=== PATIENT | female | born 1935 | race Caucasian/White ===

== ENCOUNTER → 2018-09-26 08:19 | Outpatient (CLI) | payer MEDICARE, SELFPAY ==
[2018-09-26 13:46] LABS: Basophils % 0.2 % (0.1-2.0); Eosinophils # 0.1 K/mm3 (0.0-0.4); Eosinophils % 2.7 % (0.1-12.0); Hematocrit 35.8 % (37.0-47.0); Hemoglobin 12.1 g/dL (12.2-16.2); Lymphocytes % 43.4 K/mm3 (10-50); Mean Corpuscular HGB Conc 33.9 g/dL (31.8-35.4); Mean Corpuscular Hemoglobin 31.6 pg (27.0-31.2); Mean Corpuscular Volume 93.3 fl (81-99); Monocytes # 0.2 K/mm3 (0.1-1.0); Monocytes % 4.4 % (1.7-9.3); Neutrophils # 2.3 K/mm3 (1.8-7.8); Neutrophils % 49.3 % (37.0-80.0); Platelet Count 214 K/mm3 (142-424); Red Blood Count 3.84 M/mm3 (4.20-5.40); Red Cell Distribution Width 13.6 % (11.5-17.5); White Blood Count 4.7 K/mm3 (4.8-10.8)
[2018-09-26 14:05] LABS: Alanine Aminotransferase 22 U/L (12-78); Albumin Level 3.7 gm/dL (3.4-5.0); Albumin/Globulin Ratio 1.2 (1.1-1.8); Alkaline Phosphatase 61 U/L (46-116); Anion Gap 14.2 mEq/L (5-15); Aspartate Amino Transferase 19 U/L (15-37); Bilirubin,Total 0.5 mg/dL (0.2-1.0); Blood Urea Nitrogen 15 mg/dL (7-18); Calcium 9.1 mg/dL (8.5-10.1); Carbon Dioxide 26 mmol/L (21.0-32.0); Chloride 104 mmol/L (98-107); Chol/HDL Ratio 2.8 (1-3.5); Cholesterol 189 mg/dL (140-200); Creatinine,Serum 0.65 mg/dL (0.55-1.02); Estimated Glomerular Filt Rate 87 ml/min (>60); GFR (African American) 105 ML/MIN (>60); Globulin 3.1 gm/dl (1.3-3.2); Glucose 97 mg/dL (74-106); HDL Cholesterol 67 mg/dL (29-89); LDL Cholesterol 107 mg/dL (0-130); Potassium 4.2 mmoL/L (3.5-5.1); Sodium 140 mmol/L (136-145); Total Protein,Serum 6.8 gm/dL (6.4-8.2); Triglycerides 77 mg/dL (30-200); VLDL Cholesterol 15 mg/dL (0-40)
== END ==
PROVIDERS: PCP Physician Assistant; Visit Provider Emergency Medicine
DX: R00.2 Palpitations (principal); E78.00 Pure hypercholesterolemia, unspecified; R07.2 Precordial pain; R06.02 Shortness of breath; R22.43 Localized swelling, mass and lump, lower limb, bilateral
CPT/HCPCS: 36415; 80053; 80061; 85025

== ENCOUNTER 2019-05-22 15:00 | Outpatient (RCR) | payer MEDICARE, SELFPAY | END 2019-06-09 15:58 | disposition home or self-care (01) | LOC: PT.CARL 15:00 | PROVIDERS: Visit Provider Nurse Practitioner Family | DX: M53.86 Other specified dorsopathies, lumbar region (principal) | CPT/HCPCS: 97010; 97014; 97033; 97035; 97110; 97140; 97163; G0283 ==

== ENCOUNTER 2020-04-07 18:05 | Observation (INO) | payer MEDICARE, SELFPAY ==
--- NOTE | 2020-04-07 17:29 | ECG_ITS ---
APPROVED REPORT Exam: Resting ECG HR:56 bpm ECG Measurements Heart Rate 56 AXES IA 144 P 66 QRSd 84 QRS 8 QT 454 T 51 QTc 438 <Conclusion> Sinus bradycardia Otherwise normal ECG Electronically signed by : Trev Hays, 04/09/2020 06:33:17
--- NOTE | 2020-04-07 17:29 | CT_ITS ---
PROCEDURE: CT HEAD/BRAIN WO CON CLINICAL INDICATION: dizziness, left facial droop Dizziness, left-sided facial droop COMPARISON: No exams were available for comparison TECHNIQUE: Axial images obtained. All CT scans at the facility use one or more dose reduction, viz: automated exposure control, ma/kV adjustment per patient size (including targeted exams where dose is matched to indication, i.e. head), or iterative reconstruction technique. There is generalized atrophy with hypoattenuation of the periventricular white matter consistent with microangiopathic changes. FINDINGS: No midline shift, mass effect, intracranial hemorrhage, hydrocephalus, or extra-axial fluid collection is evident. The calvarium has an unremarkable appearance. Mild partial mastoid sinus opacification bilaterally. No sinus air-fluid level. IMPRESSION: No acute intracranial finding Dictated by: Omid Valenzuela MD 04/07/2020 19:44 Electronically signed by Omid Valenzuela MD in [place] 04/07/2020 19:44
[2020-04-07 18:09] VITALS: BP 123/69; PULSE 59; RESP 18; TEMP 36.7; O2SAT 100; BMI 28.9
--- NOTE | 2020-04-07 18:55 | PC.NURSE ---
Pt arrived to unit at this time. No complaints of pain or SOA. VSS. Call light within reach.
--- NOTE | 2020-04-07 19:10 | PC.NURSE ---
report given to ty
[2020-04-07 19:28] LABS: Basophils % 0.4 % (0.1-2.0); Eosinophils # 0.1 K/mm3 (0.0-0.4); Eosinophils % 1.7 % (0.1-12.0); Hematocrit 34.5 % (37.0-47.0); Hemoglobin 11.3 g/dL (12.2-16.2); Lymphocytes % 51.7 % (10-50); Mean Corpuscular HGB Conc 32.8 g/dL (31.8-35.4); Mean Corpuscular Hemoglobin 29.6 pg (27.0-31.2); Mean Corpuscular Volume 90.5 fl (81-99); Mean Platelet Volume 7.6 fl (7.4-10.4); Monocytes # 0.3 K/mm3 (0.1-1.0); Monocytes % 5.7 % (1.7-9.3); Neutrophils # 2.3 K/mm3 (1.8-7.8); Neutrophils % 40.4 % (37.0-80.0); Platelet Count 231 K/mm3 (142-424); Red Blood Count 3.81 M/mm3 (4.20-5.40); Red Cell Distribution Width 14.8 % (11.5-17.5); White Blood Count 5.8 K/mm3 (4.8-10.8)
[2020-04-07 19:30] LABS: Chloride 102 mmol/L (98-107); Sodium 132 mmol/L (136-145)
[2020-04-07 19:32] LABS: Alanine Aminotransferase 14 U/L (12-78); Aspartate Amino Transferase 27 U/L (14-36); Blood Urea Nitrogen 20 mg/dl (7-17); Estimated Glomerular Filt Rate 80 ml/min (>60); GFR (African American) 96 ML/MIN (>60)
[2020-04-07 19:33] VITALS: BP 122/68; RESP 16; TEMP 36.4; O2SAT 100
[2020-04-07 19:33] LABS: Albumin Level 4.1 g/dl (3.5-5.0); Albumin/Globulin Ratio 1.4 (1.1-1.8); Alkaline Phosphatase 68 U/L (38-126); Bilirubin,Total 0.4 mg/dl (0.2-1.3); Calcium 10.1 mg/dl (8.4-10.2); Carbon Dioxide 25 mmol/L (22.0-30.0); Chol/HDL Ratio 2.8 (1-3.5); Cholesterol 185 mg/dl (140-200); Glucose 94 mg/dl (74-100); HDL Cholesterol 65 mg/dl (40-60); MANUAL DIFFERENTIAL MANUAL DIFFERENTIAL (MANUAL DIFF); Magnesium 1.6 mg/dl (1.6-2.3); Total Protein,Serum 7.1 g/dl (6.3-8.2); Triglycerides 88 mg/dl (30-150); VLDL Cholesterol 18 mg/dL (0-40)
[2020-04-07 19:44] LABS: Direct LDL Cholesterol 107.73 mg/dL (100-129)
[2020-04-07 20:00] VITALS: PULSE 80
[2020-04-07 20:03] LABS: Lymphocytes % 55 % (10-50); Monocytes % 4 % (2-9); Neutrophils % 41 % (42-76); Platelet Estimate Normal; RBC Morphology Normal; Total Cells Counted 100
--- NOTE | 2020-04-07 20:28 | HMH.HP ---
*Admission Date: 04/07/20 *Chief complaint: dizziness *History of present illness: 84 yr old female seen today in outpatient clinic with complaints of dizziness that has been present for about 10 days. Sudden onset, sensation of room spinning. Seen initially and given script for meclizine, home exercises for positional vertigo and labs were done which were unremarkable. Since that time has developed diarrhea, poor appetite and has had persistent dizziness. She also reports some mild difficulty swallowing and inability to smile for several days. In clinic today she was noted to be relatively hypotensive compared to baseline, had a mild left facial droop and some difficulty with word-finding and was admitted for further evaluation. [facility] History I have reviewed the patient's past medical history: Yes Medical History: Reports:: Hypertension, Palpitations *Have you ever received a pneumonia vaccine?: Yes *Have you received a flu vaccine this season?: Yes Other Medical History: Reports: Arthritis Laterality Cases: Right: Arthroscopy Knee, Total Hip Replacement, Bilateral: Arthroscopy Shoulder, Total Knee Replacement Other Surgeries: Yes: Appendectomy, Cholecystectomy, Colonoscopy, EGD, Hysterectomy-Total Amputation: No - *Social History Educational Level: Completed High School Smoking Status: Never smoker Alcohol Intake: never Substance Use Type: denies use *Occupational Status:: retired *Travel in the last 8 weeks: None Family Hx:: Stroke Review of Systems - Review of Systems Review of systems:: pertinent systems reviewed and negative unless documented below - Constitutional Reports fatigue, Reports weakness, Denies headache(s) - Eyes Denies blurry vision - ENT Reports abnormal hearing (fullness both ears), Reports poor balance, Reports dizziness, Reports difficulty swallowing (chronic but worse) - *Cardiovascular Reports rapid, pounding, or irregular heartbeat, Denies chest pain, Denies shortness of breath, Denies leg swelling, Denies radiating jaw, neck or arm pain - *Respiratory Denies cough - *Gastrointestinal Reports loose stools, Denies abdominal pain, Denies constipation, Denies nausea - *Musculoskeletal Reports abnormal walking (worse over the past few days, using cane and/or walker) - Integumentary/Breasts Denies rash - *Neurologic Reports abnormal walking, Reports abnormal speech, Reports unsteadiness, Reports dizziness, Reports dizziness, Reports weakness, Denies confusion, Denies headache(s) - Psychiatric Reports abnormal sleep pattern (difficulty sleeping since having hip surgery in December 2019), Denies anxiety Meds Allergies Allergy/AdvReac Type Severity Reaction Status Date / Time latex Allergy Intermediate I-RASH Unverified 11/13/17 14:46 Exam Vital signs and Labs for Last 24 Hours: Temp Pulse Resp BP Pulse Ox 97.6 F 59 L 16 122/68 100 04/07/20 19:33 04/07/20 18:09 04/07/20 19:33 04/07/20 19:33 04/07/20 19:33 Laboratory Results - last 24 hr 04/07/20 19:15: WBC 5.8, RBC 3.81 L, Hgb 11.3 L, Hct 34.5 L, MCV 90.5, MCH 29.6, MCHC 32.8, RDW 14.8, Plt Count 231, MPV 7.6, Neut % (Auto) 40.4, Lymph % (Auto) 51.7 H, [place] % (Auto) 5.7, Eos % (Auto) 1.7, Baso % (Auto) 0.4, Neut # (Auto) 2.3, Lymph # (Auto) 3.0, [place] # (Auto) 0.3, Eos # (Auto) 0.1, Baso # (Auto) 0.0, Total Counted 100, Neutrophils % (Manual) 41 L, Lymphocytes % (Manual) 55 H, Monocytes % (Manual) 4, Platelet Estimate Normal, RBC Morphology Normal 04/07/20 19:15: Sodium 132 L, Potassium 4.0, Chloride 102, Carbon Dioxide 25, Anion Gap 9.0, BUN 20 H, Creatinine 0.70, Estimated GFR 80, Est GFR ( Amer) 96, Glucose 94, Calcium 10.1, Magnesium 1.6, Total Bilirubin 0.4, AST 27, ALT 14, Alkaline Phosphatase 68, Total Protein 7.1, Albumin 4.1, Globulin 3.0, Albumin/Globulin Ratio 1.4, Triglycerides 88, Cholesterol 185, LDL Cholesterol Direct 107.73, VLDL Cholesterol 18, HDL Cholesterol 65 H, Cholesterol/HDL Ratio 2.8 I & O for
[2020-04-08] VITALS (11 sets, daily range): BP systolic 126–147; BP diastolic 50–66; PULSE 50–79; RESP 16–18; TEMP 36.4–36.8; O2SAT 93–100; BMI 29.0
--- NOTE | 2020-04-08 05:38 | PC.NURSE ---
A&OX4. PT TOLERATING RA WELL. PT C/O BEING DIZZY UPON ARRIVAL TO FLOOR. PT UP TO BATHROOM WITH STANDBY ASSIST, AMBULATING WELL. PT C/O BACK AND R HIP PAIN, ADMINISTERED PRN MED PER JAN. ON REASSESSMENT, PT RESTING IN BED. PT TOLERATING IV FLUIDS WELL. NO OTHER COMPLAINTS THUS FAR, VSS WILL CONTINUE TO MONITOR.
[2020-04-08 06:41] LABS: Basophils % 0.3 % (0.1-2.0); Eosinophils # 0.1 K/mm3 (0.0-0.4); Eosinophils % 2.2 % (0.1-12.0); Hematocrit 31.9 % (37.0-47.0); Hemoglobin 10.5 g/dL (12.2-16.2); Lymphocytes % 58.2 % (10-50); Mean Corpuscular HGB Conc 32.8 g/dL (31.8-35.4); Mean Corpuscular Hemoglobin 29.8 pg (27.0-31.2); Mean Corpuscular Volume 90.9 fl (81-99); Mean Platelet Volume 7.8 fl (7.4-10.4); Monocytes # 0.3 K/mm3 (0.1-1.0); Monocytes % 6.1 % (1.7-9.3); Neutrophils # 1.7 K/mm3 (1.8-7.8); Neutrophils % 33.3 % (37.0-80.0); Platelet Count 201 K/mm3 (142-424); Red Blood Count 3.51 M/mm3 (4.20-5.40); Red Cell Distribution Width 14.8 % (11.5-17.5); White Blood Count 5.2 K/mm3 (4.8-10.8)
[2020-04-08 06:42] LABS: MANUAL DIFFERENTIAL MANUAL DIFFERENTIAL (MANUAL DIFF)
[2020-04-08 06:51] LABS: Chloride 105 mmol/L (98-107); Potassium 3.8 mmoL/L (3.5-5.1); Sodium 135 mmol/L (136-145)
[2020-04-08 06:54] LABS: Alanine Aminotransferase 14 U/L (12-78); Albumin Level 3.4 g/dl (3.5-5.0); Albumin/Globulin Ratio 1.2 (1.1-1.8); Alkaline Phosphatase 54 U/L (38-126); Anion Gap 8.8 mEq/L (5-15); Aspartate Amino Transferase 29 U/L (14-36); Bilirubin,Total 0.5 mg/dl (0.2-1.3); Blood Urea Nitrogen 16 mg/dl (7-17); Carbon Dioxide 25 mmol/L (22.0-30.0); Creatinine Clearance Estimated 43 mL/min (50-200); Estimated Glomerular Filt Rate 95 ml/min (>60); GFR (African American) 115 ML/MIN (>60); Globulin 2.8 g/dL (1.3-3.2); Total Protein,Serum 6.2 g/dl (6.3-8.2)
[2020-04-08 06:55] LABS: Calcium 9.3 mg/dl (8.4-10.2); Glucose 94 mg/dl (74-100)
[2020-04-08 07:16] LABS: Eosinophils % 3 % (0-3); Lymphocytes % 57 % (10-50); Monocytes % 6 % (2-9); Neutrophils % 34 % (42-76); Total Cells Counted 100
[2020-04-08 07:17] LABS: Platelet Estimate Slight Decrease; RBC Morphology Normal
--- NOTE | 2020-04-08 07:18 | HMH.PHAVTE ---
[facility] VTE Monitoring - Patient Demographics Admission date: 04/07/20 Report Date: 04/08/20 Time: 07:18 Allergies/Adverse Reactions: Patient Allergies latex Allergy (Intermediate, Verified 04/08/20 01:17) I-RASH Height: 1.52 m Weight: 66.933 kg Patient Problems: Current Active Problems Hypotension due to drugs (Acute) Dizziness of unknown etiology (Acute) Facial asymmetry (Acute) Unsteady gait (Acute) Senile debility (Chronic) - VTE Risk Labs: VTE Related Lab Results Hgb 10.5 g/dL (12.2-16.2) L 04/08/20 06:14 Hct 31.9 % (37.0-47.0) L 04/08/20 06:14 Plt Count 201 K/mm3 (142-424) 04/08/20 06:14 BUN 16 mg/dl (7-17) 04/08/20 06:14 Creatinine 0.60 mg/dl (0.52-1.04) 04/08/20 06:14 Estimated Creat Clear 43 mL/min (50-200) 04/08/20 06:14 Was VTE Risk Assessment Performed: Yes VTE Score: 7 VTE Risk Level: Moderate Risk Clinical Trial Participant: No - Prophylaxis VTE Prophylaxis Ordered?: Yes Types of VTE Prophylaxis: TEDS Knee High
--- NOTE | 2020-04-08 07:22 | HMH.PHAINT ---
HOME MEDICATION RECONCILIATION COMPLETED USING LIST FROM [employer] [facility].
--- NOTE | 2020-04-08 09:01 | HMH.ACPN2 ---
Internal Medicine - PN: Subj *Date: 04/08/20 *Time: 17:59 Interval history: Patient was pleasant on exam this morning. Continues to complain of dizziness. States she has had some congestion and popping in her ears for over a week and a half. Mild nausea with dizziness when it severe. Has had 3 loose stools a day for the past week and a half as well. Only one loose, not watery, stool this morning. Denies any fever, shortness of breath, cough, congestion. No falls or syncope. Reviewed her CT and labs with her this morning. Labs essentially unremarkable aside from some mild anemia. CT was negative for any acute findings. No appreciated focal neurologic findings on exam this morning. Exam Vital signs and Labs for Last 24 Hours: Temp Pulse Resp BP Pulse Ox 97.5 F L 68 18 141/62 H 100 04/08/20 07:35 04/08/20 07:35 04/08/20 07:35 04/08/20 07:35 04/08/20 07:35 Laboratory Results - last 24 hr 04/07/20 19:15: WBC 5.8, RBC 3.81 L, Hgb 11.3 L, Hct 34.5 L, MCV 90.5, MCH 29.6, MCHC 32.8, RDW 14.8, Plt Count 231, MPV 7.6, Neut % (Auto) 40.4, Lymph % (Auto) 51.7 H, [place] % (Auto) 5.7, Eos % (Auto) 1.7, Baso % (Auto) 0.4, Neut # (Auto) 2.3, Lymph # (Auto) 3.0, Wilkinson # (Auto) 0.3, Eos # (Auto) 0.1, Baso # (Auto) 0.0, Total Counted 100, Neutrophils % (Manual) 41 L, Lymphocytes % (Manual) 55 H, Monocytes % (Manual) 4, Platelet Estimate Normal, RBC Morphology Normal 04/07/20 19:15: Sodium 132 L, Potassium 4.0, Chloride 102, Carbon Dioxide 25, Anion Gap 9.0, BUN 20 H, Creatinine 0.70, Estimated GFR 80, Est GFR ( Amer) 96, Glucose 94, Calcium 10.1, Magnesium 1.6, Total Bilirubin 0.4, AST 27, ALT 14, Alkaline Phosphatase 68, Total Protein 7.1, Albumin 4.1, Globulin 3.0, Albumin/Globulin Ratio 1.4, Triglycerides 88, Cholesterol 185, LDL Cholesterol Direct 107.73, VLDL Cholesterol 18, HDL Cholesterol 65 H, Cholesterol/HDL Ratio 2.8 04/08/20 06:14: WBC 5.2, RBC 3.51 L, Hgb 10.5 L, Hct 31.9 L, MCV 90.9, MCH 29.8, MCHC 32.8, RDW 14.8, Plt Count 201, MPV 7.8, Neut % (Auto) 33.3 L, Lymph % (Auto) 58.2 H, Wilkinson % (Auto) 6.1, Eos % (Auto) 2.2, Baso % (Auto) 0.3, Neut # (Auto) 1.7 L, Lymph # (Auto) 3.0, Wilkinson # (Auto) 0.3, Eos # (Auto) 0.1, Baso # (Auto) 0.0, Total Counted 100, Neutrophils % (Manual) 34 L, Lymphocytes % (Manual) 57 H, Monocytes % (Manual) 6, Eosinophils % (Manual) 3, Platelet Estimate Slight decrease, RBC Morphology Normal 04/08/20 06:14: Sodium 135 L, Potassium 3.8, Chloride 105, Carbon Dioxide 25, Anion Gap 8.8, BUN 16, Creatinine 0.60, Estimated Creat Clear 43, Estimated GFR 95, Est GFR ( Amer) 115, Glucose 94, Calcium 9.3, Total Bilirubin 0.5, AST 29, ALT 14, Alkaline Phosphatase 54, Total Protein 6.2 L, Albumin 3.4 L D, Globulin 2.8, Albumin/Globulin Ratio 1.2 I & O for Last 24 hours: Intake & Output 04/05/20 04/06/20 04/07/20 04/08/20 23:59 23:59 23:59 23:59 Intake Total 934 / 934 Output Total 400 / 400 300 / 300 Balance -400 / -400 634 / 634 Weight 67.188 kg 66.933 kg - Constitutional no acute distress Comments: elderly - *Routine HEENT Exam Head: Present: normocephalic Eye: Present: EOMI, PERRL ENT: Present: mucous membranes moist, external ear normal. Absent: sinus tenderness Comments: Bilateral serous effusions with air-fluid levels - *Routine Neck Exam Present: supple. Absent: full ROM, lymphadenopathy Comments: ROM limited by arthritis in neck - *Routine Respiratory Exam Present: CTA bilaterally - *Routine Cardiovascular Exam Present: RRR - *Routine Abdominal Exam Present: soft, normoactive bowel sounds. Absent: tenderness - *Routine Extremities Exam Present: edema (Trace). Absent: cyanosis, clubbing Comments: Well-healed surgical scars overlying knees, healing scar overlying right hip - *Routine Skin Exam Present: warm. Absent: rash - *Routine Neurological Exam Present: alert, oriented X3, CN II-XII intact. Absent: motor deficit, hemineglect, tremors no
--- NOTE | 2020-04-08 10:49 | HMH.OTEV ---
OT Inpatient Evaluation Rehab OT IP Evaluation Start: 04/07/20 21:04 Freq: ONCE Status: Complete Protocol: Document 04/08/20 10:43 [facility] (Rec: 04/08/20 10:49 [facility] [id number]) Rehab OT IP Assessment Subjective History Pt oriented x 3 on arrival. Pt was admitted on 02/06/20 due to persistent dizziness, stomach issues, and mild facial droop. Pt has a past medical history of HTN and palpations. Pt claims she lived at home alone and was independent with all ADL's and IADL's. Pt did still use a walker or cane at times during ambulation. Subjective I just get light headed. Objective Patient Orientation Person,Place,Birthday Upper Extremity Gross ROM WFL Bed Mobility bed mobility-scooting,bed mobility - supine/sit,bed mobility - rolling Assist Level Contact Guard/Hand Hold Transfer Training Sit/Stand Transfer Assist Level Minimal x 1 (25% assist) Rehab OT IP prob,goals,plan Problems Date of Evaluation: 04/08/20 OT IP Problems Bed Mobility,Transfers,Gait, Balance,Self care,Safety Rehab Potential Rehab Potential Good Equipment Needs Assistive Devices Rolling / Wheeled Walker Plan OT intervention Plan Bed Mobility,Transfers,Gait, Balance,Self care,Safety, Therapeutic Exercise OT Plan Frequency Daily Duration LOS Discharge Goals Bed Mobility Ability Standby Assistance Sit to Stand Chair Transfer Ability Contact Guard/Hand Hold Chair Transfer Ability Contact Guard/Hand Hold Chair Transfer Technique Sit to/from Ambulatory Chair Transfer Assistive Devices Rolling Walker Feeding Ability Independent Lower Body Dressing Ability Assistance X1 Upper Body Dressing Ability Standby Assistance Bathing Ability Assistance x1 Performing Toilet Hygiene Ability Standby Assistance Overall Commode/Toilet Transfer Ability Standby Assistance Commode/Toilet Transfer Technique Sit to/from Ambulatory Oral Care Ability Independent Discharge Plan OT Discharge Plan Pt would be most appropriate for rehab placement following hospital discharge. However, once medically s
--- NOTE | 2020-04-08 10:58 | HMH.PTEV ---
Physical Therapy Evaluation Rehab PT IP Evaluation Start: 04/08/20 09:00 Freq: ONCE Status: Active Protocol: Document 04/08/20 09:30 [facility] (Rec: 04/08/20 10:57 [facility] [id number]) Subjective/History History History 85 yowf who presents with c/o increased dizziness x ~ 10 days. She reports dizziness is more positional but multiple position changes exacerbate her symptoms. She has hx of HTN, R MONTSE, B TKA. She lives alone and is independent with all mobility. Subjective Subjective Pt c/o dizziness and lightheadedness. Rehab PT IP Eval Objective Appearance Patient Behavior Appropriate Patient Orientation Person,Place,Time Speech Pattern Clear Ambulation Patient Able to Ambulate Yes Ambulation Observation IP General Gait Pattern Observation Wide Based Gait,Shuffling Step Ambulation Distance (feet) 25 Ambulation Assistive Device Straight Cane Ambulation Ability Contact Guard/Hand Hold Balance Ability to Arise Able, uses arms to help Sitting Balance Steady, safe Standing Balance Unsteady Dynamic Sitting Balance Ability Good Dynamic Standing Balance Ability Fair Transfers Bed Transfer Ability Contact Guard/Hand Hold Chair Transfer Ability Contact Guard/Hand Hold Sit to Stand Bed Transfer Ability Contact Guard/Hand Hold Sit to Stand Chair Transfer Ability Contact Guard/Hand Hold ROM All Extremities PT ROM Status WFL MMT All Extremities PT MMT WFL Rehab PT IP prob,goals,plan Problems Date of Evaluation: 04/08/20 PT IP Problems Bed Mobility,Transfers,Gait Rehab Potential Rehab Potential Good Plan PT Intervention Plan Bed Mobility,Transfers,Gait, Therapeutic Exercise PT Plan Frequency BID Duration LOS Discharge Goals Bed Transfer Ability Supervision/Stand by Sit to Stand Chair Transfer Ability Supervision/Stand by Ambulation Assistive Device Straight Cane Ambulation Distance (feet) 40 Discharge Plan PT Discharge Plan Pt is most appropriate for rehab placement, but could return home once medically stable if she is safe to ambulate independently. G -code Required No Eval Complexity Eval Charge Codes 08160 -
--- NOTE | 2020-04-08 14:39 | PC.NURSE ---
Pt continues to c/o dizziness, especially upon rising. Denies pain/shortness of breath. Pt cont to remain alert and oriented, but does state that she has not slept well for the last 2 weeks.
--- NOTE | 2020-04-08 17:29 | CA_ITS ---
APPROVED REPORT Spare Hand: LORAINE Laterality: Bilateral Indications: hypotension, dizziness, possible CVA Risk Factors Hypertension: TIA/CVA History Doppler Spectral Velocity Analysis ECA (R) 125.90/9.40 cm/s ECA (L) 86.50/7.70 cm/s dICA (R) 60.80/19.70 cm/s dICA (L) 80.20/14.90 cm/s Ana (R) 87.40/22.30 cm/s Ana (L) 84.90/18.10 cm/s pICA (R) 78.80/11.10 cm/s pICA (L) 69.20/13.40 cm/s dCCA (R) 92.50/17.10 cm/s dCCA (L) 103.70/15.40 cm/s pCCA (R) 125.90/16.30 cm/s pCCA (L) 84.00/9.40 cm/s Vert (R) 68.50/18.00 cm/s Vert (L) 32.30/6.20 cm/s ICA/CCA 0.90 ICA/CCA 0.80 Conclusion Duplex evaluation demonstrates stenosis of the right proximal internal carotid artery <20% with PSV <140 cm/sec, EDV <100 cm/sec, and IC/CC Ratio <4.0.Duplex evaluation demonstrates stenosis of the left proximal internal carotid artery <20% with PSV <140 cm/sec, EDV <100 cm/sec, and IC/CC Ratio <4.0. Electronically signed by : Omid Valenzuela MD 04/08/2020 17:04:52
--- NOTE | 2020-04-08 17:29 | CA_ITS ---
APPROVED REPORT EXAM: Comprehensive 2D, Doppler, and color-flow Echocardiogram Music Promoter: Stephanie Murry RVT Ht: 5 ft 0 in Wt: 146lbs BSA: 1.63 BP: 122/68 mmHg Indications: Palpitations, HTN, hypotension on admission 2D Dimensions LVOT 1.76 cm (M/F) 1.5-2.5 M-Mode Dimensions RVDd 1.94 cm (0.9-2.6) LVDd 3.92 cm (3.5-5.7) LVDs 2.67 cm (3.5-5.7) IVSd 0.81 cm (0.6-1.1) PWd 0.75 cm (0.6-1.1) EF (Teich) 60.60% FS 31.90% EDV (Teich) 66.70 mL ESV (Teich) 26.30 mL LV Diastology E/A Ratio 0.92 Mitral Valve MV A Velocity 112.00 (40-130 cm/s) Left Ventricle Left atrium is mildly enlarged, left ventricle is normal size, mild concentric left ventricular hypertrophy, visually estimated ejection fraction 55% with no regional wall motion abnormality, grade 1 diastolic dysfunction seen without tissue Doppler evidence of raise left atrial pressure. Right Ventricle Right atrium and right ventricular normal size and contractility. Aortic Valve Aortic valve is minimally thickened and fibrosed, there is no aortic stenosis aortic insufficiency. Mitral Valve Mitral valve is minimally thickened, there is mild mitral regurgitation. Tricuspid Valve Tricuspid valve is grossly normal, there is mild tricuspid regurgitation, tricuspid regurgitation jet velocity is inadequate for calculation of the right ventricular systolic pressure. Pulmonic Valve Pulmonic valve is poorly visualized. Great Vessels Aortic root is normal size. Pericardium No significant pericardial effusion noted. Conclusion 1. Mildly enlarged left atrium, normal left ventricular size, mild concentric left ventricular hypertrophy, visually estimated ejection fraction 55% with no regional wall motion abnormality, grade 1 diastolic dysfunction seen without tissue Doppler evidence of raise left atrial pressure. 2. Mild mitral and tricuspid regurgitation. 3. No significant pericardial effusion noted, inferior vena cava is normal size with normal inspiratory collapse. Electronically signed by : Talha Arce, 04/08/2020 12:31:26
[2020-04-09] VITALS: PULSE 50
--- NOTE | 2020-04-09 03:25 | PC.NURSE ---
A&OX4. PT TOLERATING RA WELL T/O SHIFT. PT STATED THAT SHE FEELS MUCH BETTER THIS SHIFT AFTER HER TREATMENT EARLIER ON 04/08. PT STATES THAT SHE STILL GETS SLIGHTLY DIZZY UPON AMBULATION, BUT IT IS BETTER. PT C/O PAIN IN LOWER BACK AND R HIP ONCE THIS SHIFT, TREATED WITH PRN MED PER JAN, ON REASSESSMENT PT SLEEPING IN BED. PT AMBULATING WELL IN ROOM WITH STANDBY ASSIST. PT HAS NO OTHER COMPLAINTS THUS FAR, VSS WILL CONTINUE TO MONITOR.
[2020-04-09 04:00] VITALS: BP 145/73; PULSE 60; PULSE 70; RESP 18; TEMP 36.6; O2SAT 96
[2020-04-09 05:00] VITALS: BMI 30.4
[2020-04-09 05:12] VITALS: BMI 29.9
[2020-04-09 06:24] LABS: Basophils % 0.3 % (0.1-2.0); Eosinophils # 0.1 K/mm3 (0.0-0.4); Eosinophils % 2.8 % (0.1-12.0); Hematocrit 31.2 % (37.0-47.0); Hemoglobin 10.1 g/dL (12.2-16.2); Lymphocytes # 2.6 K/mm3 (0.7-4.5); Lymphocytes % 56.3 % (10-50); Mean Corpuscular HGB Conc 32.5 g/dL (31.8-35.4); Mean Corpuscular Hemoglobin 29.7 pg (27.0-31.2); Mean Corpuscular Volume 91.5 fl (81-99); Mean Platelet Volume 7.5 fl (7.4-10.4); Monocytes # 0.3 K/mm3 (0.1-1.0); Monocytes % 5.4 % (1.7-9.3); Neutrophils # 1.7 K/mm3 (1.8-7.8); Neutrophils % 35.2 % (37.0-80.0); Platelet Count 210 K/mm3 (142-424); Red Blood Count 3.41 M/mm3 (4.20-5.40); Red Cell Distribution Width 14.7 % (11.5-17.5); White Blood Count 4.7 K/mm3 (4.8-10.8)
[2020-04-09 06:29] LABS: MANUAL DIFFERENTIAL MANUAL DIFFERENTIAL (MANUAL DIFF)
[2020-04-09 06:30] LABS: Chloride 106 mmol/L (98-107); Sodium 135 mmol/L (136-145)
[2020-04-09 06:33] LABS: Blood Urea Nitrogen 11 mg/dl (7-17); Calcium 9.3 mg/dl (8.4-10.2); Carbon Dioxide 23 mmol/L (22.0-30.0); Creatinine Clearance Estimated 45 mL/min (50-200); Estimated Glomerular Filt Rate 117 ml/min (>60); GFR (African American) 142 ML/MIN (>60); Glucose 89 mg/dl (74-100)
[2020-04-09 08:00] VITALS: BP 138/67; PULSE 97; RESP 18; TEMP 36.8; O2SAT 97
--- NOTE | 2020-04-09 08:21 | HMH.DCSUM ---
General - General Admission date:: 04/07/20 Discharge date: 04/09/20 HPI HPI: 84 yr old female seen today in outpatient clinic with complaints of dizziness that has been present for about 10 days. Sudden onset, sensation of room spinning. Seen initially and given script for meclizine, home exercises for positional vertigo and labs were done which were unremarkable. Since that time has developed diarrhea, poor appetite and has had persistent dizziness. She also reports some mild difficulty swallowing and inability to smile for several days. In clinic today she was noted to be relatively hypotensive compared to baseline, had a mild left facial droop and some difficulty with word-finding and was admitted for further evaluation. Hospital Course Hospital Course: Patient was admitted, CT scan of head was negative. Carotid Doppler showed less than 20% stenosis bilaterally. Echocardiogram showed grade 1 diastolic dysfunction and mildly enlarged left atrium but no evidence of significant systolic failure or evidence of clotting. Patient did well with cessation of her HCTZ, and orthostasis resolved. GI disturbance with diarrhea also resolved. Physical therapy did an extensive evaluation with patient and determined she had mild left-sided vertigo. They determined that she would be a good candidate for home health for PT and OT. Plan will be to discharge home today. She will be prescribed very low-dose Sudafed along with Flonase for her serous otitis and vertiginous symptoms. We will ask [place] home health agency to evaluate her for PT/OT evaluation at home. As well as home safety evaluation. Follow-up will be in my office next week. Note we will continue discontinuation of her HCTZ. Objective Vital signs: Temp Pulse Resp BP Pulse Ox 97.8 F 60 18 145/73 H 96 04/09/20 04:00 04/09/20 04:00 04/09/20 04:00 04/09/20 04:00 04/09/20 04:00 Narrative: Patient is alert, oriented x3. Pleasant. Oropharynx clear. No cranial nerve deficits. Able to move arms and legs well. Good appetite. Lungs clear, heart rate regular. Abdomen soft. No skin rash. No edema. ENT exam clear. Results Labs on day of discharge: Labs from last 24 hours 04/09/20 04/09/20 06:05 06:05 WBC 4.7 L RBC 3.41 L Hgb 10.1 L Hct 31.2 L MCV 91.5 MCH 29.7 MCHC 32.5 RDW 14.7 Plt Count 210 MPV 7.5 Neut % (Auto) 35.2 L Lymph % (Auto) 56.3 H Pope % (Auto) 5.4 Eos % (Auto) 2.8 Baso % (Auto) 0.3 Neut # (Auto) 1.7 L Lymph # (Auto) 2.6 Pope # (Auto) 0.3 Eos # (Auto) 0.1 Baso # (Auto) 0.0 Sodium 135 L Potassium 4.0 Chloride 106 Carbon Dioxide 23 Anion Gap 10.0 BUN 11 D Creatinine 0.50 L Estimated Creat Clear 45 Estimated GFR 117 Est GFR ( Amer) 142 D Glucose 89 Calcium 9.3 DS: Diagnosis - Discharge Diagnosis (1) Hypotension due to drugs Status: Resolved (2) Dizziness of unknown etiology Status: Chronic (3) Facial asymmetry Status: Resolved (4) Unsteady gait Status: Chronic (5) Senile debility Status: Chronic (6) BPPV (benign paroxysmal positional vertigo) Status: Chronic Discharge Plan - Patient Discharge Instructions ACTIVITY: Continue current activity DIET: continue same diet Additional Instructions: Please note I performed a [id number] examination on patient today qualifying patient for home health. She cannot leave her house without significant difficulty because of dizziness and pain. Patient requires evaluation for PT/OT/home safety for the above diagnosis. - Follow up Plan Follow up with: Aminah Reyes APRN [Nurse Practitioner] - 04/15/20 Disposition: Home Health Service Home Medications: Home Medications Medication Instructions Recorded Confirmed Type Celecoxib [CeleBREX 100mg Capsule] 100 mg PO DAILY 04/07/20 04/07/20 History Hydrocodone/Acetaminophen 1 each PO BIDP HI
[2020-04-09 09:06] LABS: Eosinophils % 2 % (0-3); Lymphocytes % 59 % (10-50); Monocytes % 6 % (2-9); Neutrophils % 33 % (42-76); Total Cells Counted 100
[2020-04-09 09:07] LABS: Platelet Estimate Slight Increase; RBC Morphology Normal
--- NOTE | 2020-04-09 10:01 | SW/DCPLANNER ---
Addendum entered by Cherelle Armstrong 04/09/20 10:17: Patient information has been reviewed by [facility] and services will begin for this patient. Original Note: I have spoke with this patient regarding discharge plans. MD has requested that this patient discharge home with home health services. I have spoke with patient and she is agreeable to home health services. Patient information and HH order for PT/OT has been faxed to [facility]. I will follow up with [facility] once patient information is reviewed.
--- NOTE | 2020-04-09 11:51 | PC.NURSE ---
THIS RN WAS PROVIDING D/C INFORMATION TO PATIENT'S DAUGHTER, PATIENT WAS WALKING FROM RESTROOM, CALLED OUT FOR DAUGHTER SHE WAS WALKING OUT THE DOOR, PATIENT BECAME DIZZY AND NEARLY FELL. DAUGHTER WAS NEXT TO PATIENT ALONG WITH ILYA MITCHELL. SRNA HAD A WHEELCHAIR WITH HER AT THAT MOMENT AND PATIENT WAS SEATED DOWN IMMEDIATELY. THIS RN PHONED DR. ESPANA'S OFICE AND LEFT MESSAGE.
--- NOTE | 2020-04-09 12:26 | HMH.PHAINT ---
DISCHARGE COUNSELING COMPLETED.
--- NOTE | 2020-04-09 19:32 | PC.NURSE ---
THIS RN SPOKE WITH SARA RUBIO TO CONTINUE TO D/C PATIENT HOME WITH HOME HEALTH. THIS RN PROVIDED INFORMATION TO PATIENT AND DAUGHTER, BOTH VERBALIZED AN UNDERSTANDING.
== END 2020-04-09 13:25 | disposition home health service (06) ==
PROVIDERS: Internal Medicine Adolescent Medicine; Nurse Practitioner Family; Admitting Provider Internal Medicine Adolescent Medicine; PCP Internal Medicine Adolescent Medicine; Visit Provider Internal Medicine Adolescent Medicine
DX: H81.12 Benign paroxysmal vertigo, left ear (principal); E86.0 Dehydration; H65.92 Unspecified nonsuppurative otitis media, left ear; I10 Essential (primary) hypertension; Z79.899 Other long term (current) drug therapy; R29.810 Facial weakness; R54 Age-related physical debility; I95.2 Hypotension due to drugs; T45.0X5A Adverse effect of antiallergic and antiemetic drugs, initial encounter
CPT/HCPCS: G0379; 36415; 70450; 80048; 80053; 80061; 83735; 85007; 85025; 93005; 93306; 93880; 97140; 97163; 97166; 97530; G0378

== ENCOUNTER 2020-07-27 18:56 | Observation (INO) | payer MEDICARE, SELFPAY ==
[2020-07-27 18:57] VITALS: BP 170/68; PULSE 74; RESP 18; TEMP 36.9; O2SAT 100; BMI 25.7
--- NOTE | 2020-07-27 18:57 | CT_ITS ---
PROCEDURE: CT HEAD/BRAIN WO CON CLINICAL INDICATION: fall with low cervical pain, left eye/cheek pain COMPARISON: CT CT HEAD/BRAIN WO CON from 04/07/2020 TECHNIQUE: Axial images obtained. All CT scans at the facility use one or more dose reduction, viz: automated exposure control, ma/kV adjustment per patient size (including targeted exams where dose is matched to indication, i.e. head), or iterative reconstruction technique. FINDINGS: No midline shift, mass effect, intracranial hemorrhage, hydrocephalus, or extra-axial fluid collection is evident. There is generalized atrophy with hypoattenuation of the periventricular white matter consistent with microangiopathic changes. The calvarium has an unremarkable appearance. No mastoid effusion. Prominent soft tissue swelling is present in the left frontal region of the scalp and in the left infraorbital region. IMPRESSION: 1. No acute intracranial findings. 2. Left frontal scalp and infraorbital hematoma Dictated by: Omid Valenzuela MD 07/28/2020 07:08 Omid Valenzuela MD in [facility] 07/28/2020 07:08
--- NOTE | 2020-07-27 18:57 | CT_ITS ---
PROCEDURE: CT CERVICAL SPINE WO CON CLINICAL INDICATION: fall with low cervical pain, left eye/cheek pain Neck injury with pain, contusion/abrasion or hematoma, cervical sprain/strain the COMPARISON: No exams were available for comparison TECHNIQUE: Axial images obtained with sagittal and coronal reformats. All CT scans at the facility use one or more dose reduction, viz: automated exposure control, ma/kV adjustment per patient size (including targeted exams where dose is matched to indication, i.e. head), or iterative reconstruction technique. Axial spiral CT scanning performed of the cervical spine beginning at the base of the skull and continuing to the upper T-spine. 3-D multiplanar reconstruction with 3-D manipulation of volumetric data set in image rendering was completed by the radiologist and/or technologist with the supervision of the radiologist on independent workstation. FINDINGS: There is reversal of the normal cervical lordosis. Significant osteoarthritic/degenerative changes are present at the atlantoaxial joint and posterior to the dens with cystic changes at the base of the odontoid process. No acute fracture or dislocation. 3 mm anterolisthesis of C2 on C3 with degenerative disc disease C3-C4: Degenerate disc disease with mild foraminal narrowing on the left. C4-C5: Degenerate disc disease. C5-C6 degenerative disc disease with endplate hypertrophic change slightly greater on the left with left-sided foraminal narrowing and narrowing of the canal. C7-T1: Degenerate disc disease with endplate hypertrophic change eccentric toward the right with right lateral recess and foraminal narrowing. C7-T1: 3 mm anterolisthesis of C7. Significant bony hypertrophy with nuchal ligament calcification noted at C7-T1. Interlobular septal thickening noted in the lung apices with patchy ground-glass density in the upper lobes nonspecific. Carotid artery calcifications are present. IMPRESSION: 1. No acute fracture. 2. Severe multilevel cervical spondylosis. Dictated by: Omid Valenzuela MD 07/28/2020 09:37 Omid Valenzuela MD in [facility] 07/28/2020 09:37
--- NOTE | 2020-07-27 18:57 | CT_ITS ---
PROCEDURE: CT FACIAL BONES WO CON CLINICAL HISTORY: fall with low cervical pain, left eye/cheek pain Injury with pain, left-sided scalp hematoma with abrasion and bleeding, Blunt trauma with injury and pain, contusion/abrasion or hematoma following injury COMPARISON: No exams were available for comparison TECHNIQUE: Axial images obtained with sagittal and coronal reformats. All CT scans at the facility use one or more dose reduction, viz: automated exposure control, ma/kV adjustment per patient size (including targeted exams where dose is matched to indication, i.e. head), or iterative reconstruction technique. FINDINGS: Prominent soft tissue swelling is present in the left frontal region of the scalp and in the left periorbital and infraorbital region. Scattered faint subcutaneous calcifications are present along the forehead and glabellar region. No obvious fracture.. The globe appears intact. No sinus air-fluid level. IMPRESSION: 1. No acute fracture. 2. Prominent left periorbital maxillary soft tissue swelling with left frontal scalp hematoma Dictated by: Omid Valenzuela MD 07/28/2020 09:23 Omid Valenzuela MD in [facility] 07/28/2020 09:23
--- NOTE | 2020-07-27 19:00 | XR_ITS ---
PROCEDURE: XR HAND RT MIN 3V CLINICAL INDICATION: fall with pain COMPARISON: CR XR HAND LT MIN 3V from 07/27/2020 FINDINGS: There are severe osteoarthritic changes of the radiocarpal joint, 1st metacarpal-carpal joint. 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 Cystic changes are present at the distal radius and at the capitate. The lunate has an abnormal appearance as does the scaphoid flattened and somewhat rotated. There is angulation of the distal radius articular surface toward the ulna and angulation of the articular surface of the distal ulna toward radius resulting in a be shape of the distal radial and ulnar articular surfaces. There is a bony fragment at the radial ulnar junction which could be due to a fracture. Faint calcification is present along the dorsal aspect of the wrist which could be dystrophic or due to bony fragments. There is prominent soft tissue swelling along the dorsal aspect of the wrist. There are osteoarthritic changes of the metacarpal-carpal joints and the interphalangeal joints with periarticular calcification. There is some deformity of the distal aspect of the proximal phalanx of the 4th digit. Osteoarthritic changes are present at the PIP and DIP joints. 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 Suggest CT for more thorough evaluation to exclude underlying fracture.. Diffuse osteoarthritic change of the hand with suspected chronic deformity of the distal aspect of the proximal phalanx of the 4th digit Dictated by: Omid Valenzuela MD 07/27/2020 21:58 Omid Valenzuela MD in [facility] 07/27/2020 21:58
--- NOTE | 2020-07-27 19:00 | XR_ITS ---
PROCEDURE: XR HAND LT MIN 3V CLINICAL INDICATION: fall with pain COMPARISON: No exams were available for comparison FINDINGS: Madelung deformity noted of the wrist with extensive osteoarthritic changes of the wrist and 1st metacarpal-carpal joint with lateral translation of the 1st metacarpal. Extensive osteoarthritic changes are present at the metacarpophalangeal joints and PIP and DIP is. No definite fracture or dislocation. Severe osteoarthritis is present involving the radial carpal joint. 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
--- NOTE | 2020-07-27 19:00 | XR_ITS ---
PROCEDURE: XR ANKLE RT MIN 3V CLINICAL INDICATION: fall, medial pain COMPARISON: No exams were available for comparison FINDINGS: There are mild osteoarthritic changes of the ankle joint with periarticular calcification. No definite fracture or dislocation. Soft tissue calcification noted along the leg posteriorly and at the heel region IMPRESSION: No acute findings. Dictated by: Omid Valenzuela MD 07/27/2020 22:02 Omid Valenzuela MD in [facility] 07/27/2020 22:02
--- NOTE | 2020-07-27 19:01 | HMH.EDFALL ---
ED Disposition Clinical Impression: Skin tear Fall Qualifiers: Encounter type: initial encounter Qualified Code(s): W19.XXXA - Unspecified fall, initial encounter Facial contusion Qualifiers: Encounter type: initial encounter Qualified Code(s): S00.83XA - Contusion of other part of head, initial encounter Ankle pain Qualifiers: Chronicity: acute Laterality: right Qualified Code(s): M25.571 - Pain in right ankle and joints of right foot Disposition: Still a Patient Condition on Discharge: Good Instructions: How to Prevent Falls, DI for Abrasion Referrals: Trev Hays MD [Primary Care Provider] - 3 days - Critical Care Critical Care Time: No Attestation: On , the high probability of a clinically significant, sudden or life threatening deterioration of the following system(s) required my full and direct attention, intervention and personal management. The time I documented below is in addition to time spent performing reported procedures but includes the following listed in this critical care notation. Medical Decision Making - Medical Records Medical records reviewed: Yes: I reviewed the patient's medical records. - Kyler Inquiry Pt receiving controlled substance: No Vital Signs: 07/27/20 18:57 Temperature 98.5 F Temperature Source Oral Pulse Rate [Left Radial] 74 Respiratory Rate 18 Blood Pressure [Right Arm] 170/68 H Blood Pressure Mean [Right Arm] 102 Blood Pressure Source [Right Arm] Automatic Cuff Blood Pressure Position [Right Arm] Sitting 02 Sat by Pulse Oximetry 100 Oxygen Delivery Method Room Air Orders (Tests/Meds): ORDERS Category Date Time Status CT cervical spine wo con Stat Cat Scan 07/27/20 18:[address] facial bones wo con Stat Cat Scan 07/27/20 18:[address] head/brain wo con Stat Cat Scan 07/27/20 18:57 Taken Ankle XR -Right minimum 3 Views [XR ankle RT min 3V] Exams 07/27/20 19:00 Taken Stat Elbow XR left mininum 3 views [XR elbow LT min 3V] Stat Exams 07/27/20 19:24 Taken XR hand LT min 3V Stat Exams 07/27/20 19:00 Taken XR hand RT min 3V Stat Exams 07/27/20 19:00 Taken - Radiology Data #1 Image(s): Ankle Image Reviewed: Yes I reviewed the patient's radiology image Preliminary Findings: Normal/NAD #2 Image(s): Hand Image Reviewed: Yes I reviewed the patient's radiology image No acute fracture or dislocation. Arthritis present. #3 Image(s): Elbow (left) Image Reviewed: Yes I reviewed the patient's radiology image Preliminary Findings: Normal/NAD Medical Decision Narrative: X-rays of bilateral hands, right ankle, left elbow with no acute fracture or dislocation though there is a significant amount of arthritis. Wounds cleaned and bandaged by nursing staff. Awaiting CT head, face, neck. Patient care transferred to Dr. Mendoza at 1999. Fall HPI - General Stated Complaint: fall Time Seen by Provider: 07/27/20 19:02 Mode of Arrival: EMS Source of Information: Patient, EMS Limitations: No Limitations - History of Present Illness HPI Narrative: This is an 85-year-old female with a past medical history significant for hypertension, arthritis who presents to the emergency department for left cheek, bilateral hand and medial right ankle pain after a fall that occurred just prior to arrival. She was on the steps of her house which are concrete trying to water her chua when she tipped forward too far and fell down 5 steps. She does not take any blood thinners, does take Celebrex. She denies any loss of consciousness. She does not initially complain of any neck pain and arrives immobilized with a c-collar and spine board via EMS. No chest pain, shortness of breath, back pain. - Related Data Home Medications Medication Instructions Recorded Confirmed Celecoxib [CeleBREX 100mg Capsule] 100 mg PO DAILY 04/07/20 07/27/20 Hydrocodone/Acetaminophen 1 each PO BIDP PRN 04/07/20 07/27/20 [Hydrocodone-Acetamin 5-325
--- NOTE | 2020-07-27 19:24 | XR_ITS ---
PROCEDURE: XR ELBOW LT MIN 3V CLINICAL INDICATION: fall Posttraumatic pain COMPARISON: No exams were available for comparison FINDINGS: No definite fracture. There is some minimal curvilinear calcification along the lateral aspect of the radial head which could be degenerative in nature. An avulsion fracture is not completely excluded but felt to be less likely. No donor site apparent and no displaced fat pad. There are mild osteoarthritic changes of the radial humeral joint IMPRESSION: Mild degenerative changes with probable dystrophic periarticular calcification. No definite acute finding. Please see above for detail Dictated by: Omid Valenzuela MD 07/27/2020 21:48 Omid Valenzuela MD in [facility] 07/27/2020 21:48
[2020-07-27 20:20] VITALS: BP 168/86; PULSE 69; RESP 15; TEMP 36.8; O2SAT 97
--- NOTE | 2020-07-27 20:46 | XR_ITS ---
PROCEDURE: XR HIP LT 2-3V W/PELVIS CLINICAL INDICATION: pain/fall Fall with injury and pain COMPARISON: CT CT PELVIS WO CON from 07/27/2020 FINDINGS: No obvious fracture or dislocation. Osteoarthritic changes are present at the hip with periarticular calcifications nonspecific. Osteitis pubis is present. There is diffuse vascular calcification. There is a right hip arthroplasty noted with heterotopic ossification in the right inguinal region. IMPRESSION: As above, no acute fracture Dictated by: Omid Valenzuela MD 07/28/2020 06:48 Omid Valenzuela MD in [facility] 07/28/2020 06:48
--- NOTE | 2020-07-27 20:48 | PC.NURSE ---
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
--- NOTE | 2020-07-27 21:12 | CT_ITS ---
PROCEDURE: CT PELVIS WO CON CLINICAL INDICATION: Fall Posttraumatic pain, pelvic pain following injury COMPARISON: No exams were available for comparison TECHNIQUE: Axial images obtained with sagittal and coronal reformats. All CT scans at the facility use one or more dose reduction, viz: automated exposure control, ma/kV adjustment per patient size (including targeted exams where dose is matched to indication, i.e. head), or iterative reconstruction technique. FINDINGS: There is moderate diffuse osteopenia. Artifact is present from a right hip arthroplasty. Osteoarthritic changes are present involving the left hip with periarticular calcification. Prominent in the has a pathic changes of the pelvis and bilateral greater trochanters and bilateral hamstring origin right more extensive than left. Osteitis pubis is present. No acute fracture or dislocation is apparent. There is 7 mm anterolisthesis of L4 on L5 with severe degenerative disc disease at that level and bony canal stenosis with facet and ligamentum hypertrophy with bilateral lateral recess and foraminal narrowing. IMPRESSION: 1. No acute fracture. 2. Prior right hip arthroplasty. 3. Diffuse degenerative changes Dictated by: Omid Valenzuela MD 07/28/2020 10:04 Omid Valenzuela MD in [facility] 07/28/2020 10:04
--- NOTE | 2020-07-27 21:27 | PC.NURSE ---
pt to ct
[2020-07-27 21:30] VITALS: BP 139/97; PULSE 58; RESP 18; O2SAT 99
[2020-07-27 21:35] LABS: Basophils % 0.2 % (0.1-2.0); Eosinophils # 0.2 K/mm3 (0.0-0.4); Eosinophils % 1.4 % (0.1-12.0); Hematocrit 36.9 % (37.0-47.0); Hemoglobin 12.6 g/dL (12.2-16.2); Lymphocytes # 2.7 K/mm3 (0.7-4.5); Lymphocytes % 24.1 % (10-50); Mean Corpuscular HGB Conc 34.1 g/dL (31.8-35.4); Mean Corpuscular Hemoglobin 31.7 pg (27.0-31.2); Mean Platelet Volume 7.7 fl (7.4-10.4); Monocytes # 0.5 K/mm3 (0.1-1.0); Monocytes % 4.4 % (1.7-9.3); Neutrophils # 7.9 K/mm3 (1.8-7.8); Neutrophils % 69.9 % (37.0-80.0); Platelet Count 233 K/mm3 (142-424); Red Blood Count 3.96 M/mm3 (4.20-5.40); Red Cell Distribution Width 14.4 % (11.5-17.5); White Blood Count 11.3 K/mm3 (4.8-10.8)
[2020-07-27 21:43] LABS: Chloride 103 mmol/L (98-107); Sodium 138 mmol/L (136-145)
[2020-07-27 21:44] LABS: Potassium 4.2 mmoL/L (3.5-5.1)
[2020-07-27 21:46] LABS: Alanine Aminotransferase 15 U/L (12-78); Albumin Level 4.1 g/dl (3.5-5.0); Albumin/Globulin Ratio 1.3 (1.1-1.8); Alkaline Phosphatase 85 U/L (38-126); Anion Gap 13.2 mEq/L (5-15); Aspartate Amino Transferase 31 U/L (14-36); Bilirubin,Total 0.5 mg/dl (0.2-1.3); Blood Urea Nitrogen 19 mg/dl (7-17); Carbon Dioxide 26 mmol/L (22.0-30.0); Creatinine Clearance Estimated 44 mL/min (50-200); Estimated Glomerular Filt Rate 95 ml/min (>60); GFR (African American) 115 ML/MIN (>60); Globulin 3.2 g/dL (1.3-3.2); Total Protein,Serum 7.3 g/dl (6.3-8.2)
[2020-07-27 21:47] LABS: Calcium 9.7 mg/dl (8.4-10.2); Glucose 121 mg/dl (74-100)
[2020-07-27 22:00] VITALS: BP 143/60; PULSE 58; RESP 18; O2SAT 97
--- NOTE | 2020-07-27 22:10 | PC.NURSE ---
call out for dr. florian which is call for dr. boudreaux
--- NOTE | 2020-07-27 22:15 | PC.NURSE ---
speaking to dr. florian
[2020-07-27 22:38] LABS: Coronavirus 19 IgG Antibody Negative (Negative); Coronavirus 19 IgM Antibody Negative (Negative)
[2020-07-27 22:48] VITALS: BP 139/50; PULSE 62; RESP 16; TEMP 36.8; O2SAT 97
--- NOTE | 2020-07-27 23:09 | PC.NURSE ---
patient to floor via stretcher per staff.
[2020-07-27 23:47] VITALS: BP 146/59; PULSE 59; RESP 16; TEMP 36.6; O2SAT 97; BMI 25.6
[2020-07-28 04:00] VITALS: BP 150/86; PULSE 68; RESP 16; TEMP 36.6; O2SAT 97
--- NOTE | 2020-07-28 05:00 | PC.NURSE ---
A&OX3. LUNGS NOTED CLEAR T/O AUSCULTATION. TOLERATED RA WELL. PULSES +2. ABDOMEN NONDISTENDED, ACTIVE BOWEL SOUNDS AUSCULTATED, SOFT AND NONTENDER PER PALPATION. MULTIPLE WOUNDS SCATTERED ON ASSESSMENT. LEFT SUPERIOR REGION OF SCALP NOTED WITH ABRASION. LEFT EYE NOTED WITH SWELLING, ABRASIONS, BRUISING. TONGUE NOTED WITH BRUISING/SWELLING. 2 ABRASIONS NOTED TO LEFT BASE OF JAW LINE/CHIN. BRUISING AND ABRASION NOTED TO LEFT SHOULDER. BRUISING NOTED TO LEFT SIDE. LEFT ELBOW NOTED WITH ABRASION, DRESSING WITH TELFA AND KERLIX. RIGHT ELBOW NOTED WITH REDNESS. RIGHT HAND NOTED WITH SKIN TEARS/SWELLING/BRUISING, DRESSED WITH TELFA AND KERLIX. LEFT HAND NOTED WITH LACERATION, DRESSED WITH TELFA AND KERLIX. RLE/ RIGHT ANKLE NOTED WITH BRUISING AND SWELLING. ICE WAS APPLIED PERIODICALLY TO RIGHT ANKLE, HAND AND LEFT HIP, FACIAL REGION. PT REFUSED ICE AT TIMES. RLE AND RIGHT HAND ELEVATED ON PILLOW AT TIMES BUT REFUSED OTHER TIMES. PT REPORTED PAIN AND MUSCLE SPASMS THIS SHIFT. MD CARTRIDGE LOADING OPERATOR MADE AWARE OF C/O PAIN AND SPASMS, ORDERS OBTAINED AND MEDICATIONS ADMINISTERED PER JAN. PHOTO CONSENT AND PHOTOS OBTAINED THIS SHIFT, MEASUREMENTS NOTED. VIEW NURSING BIO/ASSESSMENT INTERVENTION FOR MORE DETAILS OF WOUNDS. ASSISTED TO BSC X1 THIS SHIFT, TOLERATED WELL. VSS. WILL CONTINUE TO MONITOR.
--- NOTE | 2020-07-28 07:46 | P.CONPHA_ITS ---
[facility] Pharmacy VTE Monitoring - Patient Demographics Admission date: 07/28/20 Report Date: 07/28/20 Time: 07:46 Allergies/Adverse Reactions: Patient Allergies No Known Allergies Allergy (Verified 07/28/20 02:59) Height: 1.63 m Weight: 68.039 kg Patient Problems: Current Active Problems Skin tear (Acute) Fall (Acute) Facial contusion (Acute) Ankle pain (Acute) - VTE Risk Labs: VTE Related Lab Results Hgb 12.6 g/dL (12.2-16.2) 07/27/20 21:20 Hct 36.9 % (37.0-47.0) L 07/27/20 21:20 Plt Count 233 K/mm3 (142-424) 07/27/20 21:20 BUN 19 mg/dl (7-17) H 07/27/20 21:20 Creatinine 0.60 mg/dl (0.52-1.04) 07/27/20 21:20 Estimated Creat Clear 44 mL/min (50-200) 07/27/20 21:20 Was VTE Risk Assessment Performed: Yes VTE Score: 5 VTE Risk Level: Low Risk Clinical Trial Participant: No - Prophylaxis Location of Applied Device: Refused
--- NOTE | 2020-07-28 07:57 | HMH.PHAINT ---
HOME MEDICATION RECONCILIATION COMPLETED USING LIST FROM HOME PHARMACY
[2020-07-28 08:00] VITALS: BP 139/78; PULSE 67; RESP 19; TEMP 36.6; O2SAT 97
--- NOTE | 2020-07-28 08:54 | SW/DCPLANNER ---
Addendum entered by Nathalia Rivera 07/29/20 10:00: SENT UPDATED INFORMATION TO SEND TO THE INSURANCE FOR PRECERT... WAITING TO HEAR TO WHETHER THEY WILL ALLOW HER TO GO SKILLED UNDER HER [employer]/M[employer] BENEFITS... Addendum entered by Nathalia Rivera 07/29/20 06:38: INFORMATION SENT AND WAS REVIEWED FOR PATIENT TO GO TO [facility]...PATIENT HAS A MANAGED CARE INSURANCE THAT REQUIRES A PRECERTIFICATION AND WAS SENT TO INSURANCE COMPANY..WAITING TO HEAR BACK... Addendum entered by Nathalia Rivera 07/28/20 14:15: AFTER CONVERSATION WITH PATIENT AND DAUGHTER, DR ESPANA HAS RECOMMENDED SHE GO TO A SKILLED FACILITY....DAUGHTER AND PATIENT CHOSE [facility]... I HAVE SENT REFERRAL AND WAITING FOR AN ANSWER.. 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 Original Note: SPOKE WITH PT THIS MORNING, JOSAFAT METZGER AND HE HAS RECOMMENDED THIS PATIENT COULD BENEFIT FROM SOME REHAB IN A NURSING FACILITY SETTING...WILL SPEAK WITH PATIENT TO SEE IF SHE IS INTERESTED IN GOING SOMEWHERE FOR A SHORT AMOUNT OF TIME UNTIL SHE CAN GET STRONG ENOUGH TO RETURN HOME.....PATIENT HAS HOME HEALTH WITH [facility] WILL FOLLOW UP IF PATIENT DECIDES NOT TO GO TO A SKILLED FACILITY AND REINSTATE HER HOME HEALTH SERVICES... DISCHARGE POSSIBLY LATER THIS AFTERNOON...
--- NOTE | 2020-07-28 09:11 | HMH.PTEV ---
Physical Therapy Evaluation Rehab PT IP Evaluation Start: 07/28/20 07:26 Freq: ONCE Status: Active Protocol: Document 07/28/20 09:07 PHORMARCELLE (Rec: 07/28/20 09:11 PHORNE [id number]) Subjective/History History History 85 yowf adm to [facility] ater fall down 5 steps at home with multiple hematomas and skin tears, but no fxs. She reports living alone and using a cane for ambulation at baseline. Subjective Subjective Pt c/o pain in B hands, L hip, R franklin this am. Rehab PT IP Eval Objective Appearance Patient Behavior Appropriate Patient Orientation Person,Place,Time Difficulty following instructions none Speech Pattern Clear Ambulation Patient Able to Ambulate Yes Ambulation Observation IP General Gait Pattern Observation Antalgic Gait,Wide Based Gait Ambulation Distance (feet) 40 Ambulation Assistive Device None Ambulation Ability Contact Guard/Hand Hold Balance Ability to Arise Able, uses arms to help Sitting Balance Steady, safe Standing Balance Steady, wide stance Dynamic Sitting Balance Ability Good Dynamic Standing Balance Ability Fair Transfers Bed Transfer Ability Contact Guard/Hand Hold Chair Transfer Ability Contact Guard/Hand Hold Sit to Stand Bed Transfer Ability Contact Guard/Hand Hold Sit to Stand Chair Transfer Ability Contact Guard/Hand Hold ROM All Extremities PT ROM Status ABN Abnormal ROM Comment limited due to pain. MMT All Extremities PT MMT WFL Abnormal MMT Grade grossly 3/5 throughout Rehab PT IP prob,goals,plan Problems Date of Evaluation: 07/28/20 PT IP Problems Bed Mobility,Transfers,Gait Rehab Potential Rehab Potential Good Plan PT Intervention Plan Bed Mobility,Transfers,Gait, Self care,Safety,Therapeutic Exercise PT Plan Frequency BID Duration LOS Discharge Goals Bed Transfer Ability Supervision/Stand by Sit to Stand Chair Transfer Ability Supervision/Stand by Ambulation Assistive Device Rolling Walker Ambulation Distance (feet) 50 Discharge Plan PT Discharge Plan Pt is most appropriate for short term rehab placement at this time due to limited ability with ADLs and difficulty with transfers. If she is to return home she
--- NOTE | 2020-07-28 12:38 | HMH.OTEV ---
OT Inpatient Evaluation Rehab OT IP Evaluation Start: 07/28/20 07:26 Freq: ONCE Status: Complete Protocol: Document 07/28/20 12:30 [email or web address] (Rec: 07/28/20 12:38 VICKI [id number]) Rehab OT IP Assessment Subjective History 85 year old female who lives alone had a recent fall at home while attempting to water the chua. Resulting in no fractures noted at this time. Patient exhibit skin tears, brusies and soreness overall. Patient was admitted to [facility] on 07/27/20 for further observation. Subjective I'm leaving after lunch. I have good neighbors who will take care of me. Objective Patient Orientation Person,Place,Time,Age,Birthday ,Month,Year,Situation Upper Extremity Gross ROM WNL Transfer Training Sit/Stand/Step Transfer Assist Level Contact Guard/Hand Hold Chair Transfer Ability Contact Guard/Hand Hold Chair Transfer Technique Sit to/from Ambulatory Chair Transfer Assistive Devices None Feeding Ability Assist with Tray Set Up Rehab OT IP prob,goals,plan Problems Date of Evaluation: 07/28/20 OT IP Problems Bed Mobility,Transfers,Balance ,Self care,Safety Rehab Potential Rehab Potential Good Equipment Needs Assistive Devices Rolling / Wheeled Walker Plan OT intervention Plan Bed Mobility,Transfers,Balance ,Self care,Therapeutic Exercise OT Plan Frequency Daily Duration LOS Discharge Goals Bed Mobility Ability Assistance x1 Sit to Stand Chair Transfer Ability Contact Guard/Hand Hold Chair Transfer Ability Contact Guard/Hand Hold Chair Transfer Technique Sit to/from Ambulatory Chair Transfer Assistive Devices Rolling Walker Self care skills dressing/undressing independently Feeding Ability Independent Lower Body Dressing Ability Assistance X1 Upper Body Dressing Ability Assistance X1 Bathing Ability Assistance x1 Performing Toilet Hygiene Ability Assistance X1 Overall Commode/Toilet Transfer Ability Assistance x1 decrease in endurance No Discharge Plan OT Discharge Plan Patient verbalize to OT, I am going home after lunch. I plan on my neighbors helping
[2020-07-28 13:12] VITALS: BMI 25.6
--- NOTE | 2020-07-28 13:53 | HMH.HP ---
*Admission Date: 07/28/20 *Chief complaint: Fall with abrasion, musculoskeletal deformity and significant pain *History of present illness: This is an 85-year-old female with a past medical history significant for hypertension, arthritis who presents to the emergency department for left cheek, bilateral hand and medial right ankle pain after a fall that occurred just prior to arrival. She was on the steps of her house which are concrete trying to water her chua when she tipped forward too far and fell down 5 steps. She does not take any blood thinners, does take Celebrex. She denies any loss of consciousness. She does not initially complain of any neck pain and arrives immobilized with a c-collar and spine board via EMS. No chest pain, shortness of breath, back pain. Above note per emergency department physician. Elderly, frail white female who was watering her chua yesterday tripped on concrete steps and fell, striking her head, wrist and hip. Unable to ambulate, brought to emergency department as a trauma alert on backboard, fortunately CT scan of head showed no evidence of bony deformity or intracranial injury, and no evidence of neck injury was found. Significant suspicion for hip fracture, although CT scan did not show any hip fracture. Patient was nonambulatory in the ER secondary to significant pain. Admitted to hospital for further evaluation and work-up. [facility] History I have reviewed the patient's past medical history: Yes Medical History: Reports:: Congestive Heart Failure, Coronary Artery Disease, Hypertension, Palpitations Denies:: Cancer, Diabetes Mellitus Type 1, Diabetes Mellitus Type 2 *Have you ever received a pneumonia vaccine?: Yes *Have you received a flu vaccine this season?: No Other Medical History: Reports: Anemia, Arthritis Laterality Cases: Right: Arthroscopy Knee, Total Hip Replacement, Bilateral: Arthroscopy Shoulder, Cataract Other Surgeries: Yes: Appendectomy, Cholecystectomy, Colonoscopy, EGD, Hysterectomy-Total Amputation: No - *Social History Last grade of school completed: High school graduate Smoking Status: Never smoker Alcohol Intake: never Substance Use Type: denies use *Occupational Status:: retired Housing: apartment *Travel in the last 8 weeks: None Family Hx:: Cancer, Heart Attack, Stroke Review of Systems - Review of Systems Review of systems:: pertinent systems reviewed and negative unless documented below Significant facial swelling and contusions. Vision limited because of swelling around the left eye. Headache as noted. Pain in wrists, ankles and hips noted. Denies cardiac symptoms except for dizziness when she stands up. Denies chest pain, denies palpitations. Meds Home Medications Medication Instructions Recorded Confirmed Type Celecoxib [CeleBREX 100mg Capsule] 100 mg PO DAILY 04/07/20 07/28/20 History Hydrocodone/Acetaminophen 1 each PO BIDP PRN 04/07/20 07/28/20 History [Hydrocodone-Acetamin 5-325 mg] Pantoprazole Sodium [Protonix 40mg 40 mg PO BID 04/07/20 07/28/20 History tablet] lisinopriL [Zestril 5mg 5 mg PO DAILY 07/27/20 07/28/20 History Tablet] Aspirin [Aspirin 81mg EC Tab] 81 mg PO DAILY 07/28/20 07/28/20 History Allergies Allergy/AdvReac Type Severity Reaction Status Date / Time No Known Allergies Allergy Verified 07/28/20 02:59 Exam Vital signs and Labs for Last 24 Hours: Temp Pulse Resp BP Pulse Ox 97.9 F 67 19 139/78 97 07/28/20 08:00 07/28/20 08:00 07/28/20 08:00 07/28/20 08:00 07/28/20 08:00 Laboratory Results - last 24 hr 07/27/20 21:20: WBC 11.3 H, RBC 3.96 L, Hgb 12.6, Hct 36.9 L, MCV 93.0, MCH 31.7 H, MCHC 34.1, RDW 14.4, Plt Count 233, MPV 7.7, Neut % (Auto) 69.9, Lymph % (Auto) 24.1, Livingston % (Auto) 4.4, Eos % (Auto) 1.4, Baso % (Auto) 0.2, Neut # (Auto) 7.9 H, Lymph # (Auto) 2.7, Livingston # (Auto) 0.5, Eos # (Auto) 0.2, Baso # (Auto) 0.0 07/27/20 21:20: Sodium 138, Potassium 4.2, Chlo
[2020-07-28 16:00] VITALS: BP 113/56; PULSE 54; RESP 18; TEMP 36.7; O2SAT 95
--- NOTE | 2020-07-28 16:44 | PC.NURSE ---
Pt has been pleasant and cooperative this shift. A&O X4. Pt has complained of pain X1 thus far and received Waldron per MAR with favorable results. Lungs CTA. Room air with sats. > 95%. No edema noted. Scattered scabbing/bruising noted to entire body. Bilateral forearm skin tears are wrapped with Kerlix and tape. Pt ambulates with a stand-by assist to and from the bathroom. Pt sat up in the chair for several hours this shift. Pt voids clear, yellow urine without issue and has not had a BM today. 20 G peripheral IV in the LT AC is patent and SL. VSS. Call light within reach. Will continue to monitor.
--- NOTE | 2020-07-28 19:20 | PC.NURSE ---
report given to oleg
[2020-07-28 20:00] VITALS: BP 152/70; PULSE 64; RESP 16; TEMP 36.6; O2SAT 99
[2020-07-29] VITALS (7 sets, daily range): BP systolic 125–157; BP diastolic 51–85; PULSE 64–79; RESP 16–20; TEMP 36.6–36.7; O2SAT 96–99; BMI 25.9
[2020-07-29 03:26] LABS: POC Glucose,Bedside 126 (70-110)
--- NOTE | 2020-07-29 03:28 | PC.NURSE ---
PT A&OX3. 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 LUNGS NOTED CLEAR T/O AUSCULTATION. TOLERATED RA WELL. PULSES +2. ABDOMEN NONDISTENDED, ACTIVE BOWEL SOUNDS IN ALL QUADS, SOFT AND NONTENDER PER PALPATION. MULTIPLE BRUISES, ABRASIONS, AND 3 SKIN TEARS NOTED ON RIGHT HAND. DRESSING WAS CHANGED AT BEGINNING OF SHIFT WITH TELFA AND KERLIX. OLD TELFA WAS NOTED WITH BLOODY DRAINAGE. RIGHT HAND DRESSING NOTED CDI THE REMAINDER OF SHIFT. LEFT HAND NOTED WITH DRESSING, CDI. DRESSING ON LEFT ELBOW REMOVED R/T FALLING OFF AND PT HAD NO ACTIVE BLEEDING/DRAINAGE ON LEFT ELBOW ABRASION. TOLERATED AMBULATING IN ROOM WITH ASSIST X1 WELL. C/O DIZZINESS MOSTLY WITH STANDING AROUND 0315 THIS MORNING. V/S OBTAINED AND FSBS OBTAINED, NOTED WNL. PT REPORTS HX OF VERTIGO AND THAT SHE FELT THIS WAS JUST ANOTHER EPISODE OF VERTIGO. MD [facility] MADE AWARE. VSS. WILL CONTINUE TO MONITOR.
--- NOTE | 2020-07-29 04:38 | PC.NURSE ---
ADMINISTERED TRAMADOL PER MAR FOR C/O PAIN IN RIGHT HAND AND LEFT HIP, PT REPORTED PAIN WAS A BURNING SENSATION AND STATED IT IS PROBABLY ABOUT A 5/10 ON 0-10. I JUST NEED SOMETHING TO HELP WITH THE PAIN AND SO I CAN GET SOME REST TONIGHT. ADMINISTERED TRAMADOL AND ON REASSESSMENT PT WAS NOTED RESTING IN BED WITH EYES CLOSED. WILL CONTINUE TO MONITOR.
--- NOTE | 2020-07-29 08:28 | HMH.ACPN2 ---
Internal Medicine - PN: Subj *Date: 07/29/20 *Time: 08:28 Interval history: Overall patient feels a little better, continues to be very wobbly and dizzy when she gets up and walks. Exam Vital signs and Labs for Last 24 Hours: Temp Pulse Resp BP Pulse Ox 97.8 F 66 18 154/69 H 99 07/29/20 04:25 07/29/20 04:25 07/29/20 04:25 07/29/20 04:25 07/29/20 04:25 Laboratory Results - last 24 hr 07/29/20 03:12: POC Glucose 126 H I & O for Last 24 hours: Intake & Output 07/26/20 07/27/20 07/28/20 07/29/20 11:59 11:59 11:59 11:59 Intake Total 260 / 260 490 / 490 Output Total 625 / 625 300 / 300 Balance -365 / -365 190 / 190 Weight 150 lb 151 lb 9 oz Narrative: Visual deficit remains because of her swelling around her left orbital area. Lungs have good air movement, heart rate regular. Hands remain wrapped in bandages, significant difficulty moving her hands because of pain, is really unable to do any activities of daily living including bathroom, because of this pain. Lower extremities remain weak, dependent upon two-person transfer to walk. Assessment and Plan (1) Ankle pain Current visit: Yes Status: Acute Qualifiers: Chronicity: acute Laterality: right Qualified Code(s): M25.571 - Pain in right ankle and joints of right foot Category: Medical Code(s): M25.579 - Pain in unspecified ankle and joints of unspecified foot (2) Facial contusion Current visit: Yes Status: Acute Qualifiers: Encounter type: initial encounter Qualified Code(s): S00.83XA - Contusion of other part of head, initial encounter Category: Medical Code(s): S00.83XA - Contusion of other part of head, initial encounter (3) Fall Current visit: Yes Status: Acute Qualifiers: Encounter type: initial encounter Qualified Code(s): W19.XXXA - Unspecified fall, initial encounter Category: Medical Code(s): W19.XXXA - Unspecified fall, initial encounter (4) BPPV (benign paroxysmal positional vertigo) Current visit: No Status: Chronic Category: Medical Code(s): H81.10 - Benign paroxysmal vertigo, unspecified ear (5) Dizziness of unknown etiology Current visit: No Status: Chronic Category: Medical Code(s): R42 - Dizziness and giddiness (6) Unsteady gait Current visit: No Status: Chronic Category: Medical Code(s): R26.81 - Unsteadiness on feet - Assessment and plan all Dx Assessment and Plan for all problems:: Stable. Needs to continue physical therapy. Recommend long-term care evaluation for rehab.
--- NOTE | 2020-07-29 17:17 | SW/DCPLANNER ---
Addendum entered by Nathalia Rivera 07/30/20 14:03: COVID SENT TO [facility] AND IS NEGATIVE...SHE WILL DISCHARGE THERE LATER TODAY. Addendum entered by Nathalia Rivera 07/30/20 12:45: PATIENT HAS BEEN ACCEPTED TO [facility] IN THE PERSONAL CARE FOR A SHORT RESPITE STAY...PATIENT WILL DISCHARGE THERE TODAY IF HER COVID COMES BACK... Addendum entered by Nathalia Rivera 07/30/20 07:24: SPOKE WITH MD YESTERDAY CONTRARY TO WHAT HAS BEEN TOLD AND HE STATED MD SAID PATIENT WALKED 200FT AND CAN GO HOME WITH HOME HEALTH SERVICES... I DID TELL FAMILY THIS BECAUSE THIS IS WHAT WAS TOLD TO ME.. I OFFERED HER OTHER SERVICES, AT THIS TIME I AM NOT SURE WHAT IS GOING ON.. WILL FOLLOW UP THIS MORNING WITH GALVA KYUNG.. Original Note: Lila from [facility] has stated that this patient has NOT been denied at this time and insurance is requesting additional PT notes. I have faxed additional PT notes to Lila. I was also contacted by Keli Puente to speak with patients family at their request. Family had concern regarding denial. I had a lengthy conversation with patients family regarding [employer] and peer to peer. I have also explained to family that patient has not been denied at this time and additional PT notes have been faxed. c4 planner will follow up with patient, family and [facility] tomorrow morning. Family is interested in PC at [facility] if denied for SNF level of care.
--- NOTE | 2020-07-29 17:17 | PC.NURSE ---
Addendum entered by Laura Pham RN 07/29/20 18:55: Pt reports 3 large, brown, soft-formed BM's since receiving suppository. Original Note: Pt has been pleasant and cooperative this shift. A&O X4. Pt has complained of pain X2 thus far and received Tarzan per MAR with favorable results. Pt reports mild vertigo when transitioning from lying to sitting and states that It goes away after about a minute. Lungs CTA. Room air with sats. > 95%. No edema noted. Scattered scabbing/bruising noted to entire body. Bilateral forearm skin tears are wrapped with Telfa, Kerlix, and tape. Pt ambulates with a stand-by assist to and from the bathroom. Pt sat up in the chair for several hours this shift and walked in the hallway with therapy. Pt voids clear, yellow urine without issue and has not had a BM today, despite receiving a Dulcolax suppository. 20 G peripheral IV in the LT AC is patent and SL. VSS. Call light within reach. Will continue to monitor.
[2020-07-30 03:50] VITALS: BP 119/63; PULSE 71; RESP 18; TEMP 37; O2SAT 96
[2020-07-30 05:19] VITALS: BMI 26.1
--- NOTE | 2020-07-30 05:19 | PC.NURSE ---
No changes overnight. Pt ambulating w/ stand by assist to BR. No reported dizziness, N/V, or lightheadedness. Pt s pain well managed w/ PRN medications. Drsg's to skin tears are C/D/I.
[2020-07-30 08:00] VITALS: BP 142/64; PULSE 81; RESP 19; TEMP 37.3; O2SAT 95
--- NOTE | 2020-07-30 11:40 | HMH.DCSUM ---
General - General Admission date:: 07/27/20 Discharge date: 07/30/20 HPI HPI: This is an 85-year-old female with a past medical history significant for hypertension, arthritis who presents to the emergency department for left cheek, bilateral hand and medial right ankle pain after a fall that occurred just prior to arrival. She was on the steps of her house which are concrete trying to water her chua when she tipped forward too far and fell down 5 steps. She does not take any blood thinners, does take Celebrex. She denies any loss of consciousness. She does not initially complain of any neck pain and arrives immobilized with a c-collar and spine board via EMS. No chest pain, shortness of breath, back pain. Above note per emergency department physician. Elderly, frail white female who was watering her chau yesterday tripped on concrete steps and fell, striking her head, wrist and hip. Unable to ambulate, brought to emergency department as a trauma alert on backboard, fortunately CT scan of head showed no evidence of bony deformity or intracranial injury, and no evidence of neck injury was found. Significant suspicion for hip fracture, although CT scan did not show any hip fracture. Patient was nonambulatory in the ER secondary to significant pain. Admitted to hospital for further evaluation and work-up. Hospital Course Hospital Course: Ms. Irwin was admitted for her fall and bruising. Work-up showed no acute fractures. Overall did well with her inpatient care with no further episodes of dizziness or fall. Was assessed by physical therapy and found to have adequate ambulation and did not meet criteria for care home or short-term rehab placement. Unfortunately, because of the wounds on her hands, external bruising, and advanced age she continued to have difficulty with opening containers, lifting herself from a seated position, and performing all of her activities of daily living without significant pain. Placement discussion with patient and daughter led to decision to pursue personal care for short-term assistance at [facility]. Patient denies any chest pain, shortness of breath. States she feels somewhat better today but is still quite sore. Swelling improving on her face. Tolerating regular diet. Medically stable for discharge. Counseled on anticipated time course of healing. Objective Vital signs: Temp Pulse Resp BP Pulse Ox 99.2 F 81 19 142/64 H 95 07/30/20 08:00 07/30/20 08:00 07/30/20 08:00 07/30/20 08:00 07/30/20 08:00 Narrative: Visual deficit improved and swelling has decreased around her left eye/orbital area. Lungs have good air movement, heart rate regular, no wheeze or crackles Hands wrapped in bandages start of assessment, removed bandages which showed significant bruising and multiple skin tears on the dorsum of her right hand and forearm. Pain due to edema. Left hand with improved movement and less trauma. Remains unable to do any activities of daily living including bathroom, because of this pain. Improved strength in lower extremities. Able to ambulate independently. DS: Diagnosis - Discharge Diagnosis (1) Ankle pain Status: Acute (2) Facial contusion Status: Acute (3) Fall Status: Acute (4) BPPV (benign paroxysmal positional vertigo) Status: Chronic (5) Dizziness of unknown etiology Status: Chronic (6) Unsteady gait Status: Chronic Discharge Plan - Patient Discharge Instructions ACTIVITY: Continue current activity DIET: continue same diet Patient Instructions: DI for Chronic Pain -- Adult, How to Prevent Falls - Follow up Plan Follow up with: Trev Hays MD [Primary Care Provider] - Disposition: Home, Self-Shelter Medications: Home Medications Medication Instructions Recorded Confirmed Type Celecoxib [CeleBREX 100mg Capsule] 100 mg PO DAILY 04/07/20 07/28/20 History Hydroco
[2020-07-30 13:29] LABS: Covid-19 Nasal PCR Sendout Lex NOT DETECTED
== END 2020-07-30 14:55 | disposition home or self-care (01) ==
LOC: ER 20:10 → 2ND 22:32
PROVIDERS: Admitting Provider Family Medicine; Emergency Provider Emergency Medicine; PCP Internal Medicine Adolescent Medicine; Visit Provider Internal Medicine Adolescent Medicine
DX: S00.83XA Contusion of other part of head, initial encounter (principal); M25.571 Pain in right ankle and joints of right foot; R26.81 Unsteadiness on feet; I11.0 Hypertensive heart disease with heart failure; I50.9 Heart failure, unspecified; I25.10 Atherosclerotic heart disease of native coronary artery without angina pectoris; H81.10 Benign paroxysmal vertigo, unspecified ear; S60.212A Contusion of left wrist, initial encounter; S60.211A Contusion of right wrist, initial encounter; S90.01XA Contusion of right ankle, initial encounter; W17.89XA Other fall from one level to another, initial encounter; Y92.480 Sidewalk as the place of occurrence of the external cause
CPT/HCPCS: 29515; 70450; 70486; 72125; 72192; 73080; 73130; 73502; 73610; 80053; 82962; 85025; 86328; 96374; 96376; 97116; 97162; 97165; 97530; 99285; G0378; U0004

== ENCOUNTER → 2020-10-05 08:36 | Outpatient (CLI) | payer MEDICARE, SELFPAY ==
--- NOTE | 2020-10-05 08:40 | XR_ITS ---
PROCEDURE: XR WRIST RT MIN 3V CLINICAL INDICATION: right wrist pain COMPARISON: CR XR HAND RT MIN 3V from 07/27/2020 FINDINGS: There are severe osteoarthritic changes of the right wrist at the radial and ulnar carpal joint proximal carpal row, distal carpal row and carpometacarpal junction. There is collapse of the scaphoid with osteosclerosis of the scaphoid proximally. There is also dysplastic change of the lunate. Subchondral cystic changes are present involving the distal radius laterally and medially. There is some collapse of the lunate into the DRUJ region. Severe osteoarthritis is present at the 1st metacarpal-carpal junction with lateral subluxation of the 1st metacarpal. IMPRESSION: Severe osteoarthritis of the right wrist as described above Dictated by: Omid Valenzuela MD 10/05/2020 09:16 Omid Valenzuela MD in [place] 10/05/2020 09:16
== END ==
PROVIDERS: PCP Internal Medicine Adolescent Medicine; Visit Provider Orthopaedic Surgery
DX: M25.531 Pain in right wrist (principal)
CPT/HCPCS: 73110

== ENCOUNTER 2020-10-05 09:55 | Outpatient (RCR) | payer MEDICARE, SELFPAY | END 2020-10-05 10:45 | disposition home or self-care (01) | LOC: OT 09:55 | PROVIDERS: Visit Provider Orthopaedic Surgery | DX: M25.531 Pain in right wrist (principal) | CPT/HCPCS: 97763 ==

== ENCOUNTER → 2020-11-09 10:07 | Outpatient (CLI) | payer MEDICARE, SELFPAY ==
--- NOTE | 2020-11-09 10:16 | XR_ITS ---
PROCEDURE: XR WRIST LT MIN 3V CLINICAL INDICATION: left wrist pain COMPARISON: CR XR WRIST RT MIN 3V from 10/05/2020 FINDINGS: Severe osteoarthritic changes are present involving the left wrist at the radiocarpal joint, radial ulnar joint, 1st metacarpal-carpal joint. There is prominent periarticular calcification at the 1st metacarpal-carpal joint and dorsally at the radial carpal joint. IMPRESSION: Severe osteoarthritis with periarticular calcification Dictated by: Omid Valenzuela MD 11/09/2020 15:33 Omid Valenzuela MD in [place] 11/09/2020 15:33
== END ==
PROVIDERS: PCP Internal Medicine Adolescent Medicine; Visit Provider Orthopaedic Surgery
DX: M25.532 Pain in left wrist (principal)
CPT/HCPCS: 73110

== ENCOUNTER 2021-03-01 19:58 | Emergency (ER) | payer MEDICARE, SELFPAY ==
[2021-03-01 20:06] VITALS: BP 185/88; PULSE 84; RESP 18; TEMP 36.7; O2SAT 96; BMI 30.8
[2021-03-01 20:12] VITALS: BP 179/89; PULSE 82; RESP 18; TEMP 36.7; O2SAT 97; BMI 31.0
--- NOTE | 2021-03-01 20:30 | HMH.EDUTC ---
[facility] [place] Clinical Impression: Conjunctivitis Qualifiers: Conjunctivitis type: unspecified Laterality: bilateral Qualified Code(s): H10.9 - Unspecified conjunctivitis Disposition: Home, Self-Care Condition on Discharge: Good Instructions: How to Instill Eye Drops, Conjunctivitis Additional Instructions: Use the eye drops as directed. Apply 2 drops to each eye four times per day for 7 days. Follow up with your regular doctor. Make sure you follow up if you are not getting better within 48 hours. Follow up sooner if you have worsening symptoms or decreasing visual acuity. Follow up with an eye doctor. GO TO THE ER FOR ANY WORSENING SYMPTOMS Referrals: Trev Hays MD [Primary Care Provider] - Time of Disposition: 20:41 Medical Decision Making - Medical Records Medical records reviewed: No: I reviewed the patient's medical records. - Kyler Inquiry Pt receiving controlled substance: No Vital Signs: 03/01/21 20:06 03/01/21 20:12 03/01/21 20:44 Temperature 98.0 F 98.1 F 0 F L Temperature Source Oral Oral Pulse Rate 0 L Pulse Rate [Right] 84 82 Respiratory Rate 18 18 0 L Blood Pressure 000/00 L Blood Pressure [Left Arm] 185/88 H 179/89 H Blood Pressure Mean [Left Arm] 120 119 Blood Pressure Source [Left Arm] Automatic Cuff Blood Pressure Position [Left Arm] Sitting 02 Sat by Pulse Oximetry 96 97 Oxygen Delivery Method Room Air Orders (Tests/Meds): ED MEDICATIONS Generic Name Dose Route Start Last Admin Trade Name Freq PRN Reason Stop Dose Admin Sulfacetamide Sodium 0.1 ml 03/01/21 20:45 03/01/21 20:41 Sulfacetamide 10% Opth Soln 15ml OP 03/31/21 20:44 0.1 ml Q6H JUMA Administration Medical Decision Narrative: Sulfacetamide eye drops were applied in the [facility] and she was given the bottle to complete the treatment course. [facility] [place] - General Stated complaint: eyes burning hurting Time Seen by Provider: 03/01/21 20:30 Mode of Arrival: Ambulatory Source of Information: Patient Limitations: No Limitations Description of Symptoms (Recalled from Triage Doc. by RN): pt c/o eyes burning and hurting behind her eye lids. HEENT Symptoms (Recalled from RN notes): Yes (eyes burning and painful) Resp Symptoms (Recalled from RN notes): No Skin Symptoms (Recalled from RN notes): No MS Symptoms (Recalled from RN notes): No Functional Status (Recalled from RN notes): na - History of Present Illness Provider Complaint: She states that for the past 2 days she has been having progressively worsening eye irritation. She thinks that she has conjunctivitis because she had it 2 years ago and it felt like this does now. She denies any vision changes. She denies any foreign body and injury. - Related Data Home Medications Medication Instructions Recorded Confirmed Celecoxib [CeleBREX 100mg Capsule] 100 mg PO DAILY 04/07/20 11/16/20 Pantoprazole Sodium [Protonix 40mg 40 mg PO BID 04/07/20 11/16/20 tablet] lisinopriL [Zestril 5mg 5 mg PO DAILY 07/27/20 11/16/20 Tablet] Aspirin [Aspirin 81mg EC Tab] 81 mg PO DAILY 07/28/20 11/16/20 gabapentin 100 mg capsule PO 08/17/20 11/16/20 Previous Rx's Medication Instructions Recorded Acetaminophen [Tylenol 500mg 1,000 mg PO Q8HP PRN tab 07/30/20 tablet] Hydrocodone/Acetaminophen [Lortab 1 tab PO Q6HP PRN 5 Days #20 tab 07/30/20 7.5/325mg tablet] Allergies Allergy/AdvReac Type Severity Reaction Status Date / Time No Known Allergies Allergy Verified 03/01/21 20:10 - Worker's Comp Is this a Worker's Comp case?: No [facility] History - Hepatitis A Screen Drug use history?: No High risk sexual behaviors?: No History of sexually transmitted infection?: No Currently employed?: No Childcare worker?: No Do you have indoor plumbing?: Yes Do you have electricity?: Yes Attestation statement:: This patient has been screened for Hepatitis A risk factors. I have reviewed the floyd
[2021-03-01 20:44] VITALS: BP 000/00; PULSE 0; RESP 0; TEMP -17.7; TEMP 0
== END 2021-03-01 20:54 | disposition home or self-care (01) ==
PROVIDERS: Emergency Provider Nurse Practitioner Family; PCP Internal Medicine Adolescent Medicine
DX: H10.33 Unspecified acute conjunctivitis, bilateral (principal); I50.9 Heart failure, unspecified; I25.10 Atherosclerotic heart disease of native coronary artery without angina pectoris; Z79.899 Other long term (current) drug therapy; Z96.641 Presence of right artificial hip joint; Z96.642 Presence of left artificial hip joint
CPT/HCPCS: G0463; 99202

== ENCOUNTER 2021-03-02 21:09 | Observation (INO) | payer MEDICARE, SELFPAY ==
[2021-03-02 21:09] VITALS: BP 184/129; PULSE 88; RESP 16; TEMP 36.6; O2SAT 97; BMI 29.2
[2021-03-02 21:10] VITALS: BMI 29.2
--- NOTE | 2021-03-02 21:10 | CT_ITS ---
PROCEDURE: CT HEAD/BRAIN WO CON CLINICAL INDICATION: stroke alert Left-sided facial droop COMPARISON: CT CT HEAD/BRAIN WO CON from 07/27/2020 TECHNIQUE: Axial images obtained. All CT scans at the facility use one or more dose reduction, viz: automated exposure control, ma/kV adjustment per patient size (including targeted exams where dose is matched to indication, i.e. head), or iterative reconstruction technique. FINDINGS: No midline shift, mass effect, intracranial hemorrhage, hydrocephalus, or extra-axial fluid collection is evident. There is generalized atrophy with hypoattenuation of the periventricular white matter consistent with microangiopathic changes. 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 The calvarium has an unremarkable appearance. No mastoid effusion. No sinus air-fluid level. IMPRESSION: Chronic microvascular ischemic changes, no acute finding. Dictated by: Omid Valenzuela MD 03/03/2021 06:23 Omid Valenzuela MD in [place] 03/03/2021 06:23
[2021-03-02 21:34] VITALS: BP 170/90; PULSE 65; O2SAT 95
--- NOTE | 2021-03-02 21:37 | PC.NURSE ---
NIH stroke screen 5 and FSBS 112
[2021-03-02 21:50] LABS: Chloride 107 mmol/L (98-107)
[2021-03-02 21:51] LABS: Basophils % 0.3 % (0.1-2.0); Eosinophils # 0.2 K/mm3 (0.0-0.4); Eosinophils % 2.9 % (0.1-12.0); Hematocrit 38.4 % (37.0-47.0); Hemoglobin 12.6 g/dL (12.2-16.2); Lymphocytes # 3.1 K/mm3 (0.7-4.5); Lymphocytes % 46.2 % (10-50); Mean Corpuscular HGB Conc 32.9 g/dL (31.8-35.4); Mean Corpuscular Hemoglobin 30.6 pg (27.0-31.2); Mean Platelet Volume 7.7 fl (7.4-10.4); Monocytes # 0.3 K/mm3 (0.1-1.0); Monocytes % 4.7 % (1.7-9.3); Neutrophils # 3.1 K/mm3 (1.8-7.8); Neutrophils % 45.9 % (37.0-80.0); Platelet Count 227 K/mm3 (142-424); Potassium 4.2 mmoL/L (3.5-5.1); Red Blood Count 4.13 M/mm3 (4.20-5.40); Red Cell Distribution Width 13.6 % (11.5-17.5); Sodium 139 mmol/L (136-145); White Blood Count 6.7 K/mm3 (4.8-10.8)
[2021-03-02 21:53] LABS: Alanine Aminotransferase 16 U/L (12-78); Alkaline Phosphatase 68 U/L (38-126); Aspartate Amino Transferase 29 U/L (14-36); Bilirubin,Total 0.6 mg/dl (0.2-1.3); Blood Urea Nitrogen 15 mg/dl (7-17); Creatinine Clearance Estimated 44 mL/min (50-200); Estimated Glomerular Filt Rate 60 ml/min (>60); GFR (African American) 72 ML/MIN (>60)
[2021-03-02 21:54] LABS: Albumin Level 4.6 g/dl (3.5-5.0); Albumin/Globulin Ratio 1.5 (1.1-1.8); Anion Gap 12.2 mEq/L (5-15); Calcium 9.9 mg/dl (8.4-10.2); Carbon Dioxide 24 mmol/L (22.0-30.0); Glucose 132 mg/dl (74-100); Total Protein,Serum 7.6 g/dl (6.3-8.2)
[2021-03-02 21:59] LABS: C-Reactive Protein 3.4 mg/L (0-4)
--- NOTE | 2021-03-02 22:03 | HMH.EDNEU ---
ED Disposition Clinical Impression: Cerebrovascular accident Qualifiers: CVA mechanism: unspecified Qualified Code(s): I63.9 - Cerebral infarction, unspecified Hypertension Qualifiers: Hypertension type: essential hypertension Qualified Code(s): I10 - Essential (primary) hypertension Disposition: Admitted as Observation Condition on Discharge: Good - Critical Care Critical Care Time: No Attestation: On 03/02/21, the high probability of a clinically significant, sudden or life threatening deterioration of the following system(s) required my full and direct attention, intervention and personal management. The time I documented below is in addition to time spent performing reported procedures but includes the following listed in this critical care notation. Medical Decision Making - Medical Records Medical records reviewed: Yes: I reviewed the patient's medical records. - Kyler Inquiry Pt receiving controlled substance: No Vital Signs: 03/02/21 21:09 03/02/21 21:34 03/02/21 22:51 Temperature 97.8 F Temperature Source Oral Pulse Rate 65 62 Pulse Rate [Right] 88 Respiratory Rate 16 Blood Pressure 170/90 H 168/79 H Blood Pressure [Right Arm] 184/129 H Blood Pressure Mean 140 Blood Pressure Mean [Right Arm] 147 02 Sat by Pulse Oximetry 97 95 95 Oxygen Delivery Method Room Air Room Air 03/02/21 23:00 Temperature Temperature Source Pulse Rate 69 Pulse Rate [Right] Respiratory Rate Blood Pressure 179/86 H Blood Pressure [Right Arm] Blood Pressure Mean 118 Blood Pressure Mean [Right Arm] 02 Sat by Pulse Oximetry 96 Oxygen Delivery Method - Lab Data Lab results reviewed: Yes: I reviewed the patient's lab results. Lab Results 03/02/21 21:31: POC Glucose 113 H 03/02/21 21:34: WBC 6.7, RBC 4.13 L, Hgb 12.6, Hct 38.4, MCV 93.0, MCH 30.6, MCHC 32.9, RDW 13.6, Plt Count 227, MPV 7.7, Neut % (Auto) 45.9, Lymph % (Auto) 46.2, Eagle % (Auto) 4.7, Eos % (Auto) 2.9, Baso % (Auto) 0.3, Neut # (Auto) 3.1, Lymph # (Auto) 3.1, Eagle # (Auto) 0.3, Eos # (Auto) 0.2, Baso # (Auto) 0.0, ESR 64 H 03/02/21 21:34: Sodium 139, Potassium 4.2, Chloride 107, Carbon Dioxide 24, Anion Gap 12.2, BUN 15, Creatinine 0.90, Estimated Creat Clear 44, Estimated GFR 60, Est GFR ( Amer) 72, Glucose 132 H, Calcium 9.9, Total Bilirubin 0.6, AST 29, ALT 16, Alkaline Phosphatase 68, C-Reactive Protein 3.4, Total Protein 7.6, Albumin 4.6, Globulin 3.0, Albumin/Globulin Ratio 1.5, Procalcitonin < 0.030 03/02/21 21:34: PT 10.8, INR 0.91 Result diagrams: 03/02/21 21:34 03/02/21 21:34 Orders (Tests/Meds): ED MEDICATIONS Generic Name Dose Route Start Last Admin Trade Name Freq PRN Reason Stop Dose Admin Sodium Chloride 1,000 mls @ 999 mls/hr 03/02/21 22:00 03/02/21 21:53 Sod Chlor 0.9% 1000ml Bag IV 03/02/21 23:00 999 mls/hr .[id number] JUMA Administration Discontinued Medications Generic Name Dose Route Start Last Admin Trade Name Freq PRN Reason Stop Dose Admin Enoxaparin Sodium 70 mg 03/03/21 23:48 Enoxaparin 80mg/0.8ml Syringe SQ 03/03/21 23:49 ONCE ONE Enoxaparin Sodium 70 mg 03/02/21 23:52 03/02/21 23:53 Enoxaparin 80mg/0.8ml Syringe SQ 03/02/21 23:53 70 mg ONCE ONE Administration Lisinopril 5 mg 03/03/21 23:47 Lisinopril 5mg Tablet PO 03/03/21 23:48 ONCE ONE Lisinopril 5 mg 03/02/21 23:52 03/02/21 23:54 Lisinopril 10mg Tablet PO 03/02/21 23:53 5 mg DAILY ONE Administration ORDERS Category Date Time Status CT head/brain wo con Stat Cat Scan 03/02/21 21:10 Taken Covid-19 Nasal PCR ([facility]) Routine Lab 03/02/21 22:51 Received - CT Data CT Scan: Head Time Received: 21:[address] Reviewed: Yes: I have viewed the radiologist's interpretation Preliminary Findings: Normal/NAD - ECG Data Tracing #1 Normal Sinus Rhythm: Yes Ischemic changes: non-specific ST-T wave changes - Physician Consults Physician Consulted: janusz Aguirre
--- NOTE | 2021-03-02 22:14 | ECG_ITS ---
APPROVED REPORT Exam: Resting ECG HR:64 bpm ECG Measurements Heart Rate 64 AXES AR 130 P 40 QRSd 80 QRS 23 QT 422 T 54 QTc 435 Conclusion Normal sinus rhythm Normal ECG Electronically signed by : Trev Hays, 03/03/2021 17:32:02
[2021-03-02 22:38] LABS: Procalcitonin < 0.030 ng/mL (0.0-2.0)
[2021-03-02 22:41] LABS: INR 0.91 (0.9-1.1); Prothrombin Time 10.8 seconds (10.1-12.5)
[2021-03-02 22:42] LABS: Erythrocyte Sedimentation Rate 64 mm/hr (0-30)
[2021-03-02 22:45] LABS: POC Glucose,Bedside 113 (70-110)
[2021-03-02 22:51] VITALS: BP 168/79; PULSE 62; O2SAT 95
--- NOTE | 2021-03-02 22:55 | PC.NURSE ---
alyse on phone with dr boudreaux
[2021-03-02 23:00] VITALS: BP 179/86; PULSE 69; O2SAT 96
--- NOTE | 2021-03-02 23:00 | PC.NURSE ---
alyse on phone with M[facility]
--- NOTE | 2021-03-02 23:14 | PC.NURSE ---
[facility] stroke didnt accepted pt due to time of symptoms
--- NOTE | 2021-03-02 23:35 | PC.NURSE ---
alyse on phone janusz
[2021-03-03] VITALS (10 sets, daily range): BP systolic 130–192; BP diastolic 66–96; PULSE 50–73; RESP 14–20; TEMP 36.4–36.7; O2SAT 94–97; BMI 25.7
--- NOTE | 2021-03-03 01:30 | PC.NURSE ---
patient up to floor via wheelchair.
--- NOTE | 2021-03-03 05:28 | PC.NURSE ---
Addendum entered by Litzy Eubanks RN 03/03/21 07:33: Facial drooping to (R) side. Original Note: Pt A&O x3. Resting in bed at this time. NIH score is 4. Pt has facial drooping to (L) side. Has c/o chronic back pain and discomfort to (R) side of neck. Pt stated that her neck started bothering her yesterday. She also c/o discomfort to bilateral eyes and said she is on medication for conjunctivitis. Pt has ambulated to with assist x1 and cane. BP has improved, but continues to be elevated. Pt is sinus to sinus raj on telemetry. She is on RA. Call light within reach. Family remains at bedside. Will continue to monitor.
[2021-03-03 06:53] LABS: Basophils % 0.2 % (0.1-2.0); Eosinophils # 0.2 K/mm3 (0.0-0.4); Eosinophils % 2.5 % (0.1-12.0); Hematocrit 33.9 % (37.0-47.0); Lymphocytes # 3.7 K/mm3 (0.7-4.5); Lymphocytes % 51.9 % (10-50); Mean Corpuscular HGB Conc 33.4 g/dL (31.8-35.4); Mean Corpuscular Hemoglobin 30.8 pg (27.0-31.2); Mean Corpuscular Volume 92.1 fl (81-99); Mean Platelet Volume 7.5 fl (7.4-10.4); Monocytes # 0.4 K/mm3 (0.1-1.0); Monocytes % 5.4 % (1.7-9.3); Neutrophils # 2.8 K/mm3 (1.8-7.8); Platelet Count 195 K/mm3 (142-424); Red Blood Count 3.68 M/mm3 (4.20-5.40); Red Cell Distribution Width 13.6 % (11.5-17.5); White Blood Count 7.1 K/mm3 (4.8-10.8)
[2021-03-03 06:59] LABS: Chloride 108 mmol/L (98-107); Potassium 3.8 mmoL/L (3.5-5.1); Sodium 139 mmol/L (136-145)
[2021-03-03 07:00] LABS: MANUAL DIFFERENTIAL MANUAL DIFFERENTIAL (MANUAL DIFF)
[2021-03-03 07:02] LABS: Blood Urea Nitrogen 14 mg/dl (7-17); Creatinine Clearance Estimated 46 mL/min (50-200); Estimated Glomerular Filt Rate 95 ml/min (>60); GFR (African American) 115 ML/MIN (>60)
[2021-03-03 07:03] LABS: Anion Gap 9.8 mEq/L (5-15); Calcium 9.2 mg/dl (8.4-10.2); Carbon Dioxide 25 mmol/L (22.0-30.0); Glucose 97 mg/dl (74-100)
--- NOTE | 2021-03-03 07:15 | HMH.PHAVTE ---
[facility] VTE Monitoring - Patient Demographics Admission date: 03/03/21 Report Date: 03/03/21 Time: 07:15 Allergies/Adverse Reactions: Patient Allergies No Known Allergies Allergy (Verified 03/01/21 20:10) Height: 1.65 m Weight: 70.307 kg Patient Problems: Current Active Problems Cerebrovascular accident (Acute) Hypertension (Acute) - VTE Risk Labs: VTE Related Lab Results Hgb 12.6 g/dL (12.2-16.2) 03/02/21 21:34 Hct 33.9 % (37.0-47.0) L 03/03/21 06:15 Plt Count 195 K/mm3 (142-424) 03/03/21 06:15 PT 10.8 seconds (10.1-12.5) 03/02/21 21:34 INR 0.91 (0.9-1.1) 03/02/21 21:34 BUN 14 mg/dl (7-17) 03/03/21 06:15 Creatinine 0.60 mg/dl (0.52-1.04) D 03/03/21 06:15 Estimated Creat Clear 46 mL/min (50-200) 03/03/21 06:15 Was VTE Risk Assessment Performed: Yes VTE Risk Level: High Risk - Prophylaxis VTE Prophylaxis Ordered?: Yes Types of VTE Prophylaxis: TEDS Knee High Location of Applied Device: Bilateral Lower Extremeties
[2021-03-03 07:21] LABS: Cholesterol 192 mg/dl (140-200); Triglycerides 119 mg/dl (30-150); VLDL Cholesterol 24 mg/dL (0-40)
[2021-03-03 07:22] LABS: Chol/HDL Ratio 3.1 (1-3.5); HDL Cholesterol 61 mg/dl (40-60); Magnesium 1.7 mg/dl (1.6-2.3)
[2021-03-03 07:43] LABS: Hemoglobin 11.3 g/dL (12.2-16.2)
--- NOTE | 2021-03-03 08:04 | HMH.PHAINT ---
MEDICATION RECONCILIATION COMPLETED USING EXTERNAL FILL HISTORY AND PREVIOUS PHYSICIAN OFFICE NOTE
--- NOTE | 2021-03-03 08:26 | MR_ITS ---
PROCEDURE: MR HEAD/BRAIN WO CON CLINICAL INDICATION: CVA, FACIAL DROOPING COMPARISON: CT CT HEAD/BRAIN WO CON from 03/02/2021 TECHNIQUE: Routine multiplanar multi echo sequences are performed without gadolinium enhancement. FINDINGS: No midline shift, mass effect, intracranial hemorrhage, hydrocephalus, or acute infarction is evident. There are prominent periventricular and subcortical T2 white matter hyperintensities consistent with ischemic gliotic foci from microvascular disease. These areas do not demonstrate restricted diffusion. There is an old small lacunar infarction in the right external capsule region with cystic encephalomalacia change. Expected flow void artifact is present within the carotid and basilar arteries. There is mild diffuse generalized atrophy with mild prominence of the ventricular system felt to be related to volume loss. The cerebellopontine angles have an unremarkable appearance. The pituitary, optic chiasm, and corpus callosum are unremarkable. Fluid is present in the mastoid sinuses. IMPRESSION: 1. 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 2. No acute infarction apparent. 3. Bilateral mastoid effusions Dictated by: Omid Valenzuela MD 03/03/2021 10:57 Omid Valenzuela MD in [place] 03/03/2021 10:57
--- NOTE | 2021-03-03 08:41 | CA_ITS ---
APPROVED REPORT Supervisor [employer]: Stephanie Murry RVT Laterality: Bilateral Study Quality: Good Indications: s/p cva Risk Factors Hypertension: TIA/CVA History Doppler Spectral Velocity Analysis ECA (R) 113.30/11.80 cm/s ECA (L) 66.30/3.20 cm/s dICA (R) 128.30/25.70 cm/s dICA (L) 75.90/20.30 cm/s Ana (R) 99.40/16.00 cm/s Ana (L) 96.20/18.20 cm/s pICA (R) 71.60/12.80 cm/s pICA (L) 89.80/19.20 cm/s dCCA (R) 69.50/13.90 cm/s dCCA (L) 56.70/13.90 cm/s pCCA (R) 55.60/10.70 cm/s pCCA (L) 77.00/15.00 cm/s Vert (R) 49.20/10.70 cm/s Vert (L) 34.20/11.80 cm/s ICA/CCA 1.85 ICA/CCA 1.70 Findings Study suggests less than 20% stenosis of the bilateral internal cartoid arteries. Antegrade flow seen bilateral vertebral arteries. Conclusion Study suggests less than 20% stenosis of the bilateral internal cartoid arteries. Antegrade flow seen bilateral vertebral arteries. Electronically signed by : Omid Valenzuela MD 03/03/2021 14:53:44
--- NOTE | 2021-03-03 08:43 | HMH.HP ---
*Admission Date: 03/02/21 *Chief complaint: Facial drooping and dysarthria *History of present illness: 85-year-old white female who has been enjoying remarkably good functional status over the last several years who lives by herself, actually was brought to the emergency department a couple of nights ago because of conjunctivitis and exam at that time other than the conjunctivitis was unrevealing. She was returned home and did well through the night but the next morning, which was yesterday morning March 02, awoke and when she was doing her morning routine noted that she could not spit out her toothpaste after she was brushing her teeth. She did not think much about this at the time but did notice that her right arm was weak. Unfortunately she waited until her daughter came by to check on her later in the day yesterday and her daughter immediately noted right facial drooping and she was brought to the emergency department. Stroke work-up revealed high blood pressure, she was given 1 dose of her regular WILLIAM inhibitor and this brought her blood pressure down by about [address] scan showed no evidence of hemorrhage and was essentially normal, [facility] stroke team was consulted but given the length of time since her event they felt they could not offer intervention and the family did not wish to be transferred unless stroke intervention was possible. As a result she was admitted here for further evaluation and diagnostic testing. This morning she is pleasant, has no pains, does not feel like things have progressed overnight. [facility] History I have reviewed the patient's past medical history: Yes Medical History: Reports:: Congestive Heart Failure, Coronary Artery Disease, Heart Murmur, Hypertension, Palpitations Denies:: Cancer, Diabetes Mellitus Type 1, Diabetes Mellitus Type 2 *Have you ever received a pneumonia vaccine?: Yes *Have you received a flu vaccine this season?: Yes Other Medical History: Reports: Anemia, Arthritis Laterality Cases: Right: Arthroscopy Knee, Total Hip Replacement, Bilateral: Arthroscopy Shoulder Other Surgeries: Yes: Appendectomy, Cardiac Catheterization, Cholecystectomy, Colonoscopy, EGD, Hysterectomy-Total Amputation: No - *Social History Smoking Status: Never smoker Alcohol Intake: never Substance Use Type: denies use *Occupational Status:: retired Housing: apartment *Travel in the last 8 weeks: None Family Hx:: Anemia, Bleeding Disorder, Heart Attack, Hyperlipidemia, Hypertension, Kidney Disease, Stroke, Thyroid Disorder Review of Systems - Review of Systems Review of systems:: pertinent systems reviewed and negative unless documented below - Constitutional Denies anorexia, Denies body ache(s), Denies fever(s) - Eyes Denies blind spots, Denies blurry vision, Denies change in vision - ENT Denies abnormal hearing, Denies poor balance, Denies dizziness - *Cardiovascular Denies chest pain, Denies chest pain with activity, Denies excessive sweating, Denies generalized swelling - *Respiratory Denies change in phlegm color, Denies chest congestion, Denies cough - *Gastrointestinal Denies abdominal pain, Denies change in stools - *Neurologic Reports abnormal speech, Reports localized weakness, Denies abnormal hearing, Denies headache(s), Denies seizure-like activity, Denies dizziness Meds Home Medications Medication Instructions Recorded Confirmed Type Celecoxib [CeleBREX 100mg Capsule] 100 mg PO DAILY 04/07/20 03/03/21 History Pantoprazole Sodium [Protonix 40mg 40 mg PO BID 04/07/20 03/03/21 History tablet] lisinopriL [Zestril 5mg 5 mg PO DAILY 07/27/20 03/03/21 History Tablet] Aspirin [Aspirin 81mg EC Tab] 81 mg PO DAILY 07/28/20 03/03/21 History Acetaminophen [Tylenol 500mg 1,000 mg PO Q8HP PRN tab 07/30/20 03/03/21 Rx tablet] Erythromycin Base [Erythromycin 1 applic EYE-BOTH BID 03/03/21 03/03/21 History 3.5gm opth oinment] Hydrocodone/Acetaminophen 1 tab PO BID PRN
[2021-03-03 09:04] LABS: Eosinophils % 3 % (0-3); Lymphocytes % 58 % (10-50); Monocytes % 1 % (2-9); Neutrophils % 38 % (42-76); Platelet Estimate Normal; RBC Morphology Normal; Total Cells Counted 100
--- NOTE | 2021-03-03 09:59 | HMH.OTEV ---
OT Inpatient Evaluation Rehab OT IP Evaluation Start: 03/03/21 08:09 Freq: ONCE Status: Complete Protocol: Document 03/03/21 09:53 [facility] (Rec: 03/03/21 09:58 [facility] [id number]) Rehab OT IP Assessment Subjective History Pt oriented x 3 on arrival. Pt agreeable to engage in therapy evaluation. Pt was admitted via ED on 03/02/21 due to CVA symptoms. Pt woke up around 8:30 am with right facial droop and abnormal speech. Pt has a past medical history of CHF, CAD, HTN, and palpatations. Pt reports prior to cva she lived at home alone and was independent with ADL and IADLs. She did use a cane during ambulation. Daughter present during therapy evaluation and confirmed all information provided by patient. Subjective Well I wasn't sure what was going on. Objective Patient Orientation Person,Place,Birthday Upper Extremity Gross ROM WFL Bed Mobility bed mobility-scooting,bed mobility - supine/sit,bed mobility - rolling Assist Level Minimal x 1 (25% assist) Transfer Training Sit/Stand Transfer Assist Level Contact Guard/Hand Hold Chair Transfer Ability Contact Guard/Hand Hold Chair Transfer Technique Sit to/from Ambulatory Chair Transfer Assistive Devices Straight Cane Lower Body Dressing Ability Standby Assistance Rehab OT IP prob,goals,plan Problems Date of Evaluation: 03/03/21 OT IP Problems Bed Mobility,Transfers,Balance ,Self care,Safety Rehab Potential Rehab Potential Good Equipment Needs Assistive Devices Straight Cane Plan OT intervention Plan Bed Mobility,Transfers,Gait, Balance,Self care,Safety, Therapeutic Exercise OT Plan Frequency BID Duration LOS Discharge Goals Bed Mobility Ability Standby Assistance Sit to Stand Chair Transfer Ability Supervision/Stand by Chair Transfer Ability Supervision/Stand by Chair Transfer Technique Sit to/from Ambulatory Chair Transfer Assistive Devices Straight Cane Self care skills fully toilet trained,d
--- NOTE | 2021-03-03 11:24 | HMH.PTEV ---
Physical Therapy Evaluation Rehab PT IP Evaluation Start: 03/03/21 08:09 Freq: ONCE Status: Active Protocol: Document 03/03/21 11:21 [facility] (Rec: 03/03/21 11:24 [facility] [id number]) Subjective/History History History 85 yowf adm to [facility] with possible CVA with R side facial droop. She lives alone in an apt, 1 step to enter, uses a cane for ambulation at baseline. Subjective Subjective Pt reports pain in the occipital region and worse on the R side of her neck at this time. Rehab PT IP Eval Objective Appearance Patient Behavior Appropriate Patient Orientation Person,Place,Time Difficulty following instructions none Speech Pattern Clear Ambulation Patient Able to Ambulate Yes Ambulation Observation IP General Gait Pattern Observation Ataxic Gait Ambulation Distance (feet) 25 Ambulation Assistive Device Straight Cane Ambulation Ability Contact Guard/Hand Hold Balance Ability to Arise Able, uses arms to help Sitting Balance Steady, safe Standing Balance Steady, wide stance Dynamic Sitting Balance Ability Good Dynamic Standing Balance Ability Fair Transfers Bed Transfer Ability Contact Guard/Hand Hold Chair Transfer Ability Contact Guard/Hand Hold Sit to Stand Bed Transfer Ability Contact Guard/Hand Hold Sit to Stand Chair Transfer Ability Contact Guard/Hand Hold ROM All Extremities PT ROM Status WFL MMT All Extremities PT MMT WFL Rehab PT IP prob,goals,plan Problems Date of Evaluation: 03/03/21 PT IP Problems Transfers,Gait,Balance,Safety Rehab Potential Rehab Potential Good Plan PT Intervention Plan Transfers,Gait,Balance,Safety, Therapeutic Exercise PT Plan Frequency BID Duration LOS Discharge Goals Bed Transfer Ability Supervision/Stand by Sit to Stand Chair Transfer Ability Supervision/Stand by Ambulation Assistive Device Straight Cane Ambulation Distance (feet) 75 Discharge Plan PT Discharge Plan Pt is most appropriate for rehab placement at this time, but can return home once medically stable with family assist and outpatient therapy services. G -code Required No Eval Complexity Eval Charge Codes
--- NOTE | 2021-03-03 18:45 | PC.NURSE ---
PT HAS REPORTED SOME SOA WHEN AMBULATING TO THE BATHROOM, BUT RECOVERS QUICKLY. NO PAIN REPORTED. FAMILY HAS BEEN AT BEDSIDE ALL DAY. VSS. CALL RAY WITHIN REACH. WILL CONT. TO MONITOR.
--- NOTE | 2021-03-03 18:47 | PC.NURSE ---
PT HAS HAD A GOOD DAY. PT HAS RIGHT SIDED FACIAL DROOPING. PT, OT, AND SPEECH HAVE ALL SEEN HER TODAY. SHE DOES WELL WALKING WITH HER CANE AND ONE ASSIST FROM STAFF. PT IS EAGER TO STAY AHEAD OF HER EXERCISES THAT SHE LEARNED FROM ALL THERAPIES. CALL LIGHT WITHIN REACH. VSSS. WILL CONT. TO MONITOR.
[2021-03-04] VITALS (7 sets, daily range): BP systolic 143–188; BP diastolic 57–84; PULSE 57–76; RESP 16–20; TEMP 36.6–37; O2SAT 96–99; BMI 25.9; BMI 26.0
--- NOTE | 2021-03-04 04:10 | PC.NURSE ---
Pt is A&O x3. Continues to have (R) side facial droop. She has not slept well this shift. Pt states she just can't get comfortable. Denies any pain. She states she hasn't had a BM since sunday. She has c/o nausea x1 this shift. Medicated per jan. BP remains elevated. Other VSS. Lungs are CTA. BS active. Pt has ambulated to with assistance and cane. She is tolerating nectar thick liquids. No other concerns. Call light within reach. Family at bedside. Will continue to monitor.
--- NOTE | 2021-03-04 06:55 | SW/DCPLANNER ---
Addendum entered by Cherelle Armstrong 03/07/21 10:02: Carol has stated that she received approval for this patient. Patient will discharge to [facility] today. Addendum entered by Cherelle Armstrong 03/07/21 09:49: I have spoke with Carol from [facility] this AM (Lila is off) and precert is still pending. I will continue to follow up with: patient, Carol and . Addendum entered by Nathalia Rivera 03/04/21 14:18: SPOKE WITH ALECIA VIA TELEPHONE AND SHE STATED SHE IS COMING TO SEE PATIENT TODAY... SHE SAID SHE LOOKED OK BUT WILL NEED TO START A PRECERT ON HER... ONCE THEY GET IT SHE MAY DISCHARGE...PATIENT HAS [employer]/M[employer]...SUPPORTIVE FAMILY... Original Note: HAD A CONVERSATION WITH PATIENT AND DAUGHTER AT BEDSIDE YESTERDAY REGARDING DISCHARGE PLANNING: PATIENT RESIDES AT HOME IN [facility] AND DAUGHTER LIVES IN [facility].. DAUGHTER STATED SHE WOULD BRING HER MOTHER IN FOR OUT PATIENT THERAPY, SHE STATED THAT HER MOTHER HAS HAD BAD EXPERIENCES WITH NURSING FACILITIES AND WISHES TO DO OUT PATIENT SINCE SHE FEELS SHE WILL GET MORE INTENSE THERAPY...SPEECH THERAPY HAS PUT PATIENT ON A NECTAR THICKENED DIET ALONG WITH PT/OT SERVICES... DR ESPANA STATED THEY HAVE CHANGED THEIR MIND AND WANTS [facility].. I WILL SEND A PACKET TODAY..
--- NOTE | 2021-03-04 07:35 | CT_ITS ---
PROCEDURE: CT SOFT TISSUE NECK WO CON CLINICAL HISTORY: left neck pain COMPARISON: No exams were available for comparison TECHNIQUE: Oral Contrast: None IV Contrast: None Axial images obtained with sagittal and coronal reformats. All CT scans at the facility use one or more dose reduction, viz: automated exposure control, ma/kV adjustment per patient size (including targeted exams where dose is matched to indication, i.e. head), or iterative reconstruction technique. FINDINGS: No obvious mass or abnormal fluid collection is evident. There is some symmetric thickening of the parapharyngeal area at the level the uvula possibly due to nondistention. The epiglottis has an unremarkable appearance. No obvious nasopharyngeal mass. The parotid and submandibular glands have an unremarkable appearance. There is prominent sternoclavicular joints on both sides right greater than left with partial calcification of prominent pannus formation. The lung apices are clear. There are degenerative changes of the cervical spine with reversal of the cervical lordosis. IMPRESSION: 1. Mild prominence of the oral pharyngeal mucosa which could be related to inflammatory change with mild lymphoid hyperplasia or incomplete distension difficult to evaluate without IV contrast. Direct visualization may provide further evaluation. No obvious abscess or mass. 2. Degenerative changes cervical spine. 3. Osteoarthritic change of the sternoclavicular joints with prominent partially calcified pannus formation Dictated by: Omid Valenzuela MD 03/04/2021 09:53 Omid Valenzuela MD in [facility] 03/04/2021 09:53
--- NOTE | 2021-03-04 07:35 | CT_ITS ---
PROCEDURE: CT MASTOID W/O CLINICAL HISTORY: left neck pain Pain COMPARISON: No exams were available for comparison TECHNIQUE: Axial images obtained with sagittal and coronal reformats. All CT scans at the facility use one or more dose reduction, viz: automated exposure control, ma/kV adjustment per patient size (including targeted exams where dose is matched to indication, i.e. head), or iterative reconstruction technique. FINDINGS: There is only a small amount of fluid attenuation within the inferior tip of the right mastoid sinus and in the posterior aspect of the left mastoid sinus. The acoustic foramina are symmetric. No bony destructive process. No evidence cholesteatoma. The middle ear ossicles have an unremarkable appearance. There is minimal chondrocalcinosis of the articular disc at the TMJs. No bony erosive change or joint space narrowing of the TMJs. No paranasal sinus air-fluid level. On the minimal mucosal thickening involves the sphenoid sinus anteriorly. Incidental note made of intracranial vascular calcifications of the carotid arteries. No abscess or soft tissue mass apparent. The middle ears are well aerated. There is a small right florina bullosa of the middle turbinate IMPRESSION: 1. Minimal amount of fluid within the mastoid sinuses. No bony destructive process or cholesteatoma. 2. 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 Dictated by: Omid Valenzuela MD 03/04/2021 09:21 Omid Valenzuela MD in [facility] 03/04/2021 09:21
--- NOTE | 2021-03-04 07:36 | HMH.ACPN2 ---
Internal Medicine - PN: Subj *Date: 03/04/21 *Time: 07:36 Interval history: Overall patient feels well, continues to have right-sided neck pain. Some tenderness in the mastoid. Exam Vital signs and Labs for Last 24 Hours: Temp Pulse Resp BP Pulse Ox 98.1 F 60 18 182/80 H 97 03/04/21 03:51 03/04/21 04:00 03/04/21 03:51 03/04/21 03:51 03/04/21 03:51 Laboratory Results - last 24 hr 03/03/21 06:15: Hgb 11.3 L D, Total Counted 100, Neutrophils % (Manual) 38 L, Lymphocytes % (Manual) 58 H, Monocytes % (Manual) 1 L, Eosinophils % (Manual) 3, Platelet Estimate Normal, RBC Morphology Normal 03/03/21 06:15: LDL Cholesterol Direct 99.80 L I & O for Last 24 hours: Intake & Output 03/01/21 03/02/21 03/03/21 03/04/21 11:59 11:59 11:59 11:59 Intake Total 1000 / 1000 1330 / 1330 Balance 1000 / 1000 1330 / 1330 Weight 155 lb 156 lb Narrative: Exam unchanged from prior. Facial drooping noted, patient thinks her right arm is stronger. - *Routine Respiratory Exam Present: accessory muscle use - *Routine Cardiovascular Exam Present: RRR - *Routine Abdominal Exam Present: soft, normoactive bowel sounds. Absent: tenderness Assessment and Plan (1) Cerebrovascular accident Status: Acute Qualifiers: CVA mechanism: unspecified Qualified Code(s): I63.9 - Cerebral infarction, unspecified Category: Medical Code(s): I63.9 - Cerebral infarction, unspecified (2) Hypertension Status: Acute Qualifiers: Hypertension type: essential hypertension Qualified Code(s): I10 - Essential (primary) hypertension Category: Medical Code(s): I10 - Essential (primary) hypertension - Assessment and plan all Dx Assessment and Plan for all problems:: Continue physical therapy, plan for skilled care rehab transfer. Image mastoid and neck because of ongoing pain
--- NOTE | 2021-03-04 08:19 | FL_ITS ---
PROCEDURE: FL BARIUM SWALLOW MODIFIED CLINICAL INDICATION: Dysphagia COMPARISON: No exams were available for comparison TECHNIQUE: Patient administered varying consistencies of barium contrast, while viewed in lateral position under real-time fluoroscopy with cine recording. FLUOROSCOPY TIME:2 minutes and 35 seconds The study was performed in conjunction with speech pathologist. Please see that report & recommendations. FINDINGS: Patient was given varying consistencies of barium. . Lateral images submitted with the field of view centered at the lower skull region and do not adequately demonstrate the lower epiglottis and larynx. There was early spillage into the vallecula. No obvious aspiration demonstrated. IMPRESSION: No obvious aspiration. Early spillage. Please correlate with fluoroscopic findings. Please see speech pathologist report and recommendations. Dictated by: Omid Valenzuela MD 03/07/2021 13:31 Omid Valenzuela MD in [place] 03/07/2021 13:31
--- NOTE | 2021-03-04 11:29 | HMH.SLMBS2 ---
Speech & Language Evaluation Speech/Language Mod Barium Swallow Start: 03/04/21 08:19 Freq: ONCE Status: Complete Protocol: Document 03/04/21 11:00 FRANCO (Rec: 03/04/21 11:29 FRANCO [id number]) General Information General Current Food Consistancy Pureed,Goodwin Liquids Dentition Good Dentition Oxygen Status Room Air Facial Symmetry Asymmetrical Patient Orientation Person,Place,Time,Situation Ability to Follow Directions Good Communication Ability Mild Impairment MBS Recommendations Diet Dietary Recommendations Pureed,Thin Liquids Treatment/Strategies Treatment Recommendation Oral Motor Exercises,Chewing Exercises Strategy/Precaution Recommend Sitting Upright (90 deg),Small Bites and Sips,Alternate Liquids/Solids Mod Barium Swallow Impressions Summary and Impressions Oral Phase Impression Moderate Impairment Oral Phase Summary Ms. Irwin was given the following consistencies: thins via straw, pudding, pureed, and mechanical soft. Ms. Irwin exhibited difficulty chewing mechanical soft and initiating the swallow with all consistencies. Ms. Irwin chewed mechanical soft with tongue and hard palate and swallowed the bolus whole. Pharyngeal Phase Impression Mild Impairment Pharyngeal Phase Summary Ms. Irwin did exhibit carmelita silent aspiration with pudding residue after the swallow. Speech/Language MBS Assessment/Goals/Plan Assessment Date of Evaluation: 03/04/21 Evaluation Type Re-Evaluation/Revise POC Assessment/Problems Rule out aspiration Does Patient Qualify for Service Yes Qualify/Failure Comment Ms. Irwin did exhibited carmelita silent aspiration on pudding thick liquids and difficulty chewing mechanical soft. Recommendations PHYSICIAN CERTIFICATION: The specified therapy services are required, authorized, and reviewed every 30 days. Pt will be seen # times/week 1 for # weeks 1 Diet Recommendations Pureed Liquid Type Recommendations Normal/Thin SL Swallow Guidelines High aspiration risk Crush Meds Crush all meds,Small pills w/ applesauce Dysphagia Swallow Precautions/Strategies Sitting Upright (90 deg),
--- NOTE | 2021-03-04 20:21 | PC.NURSE ---
No acute changes this shift. VSS. Did give prn pain med for R neck pain. Pt has been up to chair this shift. Daughter has been at bedside most of day during visiting hours. CB in reach.
[2021-03-05] VITALS (9 sets, daily range): BP systolic 117–183; BP diastolic 42–87; PULSE 60–85; RESP 16–20; TEMP 36.3–36.8; O2SAT 95–98; BMI 26.0
--- NOTE | 2021-03-05 06:46 | PC.NURSE ---
NIH Scale, no new deficits noted. Patient alert and oriented X 4. Will continue to monitor. Patient rested comfortably thru the night and in no acute distress. Patient refused Eye gtts HS but accepted at 0600. Pt's daughter called to check on her and explain that her mother, the patient, would not request help by pushing the call light, therefore, checking on her often would be ideal.
[2021-03-05 07:18] LABS: Basophils % 0.3 % (0.1-2.0); Eosinophils # 0.1 K/mm3 (0.0-0.4); Eosinophils % 2.2 % (0.1-12.0); Hematocrit 33.7 % (37.0-47.0); Hemoglobin 11.3 g/dL (12.2-16.2); Lymphocytes # 2.3 K/mm3 (0.7-4.5); Lymphocytes % 40.4 % (10-50); Mean Corpuscular HGB Conc 33.5 g/dL (31.8-35.4); Mean Corpuscular Hemoglobin 31.3 pg (27.0-31.2); Mean Corpuscular Volume 93.5 fl (81-99); Monocytes # 0.3 K/mm3 (0.1-1.0); Monocytes % 5.4 % (1.7-9.3); Neutrophils # 2.9 K/mm3 (1.8-7.8); Neutrophils % 51.8 % (37.0-80.0); Platelet Count 170 K/mm3 (142-424); Red Blood Count 3.61 M/mm3 (4.20-5.40); Red Cell Distribution Width 13.4 % (11.5-17.5); White Blood Count 5.7 K/mm3 (4.8-10.8)
[2021-03-05 07:20] LABS: Chloride 106 mmol/L (98-107); Potassium 3.7 mmoL/L (3.5-5.1); Sodium 138 mmol/L (136-145)
[2021-03-05 07:23] LABS: Blood Urea Nitrogen 10 mg/dl (7-17); Creatinine Clearance Estimated 46 mL/min (50-200); Estimated Glomerular Filt Rate 95 ml/min (>60); GFR (African American) 115 ML/MIN (>60)
[2021-03-05 07:24] LABS: Anion Gap 7.7 mEq/L (5-15); Calcium 9.2 mg/dl (8.4-10.2); Carbon Dioxide 28 mmol/L (22.0-30.0); Glucose 97 mg/dl (74-100)
--- NOTE | 2021-03-05 08:16 | HMH.ACPN2 ---
Internal Medicine - PN: Subj *Date: 03/05/21 *Time: 08:16 Interval history: Overall patient feels well, no complaints. Up in a chair eating breakfast. Exam Vital signs and Labs for Last 24 Hours: Temp Pulse Resp BP Pulse Ox 97.9 F 60 20 147/67 H 96 03/05/21 04:00 03/05/21 04:00 03/05/21 04:00 03/05/21 04:00 03/05/21 04:00 Laboratory Results - last 24 hr 03/05/21 06:09: WBC 5.7, RBC 3.61 L, Hgb 11.3 L, Hct 33.7 L, MCV 93.5, MCH 31.3 H, MCHC 33.5, RDW 13.4, Plt Count 170, MPV 8.0, Neut % (Auto) 51.8, Lymph % (Auto) 40.4, Hettinger % (Auto) 5.4, Eos % (Auto) 2.2, Baso % (Auto) 0.3, Neut # (Auto) 2.9, Lymph # (Auto) 2.3, Hettinger # (Auto) 0.3, Eos # (Auto) 0.1, Baso # (Auto) 0.0 03/05/21 06:09: Sodium 138, Potassium 3.7, Chloride 106, Carbon Dioxide 28, Anion Gap 7.7, BUN 10 D, Creatinine 0.60, Estimated Creat Clear 46, Estimated GFR 95, Est GFR ( Amer) 115, Glucose 97, Calcium 9.2 I & O for Last 24 hours: Intake & Output 03/02/21 03/03/21 03/04/21 03/05/21 11:59 11:59 11:59 11:59 Intake Total 1000 / 1000 1450 / 1450 1210 / 1210 Balance 1000 / 1000 1450 / 1450 1210 / 1210 Weight 155 lb 156 lb 156 lb 8.451 oz Narrative: Continues to have right-sided facial drooping. Right arm weakness but stable. Right leg is almost symmetric with the left leg and has improved. Lungs are clear, heart rate regular. Oropharynx clear. Abdomen soft, no rash Assessment and Plan (1) Cerebrovascular accident Status: Acute Qualifiers: CVA mechanism: unspecified Qualified Code(s): I63.9 - Cerebral infarction, unspecified Category: Medical Code(s): I63.9 - Cerebral infarction, unspecified (2) Hypertension Status: Acute Qualifiers: Hypertension type: essential hypertension Qualified Code(s): I10 - Essential (primary) hypertension Category: Medical Code(s): I10 - Essential (primary) hypertension - Assessment and plan all Dx Assessment and Plan for all problems:: We will increase lisinopril today to 10 mg to slowly continue to improve blood pressure readings. Otherwise no changes in plan, continue therapy, await information on transfer to long-term care for skilled rehab
--- NOTE | 2021-03-05 18:09 | PC.NURSE ---
Did speak with Dr. Dueñas this am and receive orders for preperation H and a fleets enema, prn ducolax po given and pt has had x 2 bm's this shift and is choosing to hold off on bm since having a bm. CB in reach. Daugheter here at bedside this shift. Did speak with Dr. boudreaux and also reorder pt's celebrex. Daughter is going to bring med back. VSS. MX continues. No acute changes.
--- NOTE | 2021-03-05 19:20 | PC.NURSE ---
THIS RN PROVIDED REPORT TO SHERLYN.
--- NOTE | 2021-03-05 21:57 | PC.NURSE ---
DID ROUNDING WITH THE TECHS,EMPYTIED TRASH,AND LINENS,PASSED SNACKS. PATIENT HAD NO NEEDS AT THIS TIME.EliasM
--- NOTE | 2021-03-05 22:58 | PC.NURSE ---
Pts daughter, Beth called and requested an update and stated that she would not return to the hospital for an overnight stay. She requested that this RN informed her, advised patient that her daughter woudl be staying home.
[2021-03-06] VITALS (8 sets, daily range): BP systolic 118–170; BP diastolic 70–85; PULSE 57–78; RESP 16–18; TEMP 36.3–36.9; O2SAT 96–100; BMI 25.4
--- NOTE | 2021-03-06 03:42 | PC.NURSE ---
Pt resting comfortably with eyes closed and in no acute distress. Patient had no complaints of pain and did not required any pain medication this shift.. Will continue to monitor for any acute changes No s/s of Acute CVA present during this shift
--- NOTE | 2021-03-06 05:00 | PC.NURSE ---
EMPTIED TRASH AND LINENS REFILLED ICE PITCHERS. PT HAD NO NEEDS AT THIS TIME.Yousif
--- NOTE | 2021-03-06 08:45 | HMH.ACPN2 ---
Internal Medicine - PN: Subj *Date: 03/06/21 *Time: 08:45 Interval history: Overall patient feels very good, has had no neurologic progression, thinks her right leg continues to get stronger. Exam Vital signs and Labs for Last 24 Hours: Temp Pulse Resp BP Pulse Ox 97.4 F L 60 18 157/85 H 97 03/06/21 04:00 03/06/21 08:00 03/06/21 04:00 03/06/21 04:00 03/06/21 04:00 I & O for Last 24 hours: Intake & Output 03/03/21 03/04/21 03/05/21 03/06/21 11:59 11:59 11:59 11:59 Intake Total 1000 / 1000 1450 / 1450 1450 / 1450 1360 / 1360 Balance 1000 / 1000 1450 / 1450 1450 / 1450 1360 / 1360 Weight 155 lb 156 lb 156 lb 8.451 oz 153 lb Narrative: Sustained blood pressure elevation noted. Right facial droop unchanged. Right arm weakness and hyperreflexia unchanged. Right leg is slightly weak compared to the left, 4+ out of 5. Heart rate regular, lungs clear, abdomen soft, ENT exam otherwise clear. Assessment and Plan (1) Cerebrovascular accident Status: Acute Qualifiers: CVA mechanism: unspecified Qualified Code(s): I63.9 - Cerebral infarction, unspecified Category: Medical Code(s): I63.9 - Cerebral infarction, unspecified (2) Hypertension Status: Acute Qualifiers: Hypertension type: essential hypertension Qualified Code(s): I10 - Essential (primary) hypertension Category: Medical Code(s): I10 - Essential (primary) hypertension - Assessment and plan all Dx Assessment and Plan for all problems:: Speech therapy results appreciated. Patient reports no swallowing difficulties. Continue current diet. Titrate up lisinopril to 20 mg given her persistent blood pressure elevation above 160, watch cautiously. Hopeful transition to skilled care tomorrow depending on insurance precertification status.
--- NOTE | 2021-03-06 15:38 | PC.NURSE ---
Pt alert and oriented and able to make needs known. Pt has been up to chair this shift and daughter is at bedside. Meds given per jan. CB in reach. No acute changes thus far. Will cont to mx. Has had a bath and brushed teeth this shift. BP improved at this time. VSS. Afebrile. No current complaints.
--- NOTE | 2021-03-06 19:09 | PC.NURSE ---
THIS RN PROVIDED WC REPORT TO ILYA KING.
[2021-03-07] VITALS: BP 150/80; PULSE 67; PULSE 90; RESP 18; TEMP 36.4; O2SAT 98
[2021-03-07 03:53] VITALS: BP 152/78; PULSE 76; RESP 20; TEMP 36.5; O2SAT 96
[2021-03-07 04:00] VITALS: PULSE 70
--- NOTE | 2021-03-07 04:43 | PC.NURSE ---
pt has deficits noted to right side with mild weakness on taping supervisor. facial drooping to right side and speech is slurred at times. iv patent and infusing per mar. ambulates to bathroom with assist. no pain or discomfort voiced. call light in reach. manual bp taken as ordered. will continue to monitor
[2021-03-07 05:00] VITALS: BMI 25.6
[2021-03-07 08:00] VITALS: BP 156/71; PULSE 69; PULSE 80; RESP 16; TEMP 36.8; O2SAT 99
--- NOTE | 2021-03-07 08:17 | HMH.ACPN2 ---
Internal Medicine - PN: Subj *Date: 03/07/21 *Time: 08:17 Interval history: Patient has developed some diarrhea overnight, thinks it is from her pur?ed diet, otherwise feels well Exam Vital signs and Labs for Last 24 Hours: Temp Pulse Resp BP Pulse Ox 97.7 F 70 20 152/78 H 96 03/07/21 03:53 03/07/21 04:00 03/07/21 03:53 03/07/21 03:53 03/07/21 03:53 I & O for Last 24 hours: Intake & Output 03/04/21 03/05/21 03/06/21 03/07/21 11:59 11:59 11:59 11:59 Intake Total 1450 / 1450 1450 / 1450 1720 / 1720 1298 / 1298 Balance 1450 / 1450 1450 / 1450 1720 / 1720 1298 / 1298 Weight 156 lb 156 lb 8.451 oz 153 lb 154 lb Narrative: Alert, pleasant, right facial droop. Otherwise exam unchanged, breathing easily. Pulse rate regular. Blood pressure noted, No edema or clubbing. Abdomen is nontender Assessment and Plan (1) Cerebrovascular accident Status: Acute Qualifiers: CVA mechanism: unspecified Qualified Code(s): I63.9 - Cerebral infarction, unspecified Category: Medical Code(s): I63.9 - Cerebral infarction, unspecified (2) Hypertension Status: Acute Qualifiers: Hypertension type: essential hypertension Qualified Code(s): I10 - Essential (primary) hypertension Category: Medical Code(s): I10 - Essential (primary) hypertension - Assessment and plan all Dx Assessment and Plan for all problems:: Lomotil today. Change diet. Await long term transfer authorization from insurance [employer]
[2021-03-07 12:00] VITALS: BP 152/68; PULSE 70; PULSE 78; RESP 16; TEMP 36.4; O2SAT 96
--- NOTE | 2021-03-07 12:16 | HMH.DCSUM ---
General - General Admission date:: 03/03/21 Discharge date: 03/07/21 HPI HPI: 85-year-old white female who has been enjoying remarkably good functional status over the last several years who lives by herself, actually was brought to the emergency department a couple of nights ago because of conjunctivitis and exam at that time other than the conjunctivitis was unrevealing. She was returned home and did well through the night but the next morning, which was yesterday morning March 02, awoke and when she was doing her morning routine noted that she could not spit out her toothpaste after she was brushing her teeth. She did not think much about this at the time but did notice that her right arm was weak. Unfortunately she waited until her daughter came by to check on her later in the day yesterday and her daughter immediately noted right facial drooping and she was brought to the emergency department. Stroke work-up revealed high blood pressure, she was given 1 dose of her regular WILLIAM inhibitor and this brought her blood pressure down by about [address] scan showed no evidence of hemorrhage and was essentially normal, [facility] stroke team was consulted but given the length of time since her event they felt they could not offer intervention and the family did not wish to be transferred unless stroke intervention was possible. As a result she was admitted here for further evaluation and diagnostic testing. This morning she is pleasant, has no pains, does not feel like things have progressed overnight. Hospital Course Hospital Course: Patient was admitted to hospital, MRI showed subacute right lacunar infarct, fitting with her symptoms. Carotid Dopplers were unremarkable. PT and OT evaluated patient, felt that she would benefit from skilled care rehab. This was initiated. Dietary evaluated her, initially placed on pur?ed diet but this was liberalized. Patient improved but continued to require rehabilitation and today she will be transferred to [facility] [place] skilled care. Patient's blood pressure has been elevated, we very cautiously titrated lisinopril up to 20 mg daily, blood pressure is still in the 150 range, we will watch her at the group home to see where this settles out. Did have some diarrhea over the past couple of days, she feels like it is from her pur?ed diet, as needed Lomotil was given in the hospital, she will need to be observed at the group home to see if this continues. Objective Vital signs: Temp Pulse Resp BP Pulse Ox 97.5 F L 78 16 152/68 H 96 03/07/21 12:00 03/07/21 12:00 03/07/21 12:00 03/07/21 12:00 03/07/21 12:00 no acute distress - *Routine HEENT Exam Head: Present: normocephalic Eye: Present: EOMI, PERRL ENT: Present: mucous membranes moist - *Routine Neck Exam Present: supple - *Routine Respiratory Exam Present: CTA bilaterally - *Routine Cardiovascular Exam Present: RRR - *Routine Abdominal Exam Present: soft, normoactive bowel sounds. Absent: tenderness - *Routine Extremities Exam Absent: cyanosis, clubbing, edema - *Routine Skin Exam Present: warm. Absent: rash - *Routine Neurological Exam Present: alert, oriented X3 (Right facial droop, right arm weakness with hyperreflexia), motor deficit - Detailed Eye Exam Eyelids: Bilateral normal inspection DS: Diagnosis - Discharge Diagnosis (1) Cerebrovascular accident Status: Acute (2) Hypertension Status: Acute Discharge Plan - Patient Discharge Instructions ACTIVITY: Continue current activity DIET: continue same diet Patient Instructions: Hypertension (Alternative Therapy), DI for Stroke-Ischemic - Follow up Plan Follow up with: Yaneli Fortune APRN [Nurse Practitioner] - Disposition: Xfer SNF Home Medications: Home Medications Medication Instructions Recorded Confirmed Type Celecoxib [CeleBREX 100mg Capsule] 100 mg PO DAILY 04/07/20 03/03/21
== END 2021-03-07 15:03 ==
LOC: ER 21:44 → 2ND 03-03 00:12
PROVIDERS: Admitting Provider Internal Medicine Adolescent Medicine; Emergency Provider Emergency Medicine; PCP Internal Medicine Adolescent Medicine; Visit Provider Internal Medicine Adolescent Medicine
DX: I63.89 Other cerebral infarction (principal); R29.810 Facial weakness; G81.91 Hemiplegia, unspecified affecting right dominant side; I11.0 Hypertensive heart disease with heart failure; I50.9 Heart failure, unspecified; I25.10 Atherosclerotic heart disease of native coronary artery without angina pectoris; Z79.899 Other long term (current) drug therapy
CPT/HCPCS: 36415; 70371; 70450; 70486; 70490; 70551; 80048; 80053; 80061; 82962; 83735; 84145; 85007; 85025; 85610; 85651; 86140; 92526; 92610; 92611; 93005; 93306; 93880; 96372; 97110; 97116; 97162; 97166; 97530; 99284; G0378; J2405; U0003

== ENCOUNTER 2021-03-13 00:39 | Emergency (ER) | payer MEDICARE, SELFPAY ==
[2021-03-13 00:41] VITALS: BP 192/83; PULSE 64; RESP 18; TEMP 36.4; O2SAT 95; BMI 29.7
--- NOTE | 2021-03-13 00:51 | CT_ITS ---
PROCEDURE: CT HEAD/BRAIN WO CON CLINICAL INDICATION: Right side H/A Right-sided. Left-sided facial droop, recent stroke COMPARISON: CT CT HEAD/BRAIN WO CON from 03/02/2021 MR MR HEAD/BRAIN WO CON from 03/03/2021 TECHNIQUE: Axial images obtained. All CT scans at the facility use one or more dose reduction, viz: automated exposure control, ma/kV adjustment per patient size (including targeted exams where dose is matched to indication, i.e. head), or iterative reconstruction technique. FINDINGS: No midline shift, mass effect, intracranial hemorrhage, hydrocephalus, or extra-axial fluid collection is evident. There is generalized atrophy with hypoattenuation of the periventricular white matter consistent with microangiopathic changes. This may have slightly progressed in the right posterior parietal region possibly due to interval development of a small infarction in this area however, the MRI of 03/03/2021 did not show any restricted diffusion in this area. The calvarium has an unremarkable appearance. No mastoid effusion. No sinus air-fluid level. IMPRESSION: Atrophy with chronic periventricular ischemic gliotic changes. Questionable subacute white matter infarction in the right posterior parietal region. Repeat MRI may confirm if clinically warranted. No acute intracranial hemorrhage. Dictated by: Omid Valenzuela MD 03/13/2021 08:05 Omid Valenzuela MD in [place] 03/13/2021 08:05
[2021-03-13 01:01] LABS: Basophils % 0.3 % (0.1-2.0); Eosinophils # 0.2 K/mm3 (0.0-0.4); Eosinophils % 2.9 % (0.1-12.0); Hematocrit 34.4 % (37.0-47.0); Hemoglobin 11.7 g/dL (12.2-16.2); Lymphocytes # 3.3 K/mm3 (0.7-4.5); Lymphocytes % 57.3 % (10-50); Mean Corpuscular Hemoglobin 30.7 pg (27.0-31.2); Mean Corpuscular Volume 90.2 fl (81-99); Mean Platelet Volume 7.4 fl (7.4-10.4); Monocytes # 0.3 K/mm3 (0.1-1.0); Neutrophils % 34.6 % (37.0-80.0); Platelet Count 233 K/mm3 (142-424); Red Blood Count 3.82 M/mm3 (4.20-5.40); Red Cell Distribution Width 13.3 % (11.5-17.5); White Blood Count 5.7 K/mm3 (4.8-10.8)
[2021-03-13 01:03] LABS: MANUAL DIFFERENTIAL MANUAL DIFFERENTIAL (MANUAL DIFF)
[2021-03-13 01:09] LABS: Alanine Aminotransferase 15 U/L (12-78); Albumin Level 4.1 g/dl (3.5-5.0); Albumin/Globulin Ratio 1.6 (1.1-1.8); Alkaline Phosphatase 75 U/L (38-126); Anion Gap 12.8 mEq/L (5-15); Aspartate Amino Transferase 26 U/L (14-36); Bilirubin,Total 0.3 mg/dl (0.2-1.3); Blood Urea Nitrogen 6 mg/dl (7-17); Calcium 9.5 mg/dl (8.4-10.2); Carbon Dioxide 25 mmol/L (22.0-30.0); Chloride 102 mmol/L (98-107); Creatinine Clearance Estimated 45 mL/min (50-200); Estimated Glomerular Filt Rate 95 ml/min (>60); GFR (African American) 115 ML/MIN (>60); Globulin 2.6 g/dL (1.3-3.2); Glucose 100 mg/dl (74-100); Potassium 3.8 mmoL/L (3.5-5.1); Sodium 136 mmol/L (136-145); Total Protein,Serum 6.7 g/dl (6.3-8.2)
[2021-03-13 01:14] LABS: C-Reactive Protein 3.9 mg/L (0-4)
[2021-03-13 01:22] LABS: Eosinophils % 4 % (0-3); Lymphocytes % 56 % (10-50); Monocytes % 3 % (2-9); Neutrophils % 37 % (42-76); Total Cells Counted 100
[2021-03-13 01:23] LABS: Platelet Estimate Normal; RBC Morphology Normal
[2021-03-13 01:28] LABS: Erythrocyte Sedimentation Rate 43 mm/hr (0-30); Procalcitonin < 0.030 ng/mL (0.0-2.0)
[2021-03-13 01:31] VITALS: BP 137/85; PULSE 60; RESP 16; O2SAT 95
--- NOTE | 2021-03-13 01:34 | HMH.EDHA ---
ED Disposition Clinical Impression: Headache Qualifiers: Headache type: unspecified Headache chronicity pattern: unspecified pattern Intractability: not intractable Qualified Code(s): R51.9 - Headache, unspecified Cerebrovascular accident Qualifiers: CVA mechanism: unspecified Qualified Code(s): I63.9 - Cerebral infarction, unspecified Disposition: Home, Self-Care Condition on Discharge: Good Instructions: DI for Headache Additional Instructions: use meds and call pcp for follow up Referrals: Trev Hays MD [Primary Care Provider] - - Critical Care Critical Care Time: No Attestation: On 03/13/21, the high probability of a clinically significant, sudden or life threatening deterioration of the following system(s) required my full and direct attention, intervention and personal management. The time I documented below is in addition to time spent performing reported procedures but includes the following listed in this critical care notation. Medical Decision Making - Medical Records Medical records reviewed: Yes: I reviewed the patient's medical records. - Kyler Inquiry Pt receiving controlled substance: No Vital Signs: 03/13/21 00:41 03/13/21 01:31 03/13/21 02:01 Temperature 97.6 F Temperature Source Oral Pulse Rate 60 62 Pulse Rate [Right] 64 Respiratory Rate 18 16 16 Blood Pressure 137/85 174/73 H Blood Pressure [Right Arm] 192/83 H Blood Pressure Mean 102 102 Blood Pressure Mean [Right Arm] 119 Blood Pressure Source [Right Arm] Automatic Cuff Blood Pressure Position [Right Arm] Supine 02 Sat by Pulse Oximetry 95 95 95 Oxygen Delivery Method Room Air 03/13/21 02:31 Temperature Temperature Source Pulse Rate 60 Pulse Rate [Right] Respiratory Rate Blood Pressure 158/71 H Blood Pressure [Right Arm] Blood Pressure Mean 100 Blood Pressure Mean [Right Arm] Blood Pressure Source [Right Arm] Blood Pressure Position [Right Arm] 02 Sat by Pulse Oximetry 92 L Oxygen Delivery Method - Lab Data Lab results reviewed: Yes: I reviewed the patient's lab results. Lab Results 03/13/21 00:45: WBC 5.7, RBC 3.82 L, Hgb 11.7 L, Hct 34.4 L, MCV 90.2, MCH 30.7, MCHC 34.0, RDW 13.3, Plt Count 233, MPV 7.4, Neut % (Auto) 34.6 L, Lymph % (Auto) 57.3 H, Kidder % (Auto) 5.0, Eos % (Auto) 2.9, Baso % (Auto) 0.3, Neut # (Auto) 2.0, Lymph # (Auto) 3.3, Kidder # (Auto) 0.3, Eos # (Auto) 0.2, Baso # (Auto) 0.0, Total Counted 100, Neutrophils % (Manual) 37 L, Lymphocytes % (Manual) 56 H, Monocytes % (Manual) 3, Eosinophils % (Manual) 4 H, Platelet Estimate Normal, RBC Morphology Normal, ESR 43 H 03/13/21 00:45: Sodium 136, Potassium 3.8, Chloride 102, Carbon Dioxide 25, Anion Gap 12.8, BUN 6 L, Creatinine 0.60, Estimated Creat Clear 45, Estimated GFR 95, Est GFR ( Amer) 115, Glucose 100, Calcium 9.5, Total Bilirubin 0.3, AST 26, ALT 15, Alkaline Phosphatase 75, C-Reactive Protein 3.9, Total Protein 6.7, Albumin 4.1, Globulin 2.6, Albumin/Globulin Ratio 1.6, Procalcitonin < 0.030 Result diagrams: 03/13/21 00:45 03/13/21 00:45 Orders (Tests/Meds): ED MEDICATIONS Generic Name Dose Route Start Last Admin Trade Name Freq PRN Reason Stop Dose Admin Sodium Chloride 1,000 mls @ 999 mls/hr 03/13/21 01:00 03/13/21 00:58 Sod Chlor 0.9% 1000ml Bag IV 03/13/21 02:00 999 mls/hr .[id number] JUMA Administration Discontinued Medications Generic Name Dose Route Start Last Admin Trade Name Freq PRN Reason Stop Dose Admin Dexamethasone Sodium Phosphate 8 mg 03/13/21 00:51 03/13/21 00:59 Dexamethasone 4mg/Ml 1ml Vial IV 03/13/21 00:52 8 mg ONCE ONE Administration Diphenhydramine HCl 50 mg 03/13/21 00:51 03/13/21 00:57 Diphenhydramine 50mg/Ml Vial IV 03/13/21 00:52 50 mg ONCE ONE Administration Ketorolac Tromethamine 30 mg 03/13/21 00:51 03/13/21 00:57 Ketorolac 30mg/Ml Vial IV 03/13/21 00:52 30 mg ONCE ONE Administration Ondansetron HCl 4 mg 03/13
[2021-03-13 02:01] VITALS: BP 174/73; PULSE 62; RESP 16; O2SAT 95
[2021-03-13 02:31] VITALS: BP 158/71; PULSE 60; O2SAT 92
[2021-03-13 03:26] VITALS: BP 158/71; PULSE 62; RESP 16; TEMP 36.4; O2SAT 96
== END 2021-03-13 03:30 | disposition home or self-care (01) ==
PROVIDERS: Emergency Provider Emergency Medicine; PCP Internal Medicine Adolescent Medicine
DX: I69.292 Facial weakness following other nontraumatic intracranial hemorrhage (principal); R51.9 Headache, unspecified; I11.0 Hypertensive heart disease with heart failure; Z96.641 Presence of right artificial hip joint; Z96.642 Presence of left artificial hip joint; Z79.899 Other long term (current) drug therapy
CPT/HCPCS: 70450; 80053; 84145; 85007; 85025; 85651; 86140; 96365; 96375; 99283; J2405

== ENCOUNTER → 2021-05-04 13:23 | Outpatient (CLI) | payer MEDICARE, SELFPAY | PROVIDERS: PCP Nurse Practitioner Family; Visit Provider Nurse Practitioner Family | DX: R00.2 Palpitations (principal) | CPT/HCPCS: 93225; 93226 ==

== ENCOUNTER → 2021-06-14 10:41 | Outpatient (CLI) | payer MEDICARE, SELFPAY ==
[2021-06-14 11:44] LABS: Basophils % 0.1 % (0.1-2.0); Eosinophils # 0.2 K/mm3 (0.0-0.4); Eosinophils % 2.7 % (0.1-12.0); Hematocrit 35.9 % (37.0-47.0); Hemoglobin 12.1 g/dL (12.2-16.2); Lymphocytes # 2.6 K/mm3 (0.7-4.5); Lymphocytes % 37.4 % (10-50); Mean Corpuscular HGB Conc 33.8 g/dL (31.8-35.4); Mean Corpuscular Hemoglobin 31.1 pg (27.0-31.2); Mean Corpuscular Volume 92.1 fl (81-99); Mean Platelet Volume 8.1 fl (7.4-10.4); Monocytes # 0.3 K/mm3 (0.1-1.0); Monocytes % 4.8 % (1.7-9.3); Neutrophils # 3.9 K/mm3 (1.8-7.8); Neutrophils % 54.9 % (37.0-80.0); Platelet Count 184 K/mm3 (142-424); Red Cell Distribution Width 14.9 % (11.5-17.5)
[2021-06-14 11:54] LABS: Chloride 105 mmol/L (98-107); Sodium 141 mmol/L (136-145)
[2021-06-14 11:55] LABS: Potassium 4.6 mmoL/L (3.5-5.1)
[2021-06-14 11:57] LABS: Blood Urea Nitrogen 15 mg/dl (7-17); Estimated Glomerular Filt Rate 95 ml/min (>60); GFR (African American) 115 ML/MIN (>60)
[2021-06-14 11:58] LABS: Anion Gap 13.6 mEq/L (5-15); Calcium 9.8 mg/dl (8.4-10.2); Carbon Dioxide 27 mmol/L (22.0-30.0); Glucose 97 mg/dl (74-100)
== END ==
PROVIDERS: Visit Provider Physician Assistant
DX: Z01.812 Encounter for preprocedural laboratory examination; Z20.822 Contact with and (suspected) exposure to COVID-19; R06.00 Dyspnea, unspecified; I49.5 Sick sinus syndrome; R00.0 Tachycardia, unspecified; R00.2 Palpitations; I63.9 Cerebral infarction, unspecified; I10 Essential (primary) hypertension; E78.5 Hyperlipidemia, unspecified; R26.89 Other abnormalities of gait and mobility; R53.83 Other fatigue
CPT/HCPCS: 36415; 80048; 85025; U0003

== ENCOUNTER 2021-06-16 07:49 | Day surgery (SDC) | payer MEDICARE, SELFPAY ==
[2021-06-16] VITALS (9 sets, daily range): BP systolic 120–170; BP diastolic 63–102; PULSE 60–71; RESP 13–18; TEMP 36.6; O2SAT 93–98; BMI 27.1
--- NOTE | 2021-06-16 | IR_ITS ---
APPROVED REPORT Patient Location: Outpatient Aircraft Tool Maker: BANDAR Felder RT (R) PROCEDURES 1. Pocket formation for Permanent Pacemaker Placement. 2. Placement of an atrial sensing and pacing coil into the right atrial appendage. 3. Placement of a ventricular sensing and pacing coil in the right ventricular apex. 4. Permanent Pacemaker Placement. INDICATION Sick Sinus Syndrome, Robert Tachy Syndrome Informed consent was obtained prior to the procedure. COMPLICATIONS None Estimated Blood Loss: Less than 10 mls TECHNIQUE 1% Lidocaine with epinephrine used to anesthetized the left anterior aspect of the chest. Scalpel was used to make the initial cutaneous incision while electrocautery was used to dissect down tinto the fascia. The fascia was lifted off the pectoralis muscle and digitally manipulated creating a pocket for the pacemaker. The patient was then placed in Trendelenburg position and the subclavian vein was accessed twice via the Selinger technique, there are two wires in the vein. A 6 Norwegian sheath was placed under fluoroscopic guidance into the subclavian vein over one of the wires while keeping the other wire in place within the subclavian vein. The dilator was removed from the sheath. Using fluoroscopic guidance, the ventricular lead was placed into the right ventricular apex, screwed and secured into place. Electronic interrogation proved acceptable thresholds and voltage within the lead. Using 3-0 silk, the ventricular lead was then secured into place. Lead was secured to the facia using the 3-0 silk. Following this, the sheath was pealed away. An additional 6 Norwegian fresh sheath and dilator was placed over the existing wire. Using fluoroscopic guidance, the atrial lead was the placed into the right atrial appendage and screwed and secured in place. Electrical interrogation demonstrated acceptable thresholds and voltage number. The atrial lead was then secured into place using 3-0 silk. 1 gram of Ancef was used to flush the pocket. Leads attached to generator. Following the pacemaker generator being secured to the fascia and in place, Monocryl was used to close the subcutaneous layers while deirdre were used to close the cutaneous layer. A pressure dressing was placed and the patient was transferred to the postop holding area in stable condition for postoperative care. INTERROGATION Generator Model number: ACCFRANCK MEYER DR, L311 Generator Serial number: [id number] Atrial lead model number: INGEVITY+ 45CM, 7840 Atrial lead serial number: [id number] P-wave: 4.0mV Impedence: 850 ohms Threshold: 1.0V@0.4ms Right Ventricular lead model number: INGEVITY+ 52CM, 7841 Right Ventricular lead serial number: [id number] R-wave: 12.0mV Impedence: 850 ohms Threshold: 1.0V@0.4ms Pacing Parameters: Mode: DDDR RYTHMIQ: AAI with VVI Backup Base/Max Track: 60/130 PPM No diaphragmatic stimulation at 10 volts. IMPRESSION 1. Successful pocket formation for Permanent Pacemaker Placement. 2. Successful placement of an atrial sensing and pacing coil into the right atrial appendage. 3. Successful placement of a ventricular sensing and pacing coil in the right ventricular apex. 4. Successful permanent Pacemaker Placement. PLAN 1. Post op wound care, follow up office visit Electronically signed by : Kashmir Li, 06/17/2021 09:55:38
--- NOTE | 2021-06-16 11:36 | XR_ITS ---
PROCEDURE: XR CHEST PORTABLE CLINICAL HISTORY: post pacemaker COMPARISON: No exams were available for comparison FINDINGS: No focal consolidation, pleural effusions or pneumothorax. Bibasal atelectasis. Cardiac size and central pulmonary vasculature within normal limits. Vascular calcification is noted. Degenerative changes of the visualized thoracic spine and bilateral shoulder joints. Dual-chamber pacemaker is noted. Sequela of prior rotator cuff repair on the right. IMPRESSION: No focal consolidation or pleural effusions. Dictated by: Dottie Truong 06/16/2021 12:11 Dottie Truong in [facility] 06/16/2021 12:11
== END 2021-06-16 14:05 | disposition home or self-care (01) ==
LOC: CATHLAB 07:53
PROVIDERS: PCP Nurse Practitioner Family; Visit Provider Internal Medicine
PROC: 0JH608Z Insertion of Defibrillator Generator into Chest Subcutaneous Tissue and Fascia, Open Approach (ICD-10-PCS; CPT 33249; principal; 2021-06-16 09:30)
DX: I49.5 Sick sinus syndrome (principal); Z79.899 Other long term (current) drug therapy; E11.9 Type 2 diabetes mellitus without complications; I11.0 Hypertensive heart disease with heart failure; I50.9 Heart failure, unspecified; I69.392 Facial weakness following cerebral infarction; I69.351 Hemiplegia and hemiparesis following cerebral infarction affecting right dominant side
CPT/HCPCS: 33208; 71045; C1785; C1898

== ENCOUNTER 2021-08-05 12:39 | Emergency (ER) | payer MEDICARE, SELFPAY ==
[2021-08-05 12:40] VITALS: BP 171/77; PULSE 60; RESP 18; TEMP 36.7; O2SAT 97; BMI 34.0
--- NOTE | 2021-08-05 13:16 | XR_ITS ---
PROCEDURE: XR HUMERUS RT Right shoulder CLINICAL INDICATION: fall COMPARISON: CR XR SHOULDER RT MIN 2V from 08/05/2021 FINDINGS: Postsurgical changes of the right shoulder with multiple anchors in the humeral head. There is severe subacromial stenosis with osteoarthritic change of the glenohumeral joint and acromioclavicular joint. There is minimal calcification along the head of the humerus consistent with calcific tendinitis. Small area of calcification is present along the inferior aspect of the glenohumeral joint. No acute fracture or dislocation. The distal aspect of the humerus has an unremarkable appearance. Other findings:None. 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 No acute fracture Dictated by: Omid Valenzuela MD 08/05/2021 14:31 Omid Valenzuela MD in [facility] 08/05/2021 14:31
--- NOTE | 2021-08-05 13:16 | XR_ITS ---
PROCEDURE: XR WRIST LT MIN 3V CLINICAL INDICATION: fall, swelling COMPARISON: CR XR WRIST RT MIN 3V from 10/05/2020 CR XR WRIST LT MIN 3V from 11/09/2020 CR XR WRIST RT MIN 3V from 08/05/2021 FINDINGS: There are severe osteoarthritic changes of the left wrist including the radiocarpal joint distal radial ulnar joint and 1st metacarpal-carpal joint. There is flattening of the lunate, scaphoid, and trapezium. No obvious acute fracture. Periarticular calcification is noted. Other findings:None. IMPRESSION: Severe osteoarthritic changes similar to the previous exam. No acute finding. Dictated by: Omid Valenzuela MD 08/05/2021 14:26 Omid Valenzuela MD in [facility] 08/05/2021 14:26
--- NOTE | 2021-08-05 13:16 | XR_ITS ---
PROCEDURE: XR KNEE LT 3V CLINICAL INDICATION: fall, swelling bruising COMPARISON: No exams were available for comparison FINDINGS: No fracture or dislocation. No lytic or blastic change. There is normal mineralization. Status post total knee replacement. There is good alignment of the prosthesis Other findings:Diffuse vascular calcification. IMPRESSION: No acute findings. Dictated by: Omid Valenzuela MD 08/05/2021 14:32 Omid Valenzuela MD in [facility] 08/05/2021 14:32
--- NOTE | 2021-08-05 13:16 | CT_ITS ---
PROCEDURE: CT CERVICAL SPINE WO CON CLINICAL INDICATION: fall, pain COMPARISON: CT CT CERVICAL SPINE WO CON from 07/27/2020 TECHNIQUE: Axial images obtained with sagittal and coronal reformats. All CT scans at the facility use one or more dose reduction, viz: automated exposure control, ma/kV adjustment per patient size (including targeted exams where dose is matched to indication, i.e. head), or iterative reconstruction technique. Axial spiral CT scanning performed of the cervical spine beginning at the base of the skull and continuing to the upper T-spine. 3-D multiplanar reconstruction with 3-D manipulation of volumetric data set in image rendering was completed by the radiologist and/or technologist with the supervision of the radiologist on independent workstation. FINDINGS: There is slight reversal of the cervical lordosis. There is multilevel degenerative disc disease from C2-C7.. There is prominent transverse ligament calcification along posterior aspect of C2. There is some mild epidural calcification posteriorly on the left at C4 not significantly changed. Canal stenosis is present at C5-C6 from posterior osteophytes. Canal stenosis also noted at C6-C7 from small posterior disc osteophyte complex. Prominent nuchal ligament calcification noted at C7-T1. Left foraminal narrowing C5-C6. Bilateral foraminal narrowing C6-C7 No acute fracture or dislocation. IMPRESSION: No acute fracture. Multilevel cervical spondylosis with canal stenosis and foraminal narrowing Dictated by: Omid Valenzuela MD 08/05/2021 14:21 Omid Valenzuela MD in [facility] 08/05/2021 14:21
--- NOTE | 2021-08-05 13:20 | HMH.EDGENADL ---
ED Disposition Clinical Impression: Multiple contusions Fall Qualifiers: Encounter type: initial encounter Qualified Code(s): W19.XXXA - Unspecified fall, initial encounter Disposition: Home, Self-Care Condition on Discharge: Good Instructions: How to Prevent Falls, DI for Contusion Additional Instructions: Continue Tylenol for pain. Follow-up with your primary care doctor next week if not improved. Referrals: Trev Hays MD [Primary Care Provider] - - Critical Care Critical Care Time: No Attestation: On 08/05/21, the high probability of a clinically significant, sudden or life threatening deterioration of the following system(s) required my full and direct attention, intervention and personal management. The time I documented below is in addition to time spent performing reported procedures but includes the following listed in this critical care notation. Medical Decision Making - Kyler Inquiry Pt receiving controlled substance: No Vital Signs: 08/05/21 12:40 Temperature 98.0 F Temperature Source Oral Pulse Rate [Left Radial] 60 Respiratory Rate 18 Blood Pressure [Left Arm] 171/77 H Blood Pressure Mean [Left Arm] 108 Blood Pressure Source [Left Arm] Automatic Cuff Blood Pressure Position [Left Arm] Sitting 02 Sat by Pulse Oximetry 97 Oxygen Delivery Method Room Air - Radiology Data #1 Image(s): Shoulder, Humerus, Wrist, Knee Image Reviewed: Yes I have reviewed radiologist's interpretation PROCEDURE: XR WRIST RT MIN 3V CLINICAL INDICATION: fall Pain COMPARISON: CR XR WRIST RT MIN 3V from 10/05/2020 CR XR WRIST LT MIN 3V from 11/09/2020 FINDINGS: No significant change in the severe osteoarthritis of the right wrist with dysplastic changes of the lunate, scaphoid, and trapezium as previously described not significantly changed. Prominent subchondral cyst is present at the distal radius as before. Severe osteoarthritis at the 1st metacarpal-carpal joint No definite acute fracture. Other findings:None. IMPRESSION: No change severe osteoarthritis of the right wrist with no acute finding Dictated by: Omid Valenzuela MD 08/05/2021 14:28 Omid Valenzuela MD in [facility] 08/05/2021 14:28 PROCEDURE: XR WRIST LT MIN 3V CLINICAL INDICATION: fall, swelling COMPARISON: CR XR WRIST RT MIN 3V from 10/05/2020 CR XR WRIST LT MIN 3V from 11/09/2020 CR XR WRIST RT MIN 3V from 08/05/2021 FINDINGS: There are severe osteoarthritic changes of the left wrist including the radiocarpal joint distal radial ulnar joint and 1st metacarpal-carpal joint. There is flattening of the lunate, scaphoid, and trapezium. No obvious acute fracture. Periarticular calcification is noted. Other findings:None. IMPRESSION: Severe osteoarthritic changes similar to the previous exam. No acute finding. Dictated by: Omid Valenzuela MD 08/05/2021 14:26 Omid Valenzuela MD in [facility] 08/05/2021 14:26 PROCEDURE: XR HUMERUS RT Right shoulder CLINICAL INDICATION: fall COMPARISON: CR XR SHOULDER RT MIN 2V from 08/05/2021 FINDINGS: Postsurgical changes of the right shoulder with multiple anchors in the humeral head. There is severe subacromial stenosis with osteoarthritic change of the glenohumeral joint and acromioclavicular joint. There is minimal calcification along the head of the humerus consistent with calcific tendinitis. Small area of calcification is present along the inferior aspect of the glenohumeral joint. No acute fracture or dislocation. The distal aspect of the humerus has an unremarkable appearance. Other findings:None. 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 No acute fracture Dictated by: Omid Valenzuela MD 08/05/2021 14:31 Omid Valenzuela MD in [facility] 08/05/2021 14:31 PROCEDURE: XR KNEE LT 3V CLINICAL INDICATION: fall, swelling bruising COMPARI
--- NOTE | 2021-08-05 13:24 | CT_ITS ---
PROCEDURE: CT HEAD/BRAIN WO CON CLINICAL INDICATION: fall Head injury with headache/pain, contusion, abrasion or hematoma COMPARISON: CT CT HEAD/BRAIN WO CON from 03/13/2021 TECHNIQUE: Axial images obtained. All CT scans at the facility use one or more dose reduction, viz: automated exposure control, ma/kV adjustment per patient size (including targeted exams where dose is matched to indication, i.e. head), or iterative reconstruction technique. FINDINGS: No midline shift, mass effect, intracranial hemorrhage, hydrocephalus, or extra-axial fluid collection is evident. There is generalized atrophy with hypoattenuation of the periventricular white matter consistent with microangiopathic changes. The calvarium has an unremarkable appearance. Small amount fluid in the right mastoid sinus. No sinus air-fluid level. IMPRESSION: No acute intracranial finding Dictated by: Omid Valenzuela MD 08/05/2021 14:24 Omid Valenzuela MD in [facility] 08/05/2021 14:24
--- NOTE | 2021-08-05 13:25 | PC.NURSE ---
pt to rad
--- NOTE | 2021-08-05 13:31 | XR_ITS ---
PROCEDURE: XR WRIST RT MIN 3V CLINICAL INDICATION: fall Pain COMPARISON: CR XR WRIST RT MIN 3V from 10/05/2020 CR XR WRIST LT MIN 3V from 11/09/2020 FINDINGS: No significant change in the severe osteoarthritis of the right wrist with dysplastic changes of the lunate, scaphoid, and trapezium as previously described not significantly changed. Prominent subchondral cyst is present at the distal radius as before. Severe osteoarthritis at the 1st metacarpal-carpal joint No definite acute fracture. Other findings:None. IMPRESSION: No change severe osteoarthritis of the right wrist with no acute finding Dictated by: Omid Valenzuela MD 08/05/2021 14:28 Omid Valenzuela MD in [facility] 08/05/2021 14:28
--- NOTE | 2021-08-05 14:13 | PC.NURSE ---
pt returned from rad and has requested to remain in wheelchair
[2021-08-05 14:15] VITALS: BP 167/71; PULSE 62; O2SAT 98
[2021-08-05 14:30] VITALS: BP 155/72; PULSE 60; O2SAT 95
[2021-08-05 15:00] VITALS: BP 151/84; PULSE 65; O2SAT 96
[2021-08-05 15:34] VITALS: BP 151/84; PULSE 64; RESP 18; TEMP 36.7; O2SAT 95
== END 2021-08-05 15:40 | disposition home or self-care (01) ==
PROVIDERS: Emergency Provider Emergency Medicine; PCP Internal Medicine Adolescent Medicine
DX: S80.02XA Contusion of left knee, initial encounter (principal); S40.011A Contusion of right shoulder, initial encounter; S50.02XA Contusion of left elbow, initial encounter; W07.XXXA Fall from chair, initial encounter; Y92.019 Unspecified place in single-family (private) house as the place of occurrence of the external cause; I50.9 Heart failure, unspecified; I25.10 Atherosclerotic heart disease of native coronary artery without angina pectoris; E78.5 Hyperlipidemia, unspecified; I10 Essential (primary) hypertension; Z86.73 Personal history of transient ischemic attack (TIA), and cerebral infarction without residual deficits
CPT/HCPCS: 70450; 72125; 73030; 73060; 73110; 73562; 99282

== ENCOUNTER → 2021-10-10 14:10 | Outpatient (CLI) | payer MEDICARE, SELFPAY ==
--- NOTE | 2021-10-10 14:27 | XR_ITS ---
PROCEDURE: XR CHEST 2V CLINICAL HISTORY: dyspnea COMPARISON: CR XR CHEST PORTABLE from 06/16/2021 FINDINGS: Unremarkable cardiovascular structures. Bipolar pacemaker is present from left subclavian approach. There is a medium-sized hiatal hernia. There is mild wedging T8 age indeterminate. Postsurgical changes right shoulder with degenerative changes of the shoulders on both sides. IMPRESSION: Hiatal hernia. Minimal wedging of T8 age indeterminate Dictated by: Omid Valenzuela MD 10/10/2021 16:09 Omid Valenzuela MD in [facility] 10/10/2021 16:09
[2021-10-10 14:44] LABS: Basophils % 0.2 % (0.1-2.0); Eosinophils # 0.2 K/mm3 (0.0-0.4); Eosinophils % 2.7 % (0.1-12.0); Hematocrit 34.2 % (37.0-47.0); Hemoglobin 11.7 g/dL (12.2-16.2); Lymphocytes # 2.8 K/mm3 (0.7-4.5); Mean Corpuscular HGB Conc 34.1 g/dL (31.8-35.4); Mean Corpuscular Hemoglobin 31.6 pg (27.0-31.2); Mean Corpuscular Volume 92.7 fl (81-99); Mean Platelet Volume 8.5 fl (7.4-10.4); Monocytes # 0.4 K/mm3 (0.1-1.0); Monocytes % 4.9 % (1.7-9.3); Neutrophils # 3.8 K/mm3 (1.8-7.8); Neutrophils % 53.2 % (37.0-80.0); Platelet Count 203 K/mm3 (142-424); Red Blood Count 3.69 M/mm3 (4.20-5.40); Red Cell Distribution Width 14.6 % (11.5-17.5); White Blood Count 7.1 K/mm3 (4.8-10.8)
[2021-10-10 15:43] LABS: Alanine Aminotransferase 15 U/L (12-78); Albumin Level 4.1 g/dl (3.5-5.0); Alkaline Phosphatase 66 U/L (38-126); Anion Gap 11.6 mEq/L (5-15); Aspartate Amino Transferase 29 U/L (14-36); Bilirubin,Direct 0.1 mg/dl (0.0-0.4); Bilirubin,Indirect 0.2 mg/dL (0.0-0.9); Bilirubin,Total 0.3 mg/dl (0.2-1.3); Bilirubin,Unconjugated 0.3 mg/dL (0.0-1.1); Blood Urea Nitrogen 17 mg/dl (7-17); Calcium 9.3 mg/dl (8.4-10.2); Carbon Dioxide 28 mmol/L (22.0-30.0); Chloride 103 mmol/L (98-107); Chol/HDL Ratio 1.7 (1-3.5); Cholesterol 110 mg/dl (140-200); Estimated Glomerular Filt Rate 95 ml/min (>60); GFR (African American) 115 ML/MIN (>60); Glucose 91 mg/dl (74-100); HDL Cholesterol 64 mg/dl (40-60); Potassium 4.6 mmoL/L (3.5-5.1); Sodium 138 mmol/L (136-145); Total Protein,Serum 6.8 g/dl (6.3-8.2); Triglycerides 136 mg/dl (30-150); VLDL Cholesterol 27 mg/dL (0-40)
[2021-10-10 15:54] LABS: Direct LDL Cholesterol 51.93 mg/dL (100-129)
[2021-10-10 16:01] LABS: Free T4 (Free Thyroxine) 1.67 ng/dl (0.78-2.19)
== END ==
PROVIDERS: PCP Internal Medicine Adolescent Medicine; Visit Provider Urology
DX: E78.5 Hyperlipidemia, unspecified (principal); I10 Essential (primary) hypertension; I63.9 Cerebral infarction, unspecified; R06.00 Dyspnea, unspecified; Z95.0 Presence of cardiac pacemaker
CPT/HCPCS: 36415; 71046; 80048; 80061; 80076; 84439; 84443; 85025

== ENCOUNTER 2022-01-14 13:43 | Emergency (ER) | payer MEDICARE, SELFPAY ==
[2022-01-14 13:43] VITALS: BP 171/69; PULSE 70; RESP 16; TEMP 36.7; O2SAT 98; BMI 29.7
[2022-01-14 14:00] VITALS: BP 171/69; PULSE 70; RESP 16; TEMP 36.7; O2SAT 98; BMI 29.8
--- NOTE | 2022-01-14 14:08 | XR_ITS ---
PROCEDURE INFORMATION: Exam: XR Right Hip Exam date and time: 01/14/2022 2:08 PM Age: 86 years old Clinical indication: Hip pain; Right hip; Prior surgery; Surgery date: 6+ months; Surgery type: RT hip replacement 2019; Patient HX: Pain x 3 days TECHNIQUE: Imaging protocol: XR Right hip. Views: 2 or 3 views hip with pelvis when performed. COMPARISON: CT PELVIS WO CON 07/27/2020 9:25 PM FINDINGS: Bones/joints: Right hip arthroplasty, without acute complications. Mild degenerative changes of the left hip, manifest by joint space narrowing minimal osteophyte formation. Degenerative changes of the visualized lower lumbar spine, with disc space narrowing and facet arthropathy. No acute fracture or dislocation. Soft tissues: Heterotopic calcification within the soft tissues adjacent to the right ischium and ilium. Vasculature: Atherosclerotic vascular disease. IMPRESSION: No acute fracture or dislocation.
--- NOTE | 2022-01-14 14:32 | HMH.EDUTC ---
[facility] [facility] [place] Clinical Impression: Back pain Qualifiers: Back pain location: low back pain Chronicity: acute Back pain laterality: right Sciatica presence: with sciatica Sciatica laterality: sciatica of right side Qualified Code(s): M54.41 - Lumbago with sciatica, right side Disposition: Home, Self-Care Condition on Discharge: Good Instructions: DI for Back Pain With Sciatica Additional Instructions: follow up with pcp if any issues return or be seen in ed Referrals: Trev Hays MD [Primary Care Provider] - Time of Disposition: 14:59 Medical Decision Making - Kyler Inquiry Pt receiving controlled substance: No Vital Signs: 01/14/22 13:43 01/14/22 14:00 Temperature 98.1 F 98.1 F Temperature Source Oral Oral Pulse Rate [Radial] 70 70 Respiratory Rate 16 16 Blood Pressure [Right Arm] 171/69 H 171/69 H Blood Pressure Mean [Right Arm] 103 103 Blood Pressure Source [Right Arm] Automatic Cuff Blood Pressure Position [Right Arm] Sitting Sitting 02 Sat by Pulse Oximetry 98 98 Oxygen Delivery Method Room Air Room Air Orders (Tests/Meds): ORDERS Category Date Time Status XR hip RT 2-3V w/pelvis Stat Exams 01/14/22 14:08 Taken [facility] [place] [facility] [place] - General Chief complaint: [facility] Stated complaint: hip and leg pain, no accident Time Seen by Provider: 01/14/22 14:32 Mode of Arrival: Ambulatory Source of Information: Patient, Relative Limitations: No Limitations Description of Symptoms (Recalled from Triage Doc. by RN): PATIENT C/O PAIN IN BACK AND RIGHT HIP PAIN X 3 DAYS. PATIENT STATES PAIN IS CONSTANT, DENIES ANY INJURIES. REPORTS A TOTAL HIP REPLACEMENT IN 2019 HEENT Symptoms (Recalled from RN notes): No Resp Symptoms (Recalled from RN notes): No Skin Symptoms (Recalled from RN notes): No MS Symptoms (Recalled from RN notes): Yes Functional Status (Recalled from RN notes): WNL - History of Present Illness Provider Complaint: 86 yr old female presents for back and hip pain for 3 days. pt states she has a pain in her rt lower back and it radiates down rt leg. no injuries, no loss of bowel or bladder - Related Data Home Medications Medication Instructions Recorded Confirmed Celecoxib [CeleBREX 100mg Capsule] 100 mg PO DAILY 04/07/20 10/10/21 Aspirin [Aspirin 81mg EC Tab] 81 mg PO DAILY 07/28/20 10/10/21 acetaminophen 500 mg tablet 500 mg PO Q6H PRN 06/14/21 10/10/21 lisinopril 10 mg tablet 10 mg PO DAILY tab 06/14/21 10/10/21 pantoprazole 40 mg tablet,delayed 40 mg PO DAILY tab 06/14/21 10/10/21 release rosuvastatin 10 mg tablet 10 mg PO DAILY tab 06/14/21 10/10/21 hydrocodone 5 mg-acetaminophen 325 1 tab PO Q8H PRN tab 06/27/21 10/10/21 mg tablet Previous Rx's Medication Instructions Recorded metoprolol succinate 25 mg 25 mg PO DAILY #30 tab 09/19/21 tablet,extended release 24 hr Allergies Allergy/AdvReac Type Severity Reaction Status Date / Time No Known Allergies Allergy Verified 10/10/21 13:31 - Worker's Comp Is this a Worker's Comp case?: No [facility] History - Hepatitis A Screen Drug use history?: No High risk sexual behaviors?: No History of sexually transmitted infection?: No Currently employed?: No Childcare worker?: No Do you have indoor plumbing?: Yes Do you have electricity?: Yes Attestation statement:: This patient has been screened for Hepatitis A risk factors. I have reviewed the patient's past medical history: Yes Medical History: Reports:: Congestive Heart Failure, Coronary Artery Disease, Cerebrovascular Accident, Heart Murmur, Hyperlipidemia, Hypertension, Internal Pacemaker, Palpitations Denies:: Cancer, Diabetes Mellitus Type 1, Diabetes Mellitus Type 2, Seizures Other Medical History: Reports: Anemia, Arthritis. Denies: Blood Transfusion Reaction Laterality Cases: Right: Arthroscopy Knee, Total Hip Replacement, Bilateral: Arthroscopy Shoulder Other Surgeries: Yes: Appendectomy, Cardiac Catheterization, Cholecystectomy,
[2022-01-14 15:02] VITALS: BP 171/69; PULSE 70; RESP 16; TEMP 36.7; O2SAT 98
== END 2022-01-14 15:14 | disposition home or self-care (01) ==
PROVIDERS: Emergency Provider Nurse Practitioner Family; PCP Internal Medicine Adolescent Medicine
DX: M54.41 Lumbago with sciatica, right side (principal)
CPT/HCPCS: G0463; 73502; 96372; 99202

== ENCOUNTER → 2022-02-08 12:42 | Outpatient (CLI) | payer MEDICARE, SELFPAY ==
--- NOTE | 2022-02-08 12:53 | XR_ITS ---
FINAL REPORT CLINICAL HISTORY: bilateral wrist pain COMPARISON: August 05, 2021 FINDINGS: 3 views of the right wrist were obtained. There is no acute fracture or dislocation. There are severe degenerative changes. There are numerous cysts or erosions of the carpal bones, distal radius and ulna. There are scattered small soft tissue calcifications. IMPRESSION: Severe degenerative changes with numerous cysts or erosions. Not significantly changed from prior. Reviewed, Interpreted and Dictated by Arturo Ross III, MD Transcribed by Joshua Harrison Authenticated by Arturo Ross III, MD on 02/08/2022 02:22:33 PM [facility]
--- NOTE | 2022-02-08 12:53 | XR_ITS ---
FINAL REPORT CLINICAL HISTORY: wrist pain COMPARISON: August 05, 2021 FINDINGS: 3 views of the left wrist were obtained. There is no acute fracture or dislocation. There are severe degenerative changes. There are numerous cysts or erosions of the carpal bones, distal radius and ulna. There are scattered small soft tissue calcifications. IMPRESSION: Severe degenerative changes with numerous cysts or erosions. Not significantly changed from prior. Reviewed, Interpreted and Dictated by Arturo Ross III, MD Transcribed by Joshua Harrison Authenticated by Arturo Ross III, MD on 02/08/2022 02:22:47 PM [facility]
== END ==
PROVIDERS: PCP Internal Medicine Adolescent Medicine; Referring Provider Physician Assistant Surgical; Visit Provider Orthopaedic Surgery
DX: M25.531 Pain in right wrist; M25.532 Pain in left wrist
CPT/HCPCS: 73110

== ENCOUNTER 2022-03-27 17:22 | Emergency (ER) | payer MEDICARE, SELFPAY ==
[2022-03-27 17:23] VITALS: BP 185/82; PULSE 61; RESP 16; TEMP 36.7; O2SAT 99; BMI 31.6
--- NOTE | 2022-03-27 17:39 | PC.NURSE ---
ER at bedside
--- NOTE | 2022-03-27 17:41 | CT_ITS ---
PROCEDURE INFORMATION: Exam: CT Cervical Spine Without Contrast Exam date and time: 03/27/2022 5:55 PM Age: 86 years old Clinical indication: Injury or trauma; Fall; Blunt trauma; Injury date: 03/27/22; Additional info: Trauma-fell in floor this morning laid all day till someone found her - trauma. TECHNIQUE: Imaging protocol: Computed tomography images of the cervical spine without contrast. Radiation optimization: All CT scans at this facility use at least one of these dose optimization techniques: automated exposure control; mA and/or kV adjustment per patient size (includes targeted exams where dose is matched to clinical indication); or iterative reconstruction. COMPARISON: CT CERVICAL SPINE WO CON 08/05/2021 1:32 PM FINDINGS: Bones/joints: There is reversal the normal cervical lordosis with diffuse disc space narrowing and endplate degeneration. There are calcifications in the nuchal ligament. No acute fracture or dislocation. Discs/Spinal canal/Neural foramina: There is diffuse degeneration of the uncovertebral and facet joints with resultant mild spinal canal stenosis at C5-C6 and moderate narrowing of the left neural foramen which may affect the left C6 nerve root. There is also mild spinal canal stenosis at C6-C7 and moderate stenosis of the right neural foramen which may affect the right C7 nerve root. There may be stenosis of the left C7-T1 neural foramen which could affect the left C8 nerve root. Lungs: Lung apices are unremarkable. Vasculature: Atherosclerosis. Soft tissues: Unremarkable. IMPRESSION: No acute fracture or dislocation in the cervical spine.
--- NOTE | 2022-03-27 17:41 | XR_ITS ---
PROCEDURE INFORMATION: Exam: XR Right Hip Exam date and time: 03/27/2022 5:58 PM Age: 86 years old Clinical indication: Injury or trauma; Fall; Blunt trauma (contusions or hematomas); Right; Injury date: 03/27/22; Prior surgery; Surgery date: 6+ months; Surgery type: Hip replacement; Additional info: Trauma-fell in floor this morning laid all day till someone found her - trauma. TECHNIQUE: Imaging protocol: XR Right hip. Views: 2 or 3 views hip with pelvis when performed. COMPARISON: CR XR HIP RT 2-3V W/PELVIS 01/14/2022 2:27 PM FINDINGS: Bones/joints: No acute fracture or dislocation. Right THR hardware is grossly intact. Moderate left hip joint space narrowing. Severe degenerative changes at the pubic symphysis. SI joints are unremarkable. Left-sided trochanteric enthesopathy. Soft tissues: Unchanged soft tissue calcification adjacent to the right greater tuberosity. IMPRESSION: 1. No acute findings. 2. Degenerative changes.
--- NOTE | 2022-03-27 17:41 | XR_ITS ---
PROCEDURE INFORMATION: Exam: XR Right Shoulder Exam date and time: 03/27/2022 6:00 PM Age: 86 years old Clinical indication: Injury or trauma; Fall; Blunt trauma (contusions or hematomas); Shoulder; Right; Injury date: 03.27.22; Prior surgery; Surgery date: 6+ months; Surgery type: Rotator cuff repair; Additional info: Trauma-fell in floor this morning laid all day till someone found her - trauma. TECHNIQUE: Imaging protocol: XR Right shoulder. Views: 2 or more views. COMPARISON: CR XR SHOULDER RT MIN 2V 08/05/2021 1:44 PM FINDINGS: Bones/joints: No acute fracture or dislocation. Multiple humeral head surgical anchors. The humeral head is elevated within the glenohumeral joint. Mild AC joint spurring. The right ribs are unremarkable. Soft tissues: Normal. IMPRESSION: 1. Elevation of the humeral head consistent with rotator cuff injury of uncertain age. 2. Mild AC joint degenerative change.
--- NOTE | 2022-03-27 17:41 | CT_ITS ---
PROCEDURE INFORMATION: Exam: CT Head Without Contrast Exam date and time: 03/27/2022 5:53 PM Age: 86 years old Clinical indication: Injury or trauma; Fall; Blunt trauma (contusions or hematomas); Without loss of consciousness; Injury date: 03/27/22; Additional info: Trauma-fell in floor this morning laid all day till someone found her - trauma. TECHNIQUE: Imaging protocol: Computed tomography of the head without contrast. Radiation optimization: All CT scans at this facility use at least one of these dose optimization techniques: automated exposure control; mA and/or kV adjustment per patient size (includes targeted exams where dose is matched to clinical indication); or iterative reconstruction. COMPARISON: CT HEAD/BRAIN WO CON 08/05/2021 1:32 PM FINDINGS: Brain: There is no acute cortical infarction, intracranial hemorrhage or mass.There is marked diffuse heterogeneity of the white matter, most consistent with severe microangiopathy. Cerebral ventricles: The ventricles appear enlarged, but not out of proportion to the degree of parenchymal volume loss. Paranasal sinuses: Visualized sinuses are unremarkable. No fluid levels. Mastoid air cells: Visualized mastoid air cells are well aerated. Vasculature: Atherosclerosis. Bones/joints: Unremarkable. No acute fracture. Soft tissues: Unremarkable. IMPRESSION: No acute intracranial findings.
--- NOTE | 2022-03-27 17:45 | PC.NURSE ---
Notified rad of orders
--- NOTE | 2022-03-27 17:46 | HMH.EDFALL ---
ED Disposition Clinical Impression: Accidental fall Qualifiers: Encounter type: initial encounter Qualified Code(s): W19.XXXA - Unspecified fall, initial encounter Sprain of right shoulder Qualifiers: Encounter type: initial encounter Shoulder sprain type: unspecified sprain Qualified Code(s): S43.401A - Unspecified sprain of right shoulder joint, initial encounter Disposition: Home, Self-Care Condition on Discharge: Good Instructions: How to Prevent Falls Referrals: Trev Hays MD [Primary Care Provider] - - Critical Care Critical Care Time: No Attestation: On 03/27/22, the high probability of a clinically significant, sudden or life threatening deterioration of the following system(s) required my full and direct attention, intervention and personal management. The time I documented below is in addition to time spent performing reported procedures but includes the following listed in this critical care notation. Medical Decision Making - Medical Records Medical records reviewed: Yes: I reviewed the patient's medical records. - Kyler Inquiry Pt receiving controlled substance: No Vital Signs: 03/27/22 17:23 Temperature 98.1 F Temperature Source Oral Pulse Rate [Right] 61 Respiratory Rate 16 Blood Pressure [Right Arm] 185/82 H Blood Pressure Mean [Right Arm] 116 Blood Pressure Source [Right Arm] Automatic Cuff Blood Pressure Position [Right Arm] Sitting 02 Sat by Pulse Oximetry 99 Oxygen Delivery Method Room Air Orders (Tests/Meds): ED MEDICATIONS Discontinued Medications Generic Name Dose Route Start Last Admin Trade Name Freq PRN Reason Stop Dose Admin Acetaminophen 1,000 mg 03/27/22 17:50 03/27/22 18:20 Acetaminophen 500mg Tab PO 03/27/22 17:51 1,000 mg ONCE ONE Administration - Radiology Data #1 Image(s): Shoulder, Hip Image Reviewed: Yes I reviewed the patient's radiology results, Yes I reviewed the patient's radiology image, Yes I have reviewed radiologist's interpretation IMPRESSION: 1. Elevation of the humeral head consistent with rotator cuff injury of uncertain age. 2. Mild AC joint degenerative change. IMPRESSION: 1. No acute findings. 2. Degenerative changes. - CT Data CT Scan: Head, C-Spine Time Received: 19:[address] Reviewed: Yes: I have reviewed the patient's CT results, I have viewed the radiologist's interpretation Findings Narrative: IMPRESSION: No acute intracranial findings. IMPRESSION: No acute fracture or dislocation in the cervical spine. - Reevaluation(s) Time: 19:12 Reevaluation #1: On reevaluation, the patient is feeling much better. Imaging was unremarkable. Patient is to follow-up with PCP for 8 hours. Given strict return precautions. Verbalized understanding. Medical Decision Narrative: 86-year-old female presented to the emergency department after an accidental fall. Patient meets imaging criteria for the head and cervical spine. Films of the shoulder hip will also be obtained. Patient provided analgesics. Fall HPI - General Chief Complaint: Fall Stated Complaint: ao 03/27@0930 INJURED r sIDE Time Seen by Provider: 03/27/22 17:30 Mode of Arrival: Wheelchair Limitations: No Limitations Description of Symptoms (Recalled from ER Triage Doc. by RN): pt advises she fell this am around 930 and landed on her right side. Advises she was turning around and had a flower vase in her hand and lost her balance. Pt has pain in the right shoulder/upper arm and in the right hip/femur area. There is some small light bruising noted to the right upper arm and right thigh area. No other defomrities. Pt also c/o some head/neck pain but denies any LOC and advises she was able to walk after she had help getting up - History of Present Illness HPI Narrative: This 86-year-old female presented to the emergency department after a fall. This occurred approximately 8 hours ago. The patient was in her kitchen working with a f
--- NOTE | 2022-03-27 17:57 | PC.NURSE ---
Pt to rad
--- NOTE | 2022-03-27 18:18 | PC.NURSE ---
Pt returned from rad
--- NOTE | 2022-03-27 18:40 | PC.NURSE ---
Updated pt on POC. Advised her we were waiting on CT results
[2022-03-27 19:27] VITALS: BP 165/80; PULSE 64; RESP 19; TEMP 36.7; O2SAT 98
== END 2022-03-27 19:35 | disposition home or self-care (01) ==
PROVIDERS: Emergency Provider Emergency Medicine; PCP Internal Medicine Adolescent Medicine
DX: S43.401A Unspecified sprain of right shoulder joint, initial encounter (principal); W01.0XXA Fall on same level from slipping, tripping and stumbling without subsequent striking against object, initial encounter; Y92.019 Unspecified place in single-family (private) house as the place of occurrence of the external cause; I10 Essential (primary) hypertension; E78.5 Hyperlipidemia, unspecified; R51.9 Headache, unspecified; I50.9 Heart failure, unspecified; I25.10 Atherosclerotic heart disease of native coronary artery without angina pectoris; Z79.899 Other long term (current) drug therapy
CPT/HCPCS: 70450; 72125; 73030; 73502; 99284

== ENCOUNTER → 2022-06-08 19:58 | Outpatient (CLI) | payer MEDICARE, SELFPAY ==
[2022-06-08 20:36] LABS: Basophils # 0.1 K/mm3 (0-0.2); Basophils % 0.7 % (0.1-2.0); Eosinophils % 0.2 % (0.1-12.0); Hematocrit 40.1 % (37.0-47.0); Hemoglobin 12.9 g/dL (12.2-16.2); Lymphocytes # 1.7 K/mm3 (0.7-4.5); Lymphocytes % 17.2 % (10-50); Mean Corpuscular HGB Conc 32.3 g/dL (31.8-35.4); Mean Corpuscular Volume 99.2 fl (81-99); Mean Platelet Volume 9.7 fl (7.4-10.4); Monocytes # 0.6 K/mm3 (0.1-1.0); Monocytes % 6.1 % (1.7-9.3); Neutrophils # 7.5 K/mm3 (1.8-7.8); Neutrophils % 75.8 % (37.0-80.0); Platelet Count 306 K/mm3 (142-424); Red Blood Count 4.04 M/mm3 (4.20-5.40); Red Cell Distribution Width 14.4 % (11.5-17.5); White Blood Count 9.9 K/mm3 (4.8-10.8)
[2022-06-08 21:07] LABS: Alanine Aminotransferase 42 U/L (12-78); Albumin Level 3.7 g/dl (3.5-5.0); Albumin/Globulin Ratio 1.4 (1.1-1.8); Alkaline Phosphatase 63 U/L (38-126); Anion Gap 11.9 mEq/L (5-15); Aspartate Amino Transferase 41 U/L (14-36); Bilirubin,Total 0.2 mg/dl (0.2-1.3); Blood Urea Nitrogen 31 mg/dl (7-17); Calcium 9.3 mg/dl (8.4-10.2); Carbon Dioxide 24 mmol/L (22.0-30.0); Chloride 102 mmol/L (98-107); Chol/HDL Ratio 2.5 (1-3.5); Cholesterol 167 mg/dl (140-200); Estimated Glomerular Filt Rate 95 ml/min (>60); GFR (African American) 114 ML/MIN (>60); Globulin 2.7 g/dL (1.3-3.2); Glucose 109 mg/dl (74-100); HDL Cholesterol 67 mg/dl (40-60); Magnesium 2.2 mg/dl (1.6-2.3); Potassium 4.9 mmoL/L (3.5-5.1); Sodium 133 mmol/L (136-145); Total Protein,Serum 6.4 g/dl (6.3-8.2); Triglycerides 115 mg/dl (30-150); VLDL Cholesterol 23 mg/dL (0-40)
[2022-06-08 21:19] LABS: Direct LDL Cholesterol 75.23 mg/dL (100-129)
[2022-06-08 21:40] LABS: Thyroid Stimulating Hormone 0.65 uIU/mL (0.465-4.68)
== END ==
PROVIDERS: PCP Internal Medicine Adolescent Medicine; Visit Provider Internal Medicine Adolescent Medicine
DX: I95.2 Hypotension due to drugs (principal); E78.5 Hyperlipidemia, unspecified; R29.6 Repeated falls; R00.1 Bradycardia, unspecified
CPT/HCPCS: 80053; 80061; 83735; 84443; 85025

== ENCOUNTER → 2022-06-27 10:52 | Outpatient (CLI) | payer MEDICARE, SELFPAY ==
--- NOTE | 2022-06-27 11:02 | XR_ITS ---
FINAL REPORT CLINICAL HISTORY: recent fall..make sure pacemaker in ok COMPARISON: October 10, 2021 FINDINGS: Two views of the chest were obtained. 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 Cardiomegaly is noted. There is a moderate hiatal hernia. No acute pulmonary abnormality is identified. There is no pneumothorax. Postoperative changes are seen in the right humeral head. IMPRESSION: Left subclavian pacemaker in stable position. Reviewed, Interpreted and Dictated by Arturo Ross III, MD Transcribed by Joshua Harrison Authenticated and [facility]
== END ==
PROVIDERS: PCP Internal Medicine Adolescent Medicine; Visit Provider Physician Assistant
DX: E78.2 Mixed hyperlipidemia (principal); I10 Essential (primary) hypertension; I63.9 Cerebral infarction, unspecified; R00.2 Palpitations; R06.00 Dyspnea, unspecified; R26.81 Unsteadiness on feet; R42 Dizziness and giddiness; R60.0 Localized edema; W19.XXXA Unspecified fall, initial encounter; Z95.0 Presence of cardiac pacemaker
CPT/HCPCS: 71046

== ENCOUNTER 2022-07-02 11:12 | Emergency (ER) | payer MEDICARE, SELFPAY ==
--- NOTE | 2022-07-02 11:22 | XR_ITS ---
PROCEDURE INFORMATION: Exam: XR Right Shoulder Exam date and time: 07/02/2022 11:39 AM Age: 87 years old Clinical indication: Injury or trauma; Fall; Blunt trauma (contusions or hematomas); Shoulder; Right; Prior surgery; Surgery date: 6+ months; Additional info: Fell into frame of bathtub-- right arm pain-- unable to stand, PT in a wheelchair had to do xrays with portable -- patient had previous rotator cuff surgery and has pain with movement unable to actively lift arm has to use other one to move it TECHNIQUE: Imaging protocol: Radiologic exam of the Right shoulder. Views: 2 or more views. COMPARISON: CR XR SHOULDER RT MIN 2V 03/27/2022 6:00 PM FINDINGS: Bones/joints: Surgical changes humeral head with multiple anchors. Stable narrowing of the acromiohumeral interval suggesting rotator cuff disease. Elevation of the distal clavicle in relation to the acromion, new since previous examination. AC joint instability suspected. No acute fracture or dislocation. Soft tissues: Normal. IMPRESSION: 1. Elevation of the distal clavicle in relation to the acromion, new since previous examination. AC joint instability suspected. 2. No acute fracture or dislocation.
--- NOTE | 2022-07-02 11:22 | XR_ITS ---
PROCEDURE INFORMATION: Exam: XR Right Humerus Exam date and time: 07/02/2022 11:39 AM Age: 87 years old Clinical indication: Injury or trauma; Fall; Blunt trauma (contusions or hematomas); Shoulder; Right; Additional info: Fell into frame of bathtub-- right arm pain-- unable to stand, PT in a wheelchair had to do xrays with portable -- patient had previous rotator cuff surgery and has pain with movement unable to actively lift arm has to use other one to move it TECHNIQUE: Imaging protocol: Radiologic exam of the Right humerus. Views: 2 or more views. COMPARISON: CR XR HUMERUS RT 08/05/2021 1:47 PM FINDINGS: Bones/joints: Normal. Anchors noted in the humeral head. Soft tissues: Normal. IMPRESSION: No acute findings.
--- NOTE | 2022-07-02 11:22 | XR_ITS ---
PROCEDURE INFORMATION: Exam: XR Right Clavicle, Complete Exam date and time: 07/02/2022 11:39 AM Age: 87 years old Clinical indication: Injury or trauma; Fall; Blunt trauma (contusions or hematomas); Shoulder; Right; Additional info: Fell into frame of bathtub-- right arm pain-- unable to stand, PT in a wheelchair had to do xrays with portable -- patient had previous rotator cuff surgery and has pain with movement unable to actively lift arm has to use other one to move it TECHNIQUE: Imaging protocol: Radiologic exam of the Right clavicle. Complete exam. Views: Any number of views. COMPARISON: CR XR SHOULDER RT MIN 2V 03/27/2022 6:00 PM FINDINGS: Bones/joints: No acute clavicular fracture. Soft tissues: Normal. IMPRESSION: No acute clavicular fracture.
[2022-07-02 11:40] VITALS: BP 149/78; PULSE 68; RESP 19; TEMP 36.7; O2SAT 98; BMI 30.8
--- NOTE | 2022-07-02 12:14 | HMH.EDUTC ---
[facility] [place] Disposition Clinical Impression: Shoulder pain Qualifiers: Chronicity: unspecified Laterality: right Qualified Code(s): M25.511 - Pain in right shoulder Disposition: Home, Self-Care Condition on Discharge: Good Instructions: How to Use a Sling, How To Perform RICE (Rest, Ice, Compress, Elevate) Additional Instructions: *RICE, Rest the extremity, Ice 15-20 minutes 3-4 times daily, Compress- wear the guero wrap as discussed as much as possible to help reduce swelling and pain, Elevate the extremity when at rest *Sling is for support and help control swelling, use it except in the shower. Be sure that is not to tight but not to loose either *Elevate when resting *Ibuprofen as directed on package every 6-8 hours as needed for pain an inflammation if you can take it. If need something more can take Tylenol in between doses of Ibuprofen to help Immediately follow up with your family doctor for new or worsening of symptoms, or no noticeable improvement over the next 3-5 days Call Orthopedic office in the morning for appointment Return if needed Referrals: Trev Hays MD [Primary Care Provider] - Rogerio Serrano JR, MD [Physician] - (Call office for appointment this week) Time of Disposition: 13:10 Medical Decision Making - Kyler Inquiry Pt receiving controlled substance: No Kyler was queried for this patient: No Vital Signs: 07/02/22 11:40 Temperature 98.0 F Temperature Source Oral Pulse Rate [Left Brachial] 68 Respiratory Rate 19 Blood Pressure [Left Arm] 149/78 H Blood Pressure Mean [Left Arm] 101 Blood Pressure Source [Left Arm] Automatic Cuff Blood Pressure Position [Left Arm] Sitting 02 Sat by Pulse Oximetry 98 Oxygen Delivery Method Room Air Orders (Tests/Meds): ORDERS Category Date Time Status Shoulder XR right 1 view [XR shoulder RT 1V] Stat Exams 07/02/22 12:52 Ordered - Radiology Data #1 Image(s): Humerus Image Reviewed: Yes I have reviewed radiologist's interpretation IMPRESSION: No acute findings. #2 Image(s): Clavicle Image Reviewed: Yes I have reviewed radiologist's interpretation IMPRESSION: No acute clavicular fracture. #3 Image(s): Shoulder Image Reviewed: Yes I have reviewed radiologist's interpretation IMPRESSION: 1. Elevation of the distal clavicle in relation to the acromion, new since previous examination. AC joint instability suspected. 2. No acute fracture or dislocation. - Physician Consults Physician Consulted: Dr Serrano Time: 12:25 Reason -: Orthopedic Eval/Care Comment/Response: Spoke with Dr Serrano about xray finding, recommended repeat of axillary/lateral of shoulder and put her in sling and have her follow up in office this week States that it is OK to add her on on Sunday Medical Decision Narrative: Spoke with Dr Serrano and he wanted xray repeated with [place]au axillary view xray contacted Axillary/Velpeau image done and Dr Serrano viewed and advised to place in sling and follow up in office this week [facility] [place] HPI - General Stated complaint: ao fall 06/30, right shoulder/arm pain Time Seen by Provider: 07/02/22 12:14 Mode of Arrival: Ambulatory Source of Information: Patient, Relative Limitations: No Limitations Description of Symptoms (Recalled from Triage Doc. by RN): PATIENT STATES THAT SHE SLIPPED IN SHOWER ON 06/30/22. SHE DID NOT FALL BUT SHE DID HIT HER RIGHT ARM AND SHOULDER AND C/O PAIN TO AREA HEENT Symptoms (Recalled from RN notes): No Resp Symptoms (Recalled from RN notes): No Skin Symptoms (Recalled from RN notes): No MS Symptoms (Recalled from RN notes): Yes Functional Status (Recalled from RN notes): WNL - History of Present Illness Provider Complaint: Patient states that on 06/30 she slipped in the shower and bounced around in there hitting her right shoulder State that ever since she has been having pain in her shoulder and hurts when she tries to raise it up so today when she was still having pain she came
--- NOTE | 2022-07-02 12:31 | XR_ITS ---
PROCEDURE INFORMATION: Exam: XR Right Shoulder Exam date and time: 07/02/2022 12:25 PM Age: 87 years old Clinical indication: Injury or trauma; Fall; Blunt trauma (contusions or hematomas); Patient HX: Patient fell in shower this morning. Right shoulder pain. ; Additional info: Right shoulder injury TECHNIQUE: Imaging protocol: Radiologic exam of the Right shoulder. Views: 1 view. COMPARISON: CR XR SHOULDER RT MIN 2V 07/02/2022 11:39 AM FINDINGS: Bones/joints: Repeat Y view submitted. No humeral head dislocation. Soft tissues: Normal. IMPRESSION: Repeat Y view submitted. No humeral head dislocation.
--- NOTE | 2022-07-02 12:52 | XR_ITS ---
PROCEDURE INFORMATION: Exam: XR Right Shoulder Exam date and time: 07/02/2022 1:07 PM Age: 87 years old Clinical indication: Pain; Shoulder; Right TECHNIQUE: Imaging protocol: Radiologic exam of the Right shoulder. Views: 1 view. COMPARISON: CR XR SHOULDER RT 1V 07/02/2022 12:25 PM FINDINGS: Bones/joints: Single axillary view submitted. No humeral head dislocation. Soft tissues: Normal. IMPRESSION: Single axillary view submitted. No humeral head dislocation.
[2022-07-02 13:22] VITALS: BP 149/78; PULSE 68; RESP 19; TEMP 36.7; O2SAT 98
== END 2022-07-02 13:26 | disposition home or self-care (01) ==
PROVIDERS: Emergency Provider Nurse Practitioner; PCP Internal Medicine Adolescent Medicine
DX: M25.511 Pain in right shoulder (principal); W18.2XXA Fall in (into) shower or empty bathtub, initial encounter
CPT/HCPCS: 73000; 73020; 73030; 73060; 99212; G0463

== ENCOUNTER → 2022-07-05 11:15 | Outpatient (CLI) | payer MEDICARE, SELFPAY ==
--- NOTE | 2022-07-05 11:16 | CA_ITS ---
APPROVED REPORT EXAM: Comprehensive 2D, Doppler, and color-flow Echocardiogram Implementation Director: Anna Garcia RDCS Ht: 5 ft 0 in Wt: 160lbs BSA: 1.70 BP: 177/72 mmHg Indications: SOA,EDEMA,PPM,CAD 2D Dimensions LVOT 1.87 cm (M/F) 1.5-2.5 M-Mode Dimensions RVDd 1.20 cm (0.9-2.6) LA Diam 2.62 cm (1.9-4.0) LVDd 4.78 cm (3.5-5.7) Ao Diam 2.65 cm (2.0-3.7) LVDs 3.44 cm (3.5-5.7) IVSd 0.90 cm (0.6-1.1) PWd 0.85 cm (0.6-1.1) EF (Teich) 54.20% FS 28.00% EDV (Teich) 106.50 mL TAPSE 1.90 (<1.7) ESV (Teich) 48.80 mL LV Diastology E Decel Time 213.00 (160-240 msec) E/A Ratio 0.7 MED E' 6.50 (< 7 cm/sec) E'/MED E' Ratio 10.82 (>14) LAT E' 6.20 (<10 cm/sec) E/LAT E' Ratio 11.34 (>14) Aortic Valve LVOT Max 145.00 (70-110 cm/s) LVOT VTI 29.68 cm AoV Peak Shawn. 175.00 (50-130 cm/s) AO Peak GR. 12.20 mmHg AO Mean GR. 6.10 (<5 mmHg) AO VTI 33.97 (18-25 cm) PATTY (VTI) 2.40 (2.5-4.5 cm2) Mitral Valve MV E Max Shawn. 70.00 (40-130 cm/s) MV A Velocity 96.00 (40-130 cm/s) E/A Ratio 0.73 MV Decel. Time 213.00 (160-240 ms) MV PHT 62.00 ms Tricuspid Valve TR P. Velocity 306.00 cm/s RAP Estimate 10.00 mmHg RVSP 47.40 mmHg Left Ventricle Left atrium is mildly enlarged, left ventricle is normal size, mild concentric left ventricular hypertrophy, estimated ejection fraction 55% with no regional wall motion abnormality, grade 1 diastolic dysfunction seen without tissue Doppler evidence of raise left atrial pressure. Right Ventricle Right atrium and right ventricle are mildly enlarged with normal contractility, pacemaker leads in the right ventricle. Aortic Valve Aortic valve is thickened and calcified without aortic stenosis or aortic insufficiency. Mitral Valve Mitral valve leaflets are minimally thickened, there is mild mitral regurgitation. Tricuspid Valve Tricuspid valve is not well visualized, there is moderate tricuspid regurgitation, calculated right ventricular systolic pressure is 47 mmHg. Pulmonic Valve Pulmonic valve is poorly visualized. Great Vessels Aortic root is normal size. Inferior vena cava is poorly visualized. Pericardium No significant pericardial effusion noted. Conclusion 1. Biatrial enlargement, normal left ventricular size, mild concentric left ventricular hypertrophy, estimated ejection fraction 55% with no regional wall motion abnormality, grade 1 diastolic dysfunction seen without tissue Doppler evidence of atrial atrial pressure. 2. Mildly enlarged right ventricle with normal contractility. 3. Mild mitral and moderate tricuspid regurgitation, calculated right ventricular systolic pressure is 47 mmHg. 4. No significant pericardial effusion. 5. Inferior vena cava is poorly visualized. Electronically signed by : Talha Arce MD 07/06/2022 05:46:10
== END ==
PROVIDERS: PCP Internal Medicine Adolescent Medicine; Visit Provider Physician Assistant
DX: E78.2 Mixed hyperlipidemia (principal); I10 Essential (primary) hypertension; I63.9 Cerebral infarction, unspecified; R00.2 Palpitations; R06.00 Dyspnea, unspecified; R26.81 Unsteadiness on feet; R42 Dizziness and giddiness; R60.0 Localized edema; W19.XXXA Unspecified fall, initial encounter; Z95.0 Presence of cardiac pacemaker
CPT/HCPCS: 93306

== ENCOUNTER → 2022-07-12 10:38 | Outpatient (CLI) | payer MEDICARE, SELFPAY | PROVIDERS: PCP Internal Medicine Adolescent Medicine; Visit Provider Physician Assistant | DX: I10 Essential (primary) hypertension (principal) ==

== ENCOUNTER → 2022-07-13 07:27 | Outpatient (CLI) | payer MEDICARE, SELFPAY ==
--- NOTE | 2022-07-13 | CA_ITS ---
APPROVED REPORT Exam: Pharmacologic Technologist: Jessy Nolen, Ht: 5 ft 0 in Wt: 159 lbs BSA: 1.69 m2 HR: 60 bpm BP: 157/55 mmHg Rhythm: NSR, PVC, NS ST abn in lead 2, low voltage QRS Medical History Medical History: HTN, Hyperlipidemia Medications: Lisinopril,,,,, Aspirin,,,,, Metoprolol,,,,, Pantoprazole,,,,, Flonase,,,,, Tylenol,,,,, SpirOLACTONE,,,,, Magnesium,,,,, Celecoxib,,,,, Clobetasol,,,,, RoSUVASatin,,,,, Furosemide,,,,, Cardiac Risk Factors: HTN, Hyperlipidemia Stress Test Details Test: LEXISCAN HR Resting HR: 65 bpm Max Heart Rate (APMHR): 133.080202 bpm Max HR Achieved: 95 bpm Target HR (85% APMHR): 113.014882 bpm % of APMHR: 71.43 Recovery HR: 83 bpm BP Resting BP: 157/55 mmHg Max BP: 157/55 mmHg Recovery BP: 140.0/55.0 mmHg ECG Resting ECG: NSR, PVC, NS ST abn in lead 2, low voltage QRS Clinical Exercise duration: 04:04 min Highest Stage Achieved: Stress ECG Conclusion During lexiscan pt experinced SOA, malaise, GRAHAM, and nausea. No CP noted. Occasional PVC and PAC. No significant ST changes. Unremarkable lexiscan stress. Aminophylline 100mg IV given in recovery. Test Summary REST . . . . . . . Sitting REST 06:26 . . 65 . 157/ 55 . . Stage 1 01:00 . . 87 . . . . Stage 2 01:00 . . 89 . . . . Stage 3 01:00 . . 84 . 131/ 70 . . Stage 4 01:00 . . 83 . 147/ 74 . . Stage 4 01:04 . . 83 . 147/ 74 . Stop exercise at 04:04 RECOVERY 01:00 . . 83 . . . . RECOVERY 02:00 . . 73 . . . . RECOVERY 03:00 . . 75 . . . . RECOVERY 04:00 . . 73 . . . . RECOVERY 05:00 . . 74 . 140/ 55 . . RECOVERY 06:00 . . 76 . 140/ 55 . . RECOVERY 07:00 . . 75 . 140/ 55 . . RECOVERY 08:00 . . 74 . 143/ 62 . . RECOVERY 08:21 . . 68 . 143/ 62 . . Electronically signed by : Talha Arce MD 07/14/2022 11:03:34
--- NOTE | 2022-07-13 07:27 | NM_ITS ---
APPROVED REPORT Exam: Nuclear Stress Test Indication: short of breath Patient Location: Outpatient Stress Tech: Jessy Nolen PA Tech:BANDAR Mcpherson RT(R)(N) Ht: 5 ft 0 in Wt: 154 lbs Bra Size: b HR: 65 bpm BP: 157/55 mmHg BSA: 1.67 m2 TID: 0.93 History: short of breath Procedure: Patient received a 0.4 mg of intravenous Lexiscan, resting heart rate 65 bpm, resting blood pressure 157/55 mmHg, with Lexiscan maximum heart rate achived was 95 bpm which is Less than 85 % of the maximum predicted heart rate and blood pressure was 157/55 mmHg. With Lexiscan, patient denied any complaint of chest pain. The patient was unable to lay on her belly for prone images. Electrocardiogram Resting electrocardiogram shows sinus rhythm, with Lexiscan there is less than 1.[address] segment depression noted from the baseline EKG. The EKG portion of the Lexiscan is nondiagnostic. Cardiac Stress and Resting SPECT Images: Cardiac Stress and Resting SPECT images were obtained using technetium 99m Myoview 30.3 mCi stress and 10.0 mCi at rest. Gated SPECT analysis of segmental wall motion and calculation of the ejection fraction also done. Cardiac stress and rest SPECT images showed inferolateral reversible ischemia, computer derived ejection fraction is 64% with no regional wall motion abnormality, right ventricle is normal size and contractility. Conclusion: 1. The EKG portion of the Lexiscan is nondiagnostic. 2. Scintigraphic evidence of reversible ischemia involving the inferolateral wall, computer derived ejection fraction 64% with no regional wall motion abnormality, right ventricle is normal size and contractility. 3. Normal Lexiscan Myoview study. Electronically signed by : Talha Arce MD 07/14/2022 11:53:43
[2022-07-13 08:31] LABS: Basophils % 0.3 % (0.1-2.0); Eosinophils # 0.1 K/mm3 (0.0-0.4); Eosinophils % 1.5 % (0.1-12.0); Hematocrit 26.8 % (37.0-47.0); Hemoglobin 9.4 g/dL (12.2-16.2); Lymphocytes # 1.8 K/mm3 (0.7-4.5); Lymphocytes % 33.9 % (10-50); Mean Corpuscular HGB Conc 35.1 g/dL (31.8-35.4); Mean Corpuscular Hemoglobin 33.4 pg (27.0-31.2); Mean Corpuscular Volume 95.2 fl (81-99); Mean Platelet Volume 7.5 fl (7.4-10.4); Monocytes # 0.3 K/mm3 (0.1-1.0); Monocytes % 5.2 % (1.7-9.3); Neutrophils # 3.2 K/mm3 (1.8-7.8); Neutrophils % 59.2 % (37.0-80.0); Platelet Count 336 K/mm3 (142-424); Red Blood Count 2.81 M/mm3 (4.20-5.40); Red Cell Distribution Width 15.1 % (11.5-17.5); White Blood Count 5.4 K/mm3 (4.8-10.8)
[2022-07-13 08:39] LABS: Alanine Aminotransferase 26 U/L (12-78); Albumin Level 3.6 g/dl (3.5-5.0); Alkaline Phosphatase 66 U/L (38-126); Anion Gap 8.8 mEq/L (5-15); Aspartate Amino Transferase 26 U/L (14-36); Bilirubin,Unconjugated 0.1 mg/dL (0.0-1.1); Blood Urea Nitrogen 22 mg/dl (7-17); Calcium 9.2 mg/dl (8.4-10.2); Carbon Dioxide 27 mmol/L (22.0-30.0); Chloride 105 mmol/L (98-107); Estimated Glomerular Filt Rate 68 ml/min (>60); GFR (African American) 82 ML/MIN (>60); Glucose 112 mg/dl (74-100); Magnesium 1.7 mg/dl (1.6-2.3); Potassium 4.8 mmoL/L (3.5-5.1); Sodium 136 mmol/L (136-145); Total Protein,Serum 6.2 g/dl (6.3-8.2)
[2022-07-13 08:40] LABS: Bilirubin,Indirect 0.1 mg/dL (0.0-0.9); Bilirubin,Total 0.1 mg/dl (0.2-1.3)
[2022-07-13 08:48] LABS: NT Pro Brain Natriuretic Pep. 122 pg/mL (0-450)
== END ==
PROVIDERS: PCP Internal Medicine Adolescent Medicine; Visit Provider Physician Assistant
DX: I10 Essential (primary) hypertension (principal); I49.5 Sick sinus syndrome; R06.00 Dyspnea, unspecified; R60.0 Localized edema; Z95.0 Presence of cardiac pacemaker; E83.42 Hypomagnesemia
CPT/HCPCS: 78452; 80048; 80076; 83735; 83880; 85025; 93017; A9502; J0280; J2785

== ENCOUNTER → 2022-07-19 10:20 | Outpatient (CLI) | payer MEDICARE, SELFPAY ==
[2022-07-19 10:59] LABS: Basophils % 0.6 % (0.1-2.0); Eosinophils # 0.1 K/mm3 (0.0-0.4); Eosinophils % 1.6 % (0.1-12.0); Hematocrit 27.7 % (37.0-47.0); Hemoglobin 8.5 g/dL (12.2-16.2); Lymphocytes % 29.6 % (10-50); Mean Corpuscular HGB Conc 30.8 g/dL (31.8-35.4); Mean Corpuscular Hemoglobin 29.9 pg (27.0-31.2); Mean Platelet Volume 8.3 fl (7.4-10.4); Monocytes # 0.4 K/mm3 (0.1-1.0); Monocytes % 5.2 % (1.7-9.3); Neutrophils # 4.2 K/mm3 (1.8-7.8); Platelet Count 340 K/mm3 (142-424); Red Blood Count 2.85 M/mm3 (4.20-5.40); Red Cell Distribution Width 15.2 % (11.5-17.5); White Blood Count 6.7 K/mm3 (4.8-10.8)
== END ==
PROVIDERS: PCP Internal Medicine Adolescent Medicine; Visit Provider Surgery
DX: I95.2 Hypotension due to drugs (principal)
CPT/HCPCS: 36415; 85025

== ENCOUNTER → 2022-07-21 09:01 | Outpatient (CLI) | payer MEDICARE, SELFPAY ==
--- NOTE | 2022-07-21 09:06 | FL_ITS ---
FINAL REPORT CLINICAL HISTORY: DYSPHAGIA FT: 1:49 FINDINGS: ESOPHAGRAM HISTORY:. Dysphagia. PROCEDURE: The patient ingested barium. Effervescent crystals were also administered. Spot and overhead films were obtained. Fluoroscopy time: 1 minute 49 seconds. 15 radiographs were obtained. FINDINGS: There is a large hiatal hernia with both sliding and paraesophageal components. 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 A 13 mm barium tablet does not pass through the distal esophagus into the stomach. No gastroesophageal reflux was demonstrated during the exam. There was significant esophageal dysmotility during the exam. 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 Endoscopic correlation may be of value. Films reviewed , interpreted and dictated by Dr. Gtz. Transcribed by Rickie Jackson PA-C. Reviewed, Interpreted and Dictated by Dipak Gtz MD Transcribed by PAWAN Ferro Authenticated and [facility]
[2022-07-21 10:31] LABS: Basophils % 0.3 % (0.1-2.0); Eosinophils # 0.1 K/mm3 (0.0-0.4); Eosinophils % 1.4 % (0.1-12.0); Hematocrit 27.8 % (37.0-47.0); Hemoglobin 8.2 g/dL (12.2-16.2); Lymphocytes # 1.8 K/mm3 (0.7-4.5); Lymphocytes % 36.1 % (10-50); Mean Corpuscular HGB Conc 29.4 g/dL (31.8-35.4); Mean Corpuscular Hemoglobin 29.2 pg (27.0-31.2); Mean Corpuscular Volume 99.5 fl (81-99); Mean Platelet Volume 7.8 fl (7.4-10.4); Monocytes # 0.3 K/mm3 (0.1-1.0); Monocytes % 6.2 % (1.7-9.3); Neutrophils # 2.8 K/mm3 (1.8-7.8); Neutrophils % 55.8 % (37.0-80.0); Platelet Count 300 K/mm3 (142-424); Red Blood Count 2.79 M/mm3 (4.20-5.40); Red Cell Distribution Width 15.7 % (11.5-17.5)
== END ==
PROVIDERS: PCP Internal Medicine Adolescent Medicine; Visit Provider Surgery
DX: R13.10 Dysphagia, unspecified (principal); D64.9 Anemia, unspecified
CPT/HCPCS: 36415; 74220; 85025

== ENCOUNTER 2022-07-23 15:16 | Emergency (ER) | payer MEDICARE, SELFPAY ==
--- NOTE | 2022-07-23 15:40 | EXP.UTC ---
Discharge Plan Disposition Patient Disposition: Home, Self-Care Condition: Good Prescriptions Prescriptions: No Action rosuvastatin 10 mg tablet 10 mg PO DAILY acetaminophen [Tylenol Extra Strength] 500 mg tablet 500 mg PO Q6H PRN hydrocodone-acetaminophen 5-325 mg tablet 1 tab PO Q8H PRN metoprolol succinate 25 mg tablet extended release 24 hr 25 mg PO QDAY Qty: 90 3RF lisinopril 10 mg tablet 5 mg PO DAILY diphenhydramine-acetaminophen [Tylenol PM Extra Strength] 25-500 mg tablet 1 tab PO HS PRN (Reason: insomnia) magnesium 200 mg tablet 200 mg PO DAILY fluticasone propionate 50 mcg/actuation spray,suspension 2 spray NS DAILY clobetasol 0.05 % ointment 1 applic TP DAILY 14 Days Qty: 60 2RF spironolactone 25 mg tablet 25 mg PO Q OTHER DAY Qty: 30 2RF furosemide 20 mg tablet 20 mg PO Q OTHER DAY Qty: 30 2RF celecoxib 100 mg capsule 100 mg PO DAILY 90 Days Qty: 90 0RF pantoprazole 40 mg tablet,delayed release (DR/EC) 40 mg PO DAILY aspirin 81 MG tablet,delayed release (DR/EC) 81 mg PO DAILY Referrals Follow up/Referrals: Trev Hays MD [Primary Care Provider] - See instructions Activity Restrictions/Add. Instructions Additional Instructions/Restrictions: Drink plenty of fluids. Follow up with your regular doctor. GO TO THE ER FOR ANY WORSENING SYMPTOMS Clinical Impressions Clinical Impression: Encounter for laboratory testing for COVID-19 virus Instructions Patient Instructions: Preventing the Spread of Coronavirus Discharge Instructions Discharge ED Provider: Mj Nagel [facility] General Stated complaint: covid swab Time Seen by Provider: 07/23/22 15:46 History of Present Illness Provider Complaint: She is here to have a covid-19 test in preparation for a surgical procedure later this week. She denies any symptoms. Related Data Home Medications Medication Instructions Recorded Confirmed aspirin 81 mg tablet,delayed 81 mg PO DAILY HEART HEALTH 07/28/20 07/19/22 release acetaminophen 500 mg tablet 500 mg PO Q6H PRN 06/14/21 07/19/22 (Tylenol Extra Strength) pantoprazole 40 mg tablet,delayed 40 mg PO DAILY Reflux/Acid reflux 06/14/21 07/19/22 release rosuvastatin 10 mg tablet 10 mg PO DAILY 06/14/21 07/19/22 hydrocodone 5 mg-acetaminophen 325 1 tab PO Q8H PRN 06/27/21 07/19/22 mg tablet diphenhydramine 25 1 tab PO HS PRN insomnia 06/08/22 07/19/22 mg-acetaminophen 500 mg tablet (Tylenol PM Extra Strength) fluticasone propionate 50 2 spray intranasal DAILY 06/08/22 07/19/22 mcg/actuation nasal spray,suspension magnesium 200 mg tablet 200 mg PO DAILY 06/08/22 07/19/22 lisinopril 10 mg tablet 5 mg PO DAILY 07/19/22 Previous Rx's Medication Instructions Recorded clobetasol 0.05 % topical ointment 1 applic topical DAILY 2 weeks #60 06/08/22 grams metoprolol succinate 25 mg 25 mg PO QDAY #90 tabs 06/27/22 tablet,extended release 24 hr furosemide 20 mg tablet 20 mg PO Q OTHER DAY #30 tabs 07/05/22 spironolactone 25 mg tablet 25 mg PO Q OTHER DAY #30 tabs 07/05/22 celecoxib 100 mg capsule 100 mg PO DAILY Arthritis 90 days 07/12/22 #90 caps Allergies Allergy/AdvReac Type Severity Reaction Status Date / Time No Known Allergies Allergy Verified 07/19/22 09:58 PFSH [facility] Medical History Abnormal Holter monitor finding Balance problem Cardiac pacemaker in situ Cerebrovascular accident Dysphagia Dyspnea Elevated right ventricular end-diastolic pressure Fatigue HLD (hyperlipidemia) Palpitations Sinus bradycardia Sinus tachycardia SSS (sick sinus syndrome) Social History Smoking Status: Never smoker alcohol intake: never substance use type: denies use current occupational status: other household members: none housing: house current occup
[2022-07-23 15:51] VITALS: BP 118/79; PULSE 66; RESP 16; TEMP 36.8; O2SAT 99; BMI 29.7
[2022-07-23 15:53] VITALS: BP 118/79; PULSE 66; RESP 16; TEMP 36.8
== END 2022-07-23 15:54 | disposition home or self-care (01) ==
PROVIDERS: Emergency Provider Nurse Practitioner Family; PCP Internal Medicine Adolescent Medicine
DX: R94.31 Abnormal electrocardiogram [ECG] [EKG] (principal); R06.00 Dyspnea, unspecified; R13.10 Dysphagia, unspecified; D64.9 Anemia, unspecified; R53.82 Chronic fatigue, unspecified; Z20.822 Contact with and (suspected) exposure to COVID-19; I10 Essential (primary) hypertension; I49.5 Sick sinus syndrome; I25.2 Old myocardial infarction; K21.9 Gastro-esophageal reflux disease without esophagitis; E78.5 Hyperlipidemia, unspecified; R91.1 Solitary pulmonary nodule; Z79.1 Long term (current) use of non-steroidal anti-inflammatories (NSAID); Z79.51 Long term (current) use of inhaled steroids; Z79.82 Long term (current) use of aspirin; Z79.899 Other long term (current) drug therapy; Z95.0 Presence of cardiac pacemaker; Z96.659 Presence of unspecified artificial knee joint
CPT/HCPCS: 99213; C9803; G0463; U0003; U0005

== ENCOUNTER 2022-07-25 09:02 | Day surgery (SDC) | payer MEDICARE, SELFPAY ==
[2022-07-25] VITALS (16 sets, daily range): BP systolic 129–153; BP diastolic 57–82; PULSE 59–75; RESP 16–18; O2SAT 92–98; BMI 31.6
--- NOTE | 2022-07-25 | IR_ITS ---
APPROVED REPORT Patient Location: Outpatient Order Takers Supervisor: BANDAR Delgado RT (R) PROCEDURES Left heart catheterization Left ventriculogram Selective coronary angiogram INDICATION Preoperative evaluation, Abnormal Myoview Informed consent was obtained prior to the procedure. COMPLICATIONS NONE Estimated Blood Loss: LESS THAN 10 ML TECHNIQUE One percent lidocaine was used to anesthetize the right groin. The right femoral artery was accessed via the Seldinger technique. A 4-Hungarian sheath was placed in the right femoral artery. The JL-4 and JR-4 catheter was also used to perform left heart catheterization left ventriculogram and selective coronary angiogram. At the end of the procedure the patient was transferred to the post-op holding area in stable condition for arterial sheath removal. ANGIOGRAPHIC RESULTS The left main artery Normal The left anterior descending artery Has proximal 10 to 20% stenosis with a long mid vessel 40% stenosis. The circumflex artery Nondominant with proximal and mid vessel 40 to 50% stenoses The right coronary artery Is a dominant vessel and diffusely calcified with proximal 30 followed by 40 to 50% stenosis with additional mid vessel 50% calcified stenoses. The BUSTILLO ventriculogram reveals Normal 60% The left ventricular end-diastolic pressure 10 mmHg IMPRESSION Coronary artery disease as described above Normal ejection fraction Normal left ventricular end-diastolic pressure PLAN 1. Medical management for coronary artery disease 2. Patient is a low surgical risk from a cardiac standpoint to proceed with colonoscopy 3. Risk factor modification Electronically signed by : Kashmir Li MD 07/25/2022 10:09:12
[2022-07-25 12:10] LABS: Basophils % 0.3 % (0.1-2.0); Eosinophils # 0.1 K/mm3 (0.0-0.4); Eosinophils % 1.6 % (0.1-12.0); Hematocrit 24.5 % (37.0-47.0); Hemoglobin 7.1 g/dL (12.2-16.2); Lymphocytes # 1.7 K/mm3 (0.7-4.5); Lymphocytes % 39.6 % (10-50); Mean Corpuscular HGB Conc 29.1 g/dL (31.8-35.4); Mean Corpuscular Hemoglobin 27.7 pg (27.0-31.2); Mean Corpuscular Volume 95.4 fl (81-99); Mean Platelet Volume 6.9 fl (7.4-10.4); Monocytes # 0.3 K/mm3 (0.1-1.0); Monocytes % 5.8 % (1.7-9.3); Neutrophils # 2.3 K/mm3 (1.8-7.8); Neutrophils % 52.6 % (37.0-80.0); Platelet Count 226 K/mm3 (142-424); Red Blood Count 2.56 M/mm3 (4.20-5.40); Red Cell Distribution Width 14.7 % (11.5-17.5); White Blood Count 4.4 K/mm3 (4.8-10.8)
[2022-07-25 12:16] LABS: Chloride 108 mmol/L (98-107); Potassium 4.3 mmoL/L (3.5-5.1); Sodium 135 mmol/L (136-145)
[2022-07-25 12:19] LABS: Alanine Aminotransferase 17 U/L (12-78); Albumin Level 3.3 g/dl (3.5-5.0); Albumin/Globulin Ratio 1.3 (1.1-1.8); Alkaline Phosphatase 55 U/L (38-126); Anion Gap 6.3 mEq/L (5-15); Aspartate Amino Transferase 32 U/L (14-36); Bilirubin,Total 0.2 mg/dl (0.2-1.3); Blood Urea Nitrogen 18 mg/dl (7-17); Calcium 8.7 mg/dl (8.4-10.2); Carbon Dioxide 25 mmol/L (22.0-30.0); Creatinine Clearance Estimated 46 mL/min (50-200); Estimated Glomerular Filt Rate 95 ml/min (>60); GFR (African American) 114 ML/MIN (>60); Globulin 2.5 g/dL (1.3-3.2); Glucose 93 mg/dl (74-100); Total Protein,Serum 5.8 g/dl (6.3-8.2)
--- NOTE | 2022-07-25 13:22 | SUR.PHASEII ---
pt's doctor stated that Dr. Hays mentioned patient having lab work and a possible blood transfusion. lab came over and obtained blood. H/H- 7.1/24.5. Attempted to call Dr. Hays office who was out for lunch, contacted Dr. Hays per his cellphone to discuss POC on patient. Informed that patient may go ahead and be discharged and that he would be in touch with patient.
== END 2022-07-25 13:25 | disposition home or self-care (01) ==
PROVIDERS: Internal Medicine Adolescent Medicine; PCP Internal Medicine Adolescent Medicine; Visit Provider Internal Medicine
DX: R94.39 Abnormal result of other cardiovascular function study (principal); Z95.0 Presence of cardiac pacemaker; I10 Essential (primary) hypertension; Z79.899 Other long term (current) drug therapy; I49.5 Sick sinus syndrome; E78.5 Hyperlipidemia, unspecified; I27.20 Pulmonary hypertension, unspecified; I25.10 Atherosclerotic heart disease of native coronary artery without angina pectoris; I69.392 Facial weakness following cerebral infarction; I69.398 Other sequelae of cerebral infarction; H53.9 Unspecified visual disturbance
CPT/HCPCS: 80053; 85025; 93458; 99152; C1725; C1769; J1644; Q9967

== ENCOUNTER 2022-07-27 09:55 | Day surgery (SDC) | payer MEDICARE, SELFPAY ==
[2022-07-27 10:24] VITALS: BP 147/64; PULSE 60; RESP 18; TEMP 36.4; O2SAT 99; BMI 31.6
--- NOTE | 2022-07-27 10:37 | P.PN_ITS ---
PFSH PFSH Medical History Abnormal Holter monitor finding Anemia Balance problem Cardiac pacemaker in situ Cerebrovascular accident Colonoscopy planned Dysphagia Dyspnea Elevated right ventricular end-diastolic pressure Fatigue GERD (gastroesophageal reflux disease) HLD (hyperlipidemia) HTN (hypertension) Normal esophagogastroduodenoscopy (EGD) Pacemaker Palpitations Sinus bradycardia Sinus tachycardia SSS (sick sinus syndrome) Stroke Surgical History H/O arthroscopy of shoulder History of appendectomy Hx of hysterectomy, total Total knee replacement status Family History Other Cancer Heart attack Hypertension Stroke Social History Smoking Status: Never smoker alcohol intake: never substance use type: denies use current occupational status: retired and other Travel in the last 8 weeks: None household members: none housing: house current occupational exposures/hazards: No [facility] Anesthesia Checklist Patient Identification Patient Identification: Arm Band and Verbal (Name & ) Structural Data Admitted From: Home Planned Operative Procedure/s: EGD Consent for Planned Operative Procedure(s) Verified: Yes NPO Status Verified Time NPO: 00:00 Additional verifications Anesthesia Reactions: No Hx Blood Transfusions: No Blood Transfusion Reaction: No Airway Assessment C-Spine Mobility Assessed: Yes TMJ Mobility Assessed: Yes Dentition: Good Dentition Neurological Assessment Level of Consciousness: Awake Hx Seizures: No Numbness or tingling in extremities: No Anesthesia Plan Anesthesia Risk discussed: Yes Anesthesia Plan: Verified ASA Class: III Anesthesia Type: MAC
[2022-07-27 10:58] VITALS: O2SAT 99
[2022-07-27 11:14] VITALS: BP 106/52; PULSE 65; RESP 18; TEMP 36.1; O2SAT 98
--- NOTE | 2022-07-27 11:14 | HMH.SCOPE ---
Procedure: Date: 07/27/22 Patient Date of :: 1935 Procedure Performed:: EGD and dilation Indications:: Dysphagia Performing Provider:: Eloisa Wells MD Referring Provider:: Trev Hays MD Sedation:: Propofol Procedure:: The gastroscope was gently passed through the incisoral orifice into the oral cavity and under direct visualization the esophagus was intubated. The endoscope was passed down the esophagus, through the stomach, and into the duodenum. Color, texture, mucosa, and anatomy of the esophagus, stomach, and duodenum were carefully examined with the scope. Findings:: Oropharynx: normal Esophagus: tortuous with schatzki's ring, treated with 56F bougie dilation EG Junction: intact at 40 cm, large hiatus hernia with donavon's erosions Cardia: normal Fundus: normal Body: normal Antrum: normal Duodenal bulb: normal Duodenum (second and third portion): normal Impression: Schatzki's ring treated with bougie dilation Large hiatus hernia donavon's erosions as cause of chronic anemia Recommendations:: May benefit from surgical repair of hiatus hernia if patient can tolerate the procedure Complications:: None Estimated blood obtained (mL): 0
[2022-07-27 11:24] VITALS: BP 111/61; PULSE 64; RESP 18; O2SAT 98
[2022-07-27 11:34] VITALS: BP 117/88; PULSE 59; RESP 18; O2SAT 95
[2022-07-27 11:43] VITALS: BP 124/66; PULSE 103; RESP 18; O2SAT 99
== END 2022-07-27 11:49 | disposition home or self-care (01) ==
PROVIDERS: PCP Internal Medicine Adolescent Medicine; Visit Provider Internal Medicine Gastroenterology
PROC: 0DJ08ZZ Inspection of Upper Intestinal Tract, Via Natural or Artificial Opening Endoscopic (ICD-10-PCS; CPT 43235; principal; 2022-07-27 11:00)
DX: R13.10 Dysphagia, unspecified (principal); K44.9 Diaphragmatic hernia without obstruction or gangrene; K22.2 Esophageal obstruction; D64.9 Anemia, unspecified
CPT/HCPCS: 43249

== ENCOUNTER → 2022-07-28 16:18 | Outpatient (CLI) | payer MEDICARE, SELFPAY | PROVIDERS: PCP Family Medicine; Visit Provider Family Medicine | DX: D64.9 Anemia, unspecified (principal) | CPT/HCPCS: 36415; 86850 ==

== ENCOUNTER 2022-07-29 10:04 | Outpatient (CLI) | payer MEDICARE, SELFPAY ==
[2022-07-29] VITALS (21 sets, daily range): BP systolic 115–157; BP diastolic 50–111; PULSE 60–75; RESP 18–20; TEMP 36.5–37; O2SAT 99–100; BMI 31.2
--- NOTE | 2022-07-29 13:56 | PC.NURSE ---
blood was verified by Daron Puente and Manjula Hebert Rn at 1115. verification did not save in computer. blood was started at 1121.
[2022-07-29 18:09] LABS: Hematocrit 34.5 % (37.0-47.0); Hemoglobin 11.2 g/dL (12.2-16.2)
== END 2022-07-29 18:10 | disposition home or self-care (01) ==
PROVIDERS: PCP Family Medicine; Visit Provider Family Medicine
DX: D50.0 Iron deficiency anemia secondary to blood loss (chronic) (principal)
CPT/HCPCS: 36430; 85014; 85018; P9016

== ENCOUNTER → 2022-08-04 08:24 | Outpatient (CLI) | payer MEDICARE, SELFPAY ==
[2022-08-04 18:24] LABS: Basophils # 0.1 K/mm3 (0-0.2); Basophils % 0.8 % (0.1-2.0); Eosinophils # 0.1 K/mm3 (0.0-0.4); Eosinophils % 1.5 % (0.1-12.0); Hematocrit 35.2 % (37.0-47.0); Hemoglobin 11.5 g/dL (12.2-16.2); Lymphocytes # 2.4 K/mm3 (0.7-4.5); Lymphocytes % 37.7 % (10-50); Mean Corpuscular HGB Conc 32.5 g/dL (31.8-35.4); Mean Corpuscular Hemoglobin 28.9 pg (27.0-31.2); Mean Corpuscular Volume 89.1 fl (81-99); Monocytes # 0.4 K/mm3 (0.1-1.0); Neutrophils # 3.4 K/mm3 (1.8-7.8); Platelet Count 265 K/mm3 (142-424); Red Blood Count 3.96 M/mm3 (4.20-5.40); Red Cell Distribution Width 16.2 % (11.5-17.5); Reticulocyte % (Auto) 1.9 % (0.9-3.2); White Blood Count 6.3 K/mm3 (4.8-10.8)
== END ==
PROVIDERS: PCP Family Medicine; Visit Provider Family Medicine
DX: D50.0 Iron deficiency anemia secondary to blood loss (chronic) (principal)
CPT/HCPCS: 85025; 85044

== ENCOUNTER 2022-08-05 10:50 | Observation (INO) | payer MEDICARE, SELFPAY ==
[2022-08-05] VITALS (14 sets, daily range): BP systolic 147–174; BP diastolic 72–94; PULSE 60–73; RESP 16–18; TEMP 36.7; O2SAT 95–98; BMI 31.8; BMI 31.6; BMI 31.2
--- NOTE | 2022-08-05 11:08 | XR_ITS ---
PROCEDURE INFORMATION: Exam: XR Cervical Spine Exam date and time: 08/05/2022 11:07 AM Age: 87 years old Clinical indication: Injury or trauma; Fall; Blunt trauma TECHNIQUE: Imaging protocol: Radiologic exam of the cervical spine. Views: 4 or 5 views. COMPARISON: CT CERVICAL SPINE WO CON 03/27/2022 5:55 PM FINDINGS: Bones/joints: No acute fracture or malalignment. Severe degenerative disc disease C4-C5 and C5-C6. Osteopenia. Soft tissues: Unremarkable. IMPRESSION: 1. No acute fracture or malalignment. 2. Severe degenerative disc disease at C4-C5 and C5-C6.
--- NOTE | 2022-08-05 11:21 | EXP.UTC ---
Discharge Plan Disposition Patient Disposition: Admitted as Observation Condition: Fair Clinical Impressions Clinical Impression: Fall, Chest wall contusion, Nodule of right lung, Dysphagia, Closed head injury Discharge ED Provider: Salena Dow [facility] [place] General Chief complaint: PAIN Stated complaint: ao fall 08/05/22, front body pain Mode of Arrival: Wheelchair Source of Information: Patient and Relative Limitations: No Limitations Time Seen by Provider: 08/05/22 11:21 Description of Symptoms (Recalled from Triage Doc. by RN): c/o left knee, neck/collar bone pain after a fall. PT states that she was watering her chua when she fell and hit the arm of her chair with her chin, Small skin tear on left collar bone area with some bruising on bilateral arms. HEENT Symptoms (Recalled from RN notes): No Resp Symptoms (Recalled from RN notes): No Skin Symptoms (Recalled from RN notes): No MS Symptoms (Recalled from RN notes): Yes Functional Status (Recalled from RN notes): n/a History of Present Illness Provider Complaint: She states that she fell this morning and came down on her left clavicle area and her throat on an arm of a chair. She has a small skin tear on her left clavicle area. Related Data Home Medications Medication Instructions Recorded Confirmed aspirin 81 mg tablet,delayed 81 mg PO DAILY HEART HEALTH 07/28/20 08/05/22 release acetaminophen 500 mg tablet 500 mg PO Q6H PRN Mild Pain (Scale 06/14/21 08/05/22 (Tylenol Extra Strength) Score 1-4) pantoprazole 40 mg tablet,delayed 40 mg PO DAILY Reflux/Acid reflux 06/14/21 08/05/22 release rosuvastatin 10 mg tablet 10 mg PO DAILY Cholesterol 06/14/21 08/05/22 hydrocodone 5 mg-acetaminophen 325 1 tab PO Q8H PRN Pain 06/27/21 08/05/22 mg tablet diphenhydramine 25 1 tab PO HS PRN insomnia 06/08/22 08/05/22 mg-acetaminophen 500 mg tablet (Tylenol PM Extra Strength) fluticasone propionate 50 2 spray intranasal DAILY Allergy 06/08/22 08/05/22 mcg/actuation nasal symptoms spray,suspension magnesium 200 mg tablet 200 mg PO DAILY Supplement 06/08/22 08/05/22 lisinopril 10 mg tablet 5 mg PO DAILY High blood pressure 07/19/22 08/05/22 furosemide 20 mg tablet 20 mg PO Q OTHER DAY Fluid 07/27/22 08/05/22 metoprolol succinate 25 mg 25 mg PO QDAY High blood pressure 07/27/22 08/05/22 tablet,extended release 24 hr spironolactone 25 mg tablet 25 mg PO Q OTHER DAY Fluid 07/27/22 08/05/22 Previous Rx's Medication Instructions Recorded celecoxib 100 mg capsule 100 mg PO DAILY Arthritis 90 days 07/12/22 #90 caps Allergies Allergy/AdvReac Type Severity Reaction Status Date / Time No Known Allergies Allergy Verified 08/05/22 11:12 Worker's Comp Is this a Worker's Comp case?: No PFSH PFSH Medical History Abnormal Holter monitor finding Anemia Balance problem Cardiac pacemaker in situ Cerebrovascular accident Colonoscopy planned Dysphagia Dyspnea Elevated right ventricular end-diastolic pressure Fatigue GERD (gastroesophageal reflux disease) HLD (hyperlipidemia) HTN (hypertension) Normal esophagogastroduodenoscopy (EGD) Pacemaker Palpitations Sinus bradycardia Sinus tachycardia SSS (sick sinus syndrome) Stroke Surgical History H/O arthroscopy of shoulder History of appendectomy Hx of hysterectomy, total Total knee replacement status Family History Other Cancer Heart attack Hypertension Stroke Social History Smoking Status: Never smoker alcohol intake: never substance use type: denies use current occupational status: retired and other Travel in the last 8 weeks: None household members: none housing: house current occupational exposures/hazards: No ROS Obtained: Yes All systems reviewed & no addition
--- NOTE | 2022-08-05 11:31 | XR_ITS ---
PROCEDURE INFORMATION: Exam: XR Left Clavicle, Complete Exam date and time: 08/05/2022 11:24 AM Age: 87 years old Clinical indication: Injury or trauma; Fall; Blunt trauma (contusions or hematomas); Shoulder; Left TECHNIQUE: Imaging protocol: Radiologic exam of the Left clavicle. Complete exam. Views: Any number of views. COMPARISON: CR XR CERVICAL SPINE 4V 08/05/2022 11:07 AM FINDINGS: Tubes, catheters and devices: Cardiac rhythm maintenance device is in place. Bones/joints: No acute fracture or malalignment. Severe acromioclavicular and glenohumeral joint degenerative changes. High riding humeral head suggests rotator cuff pathology. Osteopenia. Soft tissues: Normal. IMPRESSION: 1. No acute fracture or malalignment. 2. Severe acromioclavicular and glenohumeral joint degenerative changes.
--- NOTE | 2022-08-05 11:57 | CT_ITS ---
PROCEDURE INFORMATION: Exam: CT Chest With Contrast; Diagnostic Exam date and time: 08/05/2022 1:01 PM Age: 87 years old Clinical indication: Abnormal findings; Lung mass or nodule; Single or solitary nodule; Prior surgery; Surgery date: 6+ months; Surgery type: Pace maker; Patient HX: Trauma, left supraclavicular hematoma TECHNIQUE: Imaging protocol: Diagnostic computed tomography of the chest with contrast. Radiation optimization: All CT scans at this facility use at least one of these dose optimization techniques: automated exposure control; mA and/or kV adjustment per patient size (includes targeted exams where dose is matched to clinical indication); or iterative reconstruction. Contrast material: ISOVUE 370; Contrast volume: 75 ml; Contrast route: IV; COMPARISON: CR XR CHEST 2V 06/27/2022 11:15 AM FINDINGS: Tubes, catheters and devices: Left subclavian pacemaker with distal wires resting in the right atrium and right ventricle. Thyroid: Thyroid gland is unremarkable. Trachea: Major airways are patent. Lungs: Dependent atelectasis and scarring. 1 cm nodule in the right lateral costophrenic angle is probably atelectatic but a new solid lesion cannot be excluded by this exam. There are no comparison CTs of the chest and follow-up for this lesion is recommended. Pleural spaces: Unremarkable. No pneumothorax. No pleural effusion. Heart: See Vasculature finding. Mediastinal space: Abnormal mucosal thickening of the distal esophagus which may be due to esophagitis or neoplasm. Follow-up with endoscopic or double-contrast fluoroscopic studies. Lymph nodes: No evidence for mediastinal or hilar mass or lymphadenopathy. Vasculature: No filling defect within the pulmonary arterial tree. No evidence of aortic dissection. Calcification within thoracic aorta, carotid and coronary arteries. Diaphragm: Large hiatal hernia and partial intrathoracic stomach. Liver: Liver is diffusely hypoattenuating. Gallbladder and bile ducts: Gallbladder is surgically absent. No pathologic dilation of the biliary tree. Bones/joints: Degenerative spondylosis, rotoscoliosis and facet arthropathy within the spine. Diffuse bone demineralization. Degenerative changes of the shoulders and acromioclavicular joints. Postoperative changes of the right humeral head. Skeletal structures appear negative for aggressive process or acute fracture. Soft tissues: Unremarkable. IMPRESSION: 1. No acute cardiopulmonary process is identified on CT of the chest with contrast. 2. 1 cm nodule in the right lateral costophrenic angle is probably atelectatic but a new solid lesion cannot be excluded by this exam. There are no comparison CTs of the chest and follow-up for this lesion is recommended. 3. Left subclavian pacemaker with distal wires resting in the right atrium and right ventricle. 4. Calcification within thoracic aorta, carotid and coronary arteries. 5. Abnormal mucosal thickening of the distal esophagus which may be due to esophagitis or neoplasm. Follow-up with endoscopic or double-contrast fluoroscopic studies. 6. Large hiatal hernia and partial intrathoracic stomach. 7. Hepatic steatosis. 8. Gallbladder is surgically absent. No pathologic dilation of the biliary tree.
--- NOTE | 2022-08-05 11:58 | CT_ITS ---
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 Radiation optimization: All CT scans at this facility use at least one of these dose optimization techniques: automated exposure control; mA and/or kV adjustment per patient size (includes targeted exams where dose is matched to clinical indication); or iterative reconstruction. COMPARISON: CT HEAD/BRAIN WO CON 03/27/2022 5:53 PM FINDINGS: Brain: No intracranial hemorrhage. No evidence of acute territorial infarct or cerebral edema. Mild prominence of the cortical sulci consistent with age-appropriate intracerebral volume loss. Periventricular white matter tract changes consistent with microvascular disease. No mass effect or midline shift. Cerebral ventricles: No ventriculomegaly. Paranasal sinuses: Visualized sinuses are unremarkable. No fluid levels. Mastoid air cells: Visualized mastoid air cells are well aerated. Bones/joints: Unremarkable. No acute fracture. Soft tissues: Unremarkable. IMPRESSION: No evidence of acute intracranial abnormality.
[2022-08-05 12:17] LABS: Basophils % 0.4 % (0.1-2.0); Eosinophils # 0.1 K/mm3 (0.0-0.4); Hematocrit 38.3 % (37.0-47.0); Hemoglobin 12.3 g/dL (12.2-16.2); Lymphocytes % 25.3 % (10-50); Mean Corpuscular HGB Conc 32.2 g/dL (31.8-35.4); Mean Corpuscular Volume 90.1 fl (81-99); Mean Platelet Volume 7.8 fl (7.4-10.4); Monocytes # 0.4 K/mm3 (0.1-1.0); Monocytes % 5.2 % (1.7-9.3); Neutrophils # 5.3 K/mm3 (1.8-7.8); Platelet Count 253 K/mm3 (142-424); Red Blood Count 4.25 M/mm3 (4.20-5.40); Red Cell Distribution Width 16.1 % (11.5-17.5); White Blood Count 7.8 K/mm3 (4.8-10.8)
[2022-08-05 12:26] LABS: Chloride 106 mmol/L (98-107); Potassium 4.4 mmoL/L (3.5-5.1); Sodium 138 mmol/L (136-145)
--- NOTE | 2022-08-05 12:27 | HMH.EDGENADL ---
Discharge Plan Disposition Patient Disposition: Admitted as Observation Condition: Fair Clinical Impressions Clinical Impression: Fall, Chest wall contusion, Nodule of right lung, Dysphagia, Closed head injury Discharge ED Provider: Salena Dow Adult HPI General Chief complaint: PAIN Stated complaint: ao fall 08/05/22, front body pain Time Seen by Provider: 08/05/22 11:21 Mode of Arrival: Wheelchair Source of Information: Patient Limitations: Physical Limitations Description of Symptoms (Recalled from ER Triage Doc. by RN): c/o left knee and collar bone/neck pain after a fal. Pt states that she was watering her chua and fell hitting her neck area. bilateral brusing to upper arm.Small skin tear on left collar bone area. Denies hitting her head or loc or other injuries at time History of Present Illness HPI narrative: 87-year-old female presenting to the emergency department with left upper chest pain after a fall. Incident happened about 1 hour prior to arrival, around 10:30 AM. She was walking down her porch when she lost her balance and fell. She fell forward and struck the left side of her chest on furniture. She had immediate pain near her clavicle described as sharp and burning. She also struck her right knee. Both of her forearms. No loss of consciousness. No headache, neck pain. No difficulty breathing. She was evaluated at our urgent treatment center where x-ray of the clavicle and chest were performed. No actionable findings. She does have soft tissue injury and swelling to the mid chest, sternum, left upper chest. Denies numbness, weakness, tingling in her arms. She takes aspirin. No other blood thinners. Denies preceding chest pain, palpitations, vision changes. Related Data Home Medications Medication Instructions Recorded Confirmed aspirin 81 mg tablet,delayed 81 mg PO DAILY HEART HEALTH 07/28/20 08/05/22 release acetaminophen 500 mg tablet 500 mg PO Q6H PRN Mild Pain (Scale 06/14/21 08/05/22 (Tylenol Extra Strength) Score 1-4) pantoprazole 40 mg tablet,delayed 40 mg PO DAILY Reflux/Acid reflux 06/14/21 08/05/22 release rosuvastatin 10 mg tablet 10 mg PO DAILY Cholesterol 06/14/21 08/05/22 hydrocodone 5 mg-acetaminophen 325 1 tab PO Q8H PRN Pain 06/27/21 08/05/22 mg tablet diphenhydramine 25 1 tab PO HS PRN insomnia 06/08/22 08/05/22 mg-acetaminophen 500 mg tablet (Tylenol PM Extra Strength) fluticasone propionate 50 2 spray intranasal DAILY Allergy 06/08/22 08/05/22 mcg/actuation nasal symptoms spray,suspension magnesium 200 mg tablet 200 mg PO DAILY Supplement 06/08/22 08/05/22 lisinopril 10 mg tablet 5 mg PO DAILY High blood pressure 07/19/22 08/05/22 furosemide 20 mg tablet 20 mg PO Q OTHER DAY Fluid 07/27/22 08/05/22 metoprolol succinate 25 mg 25 mg PO QDAY High blood pressure 07/27/22 08/05/22 tablet,extended release 24 hr spironolactone 25 mg tablet 25 mg PO Q OTHER DAY Fluid 07/27/22 08/05/22 Previous Rx's Medication Instructions Recorded celecoxib 100 mg capsule 100 mg PO DAILY Arthritis 90 days 07/12/22 #90 caps Allergies Allergy/AdvReac Type Severity Reaction Status Date / Time No Known Allergies Allergy Verified 08/05/22 11:12 [facility] Medical History Abnormal Holter monitor finding Anemia Balance problem Cardiac pacemaker in situ Cerebrovascular accident Colonoscopy planned Dysphagia Dyspnea Elevated right ventricular end-diastolic pressure Fatigue GERD (gastroesophageal reflux disease) HLD (hyperlipidemia) HTN (hypertension) Normal esophagogastroduodenoscopy (EGD) Pacemaker Palpitations Sinus bradycardia Sinus tachycardia SSS (sick sinus syndrome) Stroke Surgical History H/O arthroscopy of shoulder History of appendectomy Hx of hysterectomy, total Total knee replacement status Family History (Reviewed 07/28/22 @ 13:18
[2022-08-05 12:28] LABS: Blood Urea Nitrogen 14 mg/dl (7-17); Creatinine Clearance Estimated 46 mL/min (50-200); Estimated Glomerular Filt Rate 95 ml/min (>60); GFR (African American) 114 ML/MIN (>60)
[2022-08-05 12:29] LABS: Alanine Aminotransferase 19 U/L (12-78); Albumin Level 4.1 g/dl (3.5-5.0); Albumin/Globulin Ratio 1.4 (1.1-1.8); Alkaline Phosphatase 73 U/L (38-126); Anion Gap 10.4 mEq/L (5-15); Aspartate Amino Transferase 40 U/L (14-36); Bilirubin,Total 0.6 mg/dl (0.2-1.3); Calcium 8.7 mg/dl (8.4-10.2); Carbon Dioxide 26 mmol/L (22.0-30.0); Glucose 97 mg/dl (74-100); Total Protein,Serum 7.1 g/dl (6.3-8.2)
--- NOTE | 2022-08-05 12:43 | PC.NURSE ---
Assisted pt to restroom and back to room via wheelchair. Pt tolerated well. Daughter at bedside.
--- NOTE | 2022-08-05 14:36 | PC.NURSE ---
WOUNDS CLEANED AND BACITRACIN APPLIED , SHE IS C/O TROUBLE SWALLOWING SHE IS SIPPING ON WATER AND HAS ALOT OF PAIN BUT IS ABLE TO SWALLOW IT .
--- NOTE | 2022-08-05 15:00 | PC.NURSE ---
pt states that she is able to swallow but it hurts when she swallows. States she doesn't get choked but the liquid just feels thick. MD coello
--- NOTE | 2022-08-05 15:26 | PC.NURSE ---
talked with pt and family about admission for observation of her throat swelling
--- NOTE | 2022-08-05 16:13 | PC.NURSE ---
Paged Dr Shin senior python developer for service for Dr. Dow.
--- NOTE | 2022-08-05 16:15 | PC.NURSE ---
Dr. Dow is speaking with Dr. Shin at this time.
--- NOTE | 2022-08-05 16:20 | PC.NURSE ---
called house for bed assignment
[2022-08-05 16:39] LABS: Coronavirus 19, PCR Not Detected (NotDetected); Influenza A, PCR Not Detected (NotDetected); Influenza B, PCR Not Detected (NotDetected)
--- NOTE | 2022-08-05 17:15 | PC.NURSE ---
report given to Wes SHAW
--- NOTE | 2022-08-05 17:16 | PC.NURSE ---
ok for pt to not have IV for admission.
--- NOTE | 2022-08-05 17:40 | PC.NURSE ---
PT BEING TRANSPORTED UP FOR ADMISSION
[2022-08-06 04:00] VITALS: BP 145/70; PULSE 65; RESP 17; TEMP 36.7; O2SAT 95
[2022-08-06 05:00] VITALS: BMI 31.5
--- NOTE | 2022-08-06 05:46 | PC.NURSE ---
Pt is a&o x 4. Pt c/o pain all over x 2 during my shift. Medicated per MAR with favorable results. When ambulating, pt is unsteady and experiences some dizziness. Pt needs x 1 assist when ambulating at all times. Pt has bruises to bilateral forearms, and swelling to left forearm. Abrasion and bruising to neck and chest, and abrasion on knee. No other complaints or needs verbalized by pt at this time. Call light in reach.
[2022-08-06 08:00] VITALS: BP 143/74; PULSE 73; RESP 18; TEMP 36.6; O2SAT 95; O2SAT 97
--- NOTE | 2022-08-06 08:18 | P.CONPHA_ITS ---
[facility] Pharmacy VTE Monitoring Patient Demographics Admission date: 08/05/22 Report Date: 08/06/22 Time: 08:18 Patient Allergies No Known Allergies Allergy (Verified 08/05/22 11:12) Height: 1.52 m Weight: 72.773 kg Current Active Problems (Updated 08/05/22 @ 16:20 by Salena Dow DO) Fall (Acute) Chest wall contusion (Acute) Nodule of right lung (Acute) Dysphagia (Acute) Closed head injury (Acute) VTE Risk Labs: VTE Related Lab Results Hgb 12.3 g/dL (12.2-16.2) 08/05/22 12:05 Hct 38.3 % (37.0-47.0) 08/05/22 12:05 Plt Count 253 K/mm3 (142-424) 08/05/22 12:05 BUN 14 mg/dl (7-17) 08/05/22 12:05 Creatinine 0.60 mg/dl (0.52-1.04) 08/05/22 12:05 Estimated Creat Clear 46 mL/min (50-200) 08/05/22 12:05 VTE Score: 9 VTE Risk Level: Moderate Risk Prophylaxis VTE Prophylaxis Ordered?: Yes Types of VTE Prophylaxis: TEDS Knee High Location of Applied Device: Bilateral Lower Extremeties
--- NOTE | 2022-08-06 09:20 | EXP.HPDC ---
General Admission date:: 08/05/22 Discharge date: 08/06/22 *Admission Date: 08/05/22 *Chief complaint: Fall with multiple contusions *History of present illness: Ms. Ramirez is an 87-year-old white female who fell while watering chua on her front porch yesterday. She thinks she tripped on something. She did not pass out or lose consciousness. When she fell however she caught her chin on the armrest of a chair and then hit on her chest and knees. She was brought to the ER primarily because of concerns with pain and swelling in her neck and some difficulty swallowing. She had most recently undergone EGD with dilatation and was concerned she had caused an injury. She was evaluated in the ER with multiple x-rays and CT scan of her head and chest with no acute findings. She did have bruising and swelling of her neck and chest as well as her arms and abrasions of her knees. Laboratory work-up was nonrevealing. Of note her hemoglobin was normal as she had recently undergone blood transfusion about a week ago due to anemia which is currently being worked up as an outpatient. Because of her advanced age and multiple injuries, she was admitted for observation overnight to be sure she remained stable. [facility] Medical History Abnormal Holter monitor finding Anemia Balance problem Cardiac pacemaker in situ Cerebrovascular accident Colonoscopy planned Dysphagia Dyspnea Elevated right ventricular end-diastolic pressure Fatigue GERD (gastroesophageal reflux disease) HLD (hyperlipidemia) HTN (hypertension) Normal esophagogastroduodenoscopy (EGD) Pacemaker Palpitations Sinus bradycardia Sinus tachycardia SSS (sick sinus syndrome) Stroke Surgical History H/O arthroscopy of shoulder History of appendectomy Hx of hysterectomy, total Total knee replacement status Family History Other Cancer Heart attack Hypertension Stroke Social History Smoking Status: Never smoker alcohol intake: never substance use type: denies use current occupational status: retired and other Travel in the last 8 weeks: None household members: none housing: house current occupational exposures/hazards: No Review of Systems Constitutional Constitutional: Reports frequent falls, Denies headache(s) and Reports weakness Eyes Eyes: Denies loss of vision ENT Ears, Nose, Mouth, and Throat: Reports as per HPI, Denies facial pain, Denies headache(s), Denies hearing loss, Denies nasal trauma, Denies sore throat and Denies tongue swelling *Cardiovascular Cardiovascular: Reports chest pain, Denies dyspnea, Reports leg edema, Denies palpitations and Reports other (Anterior chest is sore) *Respiratory Respiratory: Denies chest congestion, Denies cough and Denies dyspnea *Gastrointestinal Gastrointestinal: Denies abdominal pain, Denies change in bowel habits and Denies coffee ground emesis *Genitourinary Genitourinary: Denies dysuria *Musculoskeletal Musculoskeletal: Reports muscle weakness (generalized) and Denies numbness *Neurologic Neurologic: Reports frequent falls, Denies headache(s), Denies loss of vision, Denies numbness, Denies paresthesias and Reports weakness Endocrine Endocrine: Denies palpitations Allergic/Immunologic Allergic/Immunologic: Denies tongue swelling Exam Data for Last 24 hours Vital signs and Labs for Last 24 Hours: Temp Pulse Resp BP Pulse Ox 98.0 F 65 17 145/70 H 95 08/06/22 04:00 08/06/22 04:00 08/06/22 04:00 08/06/22 04:00 08/06/22 08:00 Laboratory Results - last 24 hr 08/05/22 12:05: WBC 7.8, RBC 4.25, Hgb 12.3, Hct 38.3, MCV 90.1, MCH 29.0, MCHC 32.2, RDW 16.1, Plt Count 253, MPV 7.8, Neut % (Auto) 68.0, Lymph % (Auto) 25.3, [place] % (Auto) 5.2, Eos % (Auto) 1.0, Baso % (Auto) 0.4, Neut # (Au
--- NOTE | 2022-08-06 09:46 | PC.NURSE ---
pt had 2 unmeasured voids
--- NOTE | 2022-08-06 09:50 | PC.NURSE ---
0922-FAMILY MADE AWARE OF D/C
--- NOTE | 2022-08-06 10:33 | PC.NURSE ---
pt has an unmeasured void
--- NOTE | 2022-08-07 13:03 | CARE MANAGER ---
Contacted patient's daughter related to discharge from hospital. She states the patient is doing better, but still has some soreness and a lot of bruising. She is able to eat and drink, but soft food only. They have scheduled follow up appointment with Dr. Bravo. Denies questions or concerns at this time. COLIN Ferrell
== END 2022-08-06 12:30 | disposition home or self-care (01) ==
LOC: UTC 11:02 → ER 11:56 → 2ND 16:30
PROVIDERS: Admitting Provider Family Medicine; Emergency Provider Emergency Medicine; PCP Family Medicine; Visit Provider Family Medicine
DX: S00.83XA Contusion of other part of head, initial encounter (principal); S80.02XA Contusion of left knee, initial encounter; S20.214A Contusion of middle front wall of thorax, initial encounter; S50.12XA Contusion of left forearm, initial encounter; W01.0XXA Fall on same level from slipping, tripping and stumbling without subsequent striking against object, initial encounter; Z91.81 History of falling; Y92.018 Other place in single-family (private) house as the place of occurrence of the external cause; I49.5 Sick sinus syndrome; Z95.0 Presence of cardiac pacemaker; I10 Essential (primary) hypertension; R26.9 Unspecified abnormalities of gait and mobility; R29.6 Repeated falls; Z20.822 Contact with and (suspected) exposure to COVID-19
CPT/HCPCS: G0378; 70450; 71260; 72050; 73000; 80053; 85025; 99285; C9803; Q9967; U0003; U0005

== ENCOUNTER → 2022-08-14 06:52 | Outpatient (CLI) | payer MEDICARE, SELFPAY ==
[2022-08-14 19:45] LABS: Hematocrit 35.6 % (37.0-47.0); Hemoglobin 11.3 g/dL (12.2-16.2)
== END ==
PROVIDERS: PCP Family Medicine; Visit Provider Family Medicine
DX: D64.9 Anemia, unspecified (principal)
CPT/HCPCS: 85014; 85018

== ENCOUNTER → 2022-08-21 06:09 | Outpatient (CLI) | payer MEDICARE, SELFPAY ==
[2022-08-21 18:41] LABS: Basophils # 0.1 K/mm3 (0-0.2); Basophils % 0.7 % (0.1-2.0); Eosinophils # 0.1 K/mm3 (0.0-0.4); Eosinophils % 0.8 % (0.1-12.0); Hematocrit 33.6 % (37.0-47.0); Lymphocytes # 1.9 K/mm3 (0.7-4.5); Lymphocytes % 24.4 % (10-50); Mean Corpuscular HGB Conc 32.8 g/dL (31.8-35.4); Mean Corpuscular Hemoglobin 29.8 pg (27.0-31.2); Mean Corpuscular Volume 90.8 fl (81-99); Mean Platelet Volume 9.1 fl (7.4-10.4); Monocytes # 0.6 K/mm3 (0.1-1.0); Neutrophils # 5.2 K/mm3 (1.8-7.8); Platelet Count 237 K/mm3 (142-424); Red Cell Distribution Width 17.9 % (11.5-17.5); White Blood Count 7.8 K/mm3 (4.8-10.8)
== END ==
PROVIDERS: PCP Family Medicine; Visit Provider Student in an Organized Health Care Education/Training Program
DX: I10 Essential (primary) hypertension (principal)
CPT/HCPCS: 85025

== ENCOUNTER 2022-08-22 18:02 | Emergency (ER) | payer MEDICARE, SELFPAY ==
[2022-08-22 18:14] VITALS: BP 135/74; PULSE 67; RESP 16; TEMP 36.6; O2SAT 98; BMI 31.2
--- NOTE | 2022-08-22 18:15 | CT_ITS ---
PROCEDURE INFORMATION: Exam: CT Neck With Contrast Exam date and time: 08/22/2022 6:39 PM Age: 87 years old Clinical indication: Other: Pain and swelling down left side of neck; Additional info: Pain, swelling TECHNIQUE: Imaging protocol: Computed tomography of the neck with contrast. Radiation optimization: All CT scans at this facility use at least one of these dose optimization techniques: automated exposure control; mA and/or kV adjustment per patient size (includes targeted exams where dose is matched to clinical indication); or iterative reconstruction. Contrast material: ISOVUE; Contrast volume: 50 ml; Contrast route: IV; COMPARISON: CT SOFT TISSUE NECK WO CON 03/04/2021 8:47 AM FINDINGS: Limitations: Limited by artifact arising from metallic dental hardware/dental amalgam. Patient motion. Pharynx: Unremarkable. No significant tonsillar enlargement. Larynx: Unremarkable. Epiglottis is normal. Prevertebral and retropharyngeal spaces: Unremarkable. Salivary glands: There is fatty atrophy of the bilateral parotid glands. Symmetric submandibular glands. Thyroid: Normal. No enlarged or calcified nodules. Lymph nodes: Unremarkable. No lymphadenopathy. Trachea: Visualized trachea is unremarkable. Lungs: Unremarkable as visualized. Pleural spaces: No visible pneumothorax or consolidation. Bones/joints: There are degenerative changes involving the spine. Vasculature: Vascular calcification. Soft tissues: There are mild infiltrative changes deep to the left platysma muscle which is mildly thickened. Infiltrative changes extend lateral to the left submandibular gland. No drainable fluid collection is visualized. IMPRESSION: 1. Mild infiltrative changes deep to the left platysma muscle which is mildly thickened. Infiltrative changes extend lateral the left submandibular gland. Possible cellulitis. 2. No drainable fluid collection is visualized.
--- NOTE | 2022-08-22 18:15 | CT_ITS ---
PROCEDURE INFORMATION: Exam: CT Maxillofacial With Contrast Exam date and time: 08/22/2022 6:20 PM Age: 87 years old Clinical indication: Jaw pain; Additional info: Swelling, pain on left side of jaw down neck TECHNIQUE: Imaging protocol: Computed tomography of the face with contrast. Radiation optimization: All CT scans at this facility use at least one of these dose optimization techniques: automated exposure control; mA and/or kV adjustment per patient size (includes targeted exams where dose is matched to clinical indication); or iterative reconstruction. Contrast material: ISOVUE; Contrast volume: 50 ml; Contrast route: IV; COMPARISON: CT HEAD/BRAIN WO CON 08/05/2022 12:57 PM FINDINGS: Limitations: Limited by artifact arising from metallic dental hardware/dental amalgam. Orbital cavities: Orbits are normal. Globes are unremarkable. Bones/joints: There are degenerative changes involving the spine. No acute fracture or dislocation. No osseous destruction. Paranasal sinuses: Normal. No air-fluid levels. Mastoid air cells: There is partial opacification of the bilateral mastoid air cells. Salivary glands: There is fatty atrophy of the bilateral parotid glands. Soft tissues: There is mild infiltrative change deep to the left platysma muscle which is mildly thickened. Mild infiltrative change extends lateral to the left submandibular gland. No discrete drainable fluid collection. Vasculature: Vascular calcification. IMPRESSION: 1. Mild infiltrative change extending deep to the left platysma muscle which is mildly thickened and lateral to the left submandibular gland. Possible cellulitis. 2. No drainable fluid collection.
--- NOTE | 2022-08-22 18:28 | PC.NURSE ---
IV established 20G to the right AC
[2022-08-22 18:30] VITALS: PULSE 67; O2SAT 96
--- NOTE | 2022-08-22 18:35 | PC.NURSE ---
pt to CT
--- NOTE | 2022-08-22 18:43 | PC.NURSE ---
pt gone to rad
--- NOTE | 2022-08-22 18:52 | PC.NURSE ---
pt back from rad
--- NOTE | 2022-08-22 19:13 | HMH.EDGENADL ---
Discharge Plan Disposition Patient Disposition: Home, Self-Care Condition: Good Prescriptions Prescriptions: New cephalexin 500 mg capsule 500 mg PO Q6H 7 Days Qty: 28 0RF doxycycline monohydrate 100 mg capsule 100 mg PO BID 7 Days Qty: 14 0RF No Action rosuvastatin 10 mg tablet 10 mg PO DAILY acetaminophen [Tylenol Extra Strength] 500 mg tablet 500 mg PO Q6H PRN (Reason: Mild Pain (Scale Score 1-4)) hydrocodone-acetaminophen 5-325 mg tablet 1 tab PO Q8H PRN (Reason: Pain) lisinopril 10 mg tablet 5 mg PO DAILY amoxicillin 875 mg tablet 875 mg PO BID 10 Days Qty: 20 0RF diphenhydramine-acetaminophen [Tylenol PM Extra Strength] 25-500 mg tablet 1 tab PO HS PRN (Reason: insomnia) magnesium 200 mg tablet 200 mg PO DAILY fluticasone propionate 50 mcg/actuation spray,suspension 2 spray NS DAILY celecoxib 100 mg capsule 100 mg PO DAILY 90 Days Qty: 90 0RF pantoprazole 40 mg tablet,delayed release (DR/EC) 40 mg PO DAILY aspirin 81 MG tablet,delayed release (DR/EC) 81 mg PO DAILY spironolactone 25 mg tablet 25 mg PO Q OTHER DAY furosemide 20 mg tablet 20 mg PO Q OTHER DAY metoprolol succinate 25 mg tablet extended release 24 hr 25 mg PO QDAY Referrals Follow up/Referrals: Hayder Bravo MD [Primary Care Provider] - See instructions Clinical Impressions Clinical Impression: Cellulitis and abscess of face Instructions Patient Instructions: DI for Cellulitis -- Adult Discharge ED Provider: Yonathan Rizvi Adult HPI General Chief complaint: PAIN Stated complaint: Mass on left jaw Time Seen by Provider: 08/22/22 19:00 Mode of Arrival: Wheelchair Source of Information: Patient Limitations: No Limitations Description of Symptoms (Recalled from ER Triage Doc. by RN): to ed per pvt car with c/o lt side facial swelling and pain x 2-3 days. pt seen by pcp and given antibiotics and told to come to ed for ct due to delay in insurance approval for ct. History of Present Illness HPI narrative: This is a 87-year-old female presenting with some pain in the left face and jaw. Patient has had this pain for the last few weeks. She originally had a fall where she fell and hit her face. She was seen at that time and not diagnosed with any fractures. Since then she has had continued pain. She called her PCP about it and she was placed on antibiotics. She was instructed to come to the emergency department for further evaluation. Is having a dull pain in her left jaw and radiates into the left neck. She states it was when she swallows. She has not had any cough. No chest pain. Denies any difficulty breathing. No abdominal pain or vomiting. No diarrhea. No headache or change in vision. No focal weakness. No fevers or chills. Related Data Home Medications Medication Instructions Recorded Confirmed aspirin 81 mg tablet,delayed 81 mg PO DAILY HEART HEALTH 07/28/20 08/14/22 release acetaminophen 500 mg tablet 500 mg PO Q6H PRN Mild Pain (Scale 06/14/21 08/14/22 (Tylenol Extra Strength) Score 1-4) pantoprazole 40 mg tablet,delayed 40 mg PO DAILY Reflux/Acid reflux 06/14/21 08/14/22 release rosuvastatin 10 mg tablet 10 mg PO DAILY Cholesterol 06/14/21 08/14/22 hydrocodone 5 mg-acetaminophen 325 1 tab PO Q8H PRN Pain 06/27/21 08/14/22 mg tablet diphenhydramine 25 1 tab PO HS PRN insomnia 06/08/22 08/14/22 mg-acetaminophen 500 mg tablet (Tylenol PM Extra Strength) fluticasone propionate 50 2 spray intranasal DAILY Allergy 06/08/22 08/14/22 mcg/actuation nasal symptoms spray,suspension magnesium 200 mg tablet 200 mg PO DAILY Supplement 06/08/22 08/14/22 lisinopril 10 mg tablet 5 mg PO DAILY High blood pressure 07/19/22 08/14/22 furosemide 20 mg tablet 20 mg PO Q OTHER DAY Fluid 07/27/22 08/14/22 metoprolol succinate 25 mg 25 mg PO QDAY High blood pressure 07/27/22 08/14/22 tablet,extended release
[2022-08-22 20:38] VITALS: BP 135/74; PULSE 67; RESP 16; TEMP 36.7; O2SAT 98
== END 2022-08-22 20:42 | disposition home or self-care (01) ==
PROVIDERS: Emergency Provider Emergency Medicine; PCP Family Medicine
DX: L03.211 Cellulitis of face (principal); M54.2 Cervicalgia; I10 Essential (primary) hypertension; I49.5 Sick sinus syndrome; K21.9 Gastro-esophageal reflux disease without esophagitis; E03.9 Hypothyroidism, unspecified; R13.10 Dysphagia, unspecified; G47.00 Insomnia, unspecified; D64.9 Anemia, unspecified; Z86.73 Personal history of transient ischemic attack (TIA), and cerebral infarction without residual deficits; Z79.1 Long term (current) use of non-steroidal anti-inflammatories (NSAID); Z79.51 Long term (current) use of inhaled steroids; Z79.82 Long term (current) use of aspirin; Z79.899 Other long term (current) drug therapy; Z95.0 Presence of cardiac pacemaker; Z82.49 Family history of ischemic heart disease and other diseases of the circulatory system; Z80.9 Family history of malignant neoplasm, unspecified
CPT/HCPCS: 70487; 70491; 96374; 96375; 99284; J0696; J2405; Q9967

== ENCOUNTER → 2022-08-29 14:00 | Outpatient (CLI) | payer MEDICARE, SELFPAY ==
[2022-08-29 17:55] LABS: Basophils # 0.1 K/mm3 (0-0.2); Basophils % 0.7 % (0.1-2.0); Eosinophils # 0.1 K/mm3 (0.0-0.4); Eosinophils % 1.4 % (0.1-12.0); Hematocrit 34.3 % (37.0-47.0); Hemoglobin 11.1 g/dL (12.2-16.2); Lymphocytes # 2.4 K/mm3 (0.7-4.5); Lymphocytes % 30.8 % (10-50); Mean Corpuscular HGB Conc 32.2 g/dL (31.8-35.4); Mean Corpuscular Hemoglobin 29.5 pg (27.0-31.2); Mean Corpuscular Volume 91.6 fl (81-99); Mean Platelet Volume 8.4 fl (7.4-10.4); Monocytes # 0.4 K/mm3 (0.1-1.0); Monocytes % 5.3 % (1.7-9.3); Neutrophils # 4.7 K/mm3 (1.8-7.8); Neutrophils % 61.7 % (37.0-80.0); Platelet Count 359 K/mm3 (142-424); Red Blood Count 3.75 M/mm3 (4.20-5.40); Red Cell Distribution Width 18.1 % (11.5-17.5); White Blood Count 7.6 K/mm3 (4.8-10.8)
[2022-08-29 18:18] LABS: Activated Partial Thrombo Time 26.9 seconds (22.8-30.6); INR 1.01 (0.9-1.1); Prothrombin Time 10.9 seconds (10.1-12.5)
[2022-08-29 18:52] LABS: Vitamin B12 295 pg/mL (239-931)
[2022-08-29 19:13] LABS: Iron 59 ug/dL (37-170)
[2022-08-29 19:23] LABS: Total Iron Binding Capacity 335 ug/dL (265-497)
[2022-08-31 16:02] LABS: Folate, RBC 1286 ng/mL (>498); Hematocrit 32.5 % (34.0-46.6)
== END ==
PROVIDERS: PCP Family Medicine; Visit Provider Family Medicine
DX: D64.9 Anemia, unspecified (principal); E53.8 Deficiency of other specified B group vitamins; I49.5 Sick sinus syndrome; I65.23 Occlusion and stenosis of bilateral carotid arteries
CPT/HCPCS: 82607; 82747; 83540; 83550; 85014; 85025; 85610; 85730

== ENCOUNTER 2022-09-25 11:53 | Emergency (ER) | payer MEDICARE, SELFPAY ==
[2022-09-25 11:53] VITALS: BP 220/95; PULSE 74; RESP 18; TEMP 36.6; O2SAT 100; BMI 31.6
--- NOTE | 2022-09-25 12:04 | PC.NURSE ---
PT AMBULATED TO BR AND BACK WITH STAND BY ASSISTANCE, NOW REPORTS PAIN TO BILATERAL BUTTOCKS
--- NOTE | 2022-09-25 12:17 | XR_ITS ---
FINAL REPORT CLINICAL HISTORY: FALL, pain FINDINGS: Right elbow Two views were obtained. There is no acute fracture or dislocation. There are mild degenerative changes. No soft tissue abnormality is identified. IMPRESSION: No acute process. Reviewed, Interpreted and Dictated by Arturo Ross III, MD Transcribed by Carlene Hewitt Authenticated and [facility]
--- NOTE | 2022-09-25 12:17 | XR_ITS ---
FINAL REPORT CLINICAL HISTORY: FALL, pain COMPARISON: 02/25/2022 FINDINGS: Pelvis A single view was obtained. There is no acute fracture or dislocation. There are postoperative changes from right hip arthroplasty. There are mild degenerative changes of the left hip. There are degenerative changes in the lower lumbar spine. Vascular calcification is identified. There is soft tissue calcification inferior to the right ischial tuberosity, stable. IMPRESSION: No acute process. Reviewed, Interpreted and Dictated by Arturo Ross III, MD Transcribed by Carlene Hewitt Authenticated and [facility]
--- NOTE | 2022-09-25 12:25 | PC.NURSE ---
DR. VIRGEN AT BEDSIDE FOR EVALUATION
--- NOTE | 2022-09-25 12:33 | CT_ITS ---
FINAL REPORT TECHNIQUE: Axial images through the pelvis were performed by computed tomography without contrast. Sagittal and coronal reconstruction images were performed. This study was performed with techniques to keep radiation doses as low as reasonably achievable (ALARA). Individualized dose reduction techniques using automated exposure control or adjustment of mA and/or kV according to the patient's size were employed. CLINICAL HISTORY: fall, pain over sacrum FINDINGS: CT PELVIS WITHOUT CONTRAST Pelvis: There are postoperative changes from right hip arthroplasty. There is no acute fracture or dislocation. Bony alignment is normal. There are moderate degenerative changes in the left hip. There are degenerative changes in the lower lumbar spine with vacuum disc phenomenon at several levels. There are vascular calcifications. There are soft tissue calcifications inferior to the ischial tuberosities. IMPRESSION: No acute bony abnormality. Reviewed, Interpreted and Dictated by Arturo Ross III, MD Transcribed by Migdalia Hebert Authenticated and [facility]
--- NOTE | 2022-09-25 12:33 | CT_ITS ---
FINAL REPORT CLINICAL HISTORY: fall, no loc COMPARISON: July 2022 FINDINGS: Axial images of the head were obtained without contrast. Coronal reformatted images were also obtained. This study was performed with techniques to keep radiation doses as low as reasonably achievable (ALARA). Individualized dose reduction techniques using automated exposure control or adjustment of mA and/or kV according to the patient's size were employed. There is generalized age-appropriate atrophy. Periventricular low-attenuation areas are seen consistent with moderate chronic ischemic changes. There is mild, stable ventriculomegaly. There is no evidence of intracranial hemorrhage or mass. There is no evidence of acute infarct. There is no evidence of shift of the midline structures. No skull abnormality is seen on the bone window images. IMPRESSION: Atrophy and moderate periventricular chronic ischemic changes. No acute intracranial abnormality identified. Reviewed, Interpreted and Dictated by Arturo Ross III, MD Transcribed by Joshua Harrison Authenticated and . [facility]
--- NOTE | 2022-09-25 12:35 | PC.NURSE ---
PT TO XR AT THIS TIME
--- NOTE | 2022-09-25 12:55 | PC.NURSE ---
PT RETURNED FROM XR
[2022-09-25 13:00] VITALS: BP 204/80; PULSE 66; RESP 20; O2SAT 99
--- NOTE | 2022-09-25 13:11 | HMH.EDFALL ---
Discharge Plan Disposition Patient Disposition: Home, Self-Care Condition: Good Chief Complaint: Fall Prescriptions Prescriptions: No Action rosuvastatin 10 mg tablet 10 mg PO DAILY acetaminophen [Tylenol Extra Strength] 500 mg tablet 500 mg PO Q6H PRN (Reason: Mild Pain (Scale Score 1-4)) hydrocodone-acetaminophen 5-325 mg tablet 1 tab PO Q8H PRN (Reason: Pain) lisinopril 10 mg tablet 5 mg PO DAILY diphenhydramine-acetaminophen [Tylenol PM Extra Strength] 25-500 mg tablet 1 tab PO HS PRN (Reason: insomnia) magnesium 200 mg tablet 200 mg PO DAILY fluticasone propionate 50 mcg/actuation spray,suspension 2 spray NS DAILY celecoxib 100 mg capsule 100 mg PO DAILY 90 Days Qty: 90 0RF pantoprazole 40 mg tablet,delayed release (DR/EC) 40 mg PO DAILY aspirin 81 MG tablet,delayed release (DR/EC) 81 mg PO DAILY spironolactone 25 mg tablet 25 mg PO Q OTHER DAY furosemide 20 mg tablet 20 mg PO Q OTHER DAY metoprolol succinate 25 mg tablet extended release 24 hr 25 mg PO QDAY cephalexin 500 mg capsule 500 mg PO Q6H 7 Days Qty: 28 0RF doxycycline monohydrate 100 mg capsule 100 mg PO BID 7 Days Qty: 14 0RF Referrals Follow up/Referrals: Provider,Referral, MD [Primary Care Provider] - See instructions Activity Restrictions/Add. Instructions Additional Instructions/Restrictions: Tylenol for pain and follow-up with your primary care is recommended in 2 to 3 days. Keep the skin tears dressed with topical ointment to keep them from drying out. You can use Neosporin or any other antibiotic medication. Return to the ER for any new or worsening symptoms. Clinical Impressions Clinical Impression: Skin tear, Fall Discharge ED Provider: Anurag Krishnamurthy HPI General Chief Complaint: Fall Stated Complaint: fall Time Seen by Provider: 09/25/22 12:29 Mode of Arrival: EMS Limitations: No Limitations Description of Symptoms (Recalled from ER Triage Doc. by RN): SLIPPED THIS AM AROUND 1000, HIT RIGHT ELBOW ON COUNTER. REPORTS PAIN TO RIGHT ELBOW. SKIN TEAR NOTED. WRAPPED WITH 4X4 AND COBAN PER EMS History of Present Illness HPI Narrative: 87-year-old female had a fall from standing earlier today when she got her feet caught up and had a mechanical fall into the counter hitting her right elbow. Has a skin tear wrapped it with 4 x 4's and Coban per EMS on arrival. No medication given in route no pain medicine taken prior to arrival. Pain is 2 out of 10 at this time has full range of motion also has pain over her buttock from the fall to the ground. Denies hitting her head denies LOC and is not on blood thinners does take aspirin daily. Related Data Home Medications Medication Instructions Recorded Confirmed aspirin 81 mg tablet,delayed 81 mg PO DAILY HEART HEALTH 07/28/20 09/08/22 release acetaminophen 500 mg tablet 500 mg PO Q6H PRN Mild Pain (Scale 06/14/21 09/08/22 (Tylenol Extra Strength) Score 1-4) pantoprazole 40 mg tablet,delayed 40 mg PO DAILY Reflux/Acid reflux 06/14/21 09/08/22 release rosuvastatin 10 mg tablet 10 mg PO DAILY Cholesterol 06/14/21 09/08/22 hydrocodone 5 mg-acetaminophen 325 1 tab PO Q8H PRN Pain 06/27/21 09/08/22 mg tablet diphenhydramine 25 1 tab PO HS PRN insomnia 06/08/22 09/08/22 mg-acetaminophen 500 mg tablet (Tylenol PM Extra Strength) fluticasone propionate 50 2 spray intranasal DAILY Allergy 06/08/22 09/08/22 mcg/actuation nasal symptoms spray,suspension magnesium 200 mg tablet 200 mg PO DAILY Supplement 06/08/22 09/08/22 lisinopril 10 mg tablet 5 mg PO DAILY High blood pressure 07/19/22 09/08/22 furosemide 20 mg tablet 20 mg PO Q OTHER DAY Fluid 07/27/22 09/08/22 metoprolol succinate 25 mg 25 mg PO QDAY High blood pressure 07/27/22 09/08/22 tablet,extended release 24 hr spironolactone 25 mg tablet 25 mg PO Q OTHER DAY Fluid 07/27/22 09/08/22 Previous Rx's Medication I
--- NOTE | 2022-09-25 13:16 | PC.NURSE ---
pt to BR with assistance
[2022-09-25 13:54] VITALS: BP 189/79; PULSE 80; RESP 16; O2SAT 98
--- NOTE | 2022-09-25 14:24 | PC.NURSE ---
Skin tears on the right forearm cleaned and bandaged.
[2022-09-25 14:28] VITALS: BP 163/76; PULSE 60; RESP 16; O2SAT 98
[2022-09-25 14:58] VITALS: BP 164/79; PULSE 70; RESP 16; TEMP 36.8; O2SAT 98
== END 2022-09-25 15:00 | disposition home or self-care (01) ==
PROVIDERS: Emergency Provider Student in an Organized Health Care Education/Training Program
DX: M25.521 Pain in right elbow (principal); M54.18 Radiculopathy, sacral and sacrococcygeal region; S51.011A Laceration without foreign body of right elbow, initial encounter; I10 Essential (primary) hypertension; K21.9 Gastro-esophageal reflux disease without esophagitis; E78.5 Hyperlipidemia, unspecified; I25.2 Old myocardial infarction; I49.5 Sick sinus syndrome; R91.1 Solitary pulmonary nodule; G47.00 Insomnia, unspecified; Z79.1 Long term (current) use of non-steroidal anti-inflammatories (NSAID); Z79.51 Long term (current) use of inhaled steroids; Z79.52 Long term (current) use of systemic steroids; Z95.0 Presence of cardiac pacemaker; Z96.659 Presence of unspecified artificial knee joint; Z82.49 Family history of ischemic heart disease and other diseases of the circulatory system; Z80.9 Family history of malignant neoplasm, unspecified; W01.0XXA Fall on same level from slipping, tripping and stumbling without subsequent striking against object, initial encounter
CPT/HCPCS: 70450; 72170; 72192; 73070; 99285

== ENCOUNTER 2022-09-30 09:07 | Emergency (ER) | payer MEDICARE, SELFPAY ==
[2022-09-30] VITALS (8 sets, daily range): BP systolic 105–212; BP diastolic 70–107; PULSE 56–64; RESP 14–20; TEMP 37; O2SAT 95–99; BMI 31.6
--- NOTE | 2022-09-30 09:10 | ECG_ITS ---
APPROVED REPORT Exam: Resting ECG HR:64 bpm ECG Measurements Heart Rate 64 AXES IA 129 P 1 QRSd 78 QRS 9 QT 409 T 39 QTc 419 Conclusion SINUS RHYTHM NORMAL ECG UNCONFIRMED REPORT Electronically signed by : Trev Hays MD 10/01/2022 08:53:49
--- NOTE | 2022-09-30 09:18 | HMH.EDGENADL ---
Discharge Plan Disposition Patient Disposition: Home, Self-Care Condition: Good Prescriptions Prescriptions: New lisinopril 20 mg tablet 20 mg PO DAILY Qty: 10 0RF No Action rosuvastatin 10 mg tablet 10 mg PO DAILY acetaminophen [Tylenol Extra Strength] 500 mg tablet 500 mg PO Q6H PRN (Reason: Mild Pain (Scale Score 1-4)) hydrocodone-acetaminophen 5-325 mg tablet 1 tab PO Q8H PRN (Reason: Pain) lisinopril 10 mg tablet 10 mg PO DAILY erythromycin 5 mg/gram (0.5 %) ointment 0.5 inch ophthalmic (eye) QID 5 Days Qty: 3.5 0RF Rx Instructions: right eye diphenhydramine-acetaminophen [Tylenol PM Extra Strength] 25-500 mg tablet 1 tab PO HS PRN (Reason: insomnia) magnesium 200 mg tablet 200 mg PO DAILY fluticasone propionate 50 mcg/actuation spray,suspension 2 spray NS DAILY celecoxib 100 mg capsule 100 mg PO DAILY 90 Days Qty: 90 0RF pantoprazole 40 mg tablet,delayed release (DR/EC) 40 mg PO DAILY aspirin 81 MG tablet,delayed release (DR/EC) 81 mg PO DAILY spironolactone 25 mg tablet 25 mg PO Q OTHER DAY furosemide 20 mg tablet 20 mg PO Q OTHER DAY metoprolol succinate 25 mg tablet extended release 24 hr 25 mg PO QDAY Referrals Follow up/Referrals: Hayder Bravo MD [Primary Care Provider] - See instructions Activity Restrictions/Add. Instructions Additional Instructions/Restrictions: Increased dose of lisinopril to 20 mg/day. Follow-up with primary care provider, call Sunday to make appointment. Additional instructions for CHEST PAIN: See your physician as soon as possible for further evaluation. Return immediately if worsening chest pain, vomiting, shortness of breath, fever, coughing of blood. Clinical Impressions Clinical Impression: Chest pain, Hypertension, Shortness of breath, Hernia, hiatal, Premature ventricular contraction Instructions Patient Instructions: Premature Ventricular Beats, DI for High Blood Pressure, DI for Shortness of Breath, DI for Hiatal Hernia, DI for Chest Pain Discharge ED Provider: Yonathan Muir General Adult HPI General Chief complaint: Shortness of Breath/Dyspnea Stated complaint: chest pain Time Seen by Provider: 09/30/22 09:40 History of Present Illness HPI narrative: Brought in by ambulance. History obtained from patient and daughter. Patient states that she awoke this morning at 5 AM with a sharp pain in the center of her chest. She thought it was probably her hiatal hernia, states she has had previous similar pains from her hiatal hernia. She says that she got up and took her blood pressure medications and got something to drink. She thinks that the sharp pain lasted over 30 minutes, but less than 60 minutes, and since has had just a sensation of a pressure in her chest. Since then she has been very short of breath. EMS reports initial pulse ox of 94% on room air. Put on nasal cannula oxygen for comfort. Denies any recent cough. No fever. She has chronic swelling of her legs. No nausea or vomiting or diaphoresis. She has had a recent heart cath and was told that her her heart was good and she would never of a heart attack. She says she was found to have anemia, she was supposed to have an endoscopy, and had a stress test followed by a heart cath for medical clearance for that procedure. She does not have any known lung problems, no COPD or asthma. She is a non-smoker. Related Data Home Medications Medication Instructions Recorded Confirmed aspirin 81 mg tablet,delayed 81 mg PO DAILY HEART HEALTH 07/28/20 09/29/22 release acetaminophen 500 mg tablet 500 mg PO Q6H PRN Mild Pain (Scale 06/14/21 09/29/22 (Tylenol Extra Strength) Score 1-4) pantoprazole 40 mg tablet,delayed 40 mg PO DAILY Reflux/Acid reflux 06/14/21 09/29/22 release rosuvastatin 10 mg tablet 10 mg PO DAILY Cholesterol 06/14/21 09/29/22 hydrocodone 5 mg-acetaminophen 325
--- NOTE | 2022-09-30 09:24 | XR_ITS ---
PROCEDURE INFORMATION: Exam: XR Chest Exam date and time: 09/30/2022 9:52 AM Age: 87 years old Clinical indication: Shortness of breath; Additional info: Shortness of air TECHNIQUE: Imaging protocol: Radiologic exam of the chest. Views: 1 view. COMPARISON: CT CHEST W CON 08/05/2022 1:01 PM FINDINGS: Tubes, catheters and devices: Cardiac rhythm maintenance device is in place. Lungs: Unremarkable. No consolidation. Pleural spaces: Unremarkable. No pleural effusion. No pneumothorax. Heart/Mediastinum: Unremarkable. No cardiomegaly. Bones/joints: Unremarkable. IMPRESSION: No acute cardiopulmonary abnormality.
--- NOTE | 2022-09-30 09:25 | PC.NURSE ---
pt arrived to ed with right elbow dressing- states she hit it in the kitchen at her home.
[2022-09-30 09:43] LABS: Alanine Aminotransferase 13 U/L (12-78); Albumin Level 3.9 g/dl (3.5-5.0); Albumin/Globulin Ratio 1.2 (1.1-1.8); Alkaline Phosphatase 90 U/L (38-126); Anion Gap 16.2 mEq/L (5-15); Aspartate Amino Transferase 27 U/L (14-36); Bilirubin,Total 0.5 mg/dl (0.2-1.3); Blood Urea Nitrogen 12 mg/dl (7-17); Calcium 9.5 mg/dl (8.4-10.2); Carbon Dioxide 27 mmol/L (22.0-30.0); Chloride 102 mmol/L (98-107); Creatinine Clearance Estimated 46 mL/min (50-200); Estimated Glomerular Filt Rate 117 ml/min (>60); GFR (African American) 141 ML/MIN (>60); Globulin 3.2 g/dL (1.3-3.2); Glucose 102 mg/dl (74-100); Potassium 4.2 mmoL/L (3.5-5.1); Sodium 141 mmol/L (136-145); Total Protein,Serum 7.1 g/dl (6.3-8.2)
--- NOTE | 2022-09-30 09:46 | PC.NURSE ---
xr at bedside
[2022-09-30 09:56] LABS: Troponin I < 0.01 ng/ml (0.00-0.034)
[2022-09-30 10:06] LABS: Coronavirus 19, PCR Not Detected (NotDetected); Influenza A, PCR Not Detected (NotDetected); Influenza B, PCR Not Detected (NotDetected)
[2022-09-30 10:11] LABS: NT Pro Brain Natriuretic Pep. 419 pg/mL (0-450)
--- NOTE | 2022-09-30 10:16 | CT_ITS ---
PROCEDURE INFORMATION: Exam: CTA Chest With Contrast Exam date and time: 09/30/2022 11:03 AM Age: 87 years old Clinical indication: Shortness of breath; Additional info: SOA TECHNIQUE: Imaging protocol: Computed tomographic angiography of the chest with contrast. 3D rendering (Not supervised by radiologist): MIP and/or 3D reconstructed images were created by the technologist. Radiation optimization: All CT scans at this facility use at least one of these dose optimization techniques: automated exposure control; mA and/or kV adjustment per patient size (includes targeted exams where dose is matched to clinical indication); or iterative reconstruction. Contrast material: ISOVUE; Contrast volume: 75 ml; Contrast route: INTRAVENOUS (IV); COMPARISON: CT CHEST W CON 08/05/2022 1:01 PM FINDINGS: Pulmonary arteries: Normal. No pulmonary emboli. Aorta: Unremarkable. No aortic aneurysm. No aortic dissection. Lungs: Unremarkable. No consolidation. No masses. Pleural spaces: Unremarkable. No pneumothorax. No pleural effusion. Heart: Unremarkable. No cardiomegaly. No pericardial effusion. Lymph nodes: Unremarkable. No enlarged lymph nodes. Diaphragm: Large hiatal hernia. Bones/joints: Unremarkable. No acute fracture. Soft tissues: Unremarkable. IMPRESSION: No pulmonary emboli or other acute cardiopulmonary pathology identified.
--- NOTE | 2022-09-30 10:17 | PC.NURSE ---
lab called to check status of cbc
[2022-09-30 10:21] LABS: Basophils % 0.4 % (0.1-2.0); Eosinophils # 0.1 K/mm3 (0.0-0.4); Eosinophils % 2.4 % (0.1-12.0); Hematocrit 32.6 % (37.0-47.0); Hemoglobin 10.4 g/dL (12.2-16.2); Lymphocytes # 2.1 K/mm3 (0.7-4.5); Lymphocytes % 38.6 % (10-50); Mean Corpuscular HGB Conc 31.8 g/dL (31.8-35.4); Mean Corpuscular Hemoglobin 29.4 pg (27.0-31.2); Mean Corpuscular Volume 92.5 fl (81-99); Mean Platelet Volume 8.3 fl (7.4-10.4); Monocytes # 0.4 K/mm3 (0.1-1.0); Monocytes % 6.8 % (1.7-9.3); Neutrophils # 2.8 K/mm3 (1.8-7.8); Neutrophils % 51.9 % (37.0-80.0); Platelet Count 302 K/mm3 (142-424); Red Blood Count 3.53 M/mm3 (4.20-5.40); Red Cell Distribution Width 17.7 % (11.5-17.5); White Blood Count 5.3 K/mm3 (4.8-10.8)
--- NOTE | 2022-09-30 10:27 | PC.NURSE ---
DR. SMITH AT BEDSIDE TO REEVALUATE PT AND UPDATE FAMILY
--- NOTE | 2022-09-30 11:25 | PC.NURSE ---
pt back from rad
--- NOTE | 2022-09-30 12:05 | PC.NURSE ---
DR. SMITH AT BEDSIDE TO UPDATE PT AND DAUGHTER
[2022-09-30 12:14] LABS: Troponin I < 0.01 ng/ml (0.00-0.034)
--- NOTE | 2022-09-30 12:19 | PC.NURSE ---
DR SMITH AT BEDSIDE TO DISCUSS DISCHARGE PLAN WITH PT AND DAUGHTER
== END 2022-09-30 12:48 | disposition home or self-care (01) ==
PROVIDERS: Emergency Provider Emergency Medicine; PCP Family Medicine
DX: I10 Essential (primary) hypertension; K44.9 Diaphragmatic hernia without obstruction or gangrene; I49.3 Ventricular premature depolarization; Z79.82 Long term (current) use of aspirin; Z79.899 Other long term (current) drug therapy; D64.9 Anemia, unspecified; Z95.1 Presence of aortocoronary bypass graft; E78.5 Hyperlipidemia, unspecified; K21.9 Gastro-esophageal reflux disease without esophagitis; R91.1 Solitary pulmonary nodule; Z86.73 Personal history of transient ischemic attack (TIA), and cerebral infarction without residual deficits
CPT/HCPCS: 71045; 71275; 80053; 83880; 84484; 85025; 93005; 99285; C9803; Q9967; U0003; U0005

== ENCOUNTER → 2022-10-06 16:13 | Outpatient (CLI) | payer MEDICARE, SELFPAY ==
--- NOTE | 2022-10-06 16:18 | XR_ITS ---
PROCEDURE INFORMATION: Exam: XR Cervical Spine Exam date and time: 10/06/2022 4:29 PM Age: 87 years old Clinical indication: Injury or trauma; Blunt trauma; Injury details: Fall, C/O RT side neck pain TECHNIQUE: Imaging protocol: Radiologic exam of the cervical spine. Views: 4 or 5 views. COMPARISON: CR XR CERVICAL SPINE 4V 08/05/2022 11:07 AM FINDINGS: Bones/joints: There is preservation of vertebral alignment and vertebral body heights. Facet joints are aligned. Diffuse disc space narrowing at all cervical levels in keeping with degenerative changes. Odontoid process is intact. Atlantoaxial interval is maintained. Soft tissues: Prevertebral soft tissues are maintained IMPRESSION: No acute fracture. No traumatic subluxation.
== END ==
PROVIDERS: PCP Nurse Practitioner Family; Visit Provider Nurse Practitioner Family
DX: M54.2 Cervicalgia (principal)
CPT/HCPCS: 72052

== ENCOUNTER → 2023-01-23 23:14 | Outpatient (CLI) | payer MEDICARE, SELFPAY ==
[2023-01-23 17:28] LABS: Basophils % 0.1 % (0.1-2.0); Eosinophils # 0.1 K/mm3 (0.0-0.4); Eosinophils % 1.8 % (0.1-12.0); Hematocrit 27.3 % (37.0-47.0); Hemoglobin 8.5 g/dL (12.2-16.2); Lymphocytes # 1.7 K/mm3 (0.7-4.5); Lymphocytes % 22.6 % (10-50); Mean Corpuscular HGB Conc 31.2 g/dL (31.8-35.4); Mean Corpuscular Hemoglobin 27.1 pg (27.0-31.2); Mean Corpuscular Volume 86.7 fl (81-99); Mean Platelet Volume 8.6 fl (7.4-10.4); Monocytes # 0.4 K/mm3 (0.1-1.0); Monocytes % 4.9 % (1.7-9.3); Neutrophils # 5.4 K/mm3 (1.8-7.8); Neutrophils % 70.6 % (37.0-80.0); Platelet Count 244 K/mm3 (142-424); Red Blood Count 3.15 M/mm3 (4.20-5.40); Red Cell Distribution Width 18.1 % (11.5-17.5); White Blood Count 7.6 K/mm3 (4.8-10.8)
[2023-01-23 17:29] LABS: Alanine Aminotransferase 17 U/L (12-78); Albumin Level 3.7 g/dl (3.5-5.0); Albumin/Globulin Ratio 1.5 (1.1-1.8); Alkaline Phosphatase 66 U/L (38-126); Anion Gap 7.5 mEq/L (5-15); Aspartate Amino Transferase 21 U/L (14-36); Bilirubin,Total 0.5 mg/dl (0.2-1.3); Blood Urea Nitrogen 39 mg/dl (7-17); Calcium 8.6 mg/dl (8.4-10.2); Carbon Dioxide 22 mmol/L (22.0-30.0); Chloride 106 mmol/L (98-107); Estimated Glomerular Filt Rate 95 ml/min (>60); GFR (African American) 114 ML/MIN (>60); Globulin 2.5 g/dL (1.3-3.2); Glucose 102 mg/dl (74-100); Potassium 4.5 mmoL/L (3.5-5.1); Sodium 131 mmol/L (136-145); Total Protein,Serum 6.2 g/dl (6.3-8.2)
== END ==
PROVIDERS: PCP Family Medicine; Visit Provider Family Medicine
DX: I10 Essential (primary) hypertension (principal); R53.83 Other fatigue
CPT/HCPCS: 80053; 84443; 85025

== ENCOUNTER 2023-01-26 09:28 | Day surgery (SDC) | payer MEDICARE, SELFPAY ==
[2023-01-26 10:17] VITALS: BP 162/59; PULSE 60; RESP 18; TEMP 36.6; O2SAT 97; BMI 29.7
[2023-01-26 11:06] VITALS: O2SAT 97
--- NOTE | 2023-01-26 11:25 | HMH.SCOPE ---
Procedure: Date: 01/26/23 Patient Date of :: 1935 Procedure Performed:: Esophagogastroduodenoscopy with biopsies and dilatation gastroesophageal junction to 20 mm using elation pneumatic dilator Indications:: Patient is an 87-year-old female from [place] with history of hiatal hernia and dysphagia.? She has undergone previous EGDs.? She has seen Dr. Pat in June for anemia, dysphagia, occasionally dark stool .? He was planning a barium swallow and scheduled an EGD.? She underwent EGD with Dr. Wells on 07/27/2022 and was found to have Schatzki's ring, large hiatal hernia, Alexx's erosions which were felt to be the source of her chronic anemia.? She was dilated with 56 [place] bougie dilator.? She was seen by Dr. Pat on 09/08/2022 for hematoma of the neck which was managed expectantly.? Patient apparently did have some transient improvement in her dysphagia symptoms after Dr. Evans had performed dilatation.? She was seen on 01/23/[address] Bravo.? Her main complaint at that time was difficulty swallowing and feeling like she chokes occasionally.? She also mentioned some symptoms consistent with melena.? She was found to have some anemia. She was sent for surgical consultation to perform EGD as soon as possible. Performing Provider:: Arturo Napier MD Referring Provider:: Hayder Bravo MD Sedation:: MAC sedation Procedure:: Patient was taken to endoscopy procedure room. She was positioned in lateral decubitus position. Adequate intravenous sedation was achieved with anesthesia titration of propofol. Olympus endoscope was inserted via the oropharynx. Esophagus was cannulated. Gastroesophageal junction was encountered at approximately 28 cm. She had a very large hiatal hernia. Stomach was cannulated and insufflated. Retroflexion confirmed large sliding hiatal hernia. There were some shallow minimal Alexx's erosions. She had multiple gastric polyps consistent with fundic gland polyps. There is minimal diffuse nonerosive gastritis. Gastric antral mucosal biopsies obtained. There is minimal narrowing of the pylorus. Duodenum appeared unremarkable. Endoscope was withdrawn to the stomach and multiple biopsies were obtained of the presumed gastric fundic gland polyps. There was only very minimal possible beginnings of Schatzki's ring at the gastroesophageal junction and given her symptoms this was dilated sequentially from 18 to 19 to 20 mm luminal diameter. Stomach was then desufflated and the endoscope was withdrawn. Findings:: Esophageal dysmotility Gastroesophageal junction at 28 cm from the incisors Large sliding hiatal hernia Possible beginning of Schatzki's ring at GE junction, dilated Probable gastric fundic gland polyps Minimal shallow Alexx's erosions Recommendations:: Source of her dysphagia is most likely secondary to dysmotility and large hiatal hernia. Doubtful that dilatation will be long-term successful in alleviating her symptoms. Unclear as to the etiology of her anemia and melena. May require colon and small bowel evaluation if indicated. Complications:: None immediately apparent Estimated blood obtained (mL): 1
[2023-01-26 11:27] VITALS: BP 126/67; PULSE 63; RESP 15; TEMP 36.4; O2SAT 97
--- NOTE | 2023-01-26 11:30 | EXP.ANES.CKL ---
[facility] Disclaimer: The information contained in this section may have been updated after the patient was seen, as this information can be updated by other users. Medical History (Updated 01/26/23 @ 10:15 by Wes Gardner RN) Abnormal Holter monitor finding Abnormal result of cardiovascular function study Accidental fall Anemia Anemia Balance problem Cardiac pacemaker in situ Cerebrovascular accident Cerebrovascular accident Closed head injury Colonoscopy planned Dysphagia Elevated right ventricular end-diastolic pressure Facial contusion Fall GERD (gastroesophageal reflux disease) History of hip fracture History of pilonidal cyst HLD (hyperlipidemia) HTN (hypertension) Nodule of right lung Normal esophagogastroduodenoscopy (EGD) Pacemaker SSS (sick sinus syndrome) Stroke Surgical History (Updated 01/26/23 @ 10:15 by Wes Gardner RN) H/O arthroscopy of shoulder H/O bladder repair surgery H/O carpal tunnel repair History of appendectomy History of lumbar surgery Hx of cholecystectomy Hx of hysterectomy, total Total knee replacement status Family History Other Cancer Heart attack Hypertension Stroke Social History (Updated 01/26/23 @ 10:16 by Wes Gardner RN) Smoking Status: Never smoker alcohol intake: never substance use type: denies use current occupational status: retired and other Travel in the last 8 weeks: None household members: none housing: house current occupational exposures/hazards: No [facility] Anesthesia Checklist Patient Identification Patient Identification: Arm Band and Verbal (Name & ) Structural Data Admitted From: Home Planned Operative Procedure/s: EGD Consent for Planned Operative Procedure(s) Verified: Yes Verified Documents: Surgical Consent NPO Status Verified Time NPO: 00:00 Additional verifications Anesthesia Reactions: No Hx Blood Transfusions: No Blood Transfusion Reaction: No Airway Assessment C-Spine Mobility Assessed: Yes TMJ Mobility Assessed: Yes Dentition: Good Dentition Neurological Assessment Level of Consciousness: Awake, Alert and Appropriate Anesthesia Plan Anesthesia Risk discussed: Yes ASA Class: III Anesthesia Type: MAC
[2023-01-26 11:37] VITALS: BP 137/64; PULSE 60; RESP 16; O2SAT 96
[2023-01-26 11:47] VITALS: BP 135/61; PULSE 61; RESP 15; O2SAT 96
[2023-01-26 11:57] VITALS: BP 121/68; PULSE 64; RESP 17; O2SAT 97
== END 2023-01-26 11:58 | disposition home or self-care (01) ==
PROVIDERS: PCP Family Medicine; Visit Provider Surgery
PROC: 0DJ08ZZ Inspection of Upper Intestinal Tract, Via Natural or Artificial Opening Endoscopic (ICD-10-PCS; CPT 43235; principal; 2023-01-26 10:30)
DX: R13.10 Dysphagia, unspecified (principal); K44.9 Diaphragmatic hernia without obstruction or gangrene; K31.7 Polyp of stomach and duodenum; K31.9 Disease of stomach and duodenum, unspecified
CPT/HCPCS: 43239; 43249; 88305; C1726

== ENCOUNTER → 2023-02-06 09:20 | Outpatient (CLI) | payer MEDICARE, SELFPAY ==
[2023-02-07 12:53] LABS: Chloride 105 mmol/L (98-107)
[2023-02-07 12:54] LABS: Potassium 4.8 mmoL/L (3.5-5.1)
[2023-02-07 12:56] LABS: Blood Urea Nitrogen 13 mg/dl (7-17); Estimated Glomerular Filt Rate 117 ml/min (>60); GFR (African American) 141 ML/MIN (>60)
[2023-02-07 12:57] LABS: Calcium 8.8 mg/dl (8.4-10.2); Carbon Dioxide 27 mmol/L (22.0-30.0); Glucose 133 mg/dl (74-100)
[2023-02-07 13:01] LABS: Basophils % 0.3 % (0.1-2.0); Eosinophils # 0.2 K/mm3 (0.0-0.4); Eosinophils % 4.3 % (0.1-12.0); Hematocrit 26.4 % (37.0-47.0); Hemoglobin 8.8 g/dL (12.2-16.2); Lymphocytes # 1.5 K/mm3 (0.7-4.5); Lymphocytes % 25.6 % (10-50); Mean Corpuscular HGB Conc 33.3 g/dL (31.8-35.4); Mean Corpuscular Hemoglobin 28.1 pg (27.0-31.2); Mean Corpuscular Volume 84.4 fl (81-99); Monocytes # 0.3 K/mm3 (0.1-1.0); Monocytes % 5.2 % (1.7-9.3); Neutrophils # 3.7 K/mm3 (1.8-7.8); Neutrophils % 64.7 % (37.0-80.0); Platelet Count 314 K/mm3 (142-424); Red Blood Count 3.13 M/mm3 (4.20-5.40); Red Cell Distribution Width 18.3 % (11.5-17.5); White Blood Count 5.7 K/mm3 (4.8-10.8)
[2023-02-07 13:37] LABS: Anion Gap 9.8 mEq/L (5-15); Sodium 137 mmol/L (136-145)
== END ==
PROVIDERS: PCP Nurse Practitioner Family; Visit Provider Nurse Practitioner Family
DX: D64.9 Anemia, unspecified (principal); R53.1 Weakness
CPT/HCPCS: 80048; 85025

== ENCOUNTER 2023-02-13 12:55 | Outpatient (CLI) | payer MEDICARE, SELFPAY ==
[2023-02-13 13:28] VITALS: BP 148/64; PULSE 63; RESP 18; O2SAT 99
[2023-02-13 14:00] VITALS: BP 154/73; PULSE 60; RESP 20; TEMP 36.9
== END 2023-02-13 14:05 | disposition home or self-care (01) ==
LOC: INF 12:56
PROVIDERS: PCP Family Medicine; Visit Provider Family Medicine
DX: D64.9 Anemia, unspecified (principal)
CPT/HCPCS: 96365; J1756

== ENCOUNTER 2023-02-20 11:26 | Emergency (ER) | payer MEDICARE, SELFPAY ==
[2023-02-20 11:27] VITALS: BP 152/72; PULSE 70; RESP 18; TEMP 36.6; O2SAT 96; BMI 29.7
[2023-02-20 11:30] VITALS: BP 152/72; PULSE 68; O2SAT 98
[2023-02-20 11:31] VITALS: BMI 29.7
--- NOTE | 2023-02-20 11:35 | XR_ITS ---
FINAL REPORT CLINICAL HISTORY: FALL FINDINGS: Internal and external rotation views of the left shoulder were obtained. There is no prior exam for comparison. There is no fracture or dislocation. The humeral head is high riding concerning for rotator cuff tear. There is degenerative joint disease. Soft tissues are normal. IMPRESSION: No acute osseous abnormality of the left shoulder. Reviewed, Interpreted and Dictated by Tarah oVgel MD Transcribed by Joshua Harrison Authenticated and . [facility]
--- NOTE | 2023-02-20 11:35 | CT_ITS ---
FINAL REPORT TECHNIQUE: Thin section axial images were obtained through the cervical spine without contrast. Multiplanar reconstruction images were obtained from the axial data. Exam was performed using dose reduction techniques. CLINICAL HISTORY: FALL, pain FINDINGS: Motion artifact limits evaluation of the lower cervical spine. There is no convincing acute fracture or acute malalignment of the cervical spine. Multilevel degenerative disc disease is most pronounced in the mid cervical spine. There is no evidence of unilateral or bilateral facet lock. Vertebral body height is preserved. No acute paraspinal abnormality is identified. IMPRESSION: No acute osseous abnormality of the cervical spine. Reviewed, Interpreted and Dictated by Tarah Vogel MD Transcribed by Joshua Harrison Authenticated and [facility]
--- NOTE | 2023-02-20 11:35 | XR_ITS ---
FINAL REPORT CLINICAL HISTORY: FALL FINDINGS: 2 views of the left ankle were obtained. There is no acute fracture or dislocation. There is degenerative joint disease. There is soft tissue edema. IMPRESSION: No acute osseous abnormality. Reviewed, Interpreted and Dictated by Tarah Vogel MD Transcribed by Joshua Harrison Authenticated and [facility]
--- NOTE | 2023-02-20 11:35 | CT_ITS ---
FINAL REPORT TECHNIQUE: Thin section axial images were obtained from skull base to vertex without contrast. Coronal reconstruction images were obtained from the axial data. Exam was performed using dose reduction technique. CLINICAL HISTORY: FALL COMPARISON: August 2022 FINDINGS: There is age-appropriate atrophy. There is no mass effect or midline shift. There is no intracranial hemorrhage. There is no hydrocephalus. Periventricular low density is likely related to changes of chronic small vessel ischemia. In there is a very small right parafalcine subdural hematoma measuring 2-3 mm on axial image 36 and coronal image 18. The basilar cisterns are preserved. The posterior fossa is without acute abnormality. The soft tissues are without acute abnormality. No acute osseous abnormality is identified. IMPRESSION: Very small but new right para fall seen subdural hematoma. Atrophy and changes suggesting chronic small vessel ischemia, unchanged. Reviewed, Interpreted and Dictated by Tarah Vogel MD Transcribed by Joshua Harrison Authenticated and [facility]
--- NOTE | 2023-02-20 11:39 | PC.NURSE ---
DR SMITH AT BEDSIDE
--- NOTE | 2023-02-20 11:41 | CT_ITS ---
FINAL REPORT TECHNIQUE: Thin section axial images were obtained from the thoracic inlet through the upper abdomen after intravenous contrast injection. Reconstruction images were obtained from the axial data. Exam was performed using dose reduction technique. CLINICAL HISTORY: fall, injury COMPARISON: July 2022 FINDINGS: There is no mediastinal, hilar, or axillary lymphadenopathy. There is no pleural or pericardial effusion. There are nonspecific bilateral ground-glass opacities could represent mild edema. The heart is borderline in size. There is a large hiatal hernia. No acute osseous abnormality. There is no pneumothorax. IMPRESSION: Borderline heart size with ground-glass opacity that could represent mild edema. No evidence of traumatic injury to the chest. Large hiatal hernia. Reviewed, Interpreted and Dictated by Tarah Vogel MD Transcribed by Joshua Harrison Authenticated and [facility]
--- NOTE | 2023-02-20 11:41 | CT_ITS ---
FINAL REPORT TECHNIQUE: Thin section axial images were obtained through the lumbar spine without contrast. Sagittal and coronal reconstruction images were obtained from the axial data. Exam was performed using dose reduction techniques. CLINICAL HISTORY: fall, injury FINDINGS: There is no acute fracture or acute malalignment of the lumbar spine. There is grade 1 anterior spondylolisthesis of L4 on L5. Vertebral body height is preserved. There is multilevel degenerative disc disease. There is no significant central stenosis. Paraspinal soft tissues are within normal limits. There is no paraspinal mass or fluid collection. IMPRESSION: No acute abnormality of the lumbar spine. Multilevel degenerative disease. Reviewed, Interpreted and Dictated by Tarah Vogel MD Transcribed by Joshua Harrison Authenticated and [facility]
--- NOTE | 2023-02-20 11:41 | CT_ITS ---
FINAL REPORT TECHNIQUE: Thin section axial images were obtained through the abdomen after intravenous contrast. Reconstruction images were obtained from the axial data. Exam was performed using dose reduction techniques. CLINICAL HISTORY: fall, injury FINDINGS: Large hiatal hernia. The liver is homogeneous. Evidence of cholecystectomy.. The spleen, adrenal glands, and pancreas are unremarkable. There is no hydronephrosis or solid renal mass. Abdominal GI tract is without acute abnormality. There is no abdominal lymphadenopathy or ascites. There is a small supraumbilical hernia containing fat. There is no free air. The pelvic solid organs are unremarkable. The pelvic portions of the GI tract are without acute abnormality. The appendix is not identified but there are no secondary signs suggesting appendicitis. There is no pelvic lymphadenopathy or ascites. No acute osseous abnormalities identified. There has been hysterectomy. IMPRESSION: No CT evidence of acute intra-abdominal or intrapelvic abnormality. Reviewed, Interpreted and Dictated by Tarah Vogel MD Transcribed by Joshua Harrison Authenticated and [facility]
--- NOTE | 2023-02-20 11:41 | CT_ITS ---
FINAL REPORT TECHNIQUE: Thin section axial images were obtained through the face without contrast. Coronal reconstruction images are obtained from the axial data. CLINICAL HISTORY: fall, injury FINDINGS: There is no acute facial bone fracture. The paranasal sinuses are clear. The orbital rims are intact. No significant nasal septal deviation is identified. Remaining soft tissues are within normal limits. IMPRESSION: No acute facial fracture. Reviewed, Interpreted and Dictated by Tarah Vogel MD Transcribed by Joshua Harrison Authenticated and [facility]
--- NOTE | 2023-02-20 11:41 | CT_ITS ---
FINAL REPORT TECHNIQUE: Thin section axial images were obtained through the thoracic spine without contrast. Sagittal and coronal images were obtained from the axial data. CLINICAL HISTORY: fall, injury FINDINGS: There is no acute fracture of the thoracic spine. There is no malalignment. Mild scoliosis with multilevel degenerative disc disease. No acute paraspinal abnormality is identified. IMPRESSION: No acute osseous abnormality of the thoracic spine. Degenerative disc disease. Reviewed, Interpreted and Dictated by Tarah Vogel MD Transcribed by Joshua Harrison Authenticated and [facility]
--- NOTE | 2023-02-20 11:43 | XR_ITS ---
FINAL REPORT CLINICAL HISTORY: fall, injury FINDINGS: AP PELVIS: A single view of the pelvis was obtained. There is no acute fracture or dislocation. There has been right hip arthroplasty. There is degenerative disease of the left hip. Soft tissues are unremarkable. IMPRESSION: No acute osseous abnormality. Reviewed, Interpreted and Dictated by Tarah Vogel MD Transcribed by Joshua Harrison Authenticated and [facility]
--- NOTE | 2023-02-20 11:44 | HMH.EDGENADL ---
Discharge Plan Disposition Patient Disposition: Xfer Short-Term Hosp Condition: Fair Prescriptions Prescriptions: No Action rosuvastatin 10 mg tablet 10 mg PO DAILY acetaminophen [Tylenol Extra Strength] 500 mg tablet 500 mg PO Q6H PRN (Reason: Mild Pain (Scale Score 1-4)) diclofenac sodium 1 % gel 1 ea topical QID PRN (Reason: Pain) ferrous sulfate 325 mg (65 mg iron) tablet 325 mg PO DAILY hydrocodone-acetaminophen 5-325 mg tablet 1 tab PO Q8H PRN (Reason: Pain) Qty: 60 0RF diclofenac sodium 75 mg tablet,delayed release (DR/EC) 75 mg PO BID PRN (Reason: pain) Qty: 30 2RF sodium,potassium,mag sulfates [Suprep Bowel Prep Kit] 17.5-3.13-1.6 gram recon soln 480 ml PO .COMPLEX Qty: 354 0RF Rx Instructions: 480 mL orally; pantoprazole 40 mg tablet,delayed release (DR/EC) See Rx Instructions .ROUTE .COMPLEX Rx Instructions: TAKE 1 TABLET BY MOUTH TWICE DAILY lisinopril 10 mg tablet See Rx Instructions .ROUTE .COMPLEX Rx Instructions: TAKE 1 TABLET BY MOUTH DAILY celecoxib 100 mg capsule See Rx Instructions .ROUTE .COMPLEX Rx Instructions: TAKE 1 CAPSULE BY MOUTH ONCE DAILY aspirin 81 MG tablet,delayed release (DR/EC) 81 mg PO DAILY metoprolol succinate 25 mg tablet extended release 24 hr 25 mg PO QDAY Referrals Follow up/Referrals: Hayder Bravo MD [Primary Care Provider] - See instructions Clinical Impressions Clinical Impression: Acute subdural hematoma, Chest wall contusion, Fall, Contusion of face, Left ankle sprain, Sprain of left shoulder, Abdominal contusion, Cervical muscle strain, Back strain Discharge ED Provider: Yonathan Muir General Adult HPI General Chief complaint: Fall Stated complaint: Fall Time Seen by Provider: 02/20/23 11:35 Mode of Arrival: EMS Limitations: No Limitations Description of Symptoms (Recalled from ER Triage Doc. by RN): FALL FROM STANDING AT HOME. PT LANDED FACE FIRST. LANDED FORWARD. C/O LEFT SHOULDER, LEFT CHEST, LEFT ANKLE PAIN. NECK PAIN WELL BRUISING TO NOSE AND LIPS. DENIES LOC History of Present Illness HPI narrative: Patient states that she fell at home when she lost her balance. She hit her face and has abrasion and pain of her nose and her lips. She has left shoulder pain. She has left ankle pain. She has pain in her left anterior chest. She has pain in her neck and her back. Denies loss of consciousness. States that she was getting ready to come here to have an iron infusion. States that she has a history of a prior stroke leaving her with right-sided weakness and says she frequently loses her balance like she did today. Related Data Home Medications Medication Instructions Recorded Confirmed aspirin 81 mg tablet,delayed 81 mg PO DAILY HEART HEALTH 07/28/20 02/07/23 release acetaminophen 500 mg tablet 500 mg PO Q6H PRN Mild Pain (Scale 06/14/21 02/07/23 (Tylenol Extra Strength) Score 1-4) rosuvastatin 10 mg tablet 10 mg PO DAILY Cholesterol 06/14/21 02/07/23 metoprolol succinate 25 mg 25 mg PO QDAY High blood pressure 07/27/22 02/07/23 tablet,extended release 24 hr diclofenac sodium 1 % topical gel 1 ea topical QID PRN Pain 01/23/23 02/07/23 celecoxib 100 mg capsule See Rx Instructions .Route 01/26/23 02/07/23 .COMPLEX MOOD lisinopril 10 mg tablet See Rx Instructions .Route 01/26/23 02/07/23 .COMPLEX BP pantoprazole 40 mg tablet,delayed See Rx Instructions .Route 01/26/23 02/07/23 release .COMPLEX GERD ferrous sulfate 325 mg (65 mg 325 mg PO DAILY 02/07/23 02/07/23 iron) tablet Previous Rx's Medication Instructions Recorded hydrocodone 5 mg-acetaminophen 325 1 tab PO Q8H PRN Pain #60 tabs 11/27/22 mg tablet diclofenac sodium 75 mg 75 mg PO BID PRN pain #30 tabs 01/30/23 tablet,delayed release sodium,potassium,mag sulfates 17.5 480 ml PO .COMPLEX #354 mL 02/15/23 gram-3.13 gram-1.6 gram oral soln (Suprep Bowel Prep Kit)
[2023-02-20 11:52] LABS: Basophils % 0.3 % (0.1-2.0); Eosinophils # 0.2 K/mm3 (0.0-0.4); Eosinophils % 2.5 % (0.1-12.0); Hematocrit 29.1 % (37.0-47.0); Hemoglobin 9.1 g/dL (12.2-16.2); Lymphocytes # 1.4 K/mm3 (0.7-4.5); Lymphocytes % 19.3 % (10-50); Mean Corpuscular HGB Conc 31.3 g/dL (31.8-35.4); Mean Corpuscular Volume 86.3 fl (81-99); Mean Platelet Volume 8.9 fl (7.4-10.4); Monocytes # 0.4 K/mm3 (0.1-1.0); Monocytes % 5.3 % (1.7-9.3); Neutrophils # 5.2 K/mm3 (1.8-7.8); Neutrophils % 72.6 % (37.0-80.0); Platelet Count 363 K/mm3 (142-424); Red Blood Count 3.37 M/mm3 (4.20-5.40); White Blood Count 7.1 K/mm3 (4.8-10.8)
--- NOTE | 2023-02-20 11:52 | PC.NURSE ---
FAMILY UPDATED AT THIS TIME
[2023-02-20 11:57] LABS: Anion Gap 10.7 mEq/L (5-15); Blood Urea Nitrogen 19 mg/dl (7-17); Calcium 8.7 mg/dl (8.4-10.2); Carbon Dioxide 25 mmol/L (22.0-30.0); Chloride 101 mmol/L (98-107); Creatinine Clearance Estimated 43 mL/min (50-200); Estimated Glomerular Filt Rate 117 ml/min (>60); GFR (African American) 141 ML/MIN (>60); Glucose 132 mg/dl (74-100); Potassium 4.7 mmoL/L (3.5-5.1); Sodium 132 mmol/L (136-145)
[2023-02-20 12:00] VITALS: BP 138/56; PULSE 60; O2SAT 98
--- NOTE | 2023-02-20 13:07 | PC.NURSE ---
PT RETURNED FROM XR
[2023-02-20 14:07] VITALS: BP 136/52; PULSE 60; O2SAT 97
--- NOTE | 2023-02-20 14:28 | PC.NURSE ---
rounded on pt, family at bs. pt still attempting to urinate with pure wick
--- NOTE | 2023-02-20 14:45 | XR_ITS ---
FINAL REPORT CLINICAL HISTORY: fall, bilateral wrist pain COMPARISON: January 2022 FINDINGS: 2 views of the left wrist were obtained. There is no convincing acute fracture. There is no dislocation. There are advanced degenerative changes at the radiocarpal joint and progresses to prior exam. There is soft tissue edema. IMPRESSION: Advanced degenerative change, progressed from prior. Reviewed, Interpreted and Dictated by Tarah Vogel MD Transcribed by Joshua Harrison Authenticated and [facility]
--- NOTE | 2023-02-20 14:45 | XR_ITS ---
FINAL REPORT CLINICAL HISTORY: fall, bilateral wrist pain COMPARISON: January 2022 FINDINGS: 2 views of the right wrist were obtained. There are advanced degenerative changes at the radiocarpal joint and progressed since the prior exam. There is an abnormal appearance to the radial styloid that was noted on the previous exam. Radial styloid fracture cannot be excluded. IMPRESSION: Abnormal appearance of the radial styloid not seen on the prior exam. Radial styloid fracture not excluded. Reviewed, Interpreted and Dictated by Tarah Vogel MD Transcribed by Joshua Harrison Authenticated and [facility]
[2023-02-20 15:00] VITALS: BP 138/93; PULSE 64; O2SAT 95
--- NOTE | 2023-02-20 15:09 | EXP.PHA.CONS ---
Pharmacy Consult Date: 02/20/23 Time: 15:09 Referring provider: DR. SMITH Reason for Consult:: VANCOMYCIN DOSING Allergies Allergy/AdvReac Type Severity Reaction Status Date / Time No Known Allergies Allergy Verified 02/07/23 08:42 Home Medications Medication Instructions Recorded Confirmed Type aspirin 81 mg tablet,delayed 81 mg PO DAILY HEART HEALTH 07/28/20 02/07/23 History release acetaminophen 500 mg tablet 500 mg PO Q6H PRN Mild Pain (Scale 06/14/21 02/07/23 History (Tylenol Extra Strength) Score 1-4) rosuvastatin 10 mg tablet 10 mg PO DAILY Cholesterol 06/14/21 02/07/23 History metoprolol succinate 25 mg 25 mg PO QDAY High blood pressure 07/27/22 02/07/23 History tablet,extended release 24 hr hydrocodone 5 mg-acetaminophen 325 1 tab PO Q8H PRN Pain #60 tabs 11/27/22 02/07/23 Rx mg tablet diclofenac sodium 1 % topical gel 1 ea topical QID PRN Pain 01/23/23 02/07/23 History celecoxib 100 mg capsule See Rx Instructions .Route 01/26/23 02/07/23 History .COMPLEX MOOD lisinopril 10 mg tablet See Rx Instructions .Route 01/26/23 02/07/23 History .COMPLEX BP pantoprazole 40 mg tablet,delayed See Rx Instructions .Route 01/26/23 02/07/23 History release .COMPLEX GERD diclofenac sodium 75 mg 75 mg PO BID PRN pain #30 tabs 01/30/23 02/07/23 Rx tablet,delayed release ferrous sulfate 325 mg (65 mg 325 mg PO DAILY 02/07/23 02/07/23 History iron) tablet sodium,potassium,mag sulfates 17.5 480 ml PO .COMPLEX #354 mL 02/15/23 Rx gram-3.13 gram-1.6 gram oral soln (Suprep Bowel Prep Kit) New Prescriptions to Start Prescriptions: Height: 1.52 m Weight: 68.946 kg Laboratory Results:: Laboratory Results - last 24 hr 02/20/23 11:42: WBC 7.1, RBC 3.37 L, Hgb 9.1 L, Hct 29.1 L, MCV 86.3, MCH 27.0, MCHC 31.3 L, RDW 19.0 H, Plt Count 363, MPV 8.9, Neut % (Auto) 72.6, Lymph % (Auto) 19.3, Eagle % (Auto) 5.3, Eos % (Auto) 2.5, Baso % (Auto) 0.3, Neut # (Auto) 5.2, Lymph # (Auto) 1.4, Eagle # (Auto) 0.4, Eos # (Auto) 0.2, Baso # (Auto) 0.0 02/20/23 11:42: Sodium 132 L, Potassium 4.7, Chloride 101, Carbon Dioxide 25, Anion Gap 10.7, BUN 19 H, Creatinine 0.50 L, Estimated Creat Clear 43, Estimated GFR 117, Est GFR ( Amer) 141, Glucose 132 H, Calcium 8.7 Medical History: Medical History (Updated 01/26/23 @ 10:15 by Wes Gardner RN) Abnormal Holter monitor finding Abnormal result of cardiovascular function study Accidental fall Anemia Anemia Balance problem Cardiac pacemaker in situ Cerebrovascular accident Cerebrovascular accident Closed head injury Colonoscopy planned Dysphagia Elevated right ventricular end-diastolic pressure Facial contusion Fall GERD (gastroesophageal reflux disease) History of hip fracture History of pilonidal cyst HLD (hyperlipidemia) HTN (hypertension) Nodule of right lung Normal esophagogastroduodenoscopy (EGD) Pacemaker SSS (sick sinus syndrome) Stroke Assessment and Plan Assessment and plan all Dx Assessment and Plan for all problems:: Pharmacokinetic dosing service Objective: Patient: Floor: Age: 87 yo Serum creatinine: 1 mg/dL Height: 60.0 Inches Weight (kg): 69 Assessment: IBW (kg): 45.50 Dosing wt(kg): 69 Estimated Creatinine clearance (ml/min): 28.5 CRCL method: Cockcroft and Gault using ibw(default). Drug selected: Vancomycin Loading dose (mg): 0 Vd (liters): 55.2 (factor used: 0.8 L/kg) Bony (hr-1): 0.028 Half life (hrs): 24.76 Recommended dose: 1250 mg Interval: 36 hrs Infusion time (hrs): 2.0 Predicted peak (mcg/mL): 34.7 Predicted trough (mcg/mL): 13.39 Total body weight is being used for vancomycin dosing. Recommendations: Give Vancomycin 1250 mg q 36 hrs with an expected Cpeak of 34.7 mcg/ml and an expected Ctrough of 13.39 mcg/ml. ----Vanco only - ignore for aminoglycosides----
--- NOTE | 2023-02-20 15:10 | PC.NURSE ---
Carlene Brown rounded on patient
--- NOTE | 2023-02-20 15:24 | PC.NURSE ---
calling [facility] md to have neuro or trama call back and speak to er md about pt having small but new subdural hemtoma
--- NOTE | 2023-02-20 15:30 | PC.NURSE ---
DR SMITH AT BEDSIDE TO [facility] AND FAMILY
--- NOTE | 2023-02-20 15:47 | PC.NURSE ---
Called ambulance for transport to [facility]
[2023-02-20 15:48] VITALS: BP 138/93; PULSE 62; RESP 17; TEMP 36.6; O2SAT 94
--- NOTE | 2023-02-20 15:48 | PC.NURSE ---
REPORT CALLED TO THIERNO RN CHANGE NURSE AT [facility]
--- NOTE | 2023-02-20 16:14 | PC.NURSE ---
took off arm bandages and addressed skin tears. Pt re-wrapped for transport.
--- NOTE | 2023-02-20 16:55 | PC.NURSE ---
EMS here for transport
== END 2023-02-20 17:03 | disposition short-term general hospital (02) ==
PROVIDERS: Emergency Provider Emergency Medicine; PCP Family Medicine
DX: S06.5X0A Traumatic subdural hemorrhage without loss of consciousness, initial encounter (principal); S20.211A Contusion of right front wall of thorax, initial encounter; S16.1XXA Strain of muscle, fascia and tendon at neck level, initial encounter; W19.XXXA Unspecified fall, initial encounter
CPT/HCPCS: 70450; 70486; 71260; 72125; 72128; 72131; 72170; 73030; 73100; 73600; 74177; 80048; 85025; 96374; 96375; 99285; J2405; Q9967

== ENCOUNTER 2023-03-15 09:45 | Outpatient (CLI) | payer MEDICARE, SELFPAY ==
--- NOTE | 2023-03-15 09:52 | XR_ITS ---
FINAL REPORT CLINICAL HISTORY: right wrist pain COMPARISON: 02/20/2023 FINDINGS: RIGHT WRIST Three views demonstrate no acute fracture or dislocation. There is severe degenerative change. There is chronic fragmentation of the scaphoid. There are soft tissue calcifications at the radial aspect of the wrist. Osteopenia is noted. There are vascular calcifications. IMPRESSION: Severe degenerative change, stable. Reviewed, Interpreted and Dictated by Arturo Ross III, MD Transcribed by Nathalia Hawkins Authenticated and . [facility]
[2023-03-15 10:25] VITALS: BP 152/75; PULSE 63; RESP 18; O2SAT 98
[2023-03-15 11:05] VITALS: BP 141/98; PULSE 74; RESP 18
== END 2023-03-15 11:05 | disposition home or self-care (01) ==
LOC: INF 09:46
PROVIDERS: PCP Family Medicine; Visit Provider Nurse Practitioner Family
DX: S62.101A Fracture of unspecified carpal bone, right wrist, initial encounter for closed fracture (principal); D64.9 Anemia, unspecified; M25.531 Pain in right wrist
CPT/HCPCS: 73110; 96365; J1756

== ENCOUNTER 2023-03-22 10:05 | Outpatient (CLI) | payer MEDICARE, SELFPAY ==
[2023-03-22 11:00] VITALS: BP 147/68; PULSE 62; RESP 16; TEMP 36.7; O2SAT 97
[2023-03-22 11:25] VITALS: BP 133/67; PULSE 61; RESP 18; O2SAT 97
[2023-03-22 11:55] VITALS: BP 128/68; PULSE 61; RESP 16; TEMP 36.7; O2SAT 98
== END 2023-03-22 12:00 | disposition home or self-care (01) ==
LOC: INF 10:07
PROVIDERS: PCP Family Medicine; Visit Provider Nurse Practitioner Family
DX: D50.9 Iron deficiency anemia, unspecified (principal)
CPT/HCPCS: 96365; J1756

== ENCOUNTER 2023-03-28 09:55 | Outpatient (CLI) | payer MEDICARE, SELFPAY ==
[2023-03-28 10:07] VITALS: BMI 29.7
[2023-03-28 10:32] LABS: Basophils % 0.1 % (0.1-2.0); Eosinophils # 0.1 K/mm3 (0.0-0.4); Eosinophils % 0.6 % (0.1-12.0); Hematocrit 34.1 % (37.0-47.0); Hemoglobin 10.6 g/dL (12.2-16.2); Lymphocytes # 1.3 K/mm3 (0.7-4.5); Lymphocytes % 11.8 % (10-50); Mean Corpuscular Hemoglobin 28.3 pg (27.0-31.2); Mean Corpuscular Volume 91.2 fl (81-99); Mean Platelet Volume 7.7 fl (7.4-10.4); Monocytes # 0.4 K/mm3 (0.1-1.0); Monocytes % 3.5 % (1.7-9.3); Neutrophils # 9.1 K/mm3 (1.8-7.8); Platelet Count 288 K/mm3 (142-424); Red Blood Count 3.73 M/mm3 (4.20-5.40); Red Cell Distribution Width 20.7 % (11.5-17.5); White Blood Count 10.9 K/mm3 (4.8-10.8)
[2023-03-28 10:35] VITALS: BP 155/80; PULSE 63; RESP 18; O2SAT 96
[2023-03-28 10:37] LABS: Chloride 96 mmol/L (98-107); Potassium 3.9 mmoL/L (3.5-5.1); Sodium 135 mmol/L (136-145)
[2023-03-28 10:40] LABS: Alanine Aminotransferase 28 U/L (12-78); Albumin Level 3.8 g/dl (3.5-5.0); Albumin/Globulin Ratio 1.3 (1.1-1.8); Alkaline Phosphatase 61 U/L (38-126); Anion Gap 14.9 mEq/L (5-15); Aspartate Amino Transferase 33 U/L (14-36); Bilirubin,Total 0.4 mg/dl (0.2-1.3); Blood Urea Nitrogen 16 mg/dl (7-17); Calcium 8.9 mg/dl (8.4-10.2); Carbon Dioxide 28 mmol/L (22.0-30.0); Creatinine Clearance Estimated 43 mL/min (50-200); Estimated Glomerular Filt Rate 95 ml/min (>60); GFR (African American) 114 ML/MIN (>60); Glucose 134 mg/dl (74-100); Total Protein,Serum 6.8 g/dl (6.3-8.2)
[2023-03-28 11:05] VITALS: BP 159/93; PULSE 66; RESP 16
== END 2023-03-28 11:20 | disposition home or self-care (01) ==
LOC: INF 09:56
PROVIDERS: PCP Family Medicine; Visit Provider Nurse Practitioner Family
DX: D64.9 Anemia, unspecified (principal)
CPT/HCPCS: 80053; 85025; 96365; J1756

== ENCOUNTER 2023-04-06 10:02 | Outpatient (CLI) | payer MEDICARE, SELFPAY ==
[2023-04-06 10:35] VITALS: BP 171/65; PULSE 61; RESP 16; O2SAT 98
[2023-04-06 11:05] VITALS: BP 170/75; PULSE 63; RESP 16
== END 2023-04-06 11:18 | disposition home or self-care (01) ==
LOC: INF 10:03
PROVIDERS: PCP Family Medicine; Visit Provider Nurse Practitioner Family
DX: D64.9 Anemia, unspecified (principal)
CPT/HCPCS: 96365; J1756

== ENCOUNTER 2023-05-02 09:00 | Outpatient (RCR) | payer MEDICARE, SELFPAY | END 2023-06-04 13:50 | disposition home or self-care (01) | LOC: PT 09:00 | PROVIDERS: PCP Family Medicine; Visit Provider Nurse Practitioner Family | DX: M54.2 Cervicalgia (principal); I69.30 Unspecified sequelae of cerebral infarction | CPT/HCPCS: 20560; 97110; 97140; 97163 ==

== ENCOUNTER 2023-07-28 13:55 | Emergency (ER) | payer MEDICARE, SELFPAY ==
[2023-07-28] VITALS (7 sets, daily range): BP systolic 141–201; BP diastolic 55–91; PULSE 60–69; RESP 16–18; TEMP 36.6; O2SAT 95–98; BMI 29.7
--- NOTE | 2023-07-28 14:04 | PC.NURSE ---
Dr. Florentino at BS for pt eval
--- NOTE | 2023-07-28 14:14 | CT_ITS ---
PROCEDURE INFORMATION: Exam: CT Pelvis Without Contrast; Skeletal Exam date and time: 07/28/2023 3:23 PM Age: 88 years old Clinical indication: Pelvic pain; Additional info: Midline and R si severe pain TECHNIQUE: Imaging protocol: Computed tomography of the pelvis without contrast. Exam focused on the skeleton. Radiation optimization: All CT scans at this facility use at least one of these dose optimization techniques: automated exposure control; mA and/or kV adjustment per patient size (includes targeted exams where dose is matched to clinical indication); or iterative reconstruction. REPORTING DATA: Count of CT and Cardiac NM exams in prior 12 months: This patient has received 14 known CTs and 0 known cardiac nuclear medicine studies in the 12 months prior to the current study. COMPARISON: 1. CT ABDOMEN PELVIS W CON 02/20/2023 12:[address] LUMBAR SPINE WO CON 02/20/2023 12:[address] PELVIS WO CON 09/25/2022 12:46 PM FINDINGS: Stomach and bowel: Mild colonic diverticulosis. Vasculature: Calcified aortic and iliofemoral atherosclerotic disease. Bones/joints: Osteopenia. No acute fracture or dislocation. Postoperative changes status post right hip arthroplasty without evidence of acute complication. Moderate degenerative changes of the left hip. There are degenerative changes of the included lower lumbar spine with multilevel disc space narrowing, vacuum disc phenomenon, and facet arthropathy and stable grade 1 anterolisthesis of L4 on L5. Moderate versus severe spinal canal narrowing at L4-L5 which appears unchanged. Stable postsurgical changes at L3. Degenerative changes of the bilateral SI joints and pubic joint. Soft tissues: Calcifications within the gluteal subcutaneous tissues presumably secondary to injection sites. Small fat containing umbilical hernia. IMPRESSION: No acute abnormality. Status post right hip arthroplasty. Degenerative changes as above.
--- NOTE | 2023-07-28 14:14 | XR_ITS ---
PROCEDURE INFORMATION: Exam: XR Right Femur Exam date and time: 07/28/2023 3:25 PM Age: 88 years old Clinical indication: Pain; Thigh; Right TECHNIQUE: Imaging protocol: Radiologic exam of the right femur. Views: 2 views. COMPARISON: CT BONY PELVIS 07/28/2023 3:23 PM FINDINGS: Bones/joints: Status post right hip and knee arthroplasty. No acute fracture or dislocation or evidence of acute hardware complication. Soft tissues: Unremarkable. Vasculature: Atherosclerotic calcifications of the lower extremity vessels. IMPRESSION: No acute abnormality.
--- NOTE | 2023-07-28 14:18 | HMH.EDGENADL ---
Discharge Plan Disposition Patient Disposition: Still a Patient Prescriptions Prescriptions: No Action acetaminophen [Tylenol Extra Strength] 500 mg tablet 500 mg PO Q6H PRN (Reason: Mild Pain (Scale Score 1-4)) gabapentin 300 mg capsule 300 mg PO HS diphenhydramine-acetaminophen [Tylenol PM Extra Strength] 25-500 mg tablet 1 tab PO HS PRN azithromycin 250 mg tablet See Rx Instructions PO .COMPLEX Qty: 6 0RF Rx Instructions: For 250 mg dose pack: take 500 mg today (day 1), then 250 mg for 4 days (days 2-5) PO diclofenac sodium 75 mg tablet,delayed release (DR/EC) 75 mg PO metronidazole 0.75 % cream 1 applic topical DAILY Qty: 45 1RF celecoxib 100 mg capsule 100 mg PO DAILY 90 Days Qty: 90 0RF rosuvastatin 10 mg tablet 10 mg PO DAILY 90 Days Qty: 90 0RF metoprolol succinate 25 mg tablet extended release 24 hr 25 mg PO QDAY 90 Days Qty: 90 0RF gabapentin 100 mg capsule 100 - 300 mg PO HS Qty: 30 2RF hydrocodone-acetaminophen 5-325 mg tablet 1 tab PO Q8H PRN (Reason: Pain) Qty: 60 0RF pantoprazole 40 mg tablet,delayed release (DR/EC) See Rx Instructions .ROUTE .COMPLEX Qty: 60 3RF Dose Instruction: TAKE 1 TABLET BY MOUTH TWICE DAILY Rx Instructions: TAKE 1 TABLET BY MOUTH TWICE DAILY lisinopril 10 mg tablet See Rx Instructions .ROUTE .COMPLEX Qty: 90 0RF Dose Instruction: TAKE 1 TABLET BY MOUTH DAILY Rx Instructions: TAKE 1 TABLET BY MOUTH DAILY Referrals Follow up/Referrals: Chon Britt MD [Staff Physician] - See instructions (call for next available appointment ) Hayder Bravo MD [Primary Care Provider] - See instructions Clinical Impressions Clinical Impression: Back pain Discharge ED Provider: Garret Florentino General Adult HPI <Garret Florentino MD - Last Filed: 07/28/23 15:15> General Chief complaint: PAIN Stated complaint: right hip pain, no accident Time Seen by Provider: 07/28/23 13:57 History of Present Illness HPI narrative: Patient is a 88-year-old female with past medical history of osteoarthritis, 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 History is obtained by daughter and patient at bedside. Patient recently rode in a car that was unfamiliar to her and since then has had progressive moderate to severe pain in the center of her back radiating into her right buttock and down the posterior aspect of her right leg, it does not radiate distal to her knee. Symptoms are refractory to her home pain control regimen. Denies falls. Denies new onset urinary incontinence or fecal incontinence, denies saddle anesthesia. Pain is moderate to severe in intensity and much worse than her baseline although similar in location. At baseline patient ambulates with a walker for which she can continue to do however with significant difficulty secondary to pain. Related Data Home Medications Medication Instructions Recorded Confirmed acetaminophen 500 mg tablet 500 mg PO Q6H PRN Mild Pain (Scale 06/14/21 07/24/23 (Tylenol Extra Strength) Score 1-4) diclofenac sodium 75 mg 75 mg PO 04/30/23 07/24/23 tablet,delayed release diphenhydramine 25 1 tab PO HS PRN 07/24/23 07/24/23 mg-acetaminophen 500 mg tablet (Tylenol PM Extra Strength) gabapentin 300 mg capsule 300 mg PO HS 07/24/23 07/24/23 Previous Rx's Medication Instructions Recorded celecoxib 100 mg capsule 100 mg PO DAILY MOOD 90 days #90 04/09/23 caps metoprolol succinate 25 mg 25 mg PO QDAY High blood pressure 04/09/23 tablet,extended release 24 hr 90 days #90 tabs rosuvastatin 10 mg tablet 10 mg PO DAILY Cholesterol 90 days 04/09/23 #90 tabs gabapentin 100 mg capsule 100 - 300 mg PO HS sleep #30 caps 04/26/23 metronidazole 0.75 % topical cream 1 ap
--- NOTE | 2023-07-28 14:24 | CT_ITS ---
PROCEDURE INFORMATION: Exam: CT Lumbar Spine Without Contrast Exam date and time: 07/28/2023 3:26 PM Age: 88 years old Clinical indication: Low back pain; Additional info: Midline tenderness, oa, previous sgy TECHNIQUE: Imaging protocol: Computed tomography of the lumbar spine without contrast. Radiation optimization: All CT scans at this facility use at least one of these dose optimization techniques: automated exposure control; mA and/or kV adjustment per patient size (includes targeted exams where dose is matched to clinical indication); or iterative reconstruction. REPORTING DATA: Count of CT and Cardiac NM exams in prior 12 months: This patient has received 14 known [address]s and 0 known cardiac nuclear medicine studies in the 12 months prior to the current study. COMPARISON: CT LUMBAR SPINE WO CON 02/20/2023 12:51 PM FINDINGS: Bones/joints: Osteopenia. No acute fracture of the lumbar spine. There is stable grade 1 anterolisthesis of L4 on L5 with lumbar alignment otherwise maintained. Stable postsurgical changes at L3. Multilevel degenerative changes with disc space narrowing, vacuum disc phenomenon, and facet arthropathy. Moderate versus severe spinal canal narrowing at the L4-L5 level appears unchanged. No severe osseous neural foraminal stenosis. Degenerative changes of the SI and pubic joints. Lungs: Included lung bases no consolidation. Scattered mucous plugging of some of the distal left lower lobe airways. Diaphragm: [id number] hiatal hernia is redemonstrated. Kidneys and ureters: Small non-obstructing renal stones/vascular calcifications. Vasculature: Calcified aortoiliac atherosclerotic disease. No aneurysm. Soft tissues: Unremarkable. IMPRESSION: 1. Degenerative changes of the lumbar spine as described above with no acute abnormality. 2. Other chronic and incidental findings as above.
--- NOTE | 2023-07-28 14:30 | PC.NURSE ---
pillows provided to patient under her right hip and repositioned.
--- NOTE | 2023-07-28 14:33 | PC.NURSE ---
assistant warehouse manager at bedside for US IV
[2023-07-28 14:57] LABS: Basophils % 0.1 % (0.1-2.0); Eosinophils # 0.1 K/mm3 (0.0-0.4); Eosinophils % 2.5 % (0.1-12.0); Hematocrit 36.5 % (37.0-47.0); Hemoglobin 11.5 g/dL (12.2-16.2); Lymphocytes # 2.1 K/mm3 (0.7-4.5); Lymphocytes % 41.5 % (10-50); Mean Corpuscular HGB Conc 31.5 g/dL (31.8-35.4); Mean Corpuscular Hemoglobin 32.1 pg (27.0-31.2); Mean Corpuscular Volume 101.8 fl (81-99); Mean Platelet Volume 7.6 fl (7.4-10.4); Monocytes # 0.3 K/mm3 (0.1-1.0); Monocytes % 6.3 % (1.7-9.3); Neutrophils # 2.5 K/mm3 (1.8-7.8); Neutrophils % 49.5 % (37.0-80.0); Platelet Count 251 K/mm3 (142-424); Red Blood Count 3.58 M/mm3 (4.20-5.40); Red Cell Distribution Width 14.2 % (11.5-17.5)
--- NOTE | 2023-07-28 15:08 | PC.NURSE ---
Ivan CARABALLO and daughter ambulated patient to bathroom
--- NOTE | 2023-07-28 15:09 | PC.NURSE ---
Helped the pt walk to the restroom with assistance from pt daughter
--- NOTE | 2023-07-28 15:15 | PC.NURSE ---
Patient ambulated back to bed room with 2 assist. Provided warm blanket to patient.
--- NOTE | 2023-07-28 15:18 | PC.NURSE ---
pt to rad via stretcher
[2023-07-28 15:31] LABS: Alanine Aminotransferase 22 U/L (12-78); Albumin Level 3.8 g/dl (3.5-5.0); Albumin/Globulin Ratio 1.2 (1.1-1.8); Alkaline Phosphatase 66 U/L (38-126); Anion Gap 11.1 mEq/L (5-15); Aspartate Amino Transferase 30 U/L (14-36); Bilirubin,Total 0.2 mg/dl (0.2-1.3); Blood Urea Nitrogen 11 mg/dl (7-17); Calcium 9.1 mg/dl (8.4-10.2); Carbon Dioxide 29 mmol/L (22.0-30.0); Chloride 101 mmol/L (98-107); Creatinine Clearance Estimated 42 mL/min (50-200); Estimated Glomerular Filt Rate 94 ml/min (>60); GFR (African American) 114 ML/MIN (>60); Globulin 3.3 g/dL (1.3-3.2); Glucose 92 mg/dl (74-100); Potassium 4.1 mmoL/L (3.5-5.1); Sodium 137 mmol/L (136-145); Total Protein,Serum 7.1 g/dl (6.3-8.2)
--- NOTE | 2023-07-28 15:33 | PC.NURSE ---
pt returned to room from RAD
--- NOTE | 2023-07-28 16:45 | PC.NURSE ---
helped pt back to room with assistance x2 covered pt back up with blanket,call light at bs
--- NOTE | 2023-07-28 16:48 | PC.NURSE ---
Rounded on patient and family member; nothing needed at this time. Call de la cruz within reach
== END 2023-07-28 17:23 | disposition home or self-care (01) ==
PROVIDERS: Emergency Provider Emergency Medicine; PCP Family Medicine
DX: M25.551 Pain in right hip (principal); M54.6 Pain in thoracic spine; I69.351 Hemiplegia and hemiparesis following cerebral infarction affecting right dominant side; I49.5 Sick sinus syndrome; K21.9 Gastro-esophageal reflux disease without esophagitis; I10 Essential (primary) hypertension; E78.5 Hyperlipidemia, unspecified; Z95.0 Presence of cardiac pacemaker
CPT/HCPCS: 72131; 72192; 73552; 80053; 85025; 96374; 96375; 99285; J0131

== ENCOUNTER → 2023-08-20 11:04 | Outpatient (POV) | payer MEDICARE, SELFPAY ==
--- NOTE | 2023-08-20 11:22 | EXP.PAIN.OV ---
HPI Data of Consult Patient: new to practice Consult date: 08/20/23 Requesting Physician: Paulina Thomson APRN Primary Care Provider: Hayder Bravo MD Consult Narrative Reason for consult: Low back pain, bilateral leg pain, buttocks pain History of present illness: Ms. Irwin is a 88 year old female who presents today as a new patient. She is a referral from Dr. Ceron office. Today she rates her pain an 8 out of 10. Patient states her pain is all in her low back that does radiate into her bilateral hips and down into her upper legs. Patient does state this is typically worse along the right side. Patient does state her pain in her low back is been going on for years and progressively worsened over time. Patient does also states she has a significant history of falls and just had to do last week. Patient does describe her pain as a constant aching, throbbing sensation that is worse with increased sitting or frequently when changing positions. Patient states it is difficult getting up and out of bed due to the pain. Patient does state in the past she has had a pilonidal cyst that was removed when she was in her 20s and documentation does show that she had a sacrococcygeal fracture in the past as well. Patient states she continues to have this pain at her buttocks area as well. Patient has tried [id number] Tylenol along with heat and ice and topicals with minimal improvement. Patient is prescribed hydrocodone that she states she just takes as needed. Patient was doing SI injections at [facility] and spine with some improvement. She states her last injections were approximately 2 months ago however they did not provide significant relief anymore. Patient does have family present with today's visit and states that in the past she did have a procedure where they did go in and clean out an area of her back that was supposed to be minimally invasive. Patient has had physical therapy in the past however it caused worsening pain symptoms and that she is not interested in repeating this again. Patient does use a cane for help with ambulation as well as a wheelchair as needed. Patient is currently prescribed Celebrex. CC: Paulina Thomson APRN [facility] Disclaimer: The information contained in this section may have been updated after the patient was seen, as this information can be updated by other users. Medical History Abnormal Holter monitor finding Abnormal result of cardiovascular function study Accidental fall Anemia Anemia Balance problem Cardiac pacemaker in situ Cerebrovascular accident Cerebrovascular accident Closed head injury Colonoscopy planned Dysphagia Elevated right ventricular end-diastolic pressure Facial contusion Fall GERD (gastroesophageal reflux disease) History of hip fracture History of pilonidal cyst HLD (hyperlipidemia) HTN (hypertension) Nodule of right lung Normal esophagogastroduodenoscopy (EGD) Pacemaker SSS (sick sinus syndrome) Stroke Surgical History H/O arthroscopy of shoulder H/O bladder repair surgery H/O carpal tunnel repair History of appendectomy History of lumbar surgery Hx of cholecystectomy Hx of hysterectomy, total Total knee replacement status Family History Other Cancer Heart attack Hypertension Stroke Social History Smoking Status: Never smoker alcohol intake: never substance use type: denies use current occupational status: retired and other Travel in the last 8 weeks: None household members: none housing: house current occupational exposures/hazards: No Review of Systems Review of Systems Review of systems:: pertinent systems reviewed and negative unless documented below Review of systems (narrative): Review of Systems
[2023-08-20 12:26] VITALS: BP 197/91; PULSE 68; RESP 18; O2SAT 97; BMI 29.7
== END ==
PROVIDERS: PCP Family Medicine; Visit Provider Nurse Practitioner Family
DX: M54.42 Lumbago with sciatica, left side (principal); M54.41 Lumbago with sciatica, right side; M48.061 Spinal stenosis, lumbar region without neurogenic claudication; G89.4 Chronic pain syndrome; M54.16 Radiculopathy, lumbar region; M46.1 Sacroiliitis, not elsewhere classified; M25.551 Pain in right hip; M25.552 Pain in left hip; M79.18 Myalgia, other site
CPT/HCPCS: 99202; G0463

== ENCOUNTER 2023-09-04 09:35 | Day surgery (SDC) | payer MEDICARE, SELFPAY ==
[2023-09-04 09:46] VITALS: BP 155/82; PULSE 69; RESP 16; TEMP 36.3; O2SAT 98; BMI 29.7
[2023-09-04 10:01] VITALS: BP 159/81; PULSE 68; RESP 16
--- NOTE | 2023-09-04 10:02 | EXP.PAIN.PRO ---
Procedure Date: 09/04/23 Time: 09:55 Anesthesiologist:: Fuad Haas CRNA Complications:: None Pre-procedure Diagnosis:: Degenerative disc disease lumbar spine multilevels. Lumbar radiculopathy. Lumbar postlaminectomy syndrome. Lumbar facet arthropathy. Lumbar spondylosis. Chronic low back pain. Post-procedure Diagnosis:: Same. Indications for Procedure:: Patient is a very pleasant 88-year-old female comes our clinic today for lumbar epidural steroid injection. Patient complains of low back as well as bilateral hip and leg radicular symptoms. Patient rates her pain today 7/10. She describes her low back pain as constant, dull, aching. Pain continues with standing, walking, sitting. Procedure Details:: Procedure: Lumbar epidural steroid injection under fluoroscopy Informed consent was obtained and the risks and benefits of the procedure were explained to the patient. The patient was taken to the procedure room and noninvasive monitors placed, including noninvasive blood pressure cuff and pulse oximeter. The back was viewed using C-arm Fluoroscopy and prepped using Chloraprep as a cleansing solution and the L4-L5 interspace was palpated. Skin and subcutaneous tissues were anesthetized using lidocaine 1.5% and a 25-gauge needle. After this, an 18-gauge Touhy epidural needle was placed into the L4-L5 interspace and advanced using fluoroscopic guidance and loss of resistance to air until the epidural space was encountered. After confirmation of needle placement in the epidural space, with dye, a solution containing normal saline, 3 mL and Depo-Medrol 80 mg were incrementally injected into the lumbar epidural space. The patient tolerated the procedure well with no complications. The patient was observed in the Pain Clinic and then discharged home neurologically intact. Plan and Disposition:: Patient was discharged without incident.
== END 2023-09-04 10:01 | disposition home or self-care (01) ==
PROVIDERS: PCP Family Medicine; Visit Provider Nurse Anesthetist, Certified Registered
DX: M51.16 Intervertebral disc disorders with radiculopathy, lumbar region (principal); M96.1 Postlaminectomy syndrome, not elsewhere classified; M47.26 Other spondylosis with radiculopathy, lumbar region
CPT/HCPCS: 62323; J1040

== ENCOUNTER → 2023-09-10 14:30 | Outpatient (POV) | payer MEDICARE, SELFPAY ==
--- OUTSIDE RECORDS SUMMARY | 2023-09-10 14:32 | XMS_ITS | Patient Health Record ---
Author Name Unknown Organization Unknown Support Name Relationship Address Phone [facility] Contact Unknown [phone] Isabella Irwin Guarantor Unknown [phone] REASON FOR REFERRAL No Information MEDICATIONS Medication SIG (Take, Route, Frequency, Duration) Notes Start Date End Date Status Aspir-Low 81 mg 1 tab(s) orally once a day for 30 day(s) Active hydroCHLOROthiazide 12.5 mg 1 cap(s) ora lly once a day for 30 day(s) Active lisinopril 10 mg 1 tab(s) orally once a day for 30 day(s) Active pantoprazole 40 mg 1 tab(s) orally twic e a day for 30 day(s) Active Percocet 325 mg-5 mg 1 tab(s) orally gale ry 4 hours PRN Active potassium chloride 20MEQ bid po Active prochlorperazine 10 mg 1 tab(s) orally 3 times a day PRN Active melatonin 5 mg 1 tab(s) orally once a day (at bedtime) Active polyethylene glycol 3350 wit h electrolytes Active ProMod Liquid Protein, 960 mL Active PLAN OF TREATMENT No Information Insurance Providers Payer Name Payer Address Payer Phone Subscriber Number Group Number Insured Name Patient Relationship to Insured Coverage Start Date Coverage End Date [employer] [address] [address] [place] [address] [id number] Isabella Irwin
--- OUTSIDE RECORDS SUMMARY | 2023-09-10 14:33 | XMS_ITS | Patient Health Record ---
Author Name Unknown Organization [facility] Address [address] [facility] [address] [place] [address] Care Team Providers Care Traction Power Engineer Name Role Phone [email or web address] Primary Care Provider Trev Hays Unavailable [phone] Yaneli Fortune Unavailable [phone] ALLERGIES Allergen (clinical drug ingredient) Drug/Non Drug Allergy documented on EMR Reaction Allergy Type Onset Date Status Latex latex (uncoded) rash Allergy Acti ve tetracycline tetracycline rash Drug Allergy A ctive REASON FOR REFERRAL No Information MEDICATIONS Medication SIG (Take, Route, Frequency, Duration) Notes Start Date End Date Status Tylenol 500 mg 1 tab orally 3 times a day Active Metoprolol Succinate ER 25 mg 1 tab(s) orally once a day for 30 day(s) Active predniSONE 10 mg 1 tab(s) orally once a day Active Crestor 10 mg 1 tab(s) orally once a day for 30 day(s) Active pantoprazole 40 mg 1 tab(s) orally twic e a day for 30 day(s) Active lisinopril 10 mg 1 tab(s) orally once a day for 30 day(s) Active gabapentin 100 mg 1 cap(s) orally at [facility]
[2023-09-10 15:34] VITALS: BP 167/71; PULSE 74; RESP 18; O2SAT 98; BMI 27.8
--- NOTE | 2023-09-10 15:50 | EXP.PAIN.SOA ---
[facility] Pain Management SOAP Note Subjective:: Patient is a pleasant 88-year-old female who presents today for follow-up of lumbar epidural steroid injection L4-L5 on 09/04/2023. We are currently treating the patient for degenerative disc disease of the lumbar spine with lumbar radiculopathy symptoms, lumbar facet arthropathy, lumbar spondylosis, lumbar postlaminectomy syndrome. Today she rates her pain an 8 out of 10. Patient states that she did not notice any additional improvement following this injection. She still states that she has a constant aching, throbbing sensation that is worse all around her tailbone. Patient does state this has been going on for years and may be related to a previous fracture at this location. Patient does also have some symptoms that go into her upper thighs however she states that right now that is not an issue. She states the symptoms can come and go. Patient does state that the tailbone pain is what bothers her the most. Patient has tried xxgm-fus-vusqluo medications such as Tylenol along with heat and ice and topicals with no additional relief. Patient is interested in any help we may be able to provide. Patient has tried physical therapy in the past however this worsened her symptoms. Patient does use a wheelchair for help with ambulation. Her her Kyler has been reviewed and is appropriate. Review of Systems: General: No recent weight changes, no fever, no sleep disturbances Respiratory: No cough, no shortness of air, no recurring pulmonary infections Cardiovascular/peripheral vascular: No chest pain, no palpitations, no edema, no shortness of breath Gastrointestinal: No new onset incontinence, normal bowel movements reported Genitourinary: No new onset incontinence Musculoskeletal: Tailbone pain Psychiatric: [Normal mood/affect] Neurological: [Denies weakness in extremities], [denies balance issues] Objective:: Physical Exam: General: Alert and oriented x3, no acute distress, pleasant and cooperative Lungs: Respirations even and unlabored, symmetrical chest expansion Eyes: PERRL Musculoskeletal: Flexion and extension of lumbar [spine] somewhat guarded secondary to pain, [antalgic gait noted] point tenderness along her sacral spine Neurological: Speech clear, no gross sensory deficit Assessment:: Degenerative disc disease of lumbar spine with lumbar radiculopathy symptoms, lumbar facet arthropathy, lumbar spondylosis, lumbar postlaminectomy syndrome, previous sacrococcygeal fracture, tailbone pain Plan:: Patient is experiencing worsening pain in and around her tailbone and buttocks area. Patient did have limited range of motion of her lumbar spine during today's visit along with point tenderness along her lower sacral spine. I have discussed with the patient that she may benefit from a caudal epidural. Risk and benefits were explained to the patient and she would like to proceed forward with this plan of care. Patient does have a history of previous sacrococcygeal fracture at this location. Patient has tried and failed conservative therapy such as oral medication, heat and ice, topicals, physical therapy, at home stretching exercise for longer than 6 weeks. Patient will also be ordered a compounded cream. Patient will be scheduled for a caudal epidural. She is not on any blood thinners. Patient has been instructed to contact the clinic with any concerns before the next appointment. Dr. Britt has reviewed this note and agrees with this plan of care. This note was dictated using voice recognition software and make contain errors or omissions. [facility] Disclaimer: The information contained in this section may have been updated after the patient was seen, as this information can be updated by other users. Medical History Abnormal Holter monitor finding Abnormal result of cardiovascular function study Accidental fall Anemia Anemia Balance problem Cardiac pa
== END ==
PROVIDERS: PCP Family Medicine; Visit Provider Nurse Practitioner Family
DX: M51.16 Intervertebral disc disorders with radiculopathy, lumbar region (principal); M47.26 Other spondylosis with radiculopathy, lumbar region; M96.1 Postlaminectomy syndrome, not elsewhere classified; M53.3 Sacrococcygeal disorders, not elsewhere classified
CPT/HCPCS: 99212; G0463

== ENCOUNTER 2023-09-25 11:10 | Day surgery (SDC) | payer MEDICARE, SELFPAY ==
[2023-09-25 11:31] VITALS: BP 171/70; PULSE 68; RESP 18; TEMP 36.4; O2SAT 98; BMI 29.7
--- NOTE | 2023-09-25 11:58 | EXP.PAIN.PRO ---
Procedure Date: 09/25/23 Time: 11:50 Anesthesiologist:: Fuad Haas CRNA Complications:: None Pre-procedure Diagnosis:: Degenerative disc lumbar spine multilevels. Lumbar radiculopathy. Lumbar postlaminectomy syndrome. Lumbar spondylosis. Post-procedure Diagnosis:: Same. Indications for Procedure:: Very pleasant 88-year-old female comes our clinic today for caudal epidural steroid injection. Patient has tried and failed lumbar epidural steroid injection. She continues having low back pain that she describes as constant, dull, aching. Also, patient reports bilateral hip and leg radicular symptoms to the foot. Patient has had multiple lumbar back surgeries. She rates her pain today 9/10. Procedure Details:: Informed consent was obtained and the risks and benefits of the procedure were explained to the patient. The patient was taken to the procedure room and noninvasive monitors placed, including noninvasive blood pressure cuff and pulse oximeter. The back was viewed using C-arm Fluoroscopy and prepped using Chloraprep as a cleansing solution and the caudal epidural space was visualized using fluoroscopy in a lateral position. Skin and subcutaneous tissues were anesthetized using lidocaine 1.5% and a 25-gauge needle. After this, an 22-gauge spinal needle was placed into the caudal epidural space and advanced using fluoroscopic guidance. After confirmation of needle placement in the caudal space, with dye, a solution containing normal saline, 3 mL and Depo-Medrol 80 mg and 1 mL of 1% lidocaine were incrementally injected into the caudal epidural space. The patient tolerated the procedure well with no complications. The patient was observed in the Pain Clinic and then discharged home neurologically intact. Plan and Disposition:: Patient was discharged without incident.
[2023-09-25 12:02] VITALS: BP 193/74; PULSE 72; RESP 18; O2SAT 98
== END 2023-09-25 12:02 | disposition home or self-care (01) ==
LOC: SC.PAINP 11:10
PROVIDERS: PCP Family Medicine; Visit Provider Nurse Anesthetist, Certified Registered
DX: M51.16 Intervertebral disc disorders with radiculopathy, lumbar region (principal); M47.26 Other spondylosis with radiculopathy, lumbar region; M96.1 Postlaminectomy syndrome, not elsewhere classified
CPT/HCPCS: 62323; J1030

== ENCOUNTER → 2023-10-10 15:08 | Outpatient (POV) | payer MEDICARE, SELFPAY ==
[2023-10-10 15:30] VITALS: BP 134/100; PULSE 77; RESP 18; O2SAT 96; BMI 29.7
--- NOTE | 2023-10-10 15:55 | EXP.PAIN.SOA ---
[facility] Pain Management SOAP Note Subjective:: Patient is a pleasant 88-year-old female who presents today for follow-up of caudal epidural on 09/25/2023. We are currently treating the patient for degenerative disc disease of lumbar spine with lumbar radiculopathy symptoms, lumbar facet arthropathy, lumbar spondylosis, lumbar postlaminectomy syndrome, previous sacrococcygeal fracture, tailbone pain. Today she rates her pain a 7 out of 10. Patient states that she has had 100% improvement on the left side of her tailbone following this injection and feels like it still providing additional relief. She does state that all of her other pain is still along the right side. Patient states that the pain is an aching sensation that is worse with prolonged positioning or increased activity. She states the pain does interfere with her ability perform activities of daily living such as cooking and cleaning. Patient has been using cushioning for added help with her seating. Patient does use [id number]-[id number] medications such as Tylenol and ice with no additional relief. Patient has had long-term pain at her tailbone related to an injury she suffered years ago resulting in a coccygeal fracture. Patient is currently managed with gabapentin 300 mg at bedtime and [place] 5 mg twice daily from Dr. Trejo's office and compounded cream from our office. She denies any side effects from this medication. Her Kyler has been reviewed and is appropriate. Review of Systems: General: No recent weight changes, no fever, no sleep disturbances Respiratory: No cough, no shortness of air, no recurring pulmonary infections Cardiovascular/peripheral vascular: No chest pain, no palpitations, no edema, no shortness of breath Gastrointestinal: No new onset incontinence, normal bowel movements reported Genitourinary: No new onset incontinence Musculoskeletal: Right-sided tailbone pain Psychiatric: [Normal mood/affect] Neurological: [Denies weakness in extremities], [denies balance issues] Assessment:: Degenerative disc disease of lumbar spine with lumbar radiculopathy symptoms, lumbar facet arthropathy, lumbar spondylosis, lumbar postlaminectomy syndrome, previous sacrococcygeal fracture, chronic tailbone pain Plan:: Patient continues to experience significant pain along her tailbone now only on the right side. Patient did have 100% improvement of her left tailbone pain following her caudal epidural and is still getting relief on this area. I have discussed with the patient that she may benefit from a repeat diagnostic caudal epidural along the right side. Risk and benefits were discussed with the patient and she would like to proceed forward with this plan of care. Patient is not on any blood thinners. Patient will be scheduled for a right-sided caudal epidural under fluoroscopy. Patient has been instructed to contact the clinic with any concerns before the next appointment. Dr. Britt has reviewed this note and agrees with this plan of care. This note was dictated using voice recognition software and make contain errors or omissions. [facility] Disclaimer: The information contained in this section may have been updated after the patient was seen, as this information can be updated by other users. Medical History Abnormal Holter monitor finding Abnormal result of cardiovascular function study Accidental fall Anemia Anemia Balance problem Cardiac pacemaker in situ Cerebrovascular accident Cerebrovascular accident Closed head injury Colonoscopy planned Dysphagia Elevated right ventricular end-diastolic pressure Facial contusion Fall GERD (gastroesophageal reflux disease) History of hip fracture History of pilonidal cyst HLD (hyperlipidemia) HTN (hypertension) Nodule of right lung Normal esophagogastroduodenoscopy (EGD) Pacemaker SSS (sick sinus syndrome) Stroke Surgical History
== END ==
PROVIDERS: Visit Provider Nurse Practitioner Family
DX: M51.16 Intervertebral disc disorders with radiculopathy, lumbar region (principal); M47.26 Other spondylosis with radiculopathy, lumbar region; M96.1 Postlaminectomy syndrome, not elsewhere classified; M53.3 Sacrococcygeal disorders, not elsewhere classified; G89.29 Other chronic pain
CPT/HCPCS: 99212; G0463

== ENCOUNTER 2023-10-23 11:22 | Day surgery (SDC) | payer MEDICARE, SELFPAY ==
[2023-10-23 11:34] VITALS: BP 137/87; PULSE 84; RESP 16; TEMP 36.2; O2SAT 97; BMI 29.7
[2023-10-23 11:55] VITALS: BP 154/87; PULSE 83; RESP 16; O2SAT 97
--- NOTE | 2023-10-23 11:57 | P.PCN_ITS ---
Procedure Date: 10/23/23 Time: 11:40 Anesthesiologist:: Fuad Haas CRNA Complications:: None Pre-procedure Diagnosis:: Degenerative disc lumbar spine multilevels. Lumbar radiculopathy. Lumbar postlaminectomy syndrome. Lumbar spondylosis. Lumbar facet arthropathy. Post-procedure Diagnosis:: Same. Indications for Procedure:: Patient is a very pleasant 88-year-old female comes our clinic today for repeat caudal epidural steroid injection. Patient reporting moderate to significant i mprovement terms of her overall low lumbar back pain as well as bilateral hip and leg radicular symptoms with previous injection. Patient rates her pain today 6/10. Patient reports low back pain as well as bilateral hip and leg radicular symptoms. She describes the pain as constant, dull, aching. Procedure Details:: Informed consent was obtained and the risks and benefits of the procedure were explained to the patient. The patient was taken to the procedure room and noninvasive monitors placed, including noninvasive blood pressure cuff and pulse oximeter. The back was viewed using C-arm Fluoroscopy and prepped using Chloraprep as a cleansing solution and the caudal epidural space was visualized using fluoroscopy in a lateral position. Skin and subcutaneous tissues were anesthetized using lidocaine 1.5% and a 25-gauge needle. After this, an 22-gauge spinal needle was placed into the caudal epidural space and advanced using fluoroscopic guidance. After confirmation of needle placement in the caudal space, with dye, a solution containing normal saline, 3 mL and Depo-Medrol 80 mg and 1 mL of 1% lidocaine were incrementally injected into the caudal epidural space. The patient tolerated the procedure well with no complications. The patient was observed in the Pain Clinic and then discharged home neurologically intact. Plan and Disposition:: Patient was discharged without incident.
== END 2023-10-23 11:55 | disposition home or self-care (01) ==
PROVIDERS: PCP Family Medicine; Visit Provider Nurse Anesthetist, Certified Registered
DX: M51.16 Intervertebral disc disorders with radiculopathy, lumbar region (principal); M96.1 Postlaminectomy syndrome, not elsewhere classified; M47.26 Other spondylosis with radiculopathy, lumbar region
CPT/HCPCS: 62323; J1040

== ENCOUNTER 2024-01-15 17:44 | Outpatient (CLI) | payer MEDICARE, SELFPAY ==
--- NOTE | 2024-01-15 17:52 | XR_ITS ---
PROCEDURE INFORMATION: Exam: XR Right Shoulder Exam date and time: 01/15/2024 5:47 PM Age: 88 years old Clinical indication: Injury or trauma; Fall; Blunt trauma (contusions or hematomas); Shoulder and arm, upper; Right; Prior surgery; Surgery date: 6+ months; Surgery type: Rotator cuff repair; Additional info: Shoulder pain TECHNIQUE: Imaging protocol: Radiologic exam of the right shoulder. Views: 2 or more views. COMPARISON: CR XR SHOULDER RT 1V 07/02/2022 1:07 PM FINDINGS: Bones/joints: No acute fracture or malalignment. High-riding humeral head compatible with underlying rotator cuff injury status post repair with humeral head suture anchors. Acromioclavicular and glenohumeral joint degenerative changes. Soft tissues: Normal. IMPRESSION: No acute osseous findings.
--- NOTE | 2024-01-15 17:52 | XR_ITS ---
PROCEDURE INFORMATION: Exam: XR Right Hip Exam date and time: 01/15/2024 6:00 PM Age: 88 years old Clinical indication: Injury or trauma; Fall; Blunt trauma (contusions or hematomas); Bilateral; Pelvic region; Prior surgery; Surgery date: 6+ months; Surgery type: R hip rep 2019; Additional info: Hip pain TECHNIQUE: Imaging protocol: Radiologic exam of the right hip. Views: 2 or 3 views hip with pelvis when performed. COMPARISON: CR XR HIP RT 2-3V W/PELVIS 03/27/2022 5:58 PM FINDINGS: Bones/joints: Right total hip arthroplasty. Intact surgical hardware. No acute fracture or malalignment. Left hip osteoarthritis. Lower lumbar spondylosis. Additional degenerative changes of the bilateral sacroiliac joints and pubic symphysis. Soft tissues: Likely right gluteal soft tissue granuloma. Vasculature: Vascular calcifications. IMPRESSION: Right total hip arthroplasty without acute hardware complication. No acute osseous findings.
--- NOTE | 2024-01-15 17:52 | XR_ITS ---
PROCEDURE INFORMATION: Exam: XR Left Shoulder Exam date and time: 01/15/2024 5:54 PM Age: 88 years old Clinical indication: Injury or trauma; Fall; Blunt trauma (contusions or hematomas); Shoulder and arm, upper; Left; Prior surgery; Surgery date: 6+ months; Surgery type: Rotatorcuff repair; Additional info: Shoulder pain TECHNIQUE: Imaging protocol: Radiologic exam of the left shoulder. Views: 2 or more views. COMPARISON: CR XR SHOULDER LT MIN 2V 02/20/2023 1:14 PM FINDINGS: Bones/joints: No acute fracture or malalignment of the shoulder. Acromioclavicular and glenohumeral joint osteoarthritis. Soft tissues: Left chest wall cardiac pacing device. IMPRESSION: No acute osseous findings.
== END 2024-01-15 23:59 ==
PROVIDERS: PCP Family Medicine; Visit Provider Family Medicine
DX: M25.551 Pain in right hip; W19.XXXA Unspecified fall, initial encounter; M25.511 Pain in right shoulder; M25.512 Pain in left shoulder
CPT/HCPCS: 73030; 73502

== ENCOUNTER 2024-01-18 17:40 | Emergency (ER) | payer MEDICARE, SELFPAY ==
[2024-01-18 17:42] VITALS: BP 169/75; PULSE 78; RESP 18; TEMP 36.8; O2SAT 95; BMI 29.7
--- NOTE | 2024-01-18 18:08 | PC.NURSE ---
pt was moved back to room from [facility]
--- NOTE | 2024-01-18 18:33 | PC.NURSE ---
pt is setting in a chair states bed was making her shoulder hurt and legs were starting to cramp up
--- NOTE | 2024-01-18 18:35 | PC.NURSE ---
DR RODRIGUEZ AT BEDSIDE
--- NOTE | 2024-01-18 18:43 | XR_ITS ---
PROCEDURE INFORMATION: Exam: XR Right Femur Exam date and time: 01/18/2024 7:03 PM Age: 88 years old Clinical indication: Injury or trauma; Fall; Blunt trauma; Thigh or upper leg; Right; Prior surgery; Surgery date: 6+ months; Surgery type: Hip replacement TECHNIQUE: Imaging protocol: Radiologic exam of the right femur. Views: 2 views. Total images: 4 COMPARISON: CR XR FEMUR RT 2V 07/28/2023 3:25 PM FINDINGS: Bones/joints: Status post right total hip arthroplasty. Status post right total knee arthroplasty. No hardware loosening. No periprosthetic fractures. Osteopenia. No acute fracture or joint dislocation. No concerning bone lesions. Soft tissues: Unremarkable soft tissues. Vasculature: Atherosclerotic vascular calcifications. IMPRESSION: Negative right femur.
--- NOTE | 2024-01-18 18:43 | CT_ITS ---
PROCEDURE INFORMATION: Exam: CT Abdomen And Pelvis Without Contrast Exam date and time: 01/18/2024 7:02 PM Age: 88 years old Clinical indication: Injury or trauma; Fall; Blunt; Generalized; Additional info: fallsunday TECHNIQUE: Imaging protocol: Computed tomography of the abdomen and pelvis without contrast. Total images: 291 Radiation optimization: All CT scans at this facility use at least one of these dose optimization techniques: automated exposure control; mA and/or kV adjustment per patient size (includes targeted exams where dose is matched to clinical indication); or iterative reconstruction. COMPARISON: CT BONY PELVIS 07/28/2023 3:23 PM FINDINGS: Diaphragm: Large hiatal hernia consisting of intrathoracic stomach. Liver: Normal. No mass. Gallbladder and bile ducts: Status post cholecystectomy. Mild dilatation of the common bile duct in keeping with patient age and post cholecystectomy status. Pancreas: Normal. No ductal dilation. Spleen: Nonenlarged spleen with punctate granulomatous calcification. Adrenal glands: Normal. No mass. Kidneys and ureters: Punctate bilateral nonobstructing intrarenal calculi versus renal vascular calcifications. No hydronephrosis, perinephric fluid, or discrete renal mass. Stomach and bowel: Unremarkable duodenum. No ileus or bowel obstruction. Small bowel is within normal limits. Unremarkable terminal ileum. Mild scattered colonic diverticulosis. No acute diverticulitis. Collapsed rectum. Appendix: The appendix is not discretely visualized. No evidence for appendicitis. Intraperitoneal space: No ascites. No free air. Vasculature: Atherosclerotic aorta and iliac arteries without aneurysm. Numerous pelvic phleboliths. Lymph nodes: Unremarkable. No enlarged lymph nodes. Urinary bladder: Collapsed bladder. Reproductive: Status post hysterectomy. No discrete pelvic mass. Bones/joints: Status post right total hip arthroplasty. Moderate degenerative change left hip. Chronic osteitis of the pubic symphysis. Osteopenia. Severe multilevel degenerative changes lumbar spine including grade 1 anterior spondylolisthesis L4-L5. Soft tissues: Tiny fat containing umbilical hernia. Calcified gluteal injection granulomas. Other findings: Attenuation artifact from arm positioning compromises detail. IMPRESSION: 1. No acute intra-abdominal or pelvic process. 2. No acute post-traumatic abnormalities. 3. Multiple incidental and chronic findings.
--- NOTE | 2024-01-18 18:43 | CT_ITS ---
PROCEDURE INFORMATION: Exam: CT Head Without Contrast Exam date and time: 01/18/2024 6:52 PM Age: 88 years old Clinical indication: Injury or trauma; Fall; Blunt trauma (contusions or hematomas); Additional info: Fall last Sunday TECHNIQUE: Imaging protocol: Computed tomography of the head without contrast. Radiation optimization: All CT scans at this facility use at least one of these dose optimization techniques: automated exposure control; mA and/or kV adjustment per patient size (includes targeted exams where dose is matched to clinical indication); or iterative reconstruction. COMPARISON: CT HEAD/BRAIN WO CON 02/20/2023 12:41 PM FINDINGS: Brain: There is no acute hemorrhage or obvious acute infarct. Cortical volume loss noted. Scattered and confluent hypodensities noted in the bilateral periventricular and deep white matter. Atherosclerosis noted in the bilateral cavernous carotid arteries. Cerebral ventricles: Prominent ventricles centrally, most likely secondary to underlying volume loss. Paranasal sinuses: Visualized sinuses are unremarkable. No fluid levels. Mastoid air cells: Visualized mastoid air cells are well aerated. Bones/joints: Unremarkable. No acute fracture. Soft tissues: Unremarkable. IMPRESSION: 1. No acute intracranial disease or hemorrhage. 2. No obvious acute infarct. Please note if the patient's symptoms do not improve, or worsen, consider MRI with diffusion imaging. 3. Chronic deep white matter ischemic and senescent changes noted. Please see above.
--- NOTE | 2024-01-18 18:43 | CT_ITS ---
PROCEDURE INFORMATION: Exam: CT Chest Without Contrast; Diagnostic Exam date and time: 01/18/2024 7:02 PM Age: 88 years old Clinical indication: Injury or trauma; Fall; Blunt trauma (contusions or hematomas); Additional info: Fall last Sunday TECHNIQUE: Imaging protocol: Diagnostic computed tomography of the chest without contrast. Total images: 257 Radiation optimization: All CT scans at this facility use at least one of these dose optimization techniques: automated exposure control; mA and/or kV adjustment per patient size (includes targeted exams where dose is matched to clinical indication); or iterative reconstruction. COMPARISON: CT CHEST W CON 02/20/2023 12:54 PM FINDINGS: Tubes, catheters and devices: Status post left subclavian cardiac pacer. Lungs: Trachea and main bronchi are patent. Lungs are clear and well expanded. Minor juxtapleural scarring lateral left lung base, inferior lingula, and posterior right upper lung. Calcified right upper lobe granuloma. No pulmonary contusion or concerning infiltrate. Pleural spaces: Unremarkable. No pneumothorax. No pleural effusion. Heart: Normal heart size. No pericardial effusion. Trace fluid in the superior pericardial recess is considered physiologic. Coronary arteries: Severe coronary artery calcifications. Mediastinal space: No mediastinal mass or hematoma. Lymph nodes: No mediastinal lymphadenopathy. Vasculature: Atherosclerotic thoracic aorta without aneurysm. Diaphragm: Large hiatal hernia consisting of a intrathoracic stomach. Bones/joints: Osteopenia. Moderate multilevel degenerative changes thoracic spine. Mild increased thoracic kyphosis. Vertebral body height and alignment is preserved. No depressed sternal fracture. No displaced rib fractures. Surgical anchors right humeral head. Moderate to severe degenerative changes bilateral shoulders including complete loss of subacromial space bilaterally in keeping with chronic rotator cuff tears. Soft tissues: Unremarkable. Other findings: Attenuation artifact from arm positioning compromises detail. IMPRESSION: 1. No acute intrathoracic process. 2. No acute post-traumatic abnormalities. 3. Large hiatal hernia consisting of a intrathoracic stomach. 4. Severe coronary artery calcifications. 5. Additional chronic and incidental findings.
--- NOTE | 2024-01-18 18:43 | XR_ITS ---
PROCEDURE INFORMATION: Exam: XR Right Hip Exam date and time: 01/18/2024 7:03 PM Age: 88 years old Clinical indication: Injury or trauma; Fall; Blunt trauma (contusions or hematomas); Right; Prior surgery; Surgery date: 6+ months; Surgery type: Hip replacement TECHNIQUE: Imaging protocol: Radiologic exam of the right hip. Views: 2 or 3 views hip with pelvis when performed. Total images: 3 COMPARISON: CT ABDOMEN PELVIS WO CON 01/18/2024 7:02 PM FINDINGS: Bones/joints: Osteopenia. Status post right total hip arthroplasty. No acute fracture or joint dislocation. No hardware loosening. Pelvic ring is intact. Chronic osteitis of the pubic symphysis. Mild degenerative changes bilateral SI joints. Moderate degenerative change left hip. No concerning bone lesions. Soft tissues: Unremarkable. Vasculature: Atherosclerotic vascular calcifications. Pelvic phleboliths. Other findings: Calcified right gluteal injection granulomas. IMPRESSION: 1. No acute osseous abnormality. 2. Status post right total hip arthroplasty. No hardware loosening. 3. Additional chronic findings.
--- NOTE | 2024-01-18 18:43 | CT_ITS ---
PROCEDURE INFORMATION: Exam: CT Thoracic Spine Without Contrast Exam date and time: 01/18/2024 7:00 PM Age: 88 years old Clinical indication: Injury or trauma; Fall; Blunt trauma (contusions or hematomas); Additional info: Fall last Sunday TECHNIQUE: Imaging protocol: Computed tomography of the thoracic spine without contrast. Total images: 299 Radiation optimization: All CT scans at this facility use at least one of these dose optimization techniques: automated exposure control; mA and/or kV adjustment per patient size (includes targeted exams where dose is matched to clinical indication); or iterative reconstruction. COMPARISON: CT THORACIC SPINE WO CON 02/20/2023 12:49 PM FINDINGS: Bones/joints: Osteopenia. Thoracic vertebral body height and alignment is preserved. Mild increased thoracic kyphosis. Moderate to severe multilevel degenerative disc disease greatest in the mid lower thoracic levels with near complete loss of disc space, vacuum disc phenomena, and partial bridging endplate spurring. Mild thoracic dextrocurvature. Posterior elements are intact. Costovertebral junctions are maintained. Included posterior ribs are unremarkable. No concerning bone lesions. No large disc herniations or critical spinal canal stenosis. Mild generalized degenerate facet joint spondylosis. Soft tissues: No paraspinal mass, edema, or fluid collection. Other findings: Please refer to chest CT for further examination details. IMPRESSION: 1. No acute thoracic spine fracture or traumatic subluxation. 2. Chronic findings.
--- NOTE | 2024-01-18 18:43 | CT_ITS ---
PROCEDURE INFORMATION: Exam: CT Cervical Spine Without Contrast Exam date and time: 01/18/2024 6:58 PM Age: 88 years old Clinical indication: Injury or trauma; Fall; Blunt trauma; Additional info: Fall last Sunday TECHNIQUE: Imaging protocol: Computed tomography of the cervical spine without contrast. Radiation optimization: All CT scans at this facility use at least one of these dose optimization techniques: automated exposure control; mA and/or kV adjustment per patient size (includes targeted exams where dose is matched to clinical indication); or iterative reconstruction. COMPARISON: CT CERVICAL SPINE WO CON 02/20/2023 12:46 PM FINDINGS: Tubes, catheters and devices: Facility Maintenance Supervisor image demonstrates left-sided pacemaker in place. Bones/joints: No acute fracture or dislocation. Degenerative disc disease noted at all levels. Multilevel facet arthropathy noted. Multilevel central canal stenosis and neural foraminal narrowing noted. Lungs: Lung apices are normal. Vasculature: Bilateral carotid atherosclerosis noted. Soft tissues: Unremarkable. IMPRESSION: 1. No acute fracture or dislocation involving cervical spine. 2. Multilevel degenerative disc disease with central canal stenosis or neural foraminal narrowing 3. Left-sided pacemaker in place
--- NOTE | 2024-01-18 18:43 | CT_ITS ---
PROCEDURE INFORMATION: Exam: CT Lumbar Spine Without Contrast Exam date and time: 01/18/2024 7:05 PM Age: 88 years old Clinical indication: Injury or trauma; Fall; Blunt trauma (contusions or hematomas); Additional info: Fall last Sunday TECHNIQUE: Imaging protocol: Computed tomography of the lumbar spine without contrast. Total images: 342 Radiation optimization: All CT scans at this facility use at least one of these dose optimization techniques: automated exposure control; mA and/or kV adjustment per patient size (includes targeted exams where dose is matched to clinical indication); or iterative reconstruction. COMPARISON: CT LUMBAR SPINE WO CON 07/28/2023 3:26 PM FINDINGS: Bones/joints: Osteopenia. Five non rib-bearing lumbar vertebral segments. Vertebral body height is maintained. Stable grade 1 anterior spondylolisthesis L4-L5. Very minimal anterolisthesis of L3 with respect to L2 and L4, unchanged. Moderate to severe degenerative disc disease encompassing all lumbar levels to variable degree including complete loss of disc space L2-L3. Vacuum disc phenomena at multiple levels, greatest at L4-L5 and L5-S1. Facet joints are appropriately aligned with moderate to severe hypertrophic degenerate facet joint spondylosis, greatest at L3 through S1 bilaterally. No concerning bone lesions. Attenuation artifact considerably limits evaluation of the spinal canal contents. Recommend follow-up MRI were clinically directed. There is severe acquired spinal canal stenosis at L4-L5. Suspect [id number] choir spinal canal stenosis at the additional L3-L4 and L5-S1 levels. Degenerative changes bilateral SI joints with vacuum phenomena. Included sacrum and SI joint spaces are otherwise unremarkable. Status post right total hip arthroplasty. Soft tissues: No paraspinal mass, fluid collection, or soft tissue edema. Other findings: Posterior elements appear intact. Additional examination findings can be found on CT abdomen and pelvis report. IMPRESSION: 1. No acute lumbar fracture or traumatic subluxation. 2. Stable grade 1 anterior spondylolisthesis L4-L5. 3. Severe degenerative changes as described. 4. Severe acquired spinal canal stenosis L4-L5. If further detailed imaging is required, recommend follow-up nonemergent MRI.
--- NOTE | 2024-01-18 18:43 | XR_ITS ---
PROCEDURE INFORMATION: Exam: XR Left Shoulder Exam date and time: 01/18/2024 7:03 PM Age: 88 years old Clinical indication: Injury or trauma; Fall; Blunt trauma (contusions or hematomas); Shoulder; Left TECHNIQUE: Imaging protocol: Radiologic exam of the left shoulder. Views: 2 or more views. Total images: 3 COMPARISON: CR Shoulder L 01/15/2024 5:54 PM FINDINGS: Tubes, catheters and devices: Status post left subclavian cardiac pacer. Bones/joints: Osteopenia. No acute fracture, joint dislocation, or AC joint separation. Complete loss of subacromial space compatible with chronic rotator cuff tear. Mild degenerative change glenohumeral joint. Subchondral erosion and cystic change of the humeral head and greater tuberosity. Incidental enthesophyte or ossicle adjacent to the acromion process. Soft tissues: Unremarkable soft tissues. IMPRESSION: 1. No acute osseous abnormality. 2. Degenerative changes as described. 3. Complete loss of subacromial space compatible with chronic rotator cuff tear.
[2024-01-18] MEDS: OXYCODONE 5MG IMMEDIATE RELEASE TABLET 10 MG PO (19:12)
[2024-01-18] MEDS: ACETAMINOPHEN 500MG TAB 1000 MG PO (19:12)
[2024-01-18 19:30] VITALS: BP 164/90; PULSE 60; O2SAT 97
[2024-01-18 20:00] VITALS: BP 143/83; PULSE 67; O2SAT 96
[2024-01-18 20:19] LABS: Basophils % 0.3 % (0.1-2.0); Eosinophils # 0.1 K/mm3 (0.0-0.4); Eosinophils % 1.4 % (0.1-12.0); Hematocrit 39.2 % (37.0-47.0); Hemoglobin 12.8 g/dL (12.2-16.2); Lymphocytes # 2.6 K/mm3 (0.7-4.5); Lymphocytes % 45.6 % (10-50); Mean Corpuscular HGB Conc 32.5 g/dL (31.8-35.4); Mean Corpuscular Hemoglobin 33.8 pg (27.0-31.2); Mean Corpuscular Volume 103.9 fl (81-99); Mean Platelet Volume 8.2 fl (7.4-10.4); Monocytes # 0.3 K/mm3 (0.1-1.0); Monocytes % 5.9 % (1.7-9.3); Neutrophils # 2.7 K/mm3 (1.8-7.8); Neutrophils % 46.9 % (37.0-80.0); Platelet Count 205 K/mm3 (142-424); Red Blood Count 3.77 M/mm3 (4.20-5.40); Red Cell Distribution Width 13.6 % (11.5-17.5); White Blood Count 5.8 K/mm3 (4.8-10.8)
[2024-01-18 20:24] LABS: Chloride 101 mmol/L (98-107); Potassium 4.2 mmoL/L (3.5-5.1); Sodium 133 mmol/L (136-145)
[2024-01-18 20:26] LABS: Blood Urea Nitrogen 11 mg/dl (7-17); Creatinine Clearance Estimated 42 mL/min (50-200); Estimated Glomerular Filt Rate 79 ml/min (>60); GFR (African American) 96 ML/MIN (>60)
[2024-01-18 20:27] LABS: Alanine Aminotransferase 25 U/L (12-78); Albumin Level 4.3 g/dl (3.5-5.0); Albumin/Globulin Ratio 1.7 (1.1-1.8); Alkaline Phosphatase 73 U/L (38-126); Anion Gap 5.2 mEq/L (5-15); Aspartate Amino Transferase 39 U/L (14-36); Bilirubin,Total 0.6 mg/dl (0.2-1.3); Calcium 9.5 mg/dl (8.4-10.2); Carbon Dioxide 31 mmol/L (22.0-30.0); Globulin 2.6 g/dL (1.3-3.2); Glucose 104 mg/dl (74-100); Total Protein,Serum 6.9 g/dl (6.3-8.2)
--- NOTE | 2024-01-18 21:13 | PC.NURSE ---
Patient back from bathroom.
[2024-01-18] MEDS: MORPHINE 4MG/ML SYRINGE 4 MG IV (21:49)
[2024-01-18 22:00] VITALS: BP 148/89; PULSE 70; RESP 18; TEMP 36.7; O2SAT 97
--- NOTE | 2024-01-19 00:53 | ED_ITS ---
Discharge Plan Disposition Patient Disposition: Home, Self-Care Condition: Fair Prescriptions Prescriptions: No Action acetaminophen [Tylenol Extra Strength] 500 mg tablet 500 mg PO Q6H PRN (Reason: Mild Pain (Scale Score 1-4)) rosuvastatin 10 mg tablet 10 mg PO DAILY 90 Days Qty: 90 0RF gabapentin 300 mg capsule 300 mg PO HS Qty: 30 2RF pantoprazole 40 mg tablet,delayed release (DR/EC) 40 mg PO BID 90 Days Qty: 180 0RF lisinopril 10 mg tablet 10 mg PO DAILY 90 Days Qty: 90 0RF meloxicam 7.5 mg tablet 7.5 mg PO DAILY Qty: 30 0RF hydrocodone-acetaminophen 5-325 mg tablet 1 tab PO Q8H PRN (Reason: Pain) Qty: 60 0RF Referrals Follow up/Referrals: Yannick Thomson DO [Staff Physician] - See instructions (see for shoulder pain) Hayder Bravo MD [Primary Care Provider] - See instructions Activity Restrictions/Add. Instructions Additional Instructions/Restrictions: Your shoulder pain is not due to a fracture or dislocation. You had some acute pain of the shoulder but it is likely due to your chronic shoulder problems including arthritis and rotator cuff tendinopathy. Follow-up with marketing support specialist to discuss further treatment. Clinical Impressions Clinical Impression: Acute pain of left shoulder Instructions Patient Instructions: DI for Shoulder Pain Discharge ED Provider: Emeli Gr General Adult HPI General Chief complaint: Fall Stated complaint: AO fall 01/12, lt shoulder, rt hip pain Time Seen by Provider: 01/18/24 18:36 Mode of Arrival: Ambulatory Source of Information: Patient Limitations: No Limitations Description of Symptoms (Recalled from ER Triage Doc. by RN): PT STATES SHE FELL THIS PAST SUNDAY, SHE WAS WALKING WITH HER WALKER WHEN IT GOT CAUGHT UP IN FRONT OF HER CAUSING HER TO FALL, STATES SHE FELL ON THE WALKER, DENIES LOC OR HITTING HER HEAD, STATES SHE CAME TO THE ER SUNDAY WHERE SHE RECEIVED SEVERAL XRAYS AND EVERYTHING CAME BACK NEGATIVE, STATES SHE IS STILL IN EXCRUTIATING PAIN RATING IT 10/10 IN HER R SIDE, L SHOULDER, AND R HIP, STATES IT IS CONSTANT AND UNRELIEVED BY PO PAIN MEDS History of Present Illness HPI narrative: 88-year-old female with previous medical history of obesity, falls, deconditioning, left shoulder pain, presents with 5 days of worsened left shoulder pain since a fall. 5 days ago patient had a mechanical fall onto her left shoulder and since then she has had persistent left shoulder pain and right hip pain. She also has pain of her neck and thoracic spine but says this is similar to her baseline. She has been taking her typical opioid pain medication without significant improvement in her pain. Related Data Home Medications Medication Instructions Recorded Confirmed acetaminophen 500 mg tablet 500 mg PO Q6H PRN Mild Pain (Scale 06/14/21 01/15/24 (Tylenol Extra Strength) Score 1-4) Previous Rx's Medication Instructions Recorded rosuvastatin 10 mg tablet 10 mg PO DAILY Cholesterol 90 days 10/11/23 #90 tabs gabapentin 300 mg capsule 300 mg PO HS Pain #30 caps 10/30/23 pantoprazole 40 mg tablet,delayed 40 mg PO BID GERD 90 days #180 tabs 11/06/23 release lisinopril 10 mg tablet 10 mg PO DAILY BLOOD PRESSURE 90 01/07/24 days #90 tabs meloxicam 7.5 mg tablet 7.5 mg PO DAILY pain #30 tabs 01/17/24 hydrocodone 5 mg-acetaminophen 325 1 tab PO Q8H PRN Pain #60 tabs 01/18/24 mg tablet Allergies Allergy/AdvReac Type Severity Reaction Status Date / Time No Known Allergies Allergy Verified 01/15/24 16:02 [facility] Disclaimer: The information contained in this section may have been updated after the patient was seen, as this information can be updated by other users. Medical History Abnormal Holter monitor finding Abnormal result of cardiovascular function study Accidental fall Anemia Anemia Balance problem Cardiac pacemaker in situ Cerebrovascular accident Cerebrovascular accident Closed head injury Colonoscopy planned Dysphagia Elevated right ventricular end-diastolic pressure Facial contusion Fall GERD (gastroesophageal reflux disease) History of hip fracture History of pilonidal cyst HLD (hyperlipidemia) HTN (hypertension) Nodule of right lung Normal esophagogastroduodenoscopy (EGD) Pacemaker SSS (sick sinus syndrome) Stroke Surgical History H/O arthroscopy of shoulder H/O bladder repair surgery H/O carpal tunnel repair History of appendectomy History of lumbar surgery Hx of cholecystectomy Hx of hysterectomy, total Total knee replacement status Family History Other Cancer Heart attack Hypertension Stroke Social History Smoking Status: Never smoker alcohol intake: never substance use type: denies use current occupational status: retired Travel in the last 8 weeks: None household members: none housing: house current occupational exposures/hazards: No ROS Obtained: Yes All systems reviewed & no additional complaints except as documented Physical Exam General General appearance: alert and in no apparent distress Head Head exam: atraumatic, normocephalic and normal inspection Eye Eye exam: Present normal appearance, PERRL and EOMI ENT ENT exam: Present normal exam, normal oropharynx, mucous membranes moist, TM's normal bilaterally and normal external ear exam Neck Neck exam: Present normal inspection, full ROM and trachea midline; Absent meningismus or lymphadenopathy Chest Chest inspection: Present normal inspection and symmetric chest wall rise; Absent tenderness Respiratory Respiratory exam: Present normal lung sounds bilaterally; Absent respiratory distress Cardiovascular Cardiovascular exam: Present regular rate and normal rhythm; Absent JVD Abdominal Exam Abdominal exam: Present soft and normal bowel sounds; Absent distention, tenderness or guarding Extremities Exam Extremities exam: Present normal inspection and normal capillary refill; Absent calf tenderness Back Exam Back exam: Present normal inspection and tenderness (Tenderness to palpation of the C, T, L-spine. Tenderness palpation of the right hip and left shoulder.) Neurological Exam Neurological exam: Present alert and oriented X3 Psychiatric Psychiatric exam: Present normal affect and normal mood Skin Skin exam: Present warm, dry, intact and normal color Lymphatic Lymphatic Findings: no adenopathy Medical Decision Making Kyler Inquiry Pt receiving controlled substance: No Vital Signs: 01/18/24 17:42 01/18/24 19:30 01/18/24 20:00 Temperature 98.2 F Temperature Source Oral Pulse Rate 60 67 Pulse Rate [Left Radial] 78 Respiratory Rate 18 Blood Pressure 164/90 H 143/83 H Blood Pressure [Right Arm] 169/75 H Blood Pressure Mean [Right Arm] 106 Blood Pressure Source Blood Pressure Source [Right Arm] Automatic Cuff Blood Pressure Position Blood Pressure Position [Right Arm] Sitting 02 Sat by Pulse Oximetry 95 97 96 Oxygen Delivery Method Room Air 01/18/24 22:00 Temperature 98.1 F Temperature Source Oral Pulse Rate 70 Pulse Rate [Left Radial] Respiratory Rate 18 Blood Pressure 148/89 H Blood Pressure [Right Arm] Blood Pressure Mean [Right Arm] Blood Pressure Source Automatic Cuff Blood Pressure Source [Right Arm] Blood Pressure Position Sitting Blood Pressure Position [Right Arm] 02 Sat by Pulse Oximetry Oxygen Delivery Method Room Air Lab Data Lab Results 01/18/24 20:12: WBC 5.8, RBC 3.77 L, Hgb 12.8, Hct 39.2, MCV 103.9 H, MCH 33.8 H , MCHC 32.5, RDW 13.6, Plt Count 205, MPV 8.2, Neut % (Auto) 46.9, Lymph % (Auto) 45.6, [place] % (Auto) 5.9, Eos % (Auto) 1.4, Baso % (Auto) 0.3, Neut # (Auto) 2.7, Lymph # (Auto) 2.6, [place] # (Auto) 0.3, Eos # (Auto) 0.1, Baso # (Auto) 0.0, Sodium 133 L, Potassium 4.2, Chloride 101, Carbon Dioxide 31 H, Anion Gap 5.2, BUN 11, Creatinine 0.70, Estimated Creat Clear 42, Estimated GFR 79, Est GFR ( Amer) 96, Glucose 104 H, Calcium 9.5, Total Bilirubin 0.6, AST 39 H, ALT 25, Alkaline Phosphatase 73, Total Protein 6.9, Albumin 4.3, Globulin 2.6, Albumin/Globulin Ratio 1.7 01/18/24 20:12 01/18/24 20:12 Orders (Tests/Meds): ED MEDICATIONS Discontinued Medications Generic Name Dose Route Start Last Admin Trade Name Anita PRN Reason Stop Dose Admin Acetaminophen 1,000 mg 01/18/24 18:46 01/18/24 19:12 Acetaminophen 500mg Tab PO 01/18/24 18:47 1,000 mg ONCE ONE Administration Morphine Sulfate 4 mg 01/18/24 21:44 01/18/24 21:49 Morphine 4mg/Ml Syringe IV 01/18/24 21:45 4 mg ONCE ONE Administration Oxycodone HCl 10 mg 01/18/24 18:46 01/18/24 19:12 Oxycodone 5mg Immediate Release Tablet PO 01/18/24 18:47 10 mg ONCE ONE Administration ORDERS Category Date Time Status CT abdomen pelvis wo con Stat Cat Scan 01/18/24 18:[address] cervical spine wo con Stat Cat Scan 01/18/24 18:[address] chest wo con Stat Cat Scan 01/18/24 18:[address] head/brain wo con Stat Cat Scan 01/18/24 18:[address] lumbar spine wo con Stat Cat Scan 01/18/24 18:[address] thoracic spine wo con Stat Cat Scan 01/18/24 18:43 Completed Hip XR right minimum 2 views [XR hip RT 2-3V w/pelvis] Exams 01/18/24 18:43 Completed Stat Shoulder XR left minimum 2 views [XR shoulder LT min 2V Exams 01/18/24 18:43 Completed ] Stat XR femur RT 2V Stat Exams 01/18/24 18:43 Completed CBC w/Auto Diff [Complete Blood Count Auto Diff] Stat Lab 01/18/24 20:12 Completed CMP [Comprehensive Metabolic Panel] Stat Lab 01/18/24 20:12 Completed Medical Decision Narrative: Consider multiple causes of patient's presentation including that her pain from her fall 5 days ago may have worsened in the left shoulder due to a fracture or dislocation so obtained x-rays of the left shoulder which I independently reviewed and interpreted and showed no fracture or dislocation. CTs showed no intracranial hemorrhage, spine fractures, or other causes of her persistent pain. Discussed with patient that at this time she seems to have only degenerative changes to explain her pain but nothing acute requiring emergent hospitalization or intervention at this time. Advised her to follow-up with orthopedics and discharged while stable with pain at a tolerable level after receiving morphine and tolerating it well in the ED. Critical Care Critical Care Time Critical Care Time: No
== END 2024-01-18 22:01 | disposition home or self-care (01) ==
PROVIDERS: Emergency Provider Emergency Medicine; PCP Family Medicine
DX: M25.512 Pain in left shoulder (principal); M25.551 Pain in right hip; M54.2 Cervicalgia; M54.6 Pain in thoracic spine; E78.5 Hyperlipidemia, unspecified; I10 Essential (primary) hypertension; I49.5 Sick sinus syndrome; Z86.73 Personal history of transient ischemic attack (TIA), and cerebral infarction without residual deficits; W01.198A Fall on same level from slipping, tripping and stumbling with subsequent striking against other object, initial encounter
CPT/HCPCS: 70450; 71250; 72125; 72128; 72131; 73030; 73502; 73552; 74176; 80053; 85025; 96374; 99285

== ENCOUNTER 2024-02-23 17:48 | Emergency (ER) | payer MEDICARE, SELFPAY ==
[2024-02-23 17:50] VITALS: BP 154/76; PULSE 78; RESP 15; TEMP 36.5; O2SAT 97; BMI 29.7
--- NOTE | 2024-02-23 17:56 | PC.NURSE ---
in room talking with patient at this time.
--- NOTE | 2024-02-23 18:02 | XR_ITS ---
PROCEDURE INFORMATION: Exam: XR Right Hip Exam date and time: 02/23/2024 6:21 PM Age: 88 years old Clinical indication: Injury or trauma; Fall; Blunt trauma (contusions or hematomas); Right; Hip; Prior surgery; Surgery date: 6+ months; Surgery type: Replacement; Additional info: Fall, R hip pain. Ambulatorry TECHNIQUE: Imaging protocol: Radiologic exam of the right hip. Views: 2 or 3 views hip with pelvis when performed. Total images: 3 COMPARISON: CR XR HIP RT 2-3V W/PELVIS 01/18/2024 7:03 PM FINDINGS: Bones/joints: Status post right total hip replacement without evidence of complications. No evidence of acute dislocation. No evidence of acute fracture. Soft tissues: No soft tissue swelling. IMPRESSION: 1. Status post right total hip replacement without evidence of complications. 2. No evidence of acute dislocation. 3. No evidence of acute fracture.
--- NOTE | 2024-02-23 18:02 | CT_ITS ---
PROCEDURE INFORMATION: Exam: CT Chest Without Contrast; Diagnostic Exam date and time: 02/23/2024 6:23 PM Age: 88 years old Clinical indication: Injury or trauma; Fall; Additional info: Fall, posterior chest wall pain. Right side TECHNIQUE: Imaging protocol: Diagnostic computed tomography of the chest without contrast. Total images: 383 Radiation optimization: All CT scans at this facility use at least one of these dose optimization techniques: automated exposure control; mA and/or kV adjustment per patient size (includes targeted exams where dose is matched to clinical indication); or iterative reconstruction. COMPARISON: CT CHEST WO CON 01/18/2024 7:02 PM FINDINGS: Limitations: Examination limited by the lack of IV contrast. Tubes, catheters and devices: A pacemaker device is present, its leads in appropriate position. Lungs: Unremarkable. No consolidation. No masses. Pleural spaces: No focal pneumonia or pneumothorax. No pleural effusions. Heart: Heart demonstrates mild diffuse enlargement. Lymph nodes: No mediastinal or axillary lymphadenopathy. Vasculature: Unremarkable. No aortic aneurysm. Diaphragm: There is nonspecific elevation of the right hemidiaphragm. Large hiatal hernia/partial intrathoracic stomach. Gallbladder and bile ducts: Status post cholecystectomy. Bones/joints: Postoperative changes of the right shoulder. No evidence of acute fracture. The thoracic spine demonstrates mild degenerative changes at multiple levels. Soft tissues: Unremarkable. IMPRESSION: 1. Mild cardiomegaly. 2. No focal pneumonia or pneumothorax. 3. No pleural effusions. 4. No evidence of acute fracture. 5. Large hiatal hernia/partial intrathoracic stomach. 6. No mediastinal or axillary lymphadenopathy.
--- NOTE | 2024-02-23 18:03 | CT_ITS ---
PROCEDURE INFORMATION: Exam: CT Head Without Contrast Exam date and time: 02/23/2024 6:19 PM Age: 88 years old Clinical indication: Injury or trauma; Fall; Additional info: Fall, head trauma TECHNIQUE: Imaging protocol: Computed tomography of the head without contrast. Radiation optimization: All CT scans at this facility use at least one of these dose optimization techniques: automated exposure control; mA and/or kV adjustment per patient size (includes targeted exams where dose is matched to clinical indication); or iterative reconstruction. COMPARISON: CT HEAD/BRAIN WO CON 01/18/2024 6:52 PM FINDINGS: Brain: No intracranial hemorrhage. Generalized atrophic changes of the ventricles and subarachnoid spaces. Extensive chronic small-vessel ischemic changes noted. No mass, mass effect or midline shift. Intracranial atherosclerotic changes are noted. Cerebral ventricles: See Brain finding. Paranasal sinuses: Visualized sinuses are unremarkable. No fluid levels. Mastoid air cells: Visualized mastoid air cells are well aerated. Bones/joints: Unremarkable. No acute fracture. Soft tissues: Unremarkable. IMPRESSION: Stable noncontrast CT brain with chronic changes. No acute intracranial abnormality.
--- NOTE | 2024-02-23 18:04 | CT_ITS ---
PROCEDURE INFORMATION: Exam: CT Cervical Spine Without Contrast Exam date and time: 02/23/2024 6:21 PM Age: 88 years old Clinical indication: Injury or trauma; Fall; Additional info: Fall, midline neck pain after neck injection TECHNIQUE: Imaging protocol: Computed tomography of the cervical spine without contrast. Total images: 243 Radiation optimization: All CT scans at this facility use at least one of these dose optimization techniques: automated exposure control; mA and/or kV adjustment per patient size (includes targeted exams where dose is matched to clinical indication); or iterative reconstruction. COMPARISON: CT CERVICAL SPINE WO CON 01/18/2024 6:58 PM FINDINGS: Bones/joints: The cervical spine demonstrates moderate degenerative changes at multiple levels. There is a nonspecific reversal of the normal cervical lordosis. Disc space narrowing and bilateral neural foraminal narrowing noted at C3-C4, C4-C5, C5-C6 and C6-C7. 2 mm anterolisthesis of C7 on T1. Posterior ligamentous calcifications. Lungs: Lung apices are normal. Vasculature: Moderate atherosclerotic disease. Soft tissues: Unremarkable. IMPRESSION: 1. The cervical spine demonstrates moderate degenerative changes at multiple levels. 2. There is a nonspecific reversal of the normal cervical lordosis. 3. 2 mm anterolisthesis of C7 on T1.
[2024-02-23 18:05] VITALS: BP 154/76; PULSE 65; O2SAT 96
--- NOTE | 2024-02-23 18:07 | XR_ITS ---
PROCEDURE INFORMATION: Exam: XR Left Elbow Exam date and time: 02/23/2024 6:21 PM Age: 88 years old Clinical indication: Injury or trauma; Fall; Blunt trauma (contusions or hematomas); Elbow; Left; Additional info: Fall, pain TECHNIQUE: Imaging protocol: Radiologic exam of the left elbow. Views: 3 or more views. Total images: 3 COMPARISON: CR XR ELBOW LT MIN 3V 07/27/2020 7:31 PM FINDINGS: Bones/joints: No evidence of acute fracture. No evidence of acute dislocation. Olecranon spur is present. Soft tissues: Soft tissue swelling is noted. IMPRESSION: 1. Soft tissue swelling is noted. 2. No evidence of acute fracture. 3. No evidence of acute dislocation.
--- NOTE | 2024-02-23 18:40 | ED_ITS ---
Discharge Plan Disposition Patient Disposition: Home, Self-Care Prescriptions Prescriptions: No Action acetaminophen [Tylenol Extra Strength] 500 mg tablet 500 mg PO Q6H PRN (Reason: Mild Pain (Scale Score 1-4)) rosuvastatin 10 mg tablet 10 mg PO DAILY 90 Days Qty: 90 0RF lisinopril 10 mg tablet 10 mg PO DAILY 90 Days Qty: 90 0RF meloxicam 7.5 mg tablet 7.5 mg PO DAILY Qty: 30 0RF hydrocodone-acetaminophen 5-325 mg tablet 1 tab PO Q8H PRN (Reason: Pain) Qty: 60 0RF gabapentin 300 mg capsule 300 mg PO HS Qty: 30 2RF pantoprazole 40 mg tablet,delayed release (DR/EC) 40 mg PO BID 90 Days Qty: 180 0RF Referrals Follow up/Referrals: Hayder Bravo MD [Primary Care Provider] - See instructions Activity Restrictions/Add. Instructions Additional Instructions/Restrictions: Call your family doctor to establish care for this visit to the emergency department and schedule follow-up within 48 hours to ensure improvement. Take Tylenol 1000 mg every 6 hours (4 times daily) and ibuprofen 400 mg every 6 hours (4 times daily) as needed with food and water to prevent GI upset and kidney damage. Clinical Impressions Clinical Impression: Left elbow pain, Fall, Chronic left shoulder pain, Acute neck pain, Acute chest wall pain, Closed head injury Discharge ED Provider: Raphael Whitt General Adult HPI General Chief complaint: Fall Stated complaint: AO 02/23/24 0930 Injury right ribs leftelbow Time Seen by Provider: 02/23/24 17:50 Mode of Arrival: Wheelchair Source of Information: Patient and Relative Limitations: No Limitations Description of Symptoms (Recalled from ER Triage Doc. by RN): pt presents to ED for fall and pain. pt reports approx 0930 this am she had a fall. pts family called 911 for lift assist. pt did refuse to come to ED at that time. pt reports pain has increased through out the day. pt reports pain in left elbow, right and left wrist, right ribs. pt reports no LOC, no blood thinners. pt states that she tripped over a stool that was in her house. History of Present Illness HPI narrative: 88-year-old female history of previous intraventricular hemorrhage with left- sided deficits not currently on anticoagulation, hypertension, hyperlipidemia, deconditioning with falls presenting with fall. Patient states she was transferring into her wheelchair when she fell backward and landed between her wheelchair and potted plant, hit her back on the wall and her head on the windowsill. Did not lose consciousness. Was unable to get up, call 911 for lift assist. Had family bring her to the emergency department for further evaluation. Has ambulated since the event without issue. States that she is having some pain in her neck, no headache. No new deficits. She has no acute shoulder pain, but does have chronic shoulder pain. She landed on her left elbow and scraped it. Having pain posteriorly and left elbow. No neurovascular or range of motion deficits. Patient states she is also having mild pain in her right hip posterior laterally, as well as posterolateral right-sided chest wall pain. No difficulty breathing, nausea or vomiting, or any other concerns. Please note that above description of symptoms, in this electronic medical record under categorization of recalled from ER triage doctor by RN are reflective of an initial nursing assessment, however, is not reflective of my full history and physical exam that was personally taken and clarified. Consequentially, this preceding description of symptoms, which may include the patient's categorized chief complaint in the EMR, do not reflect my personal clinical impression, and the ultimate description of history of present illness and patient stated complaints should be deferred to this section of the note. Unless stated otherwise or congruent with this section of the note, additional signs, symptoms, or incongruence should be interpreted as inaccurate with my clinical impression. Related Data Home Medications Medication Instructions Recorded Confirmed acetaminophen 500 mg tablet 500 mg PO Q6H PRN Mild Pain (Scale 06/14/21 02/12/24 (Tylenol Extra Strength) Score 1-4) Previous Rx's Medication Instructions Recorded rosuvastatin 10 mg tablet 10 mg PO DAILY Cholesterol 90 days 10/11/23 #90 tabs lisinopril 10 mg tablet 10 mg PO DAILY BLOOD PRESSURE 90 01/07/24 days #90 tabs meloxicam 7.5 mg tablet 7.5 mg PO DAILY pain #30 tabs 01/17/24 hydrocodone 5 mg-acetaminophen 325 1 tab PO Q8H PRN Pain #60 tabs 01/18/24 mg tablet gabapentin 300 mg capsule 300 mg PO HS Pain #30 caps 01/26/24 pantoprazole 40 mg tablet,delayed 40 mg PO BID GERD 90 days #180 tabs 02/04/24 release Allergies Allergy/AdvReac Type Severity Reaction Status Date / Time No Known Allergies Allergy Verified 02/12/24 10:11 [facility] Disclaimer: The information contained in this section may have been updated after the patient was seen, as this information can be updated by other users. Medical History History of pilonidal cyst History of hip fracture Closed head injury Nodule of right lung Fall Stroke Normal esophagogastroduodenoscopy (EGD) Colonoscopy planned Pacemaker HTN (hypertension) GERD (gastroesophageal reflux disease) Anemia Abnormal result of cardiovascular function study Anemia Dysphagia Accidental fall Cardiac pacemaker in situ Abnormal Holter monitor finding Elevated right ventricular end-diastolic pressure Balance problem SSS (sick sinus syndrome) HLD (hyperlipidemia) Cerebrovascular accident Cerebrovascular accident Facial contusion Surgical History History of lumbar surgery H/O bladder repair surgery H/O carpal tunnel repair Hx of cholecystectomy H/O arthroscopy of shoulder History of appendectomy Hx of hysterectomy, total Total knee replacement status Family History Other Cancer Heart attack Hypertension Stroke Social History Smoking Status: Never smoker alcohol intake: never substance use type: denies use current occupational status: retired Travel in the last 8 weeks: None household members: none housing: house current occupational exposures/hazards: No ROS Obtained: Yes All systems reviewed & no additional complaints except as do cumented Physical Exam General General appearance: alert and in no apparent distress Head Head exam: atraumatic and normocephalic Eye Eye exam: Present normal appearance, PERRL and EOMI ENT ENT exam: Present mucous membranes moist Neck Neck exam: Present normal inspection, full ROM, trachea midline and tenderness (Bilaterally, minimal midline neck tenderness. No outward signs of injury) Respiratory Respiratory exam: Present normal lung sounds bilaterally; Absent respiratory distress, wheezes, stridor, accessory muscle use or prolonged expiratory phase Cardiovascular Cardiovascular exam: Present regular rate and normal rhythm Abdominal Exam Abdominal exam: Present soft; Absent distention, tenderness, guarding, rebound or rigidity Extremities Exam Extremities exam: Present tenderness (Posterior lateral right hip, no inguinal fold tenderness. Patient also having left elbow tenderness posterior laterally without outward signs of deformity.); Absent edema Neurological Exam Neurological exam: Present alert, oriented X3, normal gait, motor sensory deficit and other (Baseline neurologic status with left-sided deficits); Absent CN II-XII intact Skin Skin exam: Present warm and dry; Absent diaphoresis or erythema Medical Decision Making Medical Records Medical records reviewed: Yes I reviewed the patient's medical records. K[place] Inquiry Pt receiving controlled substance: No Kyler was queried for this patient: No Vital Signs: 02/23/24 17:50 02/23/24 18:05 Temperature 97.7 F Temperature Source Oral Pulse Rate 65 Pulse Rate [Left Radial] 78 Respiratory Rate 15 Blood Pressure 154/76 H Blood Pressure [Right Arm] 154/76 H Blood Pressure Mean [Right Arm] 102 02 Sat by Pulse Oximetry 97 96 Oxygen Delivery Method Room Air Orders (Tests/Meds): ED MEDICATIONS Discontinued Medications Generic Name Dose Route Start Last Admin Trade Name Freq PRN Reason Stop Dose Admin Acetaminophen 1,000 mg 02/23/24 18:07 02/23/24 18:41 Acetaminophen 500mg Tab PO 02/23/24 18:08 1,000 mg ONCE ONE Administration Ibuprofen 600 mg 02/23/24 18:07 02/23/24 18:42 Ibuprofen 600 Mg Tablet PO 02/23/24 18:08 600 mg ONCE ONE Administration ORDERS Category Date Time Status CT cervical spine wo con Stat Cat Scan 02/23/24 18:[address] chest wo con Stat Cat Scan 02/23/24 18:[address] head/brain wo con Stat Cat Scan 02/23/24 18:03 Completed Elbow XR left mininum 3 views [XR elbow LT min 3V] Stat Exams 02/23/24 18:07 Completed Hip XR right minimum 2 views [XR hip RT 2-3V w/pelvis] Exams 02/23/24 18:02 Completed Stat Medical Decision Narrative: 88-year-old female history of previous intraventricular hemorrhage with left- sided deficits not currently on anticoagulation, hypertension, hyperlipidemia, deconditioning with falls presenting with fall. Patient states she was transferring into her wheelchair when she fell backward and landed between her wheelchair and potted plant, hit her back on the wall and her head on the windowsill. Did not lose consciousness. Was unable to get up, call 911 for lift assist. Had family bring her to the emergency department for further evaluation. Has ambulated since the event without issue. States that she is having some pain in her neck, no headache. No new deficits. She has no acute shoulder pain, but does have chronic shoulder pain. She landed on her left elbow and scraped it. Having pain posteriorly and left elbow. No neurovascular or range of motion deficits. Patient states she is also having mild pain in her right hip posterior laterally, as well as posterolateral right-sided chest wall pain. No difficulty breathing, nausea or vomiting, or any other concerns. History was obtained via conversation with patient and family friend. On arrival, patient hemodynamically stable, alert, oriented x4, appropriate, GCS 15, moving all extremities spontaneously, pupils equal and reactive to light. Full physical exam performed and significant for well-appearing 88-year-old female at neurologic baseline. Cardiopulmonary exam within normal limits. Patient does have chronic left shoulder pain, no acute pain, per her. Left upper extremity tenderness and 1 cm skin tear that is not amenable to closure o verlying lateral epicondyle. It is hemostatic. Range of motion and neurovascularly intact. Patient has tenderness right lateral and posterior lateral chest wall with no obvious deformity or outward signs of injury. Posterior lateral right hip pain/trochanter pain, no inguinal fold pain. Overall very well-appearing. Differential includes intracranial bleed, cervical spine injury, rib fracture, pneumothorax, pulmonary contusion, hip fracture, elbow fracture, minor muscular injury, among others. Patient was given Tylenol Motrin p.o. for symptomatic management and correction of underlying abnormalities. Workup independently interpreted and significant for no fracture or bony abnormality of imaged left arm, right hip, or pelvis. Patient has severe osteoporosis. No intracranial bleed, skull fracture, or any other abnormality on CT head. CT C-spine without acute bony abnormality. CT chest without acute rib fracture, pulmonary contusion, pneumothorax, or underlying pathology. See radiology read for full review of final results. Because patient at baseline without signs or symptoms of clinical decompensation, deemed appropriate for discharge. Results were relayed to patient who voiced understanding and were agreeable to outpatient management and follow up. I discussed my clinical impression with patient and answered all questions. At this time, the evidence for any other entities in the differential is insufficient to warrant any further testing or ED observation. This was explained as well. Advisory was given that persistent or worsening symptoms require further evaluation. I confirmed the understanding of this discussion. Critical Care Critical Care Time Critical Care Time: No
[2024-02-23] MEDS: ACETAMINOPHEN 500MG TAB 1000 MG PO (18:41)
[2024-02-23] MEDS: IBUPROFEN 600 MG TABLET PO (18:42)
[2024-02-23 18:59] VITALS: BP 154/76; PULSE 69; RESP 15; TEMP 36.7
== END 2024-02-23 19:10 | disposition home or self-care (01) ==
PROVIDERS: Emergency Provider Emergency Medicine; PCP Family Medicine
DX: S09.8XXA Other specified injuries of head, initial encounter (principal); R07.89 Other chest pain; M54.2 Cervicalgia; M25.522 Pain in left elbow; M25.512 Pain in left shoulder; I10 Essential (primary) hypertension; E78.5 Hyperlipidemia, unspecified; K21.9 Gastro-esophageal reflux disease without esophagitis; Z86.73 Personal history of transient ischemic attack (TIA), and cerebral infarction without residual deficits; Z95.0 Presence of cardiac pacemaker; W19.XXXA Unspecified fall, initial encounter
CPT/HCPCS: 70450; 71250; 72125; 73080; 73502; 99285

== ENCOUNTER 2024-05-03 15:59 | Emergency (ER) | payer MEDICARE, SELFPAY ==
[2024-05-03 16:00] VITALS: BP 172/85; PULSE 68; RESP 18; TEMP 36.9; O2SAT 96; BMI 29.7
[2024-05-03 16:12] VITALS: BP 172/85; PULSE 67; O2SAT 96
--- NOTE | 2024-05-03 16:27 | ED_ITS ---
Discharge Plan Disposition Patient Disposition: Home, Self-Care Prescriptions Prescriptions: New furosemide 20 mg tablet 20 mg PO DAILY Qty: 30 1RF No Action acetaminophen [Tylenol Extra Strength] 500 mg tablet 500 mg PO Q6H PRN (Reason: Mild Pain (Scale Score 1-4)) meloxicam 7.5 mg tablet 7.5 mg PO DAILY Qty: 30 0RF pantoprazole 40 mg tablet,delayed release (DR/EC) 40 mg PO BID 90 Days Qty: 180 0RF lisinopril 10 mg tablet 10 mg PO DAILY 90 Days Qty: 90 0RF rosuvastatin 10 mg tablet 10 mg PO DAILY 90 Days Qty: 90 0RF hydrocodone-acetaminophen 5-325 mg tablet 1 tab PO Q8H PRN (Reason: Pain) Qty: 60 0RF gabapentin 300 mg capsule 300 mg PO HS Qty: 30 2RF Referrals Follow up/Referrals: Hayder Bravo MD [Primary Care Provider] - See instructions Activity Restrictions/Add. Instructions Additional Instructions/Restrictions: Call your family doctor to establish care for this visit to the emergency department and schedule follow-up within 48 hours to ensure improvement. If you have any worsening of your condition or any other concerning signs or symptoms, return to the emergency department or your primary care doctor for further evaluation. Talk to family doctor about labs every couple months to monitor your potassium. Also pick up driver a pair of compression stockings that go from your toes up to the mid thigh and place each morning shortly after waking up. Clinical Impressions Clinical Impression: Dependent edema Discharge ED Provider: Raphael Whitt General Adult HPI General Chief complaint: Extremity Problem,Nontraumatic Stated complaint: Feet and legs swelling and leaking fluid Time Seen by Provider: 05/03/24 16:03 Mode of Arrival: Wheelchair Source of Information: Patient and Relative Limitations: No Limitations Description of Symptoms (Recalled from ER Triage Doc. by RN): edema and weeping to legs History of Present Illness HPI narrative: Please note that above description of symptoms, in this electronic medical record under categorization of recalled from ER triage doctor by RN are reflective of an initial nursing assessment, however, is not reflective of my full history and physical exam that was personally taken and clarified. Consequentially, this preceding description of symptoms, which may include the patient's categorized chief complaint in the EMR, do not reflect my personal clinical impression, and the ultimate description of history of present illness and patient stated complaints should be deferred to this section of the note. Unless stated otherwise or congruent with this section of the note, additional signs, symptoms, or incongruence should be interpreted as inaccurate with my clinical impression. Related Data Home Medications Medication Instructions Recorded Confirmed acetaminophen 500 mg tablet 500 mg PO Q6H PRN Mild Pain (Scale 21 02/12/24 (Tylenol Extra Strength) Score 1-4) Previous Rx's Medication Instructions Recorded meloxicam 7.5 mg tablet 7.5 mg PO DAILY pain #30 tabs 01/17/24 pantoprazole 40 mg tablet,delayed 40 mg PO BID GERD 90 days #180 tabs 02/04/24 release lisinopril 10 mg tablet 10 mg PO DAILY BLOOD PRESSURE 90 04/02/24 days #90 tabs rosuvastatin 10 mg tablet 10 mg PO DAILY Cholesterol 90 days 04/02/24 #90 tabs hydrocodone 5 mg-acetaminophen 325 1 tab PO Q8H PRN Pain #60 tabs 04/25/24 mg tablet gabapentin 300 mg capsule 300 mg PO HS Pain #30 caps 04/29/24 furosemide 20 mg tablet 20 mg PO DAILY #30 tabs 05/03/24 Allergies Allergy/AdvReac Type Severity Reaction Status Date / Time No Known Allergies Allergy Verified 02/12/24 10:11 [facility] Disclaimer: The information contained in this section may have been updated after the patient was seen, as this information can be updated by other users. Medical History History of pilonidal cyst History of hip fracture Closed head injury Nodule of right lung Fall Stroke Normal esophagogastroduodenoscopy (EGD) Colonoscopy planned Pacemaker HTN (hypertension) GERD (gastroesophageal reflux disease) Anemia Abnormal result of cardiovascular function study Anemia Dysphagia Accidental fall Cardiac pacemaker in situ Abnormal Holter monitor finding Elevated right ventricular end-diastolic pressure Balance problem SSS (sick sinus syndrome) HLD (hyperlipidemia) Cerebrovascular accident Cerebrovascular accident Facial contusion Surgical History History of lumbar surgery H/O bladder repair surgery H/O carpal tunnel repair Hx of cholecystectomy H/O arthroscopy of shoulder History of appendectomy Hx of hysterectomy, total Total knee replacement status Family History Other Cancer Heart attack Hypertension Stroke Social History Smoking Status: Never smoker alcohol intake: never substance use type: denies use current occupational status: retired Travel in the last 8 weeks: None household members: none housing: house current occupational exposures/hazards: No ROS Obtained: Yes All systems reviewed & no additional complaints except as documented Physical Exam General General appearance: alert and in no apparent distress Head Head exam: atraumatic and normocephalic Eye Eye exam: Present normal appearance, PERRL and EOMI ENT ENT exam: Present mucous membranes moist Neck Neck exam: Present normal inspection, full ROM and trachea midline Respiratory Respiratory exam: Absent respiratory distress, wheezes, stridor, accessory muscle use or prolonged expiratory phase Cardiovascular Cardiovascular exam: Present normal rhythm Abdominal Exam Abdominal exam: Present soft; Absent distention, tenderness, guarding, rebound or rigidity Extremities Exam Extremities exam: Present edema (BL LE 2+ pitting, weeping LLE. no redness) Neurological Exam Neurological exam: Present alert, oriented X3, CN II-XII intact and normal gait; Absent motor sensory deficit Skin Skin exam: Present warm and dry; Absent diaphoresis or erythema Medical Decision Making Medical Records Medical records reviewed: Yes I reviewed the patient's medical records. Kyler Inquiry Pt receiving controlled substance: No Kyler was queried for this patient: No Vital Signs: 05/03/24 16:00 05/03/24 16:12 05/03/24 16:30 Temperature 98.5 F Temperature Source Oral Pulse Rate 67 64 Pulse Rate [Right] 68 Respiratory Rate 18 Blood Pressure 172/85 H 138/87 Blood Pressure [Right Arm] 172/85 H Blood Pressure Mean [Right Arm] 114 02 Sat by Pulse Oximetry 96 96 97 Oxygen Delivery Method Room Air Room Air Lab Data Lab Results 05/03/24 16:40: Sodium 135 L, Potassium 5.1, Chloride 103, Carbon Dioxide 24, Anion Gap 13.1, BUN 16, Creatinine 0.60, Estimated Creat Clear 42, Estimated GFR 94, Est GFR ( Amer) 114, Glucose 94, Calcium 9.8, Total Bilirubin 1.1, A ST 52 H, ALT 24, Alkaline Phosphatase 38, NT-Pro-B Natriuret Pep 131, Total Protein 7.6, Albumin 4.5, Globulin 3.1, Albumin/Globulin Ratio 1.5 05/03/24 17:05: WBC 6.3, RBC 3.60 L, Hgb 12.3, Hct 38.0, MCV 105.4 H, MCH 34.0 H , MCHC 32.3, RDW 14.2, Plt Count 204, MPV 8.1, Neut % (Auto) 59.5, Lymph % (Auto) 33.8, Cowley % (Auto) 5.4, Eos % (Auto) 0.7, Baso % (Auto) 0.5, Neut # (Auto) 3.7, Lymph # (Auto) 2.1, Cowley # (Auto) 0.3, Eos # (Auto) 0.0, Baso # (Auto) 0.0 05/03/24 17:05 05/03/24 16:40 Orders (Tests/Meds): ED MEDICATIONS Generic Name Dose Route Start Last Admin Trade Name Freq PRN Reason Stop Dose Admin Furosemide 20 mg 05/03/24 17:27 05/03/24 17:36 Furosemide 40 Mg Tablet PO 05/03/24 17:28 Not Given ONCE ONE ORDERS Category Date Time Status CBC w/Auto Diff [Complete Blood Count Auto Diff] Stat Lab 05/03/24 17:05 Completed CMP [Comprehensive Metabolic Panel] Stat Lab 05/03/24 16:40 Completed NT Pro Brain Natriuretic Pep. Stat Lab 05/03/24 16:40 Completed Medical Decision Narrative: 89-year-old female history of retention, bradycardia and sick sinus syndrome with pacemaker in place, hyperlipidemia, presenting with lower extremity edema and weeping. Patient states that she has had lower extremity swelling for months and years. Noticed that 2 nights ago it started weeping and the bed was wet in her feet, realized it was her leg. Denies any trauma to the area, redness, fevers, chills, chest pain, shortness of breath, PND, orthopnea, or any other concerns. Never been told that she has heart failure. Called her family doctor to see if she needed to be started on a diuretic, family doctor said she should probably come to the emergency department. No DVT or PE risk factors. History was obtained via conversation with patient and family. On arrival, patient hemodynamically stable, alert, oriented x4, appropriate, GCS 15, moving all extremities spontaneously, pupils equal and reactive to light. Full physical exam performed and significant for very well-appearing 89-year-old female neurologic baseline. No acute distress. Bilateral lower extremity 2+ pitting edema with weeping on left lower extremity from small 0.25 cm skin lesion. No more swollen than the right, minimal tenderness, pulses are equal and symmetric. Differential includes dependent edema, CHF, among others. Patient was offered Lasix p.o., declined at this time for symptomatic management and correction of underlying abnormalities. Workup independently interpreted and significant for nonactionable CBC, normal chemistry, BNP negative. Given patient presentation, workup, history, this most likely represents dependent edema. Because patient at baseline without signs or symptoms of clinical decompensation, deemed appropriate for discharge. Results were relayed to patient who voiced understanding and were agreeable to outpatient management and follow up. I discussed my clinical impression with patient and answered all questions. At this time, the evidence for any other entities in the differential is insufficient to warrant any further testing or ED observation. This was explained as well. Advisory was given that persistent or worsening symptoms require further evaluation. I confirmed the understanding of this discussion. [employer] Rater disclaimer Much of this encounter note is an electronic insolvency consultant spoken language to printed text. Electronic insolvency consultant of the spoken language may permit errors. Although I have reviewed the note, some errors may still exist. Critical Care Critical Care Time Critical Care Time: No
[2024-05-03 16:30] VITALS: BP 138/87; PULSE 64; O2SAT 97
[2024-05-03 17:00] LABS: Chloride 103 mmol/L (98-107)
[2024-05-03 17:01] LABS: Potassium 5.1 mmoL/L (3.5-5.1); Sodium 135 mmol/L (136-145)
[2024-05-03 17:03] LABS: Alanine Aminotransferase 24 U/L (12-78); Aspartate Amino Transferase 52 U/L (14-36); Blood Urea Nitrogen 16 mg/dl (7-17); Creatinine Clearance Estimated 42 mL/min (50-200); Estimated Glomerular Filt Rate 94 ml/min (>60); GFR (African American) 114 ML/MIN (>60)
[2024-05-03 17:04] LABS: Albumin Level 4.5 g/dl (3.5-5.0); Albumin/Globulin Ratio 1.5 (1.1-1.8); Alkaline Phosphatase 38 U/L (38-126); Anion Gap 13.1 mEq/L (5-15); Bilirubin,Total 1.1 mg/dl (0.2-1.3); Calcium 9.8 mg/dl (8.4-10.2); Carbon Dioxide 24 mmol/L (22.0-30.0); Globulin 3.1 g/dL (1.3-3.2); Glucose 94 mg/dl (74-100); Total Protein,Serum 7.6 g/dl (6.3-8.2)
[2024-05-03 17:13] LABS: NT Pro Brain Natriuretic Pep. 131 pg/mL (0-450)
[2024-05-03 17:15] LABS: Basophils % 0.5 % (0.1-2.0); Eosinophils % 0.7 % (0.1-12.0); Hemoglobin 12.3 g/dL (12.2-16.2); Lymphocytes # 2.1 K/mm3 (0.7-4.5); Lymphocytes % 33.8 % (10-50); Mean Corpuscular HGB Conc 32.3 g/dL (31.8-35.4); Mean Corpuscular Volume 105.4 fl (81-99); Mean Platelet Volume 8.1 fl (7.4-10.4); Monocytes # 0.3 K/mm3 (0.1-1.0); Monocytes % 5.4 % (1.7-9.3); Neutrophils # 3.7 K/mm3 (1.8-7.8); Neutrophils % 59.5 % (37.0-80.0); Platelet Count 204 K/mm3 (142-424); Red Cell Distribution Width 14.2 % (11.5-17.5); White Blood Count 6.3 K/mm3 (4.8-10.8)
[2024-05-03 17:37] VITALS: BP 0/0; PULSE 72; RESP 18; TEMP 36.5; O2SAT 96
== END 2024-05-03 17:43 | disposition home or self-care (01) ==
PROVIDERS: Emergency Provider Emergency Medicine; PCP Family Medicine
DX: R60.0 Localized edema (principal); K21.9 Gastro-esophageal reflux disease without esophagitis; I10 Essential (primary) hypertension; E78.5 Hyperlipidemia, unspecified; I49.5 Sick sinus syndrome; Z95.0 Presence of cardiac pacemaker; Z86.73 Personal history of transient ischemic attack (TIA), and cerebral infarction without residual deficits
CPT/HCPCS: 80053; 83880; 85025; 99283

== ENCOUNTER 2024-06-10 10:13 | Outpatient (CLI) | payer MEDICARE, SELFPAY ==
--- NOTE | 2024-06-10 10:16 | XR_ITS ---
FINAL REPORT CLINICAL HISTORY: Rt Hip Pain COMPARISON: None FINDINGS: AP and frog leg views of the right hip were obtained. There is no prior exam for comparison. Changes of a right hip arthroplasty are present. The hardware is intact. There is no acute fracture or dislocation. Degenerative change of the left hip is present. Soft tissues are within normal limits. IMPRESSION: Changes of the right hip arthroplasty. No acute bony abnormality identified. Reviewed, Interpreted and Dictated by Tarah Vogel MD Transcribed by Jessica Sosa Authenticated and [facility]
== END 2024-06-10 23:59 | disposition home or self-care (01) ==
LOC: RAD 10:14
PROVIDERS: PCP Family Medicine; Visit Provider Physician Assistant Surgical
DX: M70.61 Trochanteric bursitis, right hip (principal)
CPT/HCPCS: 73502

== ENCOUNTER 2024-06-23 09:01 | Outpatient (POV) | payer MEDICARE, SELFPAY ==
[2024-06-23 09:04] VITALS: PULSE 82; RESP 16; O2SAT 95; BMI 29.7
--- NOTE | 2024-06-23 09:14 | A.OFFVIS_ITS ---
[facility] Disclaimer: The information contained in this section may have been updated after the patient was seen, as this information can be updated by other users. Medical History (Updated 06/23/24 @ 10:07 by Paulina Thomson APRN) Closed fracture of coccyx with routine healing History of pilonidal cyst History of hip fracture Closed head injury Nodule of right lung Fall Stroke Normal esophagogastroduodenoscopy (EGD) Colonoscopy planned Pacemaker HTN (hypertension) GERD (gastroesophageal reflux disease) Anemia Abnormal result of cardiovascular function study Anemia Dysphagia Accidental fall Cardiac pacemaker in situ Abnormal Holter monitor finding Elevated right ventricular end-diastolic pressure Balance problem SSS (sick sinus syndrome) HLD (hyperlipidemia) Cerebrovascular accident Cerebrovascular accident Facial contusion Surgical History History of lumbar surgery H/O bladder repair surgery H/O carpal tunnel repair Hx of cholecystectomy H/O arthroscopy of shoulder History of appendectomy Hx of hysterectomy, total Total knee replacement status Family History Other Cancer Heart attack Hypertension Stroke Social History Smoking Status: Never smoker alcohol intake: never substance use type: denies use current occupational status: other Travel in the last 8 weeks: None household members: none housing: house current occupational exposures/hazards: No PM Subjective & Objective Subjective Subjective:: Patient is a pleasant 88-year-old female who presents today for follow-up. We are currently treating the patient for degenerative disc disease of lumbar spine with lumbar radiculopathy symptoms, lumbar facet arthropathy, lumbar spondylosis, lumbar postlaminectomy syndrome, previous sacrococcygeal fracture, tailbone pain. Today she rates her pain a 6 out of 10. She denies any new falls or injuries. She does state that she is experiencing more low back/buttocks pain that started over the last month. Patient did previously have a caudal epidural on 10/23/2023 that provided 100% improvement. She states that that injection did not provide significant improvement of her overall pain and gave improved function. Today the pain is an aching sensation that is worse with prolonged positioning or increased activity. She does state that the buttocks pain is constant and that it does affect her walking. She states the pain does interfere with her ability perform activities of daily living such as cooking and cleaning. Patient is interested in repeating her prior injection. Patient is also experiencing worsening pain in and around her neck with occasionally sharp shooting pains. She does state that it does go into her shoulders with little left side being worse and goes along the right arm into her upper forearm. Patient does state that she ended up seeing Dr. Thomson here at [facility] for evaluation of her shoulder symptoms however he sent her to a Lalita Carrion Who did recommend more conservative treatment. She states she was then sent to [facility] who did do a left shoulder nerve block and that she is scheduled for bilateral joint injections in her shoulders coming up in June. Patient and daughter state they are not really sure why they got sent to a different pain doctor and that they are planning on continuing their overall care here with our office. They are planning on getting the joint injection since they are already approved and then having as take over completely. Patient was previously being prescribed Hewlett 5 mg twice a day from Dr. Bravo's office however he is stated that since she is a patient of ours, that he was recommending that we take over this prescription. Patient is asking if we can increase it imaging due to the worsening pain throughout multiple joints. Patient has had long-term pain at her tailbone related to an injury she suffered years ago resulting in a coccygeal fracture. Patient is currently managed with gabapentin 300 mg at bedtime and Hewlett 5 mg twice daily from her pcp and compounded cream from our office. She denies any side effects from this medication. Her Kyler has been reviewed and is appropriate. Review of Systems: General: No recent weight changes, no fever, no sleep disturbances Respiratory: No cough, no shortness of air, no recurring pulmonary infections Cardiovascular/peripheral vascular: No chest pain, no palpitations, no edema, no shortness of breath Gastrointestinal: No new onset incontinence, normal bowel movements reported Genitourinary: No new onset incontinence Musculoskeletal: Right-sided tailbone pain Psychiatric: [Normal mood/affect] Neurological: [Denies weakness in extremities], [denies balance issues] Pain at rest (0-10 scale): 6 Objective Objective:: Physical Exam: General: Alert and oriented x3, no acute distress, pleasant and cooperative Lungs: Respirations even and unlabored, symmetrical chest expansion Eyes: PERRL Musculoskeletal: Flexion and extension of lumbar [spine] somewhat guarded secondary to pain, [antalgic gait noted] point tenderness along the lower sacral region Neurological: Speech clear, no gross sensory deficit Has patient had previous pain injection?: No Conservative treatment options previously tried: Home exercise plan Length of treatment: Longer than 6 weeks and Prescription medications Length of treatment: Longer than 6 weeks Meds Home Medications and Allergies Home Medications ?Medication ?Instructions ?Recorded ?Confirmed ?Type acetaminophen 500 mg tablet 500 mg PO Q6H PRN Mild Pain (Scale 06/14/21 06/23/24 History (Tylenol Extra Strength) Score 1-4) hydrocodone 5 mg-acetaminophen 325 1 tab PO Q8H PRN Pain #60 tabs 04/25/24 06/23/24 Rx mg tablet gabapentin 300 mg capsule 300 mg PO HS Pain #30 caps 04/29/24 06/23/24 Rx furosemide 20 mg tablet 20 mg PO DAILY #30 tabs 05/03/24 06/23/24 Rx rosuvastatin 10 mg tablet 10 mg PO DAILY Cholesterol 30 days 05/06/24 06/23/24 Rx #30 tabs celecoxib 100 mg capsule 100 mg PO DAILY #90 caps 05/28/24 06/23/24 Rx lisinopril 10 mg tablet 10 mg PO DAILY BLOOD PRESSURE 30 05/28/24 06/23/24 Rx days #30 tabs pantoprazole 40 mg tablet,delayed 40 mg PO BID GERD 90 days #180 tabs 06/19/24 06/23/24 Rx release New Prescriptions to Start Prescriptions: Allergies Allergy/AdvReac Type Severity Reaction Status Date / Time No Known Allergies Allergy Verified 06/23/24 09:04 Assessment and Plan *Assessment and plan (1) Lumbar spinal stenosis: Status: Acute Qualifiers: Neurogenic claudication status: without neurogenic claudication Qualified Code(s): M48.061 - Spinal stenosis, lumbar region without neurogenic claudication Category: Medical Code(s): M48.061 - Spinal stenosis, lumbar region without neurogenic claudication (2) Back pain: Status: Acute Qualifiers: Back pain location: low back pain Chronicity: chronic Back pain laterality: bilateral Sciatica presence: without sciatica Qualified Code(s): M54.50 - Low back pain, unspecified; G89.29 - Other chronic pain Category: Medical Code(s): M54.9 - Dorsalgia, unspecified (3) Chronic pain syndrome: Status: Acute Category: Medical Code(s): G89.4 - Chronic pain syndrome (4) Neck Pain: Status: Chronic Category: Medical Code(s): M54.2 - Cervicalgia (5) Cervical radiculopathy: Status: Acute Category: Medical Code(s): M54.12 - Radiculopathy, cervical region Plan Patient is experiencing worsening pain throughout her tailbone/buttocks area. Patient has limited range of motion of her lumbar spine with point tenderness along her sacral spine. Patient has previously had 100% improvement with prior caudal epidurals with her last 1 being in September 2023. It has lasted up until the last month when her symptoms started to return. Patient is now experiencing worsening pain in this area with radiating symptoms of numbness and tingling. I have gone over the risk and benefits of repeat caudal epidural and the patient and daughter would like to proceed forward with this plan of care. I have also discussed with the patient in future if she continues to have her neck symptoms that we can try and see about additional injection therapy for this location. Patient was counseled that we are primarily interventional however due to her age and health history I do believe surgery is not a good option for her. I will send in a 1 month supply of Hewlett 5 mg 3 times daily. Patient was counseled that we would have to see her monthly to continue this medication. They are in agreement with this. Patient will be scheduled for a caudal epidural under fluoroscopy. Patient has tried and failed conservative therapy including continued at home stretching exercise for longer than 12 weeks. Patient did have significant improved function with overall decreased pain with her last caudal epidural. Patient has been instructed to contact the clinic with any concerns before the next appointment. Dr. Britt has reviewed this note and agrees with this plan of care. This note was dictated using voice recognition software and make contain errors or omissions. All injections are used with Lidocaine or Bupivacaine and Depo Medrol.
--- NOTE | 2024-06-23 09:17 | PC.NURSE ---
0915- pt refused blood pressure. states she has had bruising from BP checks and checks her own bp at home.
== END 2024-06-23 23:59 | disposition home or self-care (01) ==
PROVIDERS: PCP Family Medicine; Visit Provider Nurse Practitioner Family
DX: M48.061 Spinal stenosis, lumbar region without neurogenic claudication (principal); G89.4 Chronic pain syndrome; M51.36 Other intervertebral disc degeneration, lumbar region; M47.26 Other spondylosis with radiculopathy, lumbar region
CPT/HCPCS: 99212; G0463

== ENCOUNTER 2024-07-22 09:02 | Day surgery (SDC) | payer MEDICARE, SELFPAY ==
[2024-07-22 09:35] VITALS: BP 184/81; PULSE 70; RESP 16; TEMP 36.7; O2SAT 94; BMI 29.7
[2024-07-22] MEDS: methylPREDNISolone ACETATE 80MG/ML VIAL 80 MG (09:48)
[2024-07-22] MEDS: LIDOCAINE 1% 5ML PF VIAL 5 ML (09:48)
[2024-07-22] MEDS: IOPAMIDOL-200 (41%);10ML VIAL 10 ML IV (09:49)
--- NOTE | 2024-07-22 09:56 | P.PCN_ITS ---
Procedure Date: 07/22/24 Time: 09:55 Anesthesiologist:: Fuad Haas CRNA Complications:: None Pre-procedure Diagnosis:: Degenerative disc lumbar spine multilevels. Lumbar radiculopathy. Lumbar postlaminectomy syndrome. Lumbar spondylosis. Multilevel lumbar facet arthropathy. Multilevel lumbar disc bulge. Post-procedure Diagnosis:: Same. Indications for Procedure:: Patient is a pleasant 89-year-old female who comes to clinic today for a caudal epidural steroid injection. Patient describes low lumbar back pain is constant, dull, aching, sharp, stabbing. She also reports bilateral hip and leg radicular symptoms. Patient reports she had this same procedure in the past with sig nificant improvement terms of her overall symptoms. She rates her pain today 8/10. Procedure Details:: Informed consent was obtained and the risks and benefits of the procedure were explained to the patient. The patient was taken to the procedure room and noninvasive monitors placed, including noninvasive blood pressure cuff and pulse oximeter. The back was viewed using C-arm Fluoroscopy and prepped using Chloraprep as a cleansing solution and the caudal epidural space was visualized using fluoroscopy in a lateral position. Skin and subcutaneous tissues were anesthetized using lidocaine 1.5% and a 25-gauge needle. After this, an 22-gauge spinal needle was placed into the caudal epidural space and advanced using fluoroscopic guidance. After confirmation of needle placement in the caudal space, with dye, a solution containing normal saline, 3 mL and Depo-Medrol 80 mg and 1 mL of 1% lidocaine were incrementally injected into the caudal epidural space. The patient tolerated the procedure well with no complications. Plan and Disposition:: Patient was discharged without incident.
[2024-07-22 09:57] VITALS: BP 184/83; PULSE 74; RESP 16; O2SAT 95
== END 2024-07-22 09:57 | disposition home or self-care (01) ==
PROVIDERS: PCP Family Medicine; Visit Provider Nurse Anesthetist, Certified Registered
DX: M51.16 Intervertebral disc disorders with radiculopathy, lumbar region (principal); M96.1 Postlaminectomy syndrome, not elsewhere classified; M47.26 Other spondylosis with radiculopathy, lumbar region; M51.26 Other intervertebral disc displacement, lumbar region
CPT/HCPCS: 62323; J1010; Q9966

== ENCOUNTER 2024-08-04 10:19 | Outpatient (POV) | payer MEDICARE, SELFPAY ==
[2024-08-04 10:41] VITALS: BP 149/87; PULSE 64; RESP 18; O2SAT 97; BMI 29.7
--- NOTE | 2024-08-04 10:55 | A.OFFVIS_ITS ---
[facility] Disclaimer: The information contained in this section may have been updated after the patient was seen, as this information can be updated by other users. Medical History Closed fracture of coccyx with routine healing History of pilonidal cyst History of hip fracture Closed head injury Nodule of right lung Fall Stroke Normal esophagogastroduodenoscopy (EGD) Colonoscopy planned Pacemaker HTN (hypertension) GERD (gastroesophageal reflux disease) Anemia Abnormal result of cardiovascular function study Anemia Dysphagia Accidental fall Cardiac pacemaker in situ Abnormal Holter monitor finding Elevated right ventricular end-diastolic pressure Balance problem SSS (sick sinus syndrome) HLD (hyperlipidemia) Cerebrovascular accident Cerebrovascular accident Facial contusion Surgical History History of lumbar surgery H/O bladder repair surgery H/O carpal tunnel repair Hx of cholecystectomy H/O arthroscopy of shoulder History of appendectomy Hx of hysterectomy, total Total knee replacement status Family History Other Cancer Heart attack Hypertension Stroke Social History Smoking Status: Never smoker alcohol intake: never substance use type: denies use current occupational status: retired Travel in the last 8 weeks: None household members: none housing: house current occupational exposures/hazards: No PM Subjective & Objective Subjective Subjective:: Patient is a pleasant 89-year-old female who presents today for follow-up of caudal epidural on 07/22/2024. Today she rates her pain a 6 out of 10. She does state that she had at least 50% following this injection and that it did significantly help however feels like it is worn off. Patient does have chronic arthritis throughout multiple joints into her spine and does state that this does play a role. Patient is currently managed with [place]ar[place] 5 mg 3 times a day. She does state that this does help and that some days are better than others. Patient states occasionally on days that are worse she does have to cut a tablet in half and take 1-1/2. Patient is asking if we can go up on any of that medication. Patient does also state that she is officially scheduled for a left shoulder reversal on September 29. Her Kyler has been reviewed and is appropriate. Review of Systems: General: No recent weight changes, no fever, no sleep disturbances Respiratory: No cough, no shortness of air, no recurring pulmonary infections Cardiovascular/peripheral vascular: No chest pain, no palpitations, no edema, no shortness of breath Gastrointestinal: No new onset incontinence, normal bowel movements reported Genitourinary: No new onset incontinence Musculoskeletal: Low back pain, buttocks pain, left shoulder pain Psychiatric: [Normal mood/affect] Neurological: [Denies weakness in extremities], [denies balance issues] Pain at rest (0-10 scale): 6 Objective Objective:: Physical Exam: General: Alert and oriented x3, no acute distress, pleasant and cooperative Lungs: Respirations even and unlabored, symmetrical chest expansion Eyes: PERRL Musculoskeletal: Flexion and extension of lumbar [spine] somewhat guarded secondary to pain, [antalgic gait noted] Neurological: Speech clear, no gross sensory deficit Has patient had previous pain injection?: Yes Percent improvement in pain since last injection: 50% Conservative treatment options previously tried: Home exercise plan Length of treatment: Longer than 6-week Meds Home Medications and Allergies Home Medications ?Medication ?Instructions ?Recorded ?Confirmed ?Type acetaminophen 500 mg tablet 500 mg PO Q6H PRN Mild Pain (Scale 06/14/21 07/22/24 History (Tylenol Extra Strength) Score 1-4) furosemide 20 mg tablet 20 mg PO DAILY #30 tabs 05/03/24 07/22/24 Rx celecoxib 100 mg capsule 100 mg PO DAILY #90 caps 05/28/24 07/22/24 Rx pantoprazole 40 mg tablet,delayed 40 mg PO BID GERD 90 days #180 tabs 06/19/24 07/22/24 Rx release hydrocodone 5 mg-acetaminophen 325 1 tab PO TID #90 tabs 06/23/24 07/22/24 Rx mg tablet rosuvastatin 10 mg tablet See Rx Instructions .Route 07/18/24 07/22/24 Rx .COMPLEX #30 tabs lisinopril 10 mg tablet See Rx Instructions .Route 07/24/24 Rx .COMPLEX #30 tabs gabapentin 300 mg capsule 300 mg PO HS Pain #30 caps 08/01/24 Rx New Prescriptions to Start Prescriptions: Allergies Allergy/AdvReac Type Severity Reaction Status Date / Time No Known Allergies Allergy Verified 07/22/24 09:36 Assessment and Plan *Assessment and plan (1) Lumbar radiculopathy: Status: Acute Category: Medical Code(s): M54.16 - Radiculopathy, lumbar region (2) Chronic pain syndrome: Status: Acute Category: Medical Code(s): G89.4 - Chronic pain syndrome (3) Lumbar spinal stenosis: Status: Acute Qualifiers: Neurogenic claudication status: without neurogenic claudication Qual ified Code(s): M48.061 - Spinal stenosis, lumbar region without neurogenic claudication Category: Medical Code(s): M48.061 - Spinal stenosis, lumbar region without neurogenic claudication Plan Due to the patient's upcoming surgery we will hold off on any additional injection therapy until after this procedure. I will increase her pain medication to Spearfish 5 mg 4 times a day and provide a 1 month supply of this medication. Patient will return to clinic in 1 month for reevaluation of symptoms and plan of care. Risks and benefits of the medication have been explained in detail to the patient. The patient does understand the risk of dependence on the medication when given over a prolonged period. Patient has been advised of risks of oversedation with the prescribed medication. Narcan has been offered to the paitent in the event of oversedation. Patient has been advised that a family member should also be educated regarding administration of Narcan. The patient has been advised to consult with his/her primary care provider and pharmacist regarding drug-drug interaction of medications currently prescribed. Patient has been prescribed a controlled substance after being counseled on the medication, medication safety, and possible side effects. Opioid contract was reviewed and signed by the patient, and that they have agreed to all of the terms set forth by our compliance program. Patient has been instructed to contact the clinic with any concerns before the next appointment. Dr. Britt has reviewed this note and agrees with this plan of care. This note was dictated using voice recognition software and make contain errors or omissions.
== END 2024-08-04 23:59 | disposition home or self-care (01) ==
PROVIDERS: PCP Family Medicine; Visit Provider Nurse Practitioner Family
DX: M54.16 Radiculopathy, lumbar region (principal); G89.4 Chronic pain syndrome; M48.061 Spinal stenosis, lumbar region without neurogenic claudication; Z95.0 Presence of cardiac pacemaker; Z96.659 Presence of unspecified artificial knee joint
CPT/HCPCS: 99212; G0463

== ENCOUNTER 2024-09-10 10:17 | Outpatient (POV) | payer MEDICARE, SELFPAY ==
[2024-09-10 11:25] VITALS: BP 150/88; PULSE 78; RESP 18; O2SAT 93
--- NOTE | 2024-09-10 12:19 | EXP.PAIN.SOA ---
[facility] Disclaimer: The information contained in this section may have been updated after the patient was seen, as this information can be updated by other users. Medical History Closed fracture of coccyx with routine healing History of pilonidal cyst History of hip fracture Closed head injury Nodule of right lung Fall Stroke Normal esophagogastroduodenoscopy (EGD) Colonoscopy planned Pacemaker HTN (hypertension) GERD (gastroesophageal reflux disease) Anemia Abnormal result of cardiovascular function study Anemia Dysphagia Accidental fall Cardiac pacemaker in situ Abnormal Holter monitor finding Elevated right ventricular end-diastolic pressure Balance problem SSS (sick sinus syndrome) HLD (hyperlipidemia) Cerebrovascular accident Cerebrovascular accident Facial contusion Surgical History History of lumbar surgery H/O bladder repair surgery H/O carpal tunnel repair Hx of cholecystectomy H/O arthroscopy of shoulder History of appendectomy Hx of hysterectomy, total Total knee replacement status Family History Other Cancer Heart attack Hypertension Stroke Social History Smoking Status: Never smoker alcohol intake: never substance use type: denies use current occupational status: retired Travel in the last 8 weeks: None household members: none housing: house current occupational exposures/hazards: No PM Subjective & Objective Subjective Subjective:: Patient is a pleasant 89-year-old female who presents today for follow-up. Today she rates her pain a 9 out of 10. Patient denies any new trauma or injury. She does state that she is still experiencing more severe pain in her low back and hips as well as her neck. She does state that overall the low back symptoms are worse than the neck symptoms. Patient does describe it as an aching, throbbing sensation that does interfere with her ability perform activities of daily living such as cooking and cleaning. Patient is interested in any help we may be able to provide. Patient is still tentatively scheduled for a reverse shoulder on September 29. 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 Patient denies any other changes. She is currently managed with [place] 5 mg 3 times a day from our office. She states that she does need a refill on this medication. Her Kyler has been reviewed and is appropriate. Review of Systems: General: No recent weight changes, no fever, no sleep disturbances Respiratory: No cough, no shortness of air, no recurring pulmonary infections Cardiovascular/peripheral vascular: No chest pain, no palpitations, no edema, no shortness of breath Gastrointestinal: No new onset incontinence, normal bowel movements reported Genitourinary: No new onset incontinence Musculoskeletal: Low back pain, bilateral hip pain Psychiatric: [Normal mood/affect] Neurological: [Denies weakness in extremities], [denies balance issues] Pain at rest (0-10 scale): 9 Objective Objective:: Physical Exam: General: Alert and oriented x3, no acute distress, pleasant and cooperative Lungs: Respirations even and unlabored, symmetrical chest expansion Eyes: PERRL Musculoskeletal: Flexion and extension of lumbar [spine] somewhat guarded secondary to pain, [antalgic gait noted] point tenderness along bilateral SIs with positive bilateral Binh's, Fabby's, Gaenslen's, compression and distraction exam Neurological: Speech clear, no gross sensory deficit Has patient had previous pain injection?: No Conservative treatment options previously tried: Home exercise plan Length of treatment: Longer than 6 weeks Meds Home Medications and Allergies Home Medications ?Medication ?Instructions ?Recorded ?Confirmed ?Type acetaminophen 500 mg tablet 500 mg PO Q6H PRN Mild Pain (Scale 06/14/09/10/24 History (Tylenol Extra Strength) Score 1-4) celecoxib 100 mg capsule 100 mg PO DAILY #90 caps 05/28/24 09/10/24 Rx pantoprazole 40 mg tablet,delayed 40 mg PO BID GERD 90 days #180 tabs 06/19/24 09/10/24 Rx release gabapentin 300 mg capsule 300 mg PO HS Pain #30 caps 08/01/24 09/10/24 Rx hydrocodone 5 mg-acetaminophen 325 1 tab PO QID #120 tabs 08/04/24 09/10/24 Rx mg tablet lisinopril 10 mg tablet See Rx Instructions .Route 08/18/24 09/10/24 Rx .COMPLEX #30 tabs rosuvastatin 10 mg tablet See Rx Instructions .Route 08/18/24 09/10/24 Rx .COMPLEX #30 tabs apixaban 5 mg tablet (Eliquis) 5 mg PO BID #60 tabs 09/03/24 09/10/24 Rx furosemide 20 mg tablet 20 mg PO DAILY PRN Fluid 09/03/24 09/10/24 History New Prescriptions to Start Prescriptions: Allergies Allergy/AdvReac Type Severity Reaction Status Date / Time No Known Allergies Allergy Verified 09/03/24 11:12 Assessment and Plan *Assessment and plan (1) Sacroiliitis: Status: Acute Category: Medical Code(s): M46.1 - Sacroiliitis, not elsewhere classified Plan Patient is experiencing worsening pain in her low back and bilateral hips. Patient did have limited range of motion of her lumbar spine and point tenderness along her bilateral SIs with positive bilateral Binh's, Fabby's, Gaenslen's, compression and distraction exam. I did discuss with the patient that I do believe she would benefit from bilateral SI injections. Risk and benefits were discussed with the patient and they would like to proceed forward with this plan of care. Patient has tried and failed conservative therapy including continued at home stretching exercise for longer than 6 weeks. I did also go over with the patient in future she may also benefit from a cervical epidural steroid injection that may also benefit her right shoulder pain as well. Patient was counseled that if she is unable to get cardiac clearance and has to hold off on her surgical procedure that we may be able to try the epidural in the meantime. Patient and daughter acknowledge understanding agree with this plan of care. I will refill the patient's [place] and provide a 1 month supply of this medication. Patient will be scheduled for bilateral SI injections under fluoroscopy. Patient has not had these injections in our office before and has had the pain going on for longer than 3 months. Risks and benefits of the medication have been explained in detail to the patient. The patient does understand the risk of dependence on the medication when given over a prolonged period. Patient has been advised of risks of oversedation with the prescribed medication. Narcan has been offered to the paitent in the event of oversedation. Patient has been advised that a family member should also be educated regarding administration of Narcan. The patient has been advised to consult with his/her primary care provider and pharmacist regarding drug-drug interaction of medications currently prescribed. Patient has been prescribed a controlled substance after being counseled on the medication, medication safety, and possible side effects. Opioid contract was reviewed and signed by the patient, and that they have agreed to all of the terms set forth by our compliance program. Patient has been instructed to contact the clinic with any concerns before the next appointment. Dr. Britt has reviewed this note and agrees with this plan of care. This note was dictated using voice recognition software and make contain errors or omissions.
== END 2024-09-10 23:59 | disposition home or self-care (01) ==
PROVIDERS: PCP Family Medicine; Visit Provider Nurse Practitioner Family
DX: M46.1 Sacroiliitis, not elsewhere classified (principal); Z73.89 Other problems related to life management difficulty
CPT/HCPCS: 99212; G0463

== ENCOUNTER 2024-09-17 17:46 | Emergency (ER) | payer MEDICARE, SELFPAY ==
[2024-09-17 17:48] VITALS: BP 175/71; PULSE 74; RESP 16; TEMP 36.9; O2SAT 97; BMI 29.7
--- NOTE | 2024-09-17 17:53 | ED_ITS ---
Discharge Plan Disposition Patient Disposition: Home, Self-Care Condition: Good Prescriptions Prescriptions: No Action acetaminophen [Tylenol Extra Strength] 500 mg tablet 500 mg PO Q6H PRN (Reason: Mild Pain (Scale Score 1-4)) furosemide 20 mg tablet 20 mg PO DAILY PRN (Reason: Fluid) Eliquis 5 mg tablet 5 mg PO BID Qty: 60 2RF celecoxib 100 mg capsule 100 mg PO DAILY Qty: 90 2RF pantoprazole 40 mg tablet,delayed release (DR/EC) 40 mg PO BID 90 Days Qty: 180 0RF gabapentin 300 mg capsule 300 mg PO HS Qty: 30 2RF rosuvastatin 10 mg tablet See Rx Instructions .ROUTE .COMPLEX Qty: 30 0RF Dose Instruction: 10 MG ORALLY DAILY FOR CHOLESTEROL FOR 90 DAYS Rx Instructions: 10 MG ORALLY DAILY FOR CHOLESTEROL FOR 90 DAYS lisinopril 10 mg tablet See Rx Instructions .ROUTE .COMPLEX Qty: 30 0RF Dose Instruction: TAKE 1 TABLET BY MOUTH ONCE DAILY Rx Instructions: TAKE 1 TABLET BY MOUTH ONCE DAILY hydrocodone-acetaminophen 5-325 mg tablet 1 tab PO QID Qty: 120 0RF Referrals Follow up/Referrals: Hayder Bravo MD [Primary Care Provider] - See instructions Activity Restrictions/Add. Instructions Additional Instructions/Restrictions: Follow-up with your PCP within 48 hours for recheck, if no improvement or worsening symptoms or return to ER as needed. I obviously recommend taking Tylenol alternating with Motrin every 4 hours for your acute discomfort. Clinical Impressions Clinical Impression: Fall Qualifiers: Encounter type: initial encounter Qualified Code(s): W19.XXXA - Unspecified fall, initial encounter Print Language Print Language: Irish Discharge ED Provider: Raphael Whitt General Adult HPI <PAWAN Kendall - Last Filed: 09/17/24 20:10> General Chief complaint: Fall Stated complaint: AO 09-16 neck , back and shoulders Time Seen by Provider: 09/17/24 17:53 History of Present Illness HPI narrative: Patient presents for evaluation of a fall. Patient at baseline lives independently and is supposed to ambulate with a walker yesterday she got up out of a chair and went to the closet to get her coat without her walker. There was a friend present who noticed that she was starting to lean backwards and attempted to reach her in time but was unsuccessful and ultimately they both fell to the ground. Patient was on the bottom. She reports that she injured her butt back and shoulders. They had to call EMS to get her out of the floor. However patient declined transport to the hospital or evaluation yesterday. Today when daughters return to check on her patient is unable to ambulate due to her pain of her neck back and shoulders. She denies any numbness or tingling, she denies any loss of consciousness, she has generalized allover body pain. She denies any chest pain shortness of breath fever chills hemoptysis hematochezia melena. Patient awake alert and oriented person place circumstance Morgan Coma Score 15. Related Data Home Medications ?Medication ?Instructions ?Recorded ?Confirmed acetaminophen 500 mg tablet 500 mg PO Q6H PRN Mild Pain (Scale 06/14/21 09/10/24 (Tylenol Extra Strength) Score 1-4) furosemide 20 mg tablet 20 mg PO DAILY PRN Fluid 09/03/24 09/10/24 Previous Rx's ?Medication ?Instructions ?Recorded celecoxib 100 mg capsule 100 mg PO DAILY #90 caps 05/28/24 pantoprazole 40 mg tablet,delayed 40 mg PO BID GERD 90 days #180 tabs 06/19/24 release gabapentin 300 mg capsule 300 mg PO HS Pain #30 caps 08/01/24 lisinopril 10 mg tablet See Rx Instructions .Route 08/18/24 .COMPLEX #30 tabs rosuvastatin 10 mg tablet See Rx Instructions .Route 08/18/24 .COMPLEX #30 tabs apixaban 5 mg tablet (Eliquis) 5 mg PO BID #60 tabs 09/03/24 hydrocodone 5 mg-acetaminophen 325 1 tab PO QID #120 tabs 09/10/24 mg tablet Allergies Allergy/AdvReac Type Severity Reaction Status Date / Time No Known Allergies Allergy Verified 09/03/24 11:12 [facility] <PAWAN Kendall - Last Filed: 09/17/24 20:10> [facility] Disclaimer: The information contained in this section may have been updated after the patient was seen, as this information can be updated by other users. Medical History Closed fracture of coccyx with routine healing History of pilonidal cyst History of hip fracture Closed head injury Nodule of right lung Fall Stroke Normal esophagogastroduodenoscopy (EGD) Colonoscopy planned Pacemaker HTN (hypertension) GERD (gastroesophageal reflux disease) Anemia Abnormal result of cardiovascular function study Anemia Dysphagia Accidental fall Cardiac pacemaker in situ Abnormal Holter monitor finding Elevated right ventricular end-diastolic pressure Balance problem SSS (sick sinus syndrome) HLD (hyperlipidemia) Cerebrovascular accident Cerebrovascular accident Facial contusion Surgical History History of lumbar surgery H/O bladder repair surgery H/O carpal tunnel repair Hx of cholecystectomy H/O arthroscopy of shoulder History of appendectomy Hx of hysterectomy, total Total knee replacement status Family History Other Cancer Heart attack Hypertension Stroke Social History Smoking Status: Never smoker alcohol intake: never substance use type: denies use current occupational status: retired Travel in the last 8 weeks: None household members: none housing: house current occupational exposures/hazards: No Other Medical History Have you received the Flu Vaccine for this season: Yes Have you received the Pneumonia Vaccine: Yes <PAWAN Kendall - Last Filed: 09/17/24 20:10> ROS Obtained: Yes Systems reviewed as appropriate & no additional complaints except as documented Physical Exam <PAWAN Kendall - Last Filed: 09/17/24 20:10> General General appearance: alert and in no apparent distress Respiratory Respiratory exam: Present normal lung sounds bilaterally Cardiovascular Cardiovascular exam: Present regular rate Neurological Exam Neurological exam: Present alert, oriented X3 and CN II-XII intact Medical Decision Making <PAWAN Kendall - Last Filed: 09/17/24 20:10> Medical Records Medical records reviewed: Yes I reviewed the patient's medical records. Screening: Per USPSTF and CDC recommendations, given the prevalence of disease in our region, it is our hospital?s policy to screen for HIV and viral Hepatitis for all patients aged 18 and over and those with ongoing risk factors. Kyler Inquiry Pt receiving controlled substance: No Vital Signs: 09/17/24 17:48 09/17/24 18:00 Temperature 98.4 F Temperature Source Oral Pulse Rate 76 Pulse Rate [Radial] 74 Respiratory Rate 16 Blood Pressure 175/71 H Blood Pressure [Right Arm] 175/71 H Blood Pressure Mean [Right Arm] 105 Blood Pressure Source [Right Arm] Automatic Cuff Blood Pressure Position [Right Arm] Supine 02 Sat by Pulse Oximetry 97 96 Oxygen Delivery Method Room Air Lab Data Lab results reviewed: Yes I reviewed the patient's lab results. Lab Results 09/17/24 18:13: WBC 5.1, RBC 3.46 L, Hgb 11.2 L, Hct 33.3 L, MCV 96.2, MCH 32.4 H, MCHC 33.6, RDW 14.2, Plt Count 216, MPV 7.9, Neut % (Auto) 41.8, Lymph % (Auto) 46.9, Lamar % (Auto) 6.7, Eos % (Auto) 4.1, Baso % (Auto) 0.6, Neut # (Auto) 2.1, Lymph # (Auto) 2.4, Lamar # (Auto) 0.3, Eos # (Auto) 0.2, Baso # (Auto) 0.0, PT 11.0, INR 0.98, Sodium 132 L, Potassium 4.3, Chloride 102, Carbon Dioxide 24, Anion Gap 10.3, BUN 12, Creatinine 0.60, Estimated Creat Clear 42, Estimated GFR 94, Est GFR ( Amer) 114, Glucose 88, Calcium 9.4, Total Bilirubin 0.7, AST 30, ALT 13, Alkaline Phosphatase 56, Total Protein 6.5, Albumin 3.9, Globulin 2.6, Albumin/Globulin Ratio 1.5 09/17/24 18:30: HIV 1&2 Antibody Rapid Nonreactive 09/17/24 19:46: Urine Color Yellow, Urine Appearance Clear, Urine pH 6.0, Ur Specific [place] <= 1.005, Urine Protein Negative, Urine Glucose (UA) Negative, Urine Ketones Negative, Urine Blood Negative, Urine Nitrate Negative, Urine Bilirubin Negative, Urine Urobilinogen 0.2, Ur Leukocyte Esterase Negative, Urine RBC Occasional, Urine WBC Occasional, Ur Squamous Epith Cells 3-5, Urine Bacteria 2+ 09/17/24 18:13 09/17/24 18:13 Orders (Tests/Meds): ED MEDICATIONS Generic Name Dose Route Start Last Admin Trade Name Freq PRN Reason Stop Dose Admin Sodium Chloride 10 ml 09/17/24 19:15 09/17/24 19:18 Sodium Chloride 0.9% 10ml Syr (Rad Only) IV 10/17/24 19:14 10 ml NEEDED PRN Administration Maintain IV Site Discontinued Medications Generic Name Dose Route Start Last Admin Trade Name Anita PRN Reason Stop Dose Admin Acetaminophen 1,000 mg 09/17/24 18:08 09/17/24 18:41 Acetaminophen 1,000mg/100ml Vial IV 09/17/24 18:09 1,000 mg ONCE ONE Administration Iopamidol 160 ml 09/17/24 19:15 09/17/24 19:18 Iopamidol-370 (76%);100ml Bottle IV 09/17/24 19:16 160 ml ONCE ONE Administration Morphine Sulfate 2 mg 09/17/24 20:10 09/17/24 20:34 Morphine 2mg/Ml Syringe IV 09/17/24 20:11 2 mg ONCE ONE Administration Sodium Chloride 100 ml 09/17/24 19:15 09/17/24 19:18 0.9 % Sodium Chloride 50 Ml Vial IV 09/17/24 19:16 100 ml ONCE ONE Administration ORDERS Category Date Time Status CT angio abdomen pelvis Stat Cat Scan 09/17/24 18:[address] angio chest - dissection Stat Cat Scan 09/17/24 18:[address] angio head Stat Cat Scan 09/17/24 18:[address] angio neck Stat Cat Scan 09/17/24 18:[address] bony pelvis Stat Cat Scan 09/17/24 18:[address] cervical spine wo con Stat Cat Scan 09/17/24 18:[address] head/brain wo con Stat Cat Scan 09/17/24 18:[address] lumbar spine wo con Stat Cat Scan 09/17/24 18:[address] thoracic spine wo con Stat Cat Scan 09/17/24 18:10 Completed CBC w/Auto Diff [Complete Blood Count Auto Diff] Stat Lab 09/17/24 18:13 Completed CMP [Comprehensive Metabolic Panel] Stat Lab 09/17/24 18:13 Completed HIV (1&2) Antibody Rapid Stat Lab 09/17/24 18:30 Completed Hep C Ab with Reflex to RNA Stat Lab 09/17/24 18:30 Received INR [Prothrombin Time INR] Stat Lab 09/17/24 18:13 Completed UA [Urinalysis and Microscopic] Stat Lab 09/17/24 19:46 Completed Urine Culture Stat Micro 09/17/24 19:46 Received Medical Decision Narrative: In summary patient is a 89-year-old female who presents to the emergency department for evaluation of a fall from standing. Patient is initially hypertensive at 175/71 with a heart rate of 74 respiratory rate 16 O2 sats 97% on room air Aidan Coma Score is 15 upon arrival, afebrile. Physical exam is remarkable for no visible signs of trauma including ecchymosis abrasions bony deformity from her entire back torso and lower extremities. However she is exquisitely tender anywhere I palpate posteriorly over the dorsal spine and in the musculature but also her anterior shins anterior thighs abdominal exam. All of which have no visible trauma or bony deformity. 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 Differential diagnosis includes contusion versus occult fracture versus closed head injury etc. Initial workup will be conducted with ED trauma scans, hematologic labs.. Initial interventions include Tylenol only until workup is completed and reviewed. Initial workup reviewed by me shows her hematologic labs are nonactionable informatory potation of all of her scan shows no acute processes or fracture. Upon repeat evaluation patient still reports pain with conservative measures. Given this patient is appropriate for discharge with follow-up with her PCP within 48 hours for her chronic findings or no improvement <Raphael Whitt MD - Last Filed: 09/17/24 20:40> Vital Signs: 09/17/24 17:48 09/17/24 18:00 Temperature 98.4 F Temperature Source Oral Pulse Rate 76 Pulse Rate [Radial] 74 Respiratory Rate 16 Blood Pressure 175/71 H Blood Pressure [Right Arm] 175/71 H Blood Pressure Mean [Right Arm] 105 Blood Pressure Source [Right Arm] Automatic Cuff Blood Pressure Position [Right Arm] Supine 02 Sat by Pulse Oximetry 97 96 Oxygen Delivery Method Room Air Lab Data Lab Results 09/17/24 18:13: WBC 5.1, RBC 3.46 L, Hgb 11.2 L, Hct 33.3 L, MCV 96.2, MCH 32.4 H, MCHC 33.6, RDW 14.2, Plt Count 216, MPV 7.9, Neut % (Auto) 41.8, Lymph % (Auto) 46.9, Lamar % (Auto) 6.7, Eos % (Auto) 4.1, Baso % (Auto) 0.6, Neut # (Auto) 2.1, Lymph # (Auto) 2.4, Lamar # (Auto) 0.3, Eos # (Auto) 0.2, Baso # (Auto) 0.0, PT 11.0, INR 0.98, Sodium 132 L, Potassium 4.3, Chloride 102, Carbon Dioxide 24, Anion Gap 10.3, BUN 12, Creatinine 0.60, Estimated Creat Clear 42, Estimated GFR 94, Est GFR ( Amer) 114, Glucose 88, Calcium 9.4, Total Bilirubin 0.7, AST 30, ALT 13, Alkaline Phosphatase 56, Total Protein 6.5, Albumin 3.9, Globulin 2.6, Albumin/Globulin Ratio 1.5 09/17/24 18:30: HIV 1&2 Antibody Rapid Nonreactive 09/17/24 19:46: Urine Color Yellow, Urine Appearance Clear, Urine pH 6.0, Ur Specific [place] <= 1.005, Urine Protein Negative, Urine Glucose (UA) Negative, Urine Ketones Negative, Urine Blood Negative, Urine Nitrate Negative, Urine Bilirubin Negative, Urine Urobilinogen 0.2, Ur Leukocyte Esterase Negative, Urine RBC Occasional, Urine WBC Occasional, Ur Squamous Epith Cells 3-5, Urine Bacteria 2+ Orders (Tests/Meds): ED MEDICATIONS Generic Name Dose Route Start Last Admin Trade Name Freq PRN Reason Stop Dose Admin Sodium Chloride 10 ml 09/17/24 19:15 09/17/24 19:18 Sodium Chloride 0.9% 10ml Syr (Rad Only) IV 10/17/24 19:14 10 ml NEEDED PRN Administration Maintain IV Site Discontinued Medications Generic Name Dose Route Start Last Admin Trade Name Freq PRN Reason Stop Dose Admin Acetaminophen 1,000 mg 09/17/24 18:08 09/17/24 18:41 Acetaminophen 1,000mg/100ml Vial IV 09/17/24 18:09 1,000 mg ONCE ONE Administration Iopamidol 160 ml 09/17/24 19:15 09/17/24 19:18 Iopamidol-370 (76%);100ml Bottle IV 09/17/24 19:16 160 ml ONCE ONE Administration Morphine Sulfate 2 mg 09/17/24 20:10 09/17/24 20:34 Morphine 2mg/Ml Syringe IV 09/17/24 20:11 2 mg ONCE ONE Administration Sodium Chloride 100 ml 09/17/24 19:15 09/17/24 19:18 0.9 % Sodium Chloride 50 Ml Vial IV 09/17/24 19:16 100 ml ONCE ONE Administration ORDERS Category Date Time Status CT angio abdomen pelvis Stat Cat Scan 09/17/24 18:[address] angio chest - dissection Stat Cat Scan 09/17/24 18:[address] angio head Stat Cat Scan 09/17/24 18:[address] angio neck Stat Cat Scan 09/17/24 18:[address] bony pelvis Stat Cat Scan 09/17/24 18:[address] cervical spine wo con Stat Cat Scan 09/17/24 18:[address] head/brain wo con Stat Cat Scan 09/17/24 18:[address] lumbar spine wo con Stat Cat Scan 09/17/24 18:[address] thoracic spine wo con Stat Cat Scan 09/17/24 18:10 Completed CBC w/Auto Diff [Complete Blood Count Auto Diff] Stat Lab 09/17/24 18:13 Completed CMP [Comprehensive Metabolic Panel] Stat Lab 09/17/24 18:13 Completed HIV (1&2) Antibody Rapid Stat Lab 09/17/24 18:30 Completed Hep C Ab with Reflex to RNA Stat Lab 09/17/24 18:30 Received INR [Prothrombin Time INR] Stat Lab 09/17/24 18:13 Completed UA [Urinalysis and Microscopic] Stat Lab 09/17/24 19:46 Completed Urine Culture Stat Micro 09/17/24 19:46 Received ECG Data Tracing #1: I reviewed this ECG and interpreted as documented below: (Sinus rhythm 79 beats a minute without ST or T wave changes concerning for acute ischemia. MA 139, QRS 74, QTc 414. Normal axis, intermittent PVCs.) Medical Decision Narrative: In summary patient is a 89-year-old female who presents to the emergency department for evaluation of a fall from standing. Patient is initially hypertensive at 175/71 with a heart rate of 74 respiratory rate 16 O2 sats 97% on room air Morgan Coma Score is 15 upon arrival, afebrile. Physical exam is remarkable for no visible signs of trauma including ecchymosis abrasions bony deformity from her entire back torso and lower extremities. However she is exquisitely tender anywhere I palpate posteriorly over the dorsal spine and in the musculature but also her anterior shins anterior thighs abdominal exam. All of which have no visible trauma or bony deformity. 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 Differential diagnosis includes contusion versus occult fracture versus closed head injury etc. Initial workup will be conducted with ED trauma scans, hematologic labs.. Initial interventions include Tylenol only until workup is completed and reviewed. Initial workup reviewed by me shows her hematologic labs are nonactionable informatory potation of all of her scan shows no acute processes or fracture. Upon repeat evaluation patient still reports pain with conservative measures. Given this patient is appropriate for discharge with follow-up with her PCP within 48 hours for her chronic findings or no improvement I was consulted by the MONICA, and we discussed the complexity of the problems being addressed. I approved the treatment and management plan for this patient's care in the Emergency Department, thus performing a substantive portion of the medical decision making. Raphael Whitt MD Critical Care <PAWAN Kendall - Last Filed: 09/17/24 20:10> Critical Care Time Critical Care Time: No
[2024-09-17 18:00] VITALS: BP 175/71; PULSE 76; O2SAT 96
--- NOTE | 2024-09-17 18:07 | ECG_ITS ---
APPROVED REPORT Exam: Resting ECG HR:79 bpm ECG Measurements Heart Rate 79 AXES DE 139 P 41 QRSd 74 QRS 3 QT 379 T 41 QTc 414 Conclusion SINUS RHYTHM WITH OCCASIONAL VENTRICULAR PREMATURE COMPLEXES No STEMI Electronically signed by : ERICA HANNA, 09/18/2024 07:15:08
--- NOTE | 2024-09-17 18:10 | CT_ITS ---
PROCEDURE INFORMATION: Exam: CTA Neck With Contrast Exam date and time: 09/17/2024 7:18 PM Age: 89 years old Clinical indication: Injury or trauma; Fall; Other: Pain; Additional info: Trauma, critical injury suspected TECHNIQUE: Imaging protocol: Computed tomographic angiography of the neck with contrast. Exam focused on the cervical segments of the vasculature. 3D rendering (Not supervised by radiologist): MIP and/or 3D reconstructed images were created by the technologist. Radiation optimization: All CT scans at this facility use at least one of these dose optimization techniques: automated exposure control; mA and/or kV adjustment per patient size (includes targeted exams where dose is matched to clinical indication); or iterative reconstruction. Contrast material: ISOVUE; Contrast volume: 80 ml; Contrast route: INTRAVENOUS (IV); COMPARISON: CT CERVICAL SPINE WO CON 09/17/2024 7:08 PM FINDINGS: Right common carotid artery: No significant stenosis. No dissection or occlusion. Right internal carotid artery: Cervical right internal carotid artery is patent. There is severe wall calcification within the right carotid bulb and bifurcation extending into the proximal right internal carotid artery with moderate to severe stenosis. Possible high-grade hemodynamically significant stenosis involving the proximal right internal carotid artery. Right external carotid artery: Severe calcification within the right carotid bulb and proximal origin. No occlusion or significant stenosis. Left common carotid artery: No significant stenosis. No dissection or occlusion. Mild wall calcification within the bifurcation, carotid bulb. Left internal carotid artery: Extracranial segment is patent with no significant stenosis. No dissection or occlusion. Left external carotid artery: No occlusion or significant stenosis. Right vertebral artery: No significant stenosis. No dissection or occlusion. Left vertebral artery: No significant stenosis. No dissection or occlusion. Aorta: [id number] aortic wall calcifications in the aortic arch without evidence for significant stenosis or occlusion. Veins: Prominent venous contrast creates artifact and limits assessment. Teeth: Dental amalgam creates artifact. Soft tissues: Unremarkable. Bones/joints: Diffusely severely decreased bone density. Limited sensitivity to detect acute abnormalities. Moderate to severe generalized bony degenerative changes. Bony structures appear otherwise unremarkable. Lungs: Nonspecific interstitial opacities within the lung apices. IMPRESSION: 1. Severe calcification within the right carotid bulb and bifurcation extending into the proximal right internal carotid artery. Moderate to severe stenosis involving the proximal right internal carotid artery. Recommend correlation with carotid Doppler ultrasound. Recommend vascular surgery consultation. 2. No significant left cervical chronic stenosis or occlusion. 3. Patent bilateral vertebral arteries. REFERENCES: NASCET CRITERIA. The degree of stenosis in the cervical segment of the internal carotid artery is based on NASCET criteria. Normal is no stenosis. Mild is less than 50% stenosis. Moderate is 50-69% stenosis. Severe is 70% to 99% stenosis. Total occlusion is no detectable patent lumen.
--- NOTE | 2024-09-17 18:10 | CT_ITS ---
PROCEDURE INFORMATION: Exam: CTA Chest With Contrast Exam date and time: 09/17/2024 7:22 PM Age: 89 years old Clinical indication: Injury or trauma; Fall; Other: Pain; Additional info: Trauma, critical injury suspected TECHNIQUE: Imaging protocol: Computed tomographic angiography of the chest with contrast. Exam focused on the arteries. 3D rendering (Not supervised by radiologist): MIP and/or 3D reconstructed images were created by the technologist. Radiation optimization: All CT scans at this facility use at least one of these dose optimization techniques: automated exposure control; mA and/or kV adjustment per patient size (includes targeted exams where dose is matched to clinical indication); or iterative reconstruction. Contrast material: ISOVUE; Contrast volume: 80 ml; Contrast route: INTRAVENOUS (IV); COMPARISON: CT ANGIO CHEST PE PROTOCOL 09/30/2022 11:03 AM FINDINGS: Tubes, catheters and devices: Multilead pacemaker device noted. Pulmonary arteries: Normal. No pulmonary emboli. Aorta: No aortic aneurysm. No aortic dissection. Celiac trunk and mesenteric arteries: No occlusion or significant stenosis. Renal arteries: No occlusion or significant stenosis. Right iliac arteries: No occlusion or significant stenosis. Left iliac arteries: No occlusion or significant stenosis. Lungs: No acute infiltrates. No evidence for pulmonary hemorrhage. Pleural spaces: Unremarkable. No pneumothorax. No pleural effusion. Heart: Unremarkable. No cardiomegaly. No pericardial effusion. Lymph nodes: Unremarkable. No pathologically enlarged lymph nodes are identified. Diaphragm: Moderate-size hiatal hernia measures 10 cm diameter. Liver: The liver appears within normal limits. Gallbladder and biliary ducts: There has been a cholecystectomy. The common bile duct is dilated to approximately 14 mm near the katherine hepatis. However it tapers normally towards the ampulla. This dilation is felt to be within the range of normal and related to reservoir effect from prior cholecystectomy. Pancreas: The pancreas is normal. Spleen: The spleen is normal. Adrenal glands: The adrenal glands appear within normal limits. Kidneys: The kidneys are normal. Intestine: Unremarkable. No obstruction. No mucosal thickening. Appendix: No evidence of appendicitis. Intraperitoneal space: No free air. No evidence for focal fluid collection or ascites. No evidence for omental thickening. Bones/joints: Severe bilateral glenohumeral joint osteoarthritis. Grade 1 degenerative anterolisthesis identified at L4-L5. Postoperative changes from right hip replacement. Soft tissues: Unremarkable. IMPRESSION: 1. No acute imaging findings identified. 2. Severe bilateral glenohumeral joint osteoarthritis. 3. Moderate-size hiatal hernia measures 10 cm diameter. 4. No acute infiltrates. No evidence for pulmonary hemorrhage.
--- NOTE | 2024-09-17 18:10 | CT_ITS ---
PROCEDURE INFORMATION: Exam: CT Pelvis Without Contrast, Skeleton Exam date and time: 09/17/2024 7:15 PM Age: 89 years old Clinical indication: Injury or trauma; Fall; Other: Pain; Additional info: Trauma, critical injury suspected TECHNIQUE: Imaging protocol: Computed tomography of the pelvis without contrast. Exam focused on the skeleton. Radiation optimization: All CT scans at this facility use at least one of these dose optimization techniques: automated exposure control; mA and/or kV adjustment per patient size (includes targeted exams where dose is matched to clinical indication); or iterative reconstruction. COMPARISON: CT LUMBAR SPINE WO CON 09/17/2024 7:12 PM FINDINGS: Bones/joints: Postoperative changes from right hip arthroplasty. No acute fracture. Grade 1 degenerative anterolisthesis identified at L4-L5. Severe spinal stenosis at the level of L4-L5. Severe bilateral facet arthropathy at L4-L5. Soft tissues: Unremarkable. IMPRESSION: 1. Postoperative changes from right hip arthroplasty. 2. No evidence for acute fracture. 3. Severe spinal stenosis at the level of L4-L5. Severe bilateral facet arthropathy at L4-L5.
--- NOTE | 2024-09-17 18:10 | CT_ITS ---
PROCEDURE INFORMATION: Exam: CT Cervical Spine Without Contrast Exam date and time: 09/17/2024 7:08 PM Age: 89 years old Clinical indication: Injury or trauma; Fall; Blunt trauma; Additional info: Trauma, critical injury suspected TECHNIQUE: Imaging protocol: Computed tomography of the cervical spine without contrast. Radiation optimization: All CT scans at this facility use at least one of these dose optimization techniques: automated exposure control; mA and/or kV adjustment per patient size (includes targeted exams where dose is matched to clinical indication); or iterative reconstruction. COMPARISON: CT CERVICAL SPINE WO CON 09/17/2024 7:08 PM FINDINGS: Tubes, catheters and devices: Left chest pacemaker is partially seen. Bones: Diffusely severely decreased bone density. Limited sensitivity to detect acute abnormalities. Moderate to severe generalized bony degenerative changes. Multilevel disc and osteophyte complexes with moderate to severe central canal and foraminal narrowing. Moderate to severe bony degenerative changes involving the anterior cervical cranial junction. Limited visualization of the cervicothoracic junction region. Mastoid air cells: The visualized bilateral mastoid air cells appear clear. Lungs: Lung apices appear unremarkable. Vasculature: Severe bilateral carotid siphon vascular wall calcifications are demonstrated. Moderate to severe bilateral carotid arterial vascular wall calcifications are demonstrated. Carotid arterial vascular wall calcifications appear more advanced on the right side. Soft tissues: Unremarkable. IMPRESSION: 1. Severely decreased bone density. Limited study. 2. No acute bony abnormality identified. 3. Chronic appearing moderate to severe degenerative changes, as described above. 4. Carotid arterial vascular calcification appears moderate to severe, more so on the right side. COMMENTS: MRI is the gold standard to evaluate for potential disc bulges, central canal and foraminal stenosis, spinal cord abnormality.
--- NOTE | 2024-09-17 18:10 | CT_ITS ---
PROCEDURE INFORMATION: Exam: CTA Head With Contrast, Arteriography Exam date and time: 09/17/2024 7:18 PM Age: 89 years old Clinical indication: Injury or trauma; Fall; Other: Pain; Additional info: Trauma, critical injury suspected TECHNIQUE: Imaging protocol: Computed tomographic angiography of the head with contrast. Exam focused on the arteries. 3D rendering (Not supervised by radiologist): MIP and/or 3D reconstructed images were created by the technologist. Radiation optimization: All CT scans at this facility use at least one of these dose optimization techniques: automated exposure control; mA and/or kV adjustment per patient size (includes targeted exams where dose is matched to clinical indication); or iterative reconstruction. Contrast material: ISOVUE; Contrast volume: 80 ml; Contrast route: INTRAVENOUS (IV); COMPARISON: CT HEAD/BRAIN WO CON 09/17/2024 7:05 PM FINDINGS: ANTERIOR CIRCULATION: Right internal carotid artery: Severe atherosclerotic wall calcifications. Intracranial segment is patent with no significant stenosis. No aneurysm. Right middle cerebral artery: No occlusion or significant stenosis. No aneurysm. Right anterior cerebral artery: No occlusion or significant stenosis. No aneurysm. Anterior communicating artery: Anterior communicating artery is not clearly visualized. Left internal carotid artery: Severe atherosclerotic wall calcifications. Intracranial segment is patent with no significant stenosis. No aneurysm. Left middle cerebral artery: No occlusion or significant stenosis. No aneurysm. Left anterior cerebral artery: No occlusion or significant stenosis. No aneurysm. POSTERIOR CIRCULATION: Right vertebral artery: No occlusion or significant stenosis. No aneurysm. Left vertebral artery: No occlusion or significant stenosis. No aneurysm. Basilar artery: No occlusion or significant stenosis. No aneurysm. Right posterior cerebral artery: No occlusion or significant stenosis. No aneurysm. Left posterior cerebral artery: No occlusion or significant stenosis. No aneurysm. Right posterior communicating artery: The right posterior communicating artery is demonstrated and appears patent common remarkable. Left posterior communicating artery: Questionable small left posterior communicating artery is demonstrated. Other arteries: Severe bilateral carotid siphon vascular wall calcifications are demonstrated. Brain: No definite mass, mass effect, or midline shift. Severe generalized intracranial atrophy with extensive chronic appearing ischemic changes. Cerebral ventricles: Prominent ventricles related to generalized atrophy. Bones/joints: Unremarkable. No acute fracture. Soft tissues: Unremarkable. IMPRESSION: No definite evidence for large vessel occlusion.
--- NOTE | 2024-09-17 18:10 | CT_ITS ---
PROCEDURE INFORMATION: Exam: CT Thoracic Spine Without Contrast Exam date and time: 09/17/2024 7:10 PM Age: 89 years old Clinical indication: Injury or trauma; Fall; Blunt trauma (contusions or hematomas); Additional info: Trauma, critical injury suspected TECHNIQUE: Imaging protocol: Computed tomography of the thoracic spine without contrast. Radiation optimization: All CT scans at this facility use at least one of these dose optimization techniques: automated exposure control; mA and/or kV adjustment per patient size (includes targeted exams where dose is matched to clinical indication); or iterative reconstruction. COMPARISON: CT THORACIC SPINE WO CON 01/18/2024 7:00 PM FINDINGS: Bones/joints: No acute fracture. Multilevel degenerative disc disease with endplate osteophyte formation. Mild levoscoliosis within the upper thoracic spine. Soft tissues: Unremarkable. Other findings: Moderate size hiatal hernia identified measuring 10 cm diameter. IMPRESSION: 1. No evidence for acute fracture. 2. Moderate size hiatal hernia identified measuring 10 cm diameter. 3. Mild levoscoliosis within the upper thoracic spine.
--- NOTE | 2024-09-17 18:10 | CT_ITS ---
PROCEDURE INFORMATION: Exam: CT Head Without Contrast Exam date and time: 09/17/2024 7:05 PM Age: 89 years old Clinical indication: Injury or trauma; Fall; Blunt trauma (contusions or hematomas); Additional info: Trauma, critical injury suspected TECHNIQUE: Imaging protocol: Computed tomography of the head without contrast. Radiation optimization: All CT scans at this facility use at least one of these dose optimization techniques: automated exposure control; mA and/or kV adjustment per patient size (includes targeted exams where dose is matched to clinical indication); or iterative reconstruction. COMPARISON: CT HEAD/BRAIN WO CON 02/23/2024 6:19 PM FINDINGS: Brain: See Cerebral ventricles finding. Severe generalized intracranial atrophy with extensive periventricular white matter hypodensity, most compatible with chronic small vessel white matter ischemic changes. No definite evidence for acute infarct. Otherwise, normal hills-white matter interfaces. No focal mass lesions. No intra-axial or extra-axial fluid collections, hemorrhage or mass. No mass effect or midline shift. The pineal, sellar, brainstem, cerebellum regions appear grossly unremarkable. Cerebral ventricles: The ventricles, sulci, cisterns appear diffusely prominent, related to significant generalized atrophy. Paranasal sinuses: Bilateral nasal cavity ostiomeatal complexes appear patent. Mastoid air cells: Visualized mastoid air cells are unremarkable without effusion. Orbital cavities: The optic globes appear unremarkable and symmetrical. The visualized orbital cavities appear unremarkable. Nasal cavity: Philly bullosa identified within the right middle turbinate. Teeth: Dental amalgam creates artifact. Missing dentition is demonstrated. Bones: Moderate to severe degenerative changes identified within the left temporal mandibular joint. Moderate to severe bony degenerative changes involving the anterior cervical cranial junction. Diffusely decreased bone density. Soft tissues: Unremarkable. Vasculature: Severe bilateral carotid siphon vascular wall calcifications are demonstrated. IMPRESSION: 1. No evidence for acute intracranial abnormality. 2. Severe generalized intracranial atrophy with extensive chronic appearing ischemic changes. 3. If there is clinical concern for potential acute infarct, consider MRI head with diffusion-weighted imaging.
--- NOTE | 2024-09-17 18:10 | CT_ITS ---
PROCEDURE INFORMATION: Exam: CTA Abdomen and Pelvis With Contrast Exam date and time: 09/17/2024 7:22 PM Age: 89 years old Clinical indication: Injury or trauma; Fall; Other: Pain; Additional info: Trauma, critical injury suspected TECHNIQUE: Imaging protocol: Computed tomographic angiography of the abdomen and pelvis with contrast. Exam focused on the arteries. 3D rendering (Not supervised by radiologist): MIP and/or 3D reconstructed images were created by the technologist. Radiation optimization: All CT scans at this facility use at least one of these dose optimization techniques: automated exposure control; mA and/or kV adjustment per patient size (includes targeted exams where dose is matched to clinical indication); or iterative reconstruction. Contrast material: ISOVUE; Contrast volume: 80 ml; Contrast route: INTRAVENOUS (IV); COMPARISON: CT BONY PELVIS 09/17/2024 7:15 PM FINDINGS: Tubes, catheters and devices: Multilead pacemaker device noted. Lungs: No acute infiltrates. No evidence for pulmonary hemorrhage. Diaphragm: Moderate-size hiatal hernia measures 10 cm diameter. Aorta: No aortic aneurysm. No aortic dissection. Celiac trunk and mesenteric arteries: No occlusion or significant stenosis. Renal arteries: No occlusion or significant stenosis. Right iliac arteries: No occlusion or significant stenosis. Left iliac arteries: No occlusion or significant stenosis. Liver: The liver appears within normal limits. Gallbladder and biliary ducts: There has been a cholecystectomy. The common bile duct is dilated to approximately 14 mm near the katherine hepatis. However it tapers normally towards the ampulla. This dilation is felt to be within the range of normal and related to reservoir effect from prior cholecystectomy. Pancreas: The pancreas is normal. Spleen: The spleen is normal. Adrenal glands: The adrenal glands appear within normal limits. Kidneys and ureters: The kidneys are normal. Stomach and bowel: Unremarkable. No obstruction. No mucosal thickening. Appendix: No evidence of appendicitis. Intraperitoneal space: No free air. No evidence for focal fluid collection or ascites. No evidence for omental thickening. Lymph nodes: Unremarkable. No pathologically enlarged lymph nodes are identified. Urinary bladder: The bladder appears within normal limits. No wall thickening. Reproductive: There has been a hysterectomy. Bones/joints: Severe bilateral glenohumeral joint osteoarthritis. Grade 1 degenerative anterolisthesis identified at L4-L5. Postoperative changes from right hip replacement. Soft tissues: Unremarkable. IMPRESSION: 1. No acute imaging findings identified. 2. Severe bilateral glenohumeral joint osteoarthritis. 3. Moderate-size hiatal hernia measures 10 cm diameter. 4. No acute infiltrates. No evidence for pulmonary hemorrhage.
--- NOTE | 2024-09-17 18:10 | CT_ITS ---
PROCEDURE INFORMATION: Exam: CT Lumbar Spine Without Contrast Exam date and time: 09/17/2024 7:12 PM Age: 89 years old Clinical indication: Injury or trauma; Fall; Other: Pain; Additional info: Trauma, critical injury suspected TECHNIQUE: Imaging protocol: Computed tomography of the lumbar spine without contrast. Radiation optimization: All CT scans at this facility use at least one of these dose optimization techniques: automated exposure control; mA and/or kV adjustment per patient size (includes targeted exams where dose is matched to clinical indication); or iterative reconstruction. COMPARISON: CT LUMBAR SPINE WO CON 01/18/2024 7:05 PM FINDINGS: Bones/joints: No acute fracture. Grade 1 degenerative anterolisthesis identified at L4-L5. Severe bilateral facet arthropathy at L4-L5. Old laminotomy changes at L3. There are changes of spondylosis. Findings include disc space narrowing, marginal osteophyte formation & facet arthropathy. Soft tissues: Unremarkable. IMPRESSION: 1. No evidence for acute fracture. 2. Degenerative disc disease.
[2024-09-17 18:34] LABS: Alanine Aminotransferase 13 U/L (12-78); Albumin Level 3.9 g/dl (3.5-5.0); Albumin/Globulin Ratio 1.5 (1.1-1.8); Alkaline Phosphatase 56 U/L (38-126); Anion Gap 10.3 mEq/L (5-15); Aspartate Amino Transferase 30 U/L (14-36); Bilirubin,Total 0.7 mg/dl (0.2-1.3); Blood Urea Nitrogen 12 mg/dl (7-17); Calcium 9.4 mg/dl (8.4-10.2); Carbon Dioxide 24 mmol/L (22.0-30.0); Chloride 102 mmol/L (98-107); Creatinine Clearance Estimated 42 mL/min (50-200); Estimated Glomerular Filt Rate 94 ml/min (>60); GFR (African American) 114 ML/MIN (>60); Globulin 2.6 g/dL (1.3-3.2); Glucose 88 mg/dl (74-100); Potassium 4.3 mmoL/L (3.5-5.1); Sodium 132 mmol/L (136-145); Total Protein,Serum 6.5 g/dl (6.3-8.2)
[2024-09-17 18:35] LABS: Basophils % 0.6 % (0.1-2.0); Eosinophils # 0.2 K/mm3 (0.0-0.4); Eosinophils % 4.1 % (0.1-12.0); Hematocrit 33.3 % (37.0-47.0); Hemoglobin 11.2 g/dL (12.2-16.2); INR 0.98 (0.9-1.1); Lymphocytes # 2.4 K/mm3 (0.7-4.5); Lymphocytes % 46.9 % (10-50); Mean Corpuscular HGB Conc 33.6 g/dL (31.8-35.4); Mean Corpuscular Hemoglobin 32.4 pg (27.0-31.2); Mean Corpuscular Volume 96.2 fl (81-99); Mean Platelet Volume 7.9 fl (7.4-10.4); Monocytes # 0.3 K/mm3 (0.1-1.0); Monocytes % 6.7 % (1.7-9.3); Neutrophils # 2.1 K/mm3 (1.8-7.8); Neutrophils % 41.8 % (37.0-80.0); Platelet Count 216 K/mm3 (142-424); Red Blood Count 3.46 M/mm3 (4.20-5.40); Red Cell Distribution Width 14.2 % (11.5-17.5); White Blood Count 5.1 K/mm3 (4.8-10.8)
[2024-09-17] MEDS: ACETAMINOPHEN 1,000MG/100ML VIAL 1000 MG IV (18:41)
[2024-09-17] MEDS: IOPAMIDOL-370 (76%);100ML BOTTLE 160 ML IV (19:18)
[2024-09-17] MEDS: SODIUM CHLORIDE 0.9% 10ML SYR (RAD ONLY) 10 ML IV (19:18)
[2024-09-17] MEDS: 0.9 % SODIUM CHLORIDE 50 ML VIAL 100 ML IV (19:18)
[2024-09-17 19:29] LABS: HIV (1&2) Antibody Rapid NONREACTIVE (NONREACTIVE)
--- NOTE | 2024-09-17 19:35 | PC.NURSE ---
attempted to reconnect pt to vitals after assisting with her to bedside commode, pt refused to have the blood pressure cuff put on due to it causing pain when squeezing. pt did not want it relocated to help with the discomfort.
[2024-09-17 19:49] LABS: Microscopic, Urine URINE MICROSCOPIC (MICROSCOPIC)
[2024-09-17 19:53] LABS: Appearance,Urine CLEAR (Clear); Bilirubin,Urine Negative (Negative); Blood, Urine Negative (Negative); Color,Urine YELLOW (Yellow); Glucose,Urine (UA) Negative (Negative); Ketones,Urine Negative (Negative); Leukocyte Esterase,Urine Negative (Negative); Nitrate,Urine Negative (Negative); Protein,Urine Negative (Negative); Specific Gravity, Urine <= 1.005 (1.005-1.030); Urobilinogen,Urine 0.2 EU/dl (0.2)
[2024-09-17 20:30] LABS: Bacteria,Urine 2+ /lpf; RBC,Urine Occasional #/hpf (0-3); WBC,Urine Occasional #/hpf (0-3)
[2024-09-17] MEDS: MORPHINE 2MG/ML SYRINGE 2 MG IV (20:34)
[2024-09-17 21:41] VITALS: BP 175/72; PULSE 65; RESP 18; TEMP 36.6; O2SAT 94
[2024-09-19 05:56] LABS: HCV Ab Non Reactive (Non Reactive)
== END 2024-09-17 21:45 | disposition home or self-care (01) ==
PROVIDERS: Physician Assistant; Emergency Provider Emergency Medicine; PCP Family Medicine
DX: M54.9 Dorsalgia, unspecified (principal); M25.511 Pain in right shoulder; M25.512 Pain in left shoulder; M54.2 Cervicalgia; W01.0XXA Fall on same level from slipping, tripping and stumbling without subsequent striking against object, initial encounter; Y93.89 Activity, other specified; Y92.009 Unspecified place in unspecified non-institutional (private) residence as the place of occurrence of the external cause
CPT/HCPCS: 70450; 70496; 70498; 71275; 72125; 72128; 72131; 72192; 74174; 80053; 81001; 85025; 85610; 86803; 87086; 87389; 93005; 96374; 96375; 99285; J0131; J2270; Q9967

== ENCOUNTER 2024-09-23 13:44 | Outpatient (CLI) | payer MEDICARE, SELFPAY ==
--- NOTE | 2024-09-23 13:46 | CA_ITS ---
APPROVED REPORT EXAM: Comprehensive 2D, Doppler, and color-flow Echocardiogram Wet Chemistry Analyst: Lisa Oliver RT(R) Ht: 5 ft 0 in Wt: 152lbs BSA: 1.66 BP: 149/62 mmHg Indications: pre op assessment for shoulder surgery, patient has limited mobility secondary to shoulder and hip pain, patient was scanned supine on back, edema, HTN, hyperlipidemia, vtach, SSS, pacemaker, AFIB, PHTN. 2D Dimensions EF AP4 62.60 % GL Strain -13.4 % M-Mode Dimensions RVDd 2.34 cm (0.9-2.6) LA Diam 2.78 cm (1.9-4.0) LVDd 4.14 cm (3.5-5.7) LVDs 3.04 cm (3.5-5.7) IVSd 0.67 cm (0.6-1.1) PWd 0.77 cm (0.6-1.1) EF (Teich) 52.30% FS 26.60% EDV (Teich) 75.90 mL ESV (Teich) 36.20 mL LV Diastology E Decel Time 267 (160-240 msec) E/A Ratio 0.93 Mitral Valve MV A Velocity 115.0 (40-130 cm/s) E/A Ratio 0.93 Tricuspid Valve TR P. Velocity 309.00 cm/s RAP Estimate 10.00 mmHg RVSP 48.20 mmHg Left Ventricle The left ventricle is normal size. The left ventricular systolic function is normal. The left ventricular ejection fraction is within the normal range. There is increased LV wall thickness. There is normal LV segmental wall motion. The left ventricular diastolic function is normal. LVEF is 60%. Right Ventricle The right ventricle is mildly dilated. The right ventricular systolic function is normal. Atria The left atrium size is normal. The right atrium size is normal. There is no Doppler evidence of interatrial shunt. Aortic Valve The aortic valve is mildly thickened. There is no hemodynamically significant aortic valvular stenosis. No aortic regurgitation is present. Mitral Valve The mitral valve is mildly thickened. No evidence of mitral valve stenosis. Trace mitral regurgitation. Tricuspid Valve The tricuspid valve leaflets are thin and pliable. Mild tricuspid regurgitation. RVSP is 35-40 mmHg. Pulmonic Valve The pulmonary valve is normal in structure. Trace pulmonic regurgitation. The ascending aorta is not well-visualized. Great Vessels The aortic root is normal in size. IVC is normal in size and collapses >50% with inspiration. Pericardium There is no pericardial effusion. Other Information Study Quality: Technically Difficult Conclusion Technically difficult study due to poor acoustic windows. Normal biventricular systolic function. Mild RV dilation. Mild TR. Elevated RVSP 35-40 mmHg. Electronically signed by : Gabbi Hernandez MD 09/24/2024 00:40:09
== END 2024-09-23 23:59 | disposition home or self-care (01) ==
LOC: RT 13:44
PROVIDERS: PCP Family Medicine; Visit Provider Physician Assistant
DX: Z01.810 Encounter for preprocedural cardiovascular examination (principal); I51.7 Cardiomegaly; I47.20 Ventricular tachycardia, unspecified; E78.2 Mixed hyperlipidemia; Z95.0 Presence of cardiac pacemaker
CPT/HCPCS: 93306

== ENCOUNTER 2024-09-26 09:26 | Day surgery (SDC) | payer MEDICARE, SELFPAY ==
[2024-09-26 09:29] VITALS: BP 160/75; PULSE 68; RESP 16; O2SAT 95; BMI 30.2
[2024-09-26] MEDS: LIDOCAINE 1% 5ML PF VIAL 5 ML (09:52)
[2024-09-26] MEDS: BUPIVACAINE 0.25% 10ML INJ 25 MG IJ (09:53)
[2024-09-26] MEDS: methylPREDNISolone ACETATE 80MG/ML VIAL 80 MG (09:53)
[2024-09-26 09:58] VITALS: BP 140/91; PULSE 66; RESP 16; O2SAT 98
--- NOTE | 2024-09-26 10:07 | P.PCN_ITS ---
Procedure Date: 09/26/24 Time: 09:40 Anesthesiologist:: Fuad Haas CRNA Complications:: None Pre-procedure Diagnosis:: Bilateral sacroiliitis Post-procedure Diagnosis:: Same Indications for Procedure:: Patient is a pleasant 89-year-old female who comes our clinic today for bilateral sacroiliac joint injections of cortisone and local anesthetic. Patient responded well to this injection in the past. She describes low lumbar back pain off the midline bilaterally. Bilateral posterior hip pain. Upon examination she has extreme point tenderness over the bilateral sacroiliac joints. She rates her pain 8/10. Procedure Details:: Procedure: Bilateral sacroiliac joint injections under fluoroscopy Informed consent was obtained and the risks and benefits of the procedure were explained to the patient.~ The patient was taken to the procedure room and noninvasive monitors were placed including a noninvasive blood pressure cuff and pulse oximeter.~ The patient was placed prone on the procedure table. Both hips were cleansed using Betadine as a cleansing solution. C-arm fluoroscopy was used to view the right sacroiliac joint.~ The skin and subcutaneous tissues were anesthetized using lidocaine 1.5% and a 25-gauge needle.~ After this, a 22-gauge spinal needle was inserted under fluoroscopic guidance into the inferior aspect of the right sacroiliac joint.~ Omnipaque dye was injected and good spread was seen throughout the joint.~ After this, approximately 5 mL of bupivacaine, 0.25% and Depo-Medrol, 40 mg was incrementally injected into the right sacroiliac joint. We then moved to the left sacroiliac joint.~ The skin and subcutaneous tissues were anesthetized using lidocaine 1.5% and a 25-gauge needle.~ After this, a 22- gauge spinal needle was inserted under fluoroscopic guidance into the inferior aspect of the left sacroiliac joint.~ Omnipaque dye was injected and good spread was seen throughout the joint. After this, approximately 5 mL of bupivacaine, 0.25% and Depo-Medrol, 40 mg was incrementally injected into the left sacroiliac joint.~ The patient tolerated the procedure well with no complications. The patient was observed in the Pain Clinic and then was discharged home neurologically intact. Plan and Disposition:: Patient was discharged without incident.
== END 2024-09-26 09:58 | disposition home or self-care (01) ==
PROVIDERS: PCP Family Medicine; Visit Provider Nurse Anesthetist, Certified Registered
DX: M46.1 Sacroiliitis, not elsewhere classified (principal)
CPT/HCPCS: 27096; G0260; J1010

== ENCOUNTER 2024-10-06 13:04 | Outpatient (POV) | payer MEDICARE, SELFPAY ==
[2024-10-06 13:24] VITALS: BP 179/84; PULSE 59; RESP 18; O2SAT 96; BMI 29.7
--- NOTE | 2024-10-06 13:42 | EXP.PAIN.SOA ---
[facility] Disclaimer: The information contained in this section may have been updated after the patient was seen, as this information can be updated by other users. Medical History Closed fracture of coccyx with routine healing History of pilonidal cyst History of hip fracture Closed head injury Nodule of right lung Fall Stroke Normal esophagogastroduodenoscopy (EGD) Colonoscopy planned Pacemaker HTN (hypertension) GERD (gastroesophageal reflux disease) Anemia Abnormal result of cardiovascular function study Anemia Dysphagia Accidental fall Cardiac pacemaker in situ Abnormal Holter monitor finding Elevated right ventricular end-diastolic pressure Balance problem SSS (sick sinus syndrome) HLD (hyperlipidemia) Cerebrovascular accident Cerebrovascular accident Facial contusion Surgical History History of lumbar surgery H/O bladder repair surgery H/O carpal tunnel repair Hx of cholecystectomy H/O arthroscopy of shoulder History of appendectomy Hx of hysterectomy, total Total knee replacement status Family History Other Cancer Heart attack Hypertension Stroke Social History Smoking Status: Never smoker alcohol intake: never substance use type: denies use current occupational status: retired Travel in the last 8 weeks: None household members: none housing: house current occupational exposures/hazards: No PM Subjective & Objective Subjective Subjective:: Patient is a pleasant 89-year-old female who presents today for follow-up of bilateral SI injections. Today she rates her pain a 10 out of 10. Patient does have chronic pain throughout her neck with numbness and tingling into her bilateral upper extremities as well as low back pain that does radiate into her buttocks area and down into her legs with numbness and tingling. Patient does state that her SI injections did not seem to really provide much improvement. She states she is still having the chronic pain all across the low back and it does interfere with her ability perform activities of daily living. Patient states that she will just all of a sudden have a sharp shooting pain that goes down. She does state that the low back and leg pain is worse than the neck pain. Patient has tried and failed conservative therapy including continued at home stretching exercise for longer than 12 weeks. Patient has postponed her shoulder surgery until November 10 however states this was just a tentative time. Patient is currently managed with [place] 5 mg 4 times a day from our office. She denies any side effects. Her Kyler has been reviewed and is appropriate. Review of Systems: General: No recent weight changes, no fever, no sleep disturbances Respiratory: No cough, no shortness of air, no recurring pulmonary infections Cardiovascular/peripheral vascular: No chest pain, no palpitations, no edema, no shortness of breath Gastrointestinal: No new onset incontinence, normal bowel movements reported Genitourinary: No new onset incontinence Musculoskeletal: Low back pain, buttocks pain, bilateral leg numbness tingling Psychiatric: [Normal mood/affect] Neurological: [Denies weakness in extremities], [denies balance issues] Pain at rest (0-10 scale): 10 Objective Objective:: Physical Exam: General: Alert and oriented x3, no acute distress, pleasant and cooperative Lungs: Respirations even and unlabored, symmetrical chest expansion Eyes: PERRL Musculoskeletal: Flexion and extension of lumbar [spine] somewhat guarded secondary to pain, [antalgic gait noted] Neurological: Speech clear, no gross sensory deficit Has patient had previous pain injection?: Yes Percent improvement in pain since last injection: Minimal Conservative treatment options previously tried: Home exercise plan Length of treatment: Longer than 12 weeks Meds Home Medications and Allergies Home Medications ?Medication ?Instructions ?Recorded ?Confirmed ?Type acetaminophen 500 mg tablet 500 mg PO Q6H PRN Mild Pain (Scale 06/14/21 10/06/24 History (Tylenol Extra Strength) Score 1-4) celecoxib 100 mg capsule 100 mg PO DAILY #90 caps 05/28/24 10/06/24 Rx gabapentin 300 mg capsule 300 mg PO HS Pain #30 caps 08/01/24 10/06/24 Rx apixaban 5 mg tablet (Eliquis) 5 mg PO BID #60 tabs 09/03/24 10/06/24 Rx furosemide 20 mg tablet 20 mg PO DAILY PRN Fluid 09/03/24 10/06/24 History hydrocodone 5 mg-acetaminophen 325 1 tab PO QID #120 tabs 09/10/24 10/06/24 Rx mg tablet pantoprazole 40 mg tablet,delayed 40 mg PO BID GERD 90 days #180 tabs 09/18/24 10/06/24 Rx release rosuvastatin 10 mg tablet See Rx Instructions .Route 09/18/24 10/06/24 Rx .COMPLEX #90 tabs lisinopril 10 mg tablet See Rx Instructions .Route 09/22/24 10/06/24 Rx .COMPLEX #90 tabs ondansetron 4 mg disintegrating 4 mg PO BID PRN nausea and 09/22/24 10/06/24 Rx tablet vomiting 5 days #10 tabs oxycodone 10 mg tablet 10 mg PO Q6H PRN pain #20 tabs 09/25/24 10/06/24 Rx New Prescriptions to Start Prescriptions: Allergies Allergy/AdvReac Type Severity Reaction Status Date / Time No Known Allergies Allergy Verified 09/03/24 11:12 Assessment and Plan *Assessment and plan (1) Lumbar spinal stenosis: Status: Acute Qualifiers: Neurogenic claudication status: without neurogenic claudication Qualified Code(s): M48.061 - Spinal stenosis, lumbar region without neurogenic claudication Category: Medical Code(s): M48.061 - Spinal stenosis, lumbar region without neurogenic claudication (2) Chronic pain syndrome: Status: Acute Category: Medical Code(s): G89.4 - Chronic pain syndrome (3) Lumbar radiculopathy: Status: Acute Category: Medical Code(s): M54.16 - Radiculopathy, lumbar region (4) Degenerative disc disease, lumbar: Status: Acute Category: Medical Code(s): M51.369 - Other intervertebral disc degeneration, lumbar region without mention of lumbar back pain or lower extremity pain Plan Patient is experiencing worsening pain in her low back, buttocks and legs with numbness and tingling. Patient did have limited range of motion of her lumbar spine during today's visit. Patient's most recent lumbar CT did show anterolisthesis on L4-L5 with severe neuroforaminal narrowing at this level as well. I did discuss with the patient that she may benefit from a lumbar epidural at this level. Risk and benefits were discussed with the patient and she would like to proceed forward with this plan of care. Patient has tried and failed conservative therapy including continued at home stretching exercise for longer than 12 weeks. Patient will be scheduled for an LESI L4-L5 under fluoroscopy. Patient is not on any blood thinners. I will also refill her [place] and provide a 1 month supply of this medication. Risks and benefits of the medication have been explained in detail to the patient. The patient does understand the risk of dependence on the medication when given over a prolonged period. Patient has been advised of risks of oversedation with the prescribed medication. Narcan has been offered to the paitent in the event of oversedation. Patient has been advised that a family member should also be educated regarding administration of Narcan. The patient has been advised to consult with his/her primary care provider and pharmacist regarding drug-drug interaction of medications currently prescribed. Patient has been prescribed a controlled substance after being counseled on the medication, medication safety, and possible side effects. Opioid contract was reviewed and signed by the patient, and that they have agreed to all of the terms set forth by our compliance program. Patient has been instructed to contact the clinic with any concerns before the next appointment. Dr. Britt has reviewed this note and agrees with this plan of care. This note was dictated using voice recognition software and make contain errors or omissions.
== END 2024-10-06 23:59 | disposition home or self-care (01) ==
PROVIDERS: PCP Family Medicine; Visit Provider Nurse Practitioner Family
DX: M48.061 Spinal stenosis, lumbar region without neurogenic claudication (principal); G89.4 Chronic pain syndrome; M51.16 Intervertebral disc disorders with radiculopathy, lumbar region; Z96.659 Presence of unspecified artificial knee joint; Z73.89 Other problems related to life management difficulty
CPT/HCPCS: 99212; G0463

== ENCOUNTER → 2024-10-14 10:39 | Day surgery (SDC) | payer MEDICARE, SELFPAY ==
[2024-10-14 11:01] VITALS: BP 182/86; PULSE 60; RESP 16; TEMP 36.8; O2SAT 96; BMI 29.5
--- NOTE | 2024-10-14 15:24 | EXP.PAIN.PRO ---
Procedure Date: 10/14/24 Time: 13:30 Anesthesiologist:: Fuad Haas CRNA Complications:: None Pre-procedure Diagnosis:: Degenerative disc lumbar spine multilevels. Lumbar radiculopathy or bilateral sacroiliitis. Post-procedure Diagnosis:: Same. Indications for Procedure:: Patient is a pleasant 89-year-old female who comes our clinic today for lumbar epidural steroid injection. However, after lengthy discussion with the patient and her daughter it is noted that the patient has been experiencing extreme lower extremity weakness over the last 2 weeks. Essentially, according to the daughter the patient is not ambulatory nor can she stand. I discussed in detail with the patient and the daughter regarding my thoughts on further injective therapy at this time. I do not think this is the appropriate treatment for her at this time. We will notify her PCP regarding her decision today. Also, patient's daughter is requesting for her mom to be able to go to rehab to help with physical therapy and strengthening exercises. Procedure Details:: No procedure today Plan and Disposition:: Patient was discharged without incident.
== END | disposition home or self-care (01) ==
PROVIDERS: PCP Family Medicine; Visit Provider Nurse Anesthetist, Certified Registered
DX: M51.16 Intervertebral disc disorders with radiculopathy, lumbar region (principal); M46.1 Sacroiliitis, not elsewhere classified; Z53.29 Procedure and treatment not carried out because of patient's decision for other reasons

== ENCOUNTER 2024-10-26 14:44 | Outpatient (CLI) | payer MEDICARE, SELFPAY | END 2024-10-26 23:59 | disposition home or self-care (01) | PROVIDERS: Visit Provider Internal Medicine Adolescent Medicine | DX: R07.0 Pain in throat (principal) | CPT/HCPCS: 87070 ==

== ENCOUNTER 2024-11-06 14:52 | Inpatient (IN) | payer MEDICARE, SELFPAY ==
[2024-11-06] VITALS (11 sets, daily range): BP systolic 150–191; BP diastolic 69–110; PULSE 75–97; RESP 16–20; TEMP 36.2–37.2; O2SAT 90–98; BMI 25.6
--- NOTE | 2024-11-06 15:21 | CT_ITS ---
PROCEDURE INFORMATION: Exam: CTA Head With Contrast, Arteriography Exam date and time: 11/06/2024 5:07 PM Age: 89 years old Clinical indication: Injury or trauma; Additional info: Trauma, critical injury suspected TECHNIQUE: Imaging protocol: Computed tomographic angiography of the head with contrast. Exam focused on the arteries. 3D rendering (Not supervised by radiologist): MIP and/or 3D reconstructed images were created by the technologist. Radiation optimization: All CT scans at this facility use at least one of these dose optimization techniques: automated exposure control; mA and/or kV adjustment per patient size (includes targeted exams where dose is matched to clinical indication); or iterative reconstruction. Contrast material: ISO 370; Contrast volume: 80 ml; Contrast route: INTRAVENOUS (IV); COMPARISON: CT ANGIO HEAD 09/17/2024 7:18 PM FINDINGS: ANTERIOR CIRCULATION: Right internal carotid artery: Calcification involving the right carotid siphon with [id number] stenosis. Right middle cerebral artery: No occlusion or significant stenosis. No aneurysm. Right anterior cerebral artery: No occlusion or significant stenosis. No aneurysm. Left internal carotid artery: Calcification involving the left carotid siphon with [id number] stenosis. Left middle cerebral artery: No occlusion or significant stenosis. No aneurysm. Left anterior cerebral artery: No occlusion or significant stenosis. No aneurysm. POSTERIOR CIRCULATION: Right vertebral artery: Calcification involving the right vertebral artery without significant stenosis. Left vertebral artery: No occlusion or significant stenosis. No aneurysm. Basilar artery: No occlusion or significant stenosis. No aneurysm. Right posterior cerebral artery: No occlusion or significant stenosis. No aneurysm. Left posterior cerebral artery: No occlusion or significant stenosis. No aneurysm. IMPRESSION: 1. No large vessel occlusion. 2. [id number] bilateral carotid siphon stenosis.
--- NOTE | 2024-11-06 15:21 | CT_ITS ---
PROCEDURE INFORMATION: Exam: CT Head Without Contrast Exam date and time: 11/06/2024 4:59 PM Age: 89 years old Clinical indication: Injury or trauma; Fall; Blunt trauma (contusions or hematomas); Additional info: Trauma, critical injury suspected, fall TECHNIQUE: Imaging protocol: Computed tomography of the head without contrast. Radiation optimization: All CT scans at this facility use at least one of these dose optimization techniques: automated exposure control; mA and/or kV adjustment per patient size (includes targeted exams where dose is matched to clinical indication); or iterative reconstruction. COMPARISON: No relevant prior studies available. FINDINGS: Limitations: Patient motion. Brain: Age-related volume loss. Decreased attenuation of the supratentorial white matter is likely secondary to chronic microvascular ischemia. No definite acute intracranial hemorrhage. No midline shift or significant intracranial mass effect. Cerebral ventricles: Ventriculomegaly is commensurate for degree of volume loss. Paranasal sinuses: Visualized sinuses are unremarkable. No fluid levels. Mastoid air cells: Visualized mastoid air cells are well aerated. Bones: Unremarkable. No acute fracture. Soft tissues: Unremarkable. IMPRESSION: Patient motion without definite acute intracranial abnormality.
--- NOTE | 2024-11-06 15:21 | CT_ITS ---
PROCEDURE INFORMATION: Exam: CT Cervical Spine Without Contrast Exam date and time: 11/06/2024 5:01 PM Age: 89 years old Clinical indication: Injury or trauma; Fall; Blunt trauma; Additional info: Trauma, critical injury suspected, fall TECHNIQUE: Imaging protocol: Computed tomography of the cervical spine without contrast. Radiation optimization: All CT scans at this facility use at least one of these dose optimization techniques: automated exposure control; mA and/or kV adjustment per patient size (includes targeted exams where dose is matched to clinical indication); or iterative reconstruction. COMPARISON: CT HEAD/BRAIN WO CON 11/06/2024 4:59 PM FINDINGS: Limitations: Patient motion. Bones: Nonspecific straightening. Mild retrolisthesis of C4 on C5 and C5 on C6. Vertebral body heights are preserved. Moderate degenerative change about the dens. Mild prevertebral osteophytosis. Bilateral facet joint degenerative change. Multilevel disc space narrowing with degenerative endplate change. No acute cervical spine fracture. Multilevel cervical central and foraminal stenoses. Lungs: Lung apices are normal. Pleural spaces: No visible pneumothorax. Vasculature: Vascular calcification. Soft tissues: Unremarkable. IMPRESSION: Patient motion without definite acute cervical spine fracture.
--- NOTE | 2024-11-06 15:21 | CT_ITS ---
PROCEDURE INFORMATION: Exam: CTA Neck With Contrast Exam date and time: 11/06/2024 5:07 PM Age: 89 years old Clinical indication: Injury or trauma; Additional info: Trauma, critical injury suspected TECHNIQUE: Imaging protocol: Computed tomographic angiography of the neck with contrast. Exam focused on the cervical segments of the vasculature. 3D rendering (Not supervised by radiologist): MIP and/or 3D reconstructed images were created by the technologist. Radiation optimization: All CT scans at this facility use at least one of these dose optimization techniques: automated exposure control; mA and/or kV adjustment per patient size (includes targeted exams where dose is matched to clinical indication); or iterative reconstruction. Contrast material: ISO 370; Contrast volume: 80 ml; Contrast route: INTRAVENOUS (IV); COMPARISON: CT ANGIO NECK 09/17/2024 7:18 PM FINDINGS: Limitations: Limited by artifact arising from metallic dental hardware/dental amalgam. Patient motion. Right common carotid artery: Calcification at the right common carotid bifurcation. Stenosis measures 50%. Right internal carotid artery: Dense calcification at the proximal right ICA. Stenosis measures 70%. Right external carotid artery: Moderate stenosis of the origin of the right external carotid artery. Left common carotid artery: Atheromatous plaquing of the left common carotid artery with distal calcification. No hemodynamically significant stenosis. Left internal carotid artery: Calcification of the proximal left ICA without hemodynamically significant stenosis. Left external carotid artery: No occlusion or stenosis of the origin. Right vertebral artery: Right vertebral artery is dominant. Left vertebral artery: No stenosis. No dissection or occlusion. Soft tissues: Normal. No significant soft tissue swelling. Bones/joints: There are degenerative changes involving the cervical spine. IMPRESSION: 1. 70% stenosis of the proximal right ICA. 2. 50% stenosis at the right common carotid bifurcation. 3. Additional findings as above. REFERENCES: NASCET CRITERIA. The degree of stenosis in the cervical segment of the internal carotid artery is based on NASCET criteria. Normal is no stenosis. Mild is less than 50% stenosis. Moderate is 50-69% stenosis. Severe is 70% to 99% stenosis. Total occlusion is no detectable patent lumen.
--- NOTE | 2024-11-06 15:21 | CT_ITS ---
PROCEDURE INFORMATION: Exam: CT Lumbar Spine Without Contrast Exam date and time: 11/06/2024 5:05 PM Age: 89 years old Clinical indication: Injury or trauma; Additional info: Trauma, critical injury suspected TECHNIQUE: Imaging protocol: Computed tomography of the lumbar spine without contrast. Radiation optimization: All CT scans at this facility use at least one of these dose optimization techniques: automated exposure control; mA and/or kV adjustment per patient size (includes targeted exams where dose is matched to clinical indication); or iterative reconstruction. COMPARISON: CT THORACIC SPINE WO CON 11/06/2024 5:03 PM FINDINGS: Bones/joints: There is diffuse osseous demineralization. There is anterolisthesis of L4 on L5. There is moderate to severe multilevel spondylosis including significant disc bulge at L4-L5. There is exaggeration of the spinal curvature. No acute fracture or dislocation is seen. The degree of demineralization is such that underlying nondisplaced fractures are difficult to exclude. Urinary bladder: There is moderate distention of the urinary bladder. Soft tissues: Unremarkable. IMPRESSION: 1. Moderate multilevel spondylosis including a significant disc bulge at L4-L5 with associated canal narrowing. No acute osseous injury is detected. 2. The degree of demineralization is such that underlying nondisplaced fractures are difficult to exclude. 3. If clinical concern persists, MRI would be suggested.
--- NOTE | 2024-11-06 15:21 | CT_ITS ---
PROCEDURE INFORMATION: Exam: CTA Abdomen and Pelvis With Contrast Exam date and time: 11/06/2024 5:10 PM Age: 89 years old Clinical indication: Injury or trauma; Additional info: Trauma, critical injury suspected TECHNIQUE: Imaging protocol: Computed tomographic angiography of the abdomen and pelvis with contrast. Exam focused on the arteries. 3D rendering (Not supervised by radiologist): MIP and/or 3D reconstructed images were created by the technologist. Radiation optimization: All CT scans at this facility use at least one of these dose optimization techniques: automated exposure control; mA and/or kV adjustment per patient size (includes targeted exams where dose is matched to clinical indication); or iterative reconstruction. Contrast material: ISO 370; Contrast volume: 80 ml; Contrast route: INTRAVENOUS (IV); COMPARISON: 1. CT ANGIO ABDOMEN PELVIS 09/17/2024 7:[address] BONY PELVIS 09/17/2024 7:[address] ANGIO CHEST 11/06/2024 5:10 PM FINDINGS: Tubes, catheters and devices: There is a left chest implanted cardiac device. Lungs: There is scattered ground-glass opacity which could reflect air trapping. Scattered areas of bronchial wall thickening which are likely chronic inflammatory. A few areas of subpleural reticulation are noted, nonspecific. Aorta: There is atherosclerotic disease of the visualized aorta and its major branch vessels. Celiac trunk and mesenteric arteries: No occlusion or significant stenosis. Renal arteries: No occlusion or significant stenosis. Right iliac arteries: No occlusion or significant stenosis. Left iliac arteries: No occlusion or significant stenosis. Liver: No mass. Gallbladder and biliary ducts: Unremarkable. No calcified stones. No ductal dilation. Pancreas: Unremarkable. No mass. No ductal dilation. Spleen: Unremarkable. No splenomegaly. Adrenal glands: Unremarkable. No mass. Kidneys and ureters: Unremarkable. No solid mass. No hydronephrosis. Stomach and bowel: There is a large hiatal hernia with the majority of the stomach in the thorax, stable Appendix: No evidence of appendicitis. Intraperitoneal space: Please see the dedicated interpretation of abdomen and pelvis for findings in that region. Lymph nodes: Unremarkable. No enlarged lymph nodes. Urinary bladder: Unremarkable. No mass. Reproductive: Unremarkable as visualized. Bones/joints: Please see the dedicated interpretation of the spine for findings in that region. Chronic right anterior 6th and 7th rib fractures. There is exaggeration of the spinal curvature. There is diffuse degenerative disease of the visualized osseous structures. Soft tissues: Unremarkable. IMPRESSION: 1. No acute traumatic injury is identified. 2. Please see the dedicated interpretation of abdomen and pelvis for findings in that region.
--- NOTE | 2024-11-06 15:21 | CT_ITS ---
PROCEDURE INFORMATION: Exam: CTA Chest With Contrast Exam date and time: 11/06/2024 5:10 PM Age: 89 years old Clinical indication: Injury or trauma; Additional info: Trauma, critical injury suspected TECHNIQUE: Imaging protocol: Computed tomographic angiography of the chest with contrast. Exam focused on the arteries. 3D rendering (Not supervised by radiologist): MIP and/or 3D reconstructed images were created by the technologist. Radiation optimization: All CT scans at this facility use at least one of these dose optimization techniques: automated exposure control; mA and/or kV adjustment per patient size (includes targeted exams where dose is matched to clinical indication); or iterative reconstruction. Contrast material: ISO 370; Contrast volume: 80 ml; Contrast route: INTRAVENOUS (IV); COMPARISON: 1. CT ANGIO CHEST 09/17/2024 7:[address] ANGIO CHEST PE PROTOCOL 09/30/2022 11:[address] CHEST WO CON 02/23/2024 6:23 PM FINDINGS: Pulmonary arteries: Normal. No pulmonary emboli. Aorta: There is atherosclerotic disease of the visualized aorta and its major branch vessels. Lungs: Scattered areas of bronchial wall thickening which are likely chronic inflammatory. A few areas of subpleural reticulation are noted, nonspecific. There are scattered areas of emphysema throughout the lungs. There is scattered ground-glass opacity which could reflect air trapping. Pleural spaces: Unremarkable. No pneumothorax. No pleural effusion. Heart: Unremarkable. No cardiomegaly. No pericardial effusion. Lymph nodes: Unremarkable. No enlarged lymph nodes. Diaphragm: There is a very large hiatal hernia. Intraperitoneal space: Please see the dedicated interpretation of abdomen and pelvis for findings in that region. Bones/joints: There is diffuse degenerative disease of the visualized osseous structures. There is diffuse osseous demineralization. Soft tissues: Unremarkable. IMPRESSION: 1. No acute traumatic injury is identified. 2. Please see the dedicated interpretation of abdomen and pelvis for findings in that region.
--- NOTE | 2024-11-06 15:21 | CT_ITS ---
PROCEDURE INFORMATION: Exam: CT Thoracic Spine Without Contrast Exam date and time: 11/06/2024 5:03 PM Age: 89 years old Clinical indication: Injury or trauma; Additional info: Trauma, critical injury suspected TECHNIQUE: Imaging protocol: Computed tomography of the thoracic spine without contrast. Radiation optimization: All CT scans at this facility use at least one of these dose optimization techniques: automated exposure control; mA and/or kV adjustment per patient size (includes targeted exams where dose is matched to clinical indication); or iterative reconstruction. COMPARISON: 1. CT CERVICAL SPINE WO CON 11/06/2024 5:[address] ANGIO CHEST PE PROTOCOL 09/30/2022 11:03 AM FINDINGS: Bones/joints: There is exaggeration of the spinal curvature. There is diffuse osseous demineralization. No evidence of acute spondylolisthesis or vertebral subluxation. Vertebral body heights are generally preserved, but some endplate sclerosis and anterior osteophytes are noted at multiple levels. Narrowing of multiple intervertebral disc spaces observed, indicative of degenerative disc disease. Hypertrophic changes are seen in the facet joints, consistent with osteoarthritis. No fractures or bony lesions identified. No abnormalities seen in adjacent osseous structures. There is diffuse degenerative disease of the visualized osseous structures. The degree of demineralization is such that underlying nondisplaced fractures are difficult to exclude. Soft tissues: Unremarkable. Vasculature: There is atherosclerotic disease of the visualized aorta and its major branch vessels. Lungs: Scattered areas of bronchial wall thickening which are likely chronic inflammatory. A few areas of subpleural reticulation are noted, nonspecific. Stomach and bowel: There is a large hiatal hernia containing the majority of the stomach. Other findings: No obvious abnormalities seen in the prevertebral and paravertebral soft tissues. IMPRESSION: 1. Degenerative changes without acute abnormality detected. 2. The degree of demineralization is such that underlying nondisplaced fractures are difficult to exclude. 3. If clinical concern persists, MRI would be suggested.
--- NOTE | 2024-11-06 15:24 | HMH.EDGENADL ---
Discharge Plan Disposition Patient Disposition: Admitted Chief Complaint: Fall Prescriptions Prescriptions: No Action acetaminophen [Tylenol Extra Strength] 500 mg tablet 500 mg PO Q6H PRN (Reason: Mild Pain (Scale Score 1-4)) furosemide 20 mg tablet 20 mg PO DAILY PRN (Reason: Fluid) Eliquis 5 mg tablet 5 mg PO BID Qty: 60 2RF celecoxib 100 mg capsule 100 mg PO DAILY Qty: 90 2RF gabapentin 300 mg capsule 300 mg PO HS Qty: 30 2RF pantoprazole 40 mg tablet,delayed release (DR/EC) 40 mg PO BID 90 Days Qty: 180 0RF rosuvastatin 10 mg tablet See Rx Instructions .ROUTE .COMPLEX Qty: 90 0RF Dose Instruction: 10 MG ORALLY DAILY FOR CHOLESTEROL FOR 90 DAYS Rx Instructions: 10 MG ORALLY DAILY FOR CHOLESTEROL FOR 90 DAYS lisinopril 10 mg tablet See Rx Instructions .ROUTE .COMPLEX Qty: 90 0RF Dose Instruction: TAKE 1 TABLET BY MOUTH ONCE DAILY Rx Instructions: TAKE 1 TABLET BY MOUTH ONCE DAILY ondansetron 4 mg tablet,disintegrating 4 mg PO BID PRN (Reason: nausea and vomiting) 5 Days Qty: 10 2RF oxycodone 10 mg tablet 10 mg PO Q6H PRN (Reason: pain) Qty: 20 0RF hydrocodone-acetaminophen 5-325 mg tablet 1 tab PO QID Qty: 120 0RF Referrals Follow up/Referrals: Hayder Bravo MD [Primary Care Provider] - See instructions Clinical Impressions Clinical Impression: Hyponatremia, Fall, Metabolic encephalopathy, Hypomagnesemia Print Language Print Language: Hungarian Discharge ED Provider: Leydi Cruz General Adult HPI General Chief complaint: Fall Stated complaint: low sodium/fall Time Seen by Provider: 11/06/24 15:12 History of Present Illness HPI narrative: Patient is an 89-year-old female brought in today for altered mental status and fall with pain complaints throughout her entire body. She recently has gone to [place] because of a fall about a month or 2 ago and has had significant decline since that time has had some nausea and vomiting with change in mental status blood work which showed a sodium that had gone from 1 29-1 22 recently and was found down today with an unknown fall. The patient tells me that she fell walking into the bathroom. She states she has pain in her head neck chest abdomen pelvis and back and shoulders. Her daughter who is at the bedside states that her pain in her pelvis and her lower back has been chronic as well as her shoulders but the head neck chest abdomen pelvis and upper back pain is all new. No anticoagulants that we are aware of she is on a daily aspirin. Related Data Home Medications ?Medication ?Instructions ?Recorded ?Confirmed acetaminophen 500 mg tablet 500 mg PO Q6H PRN Mild Pain (Scale 06/14/21 10/14/24 (Tylenol Extra Strength) Score 1-4) furosemide 20 mg tablet 20 mg PO DAILY PRN Fluid 09/03/24 10/14/24 Previous Rx's ?Medication ?Instructions ?Recorded celecoxib 100 mg capsule 100 mg PO DAILY #90 caps 05/28/24 gabapentin 300 mg capsule 300 mg PO HS Pain #30 caps 08/01/24 apixaban 5 mg tablet (Eliquis) 5 mg PO BID #60 tabs 09/03/24 pantoprazole 40 mg tablet,delayed 40 mg PO BID GERD 90 days #180 tabs 09/18/24 release rosuvastatin 10 mg tablet See Rx Instructions .Route 09/18/24 .COMPLEX #90 tabs lisinopril 10 mg tablet See Rx Instructions .Route 09/22/24 .COMPLEX #90 tabs ondansetron 4 mg disintegrating 4 mg PO BID PRN nausea and 09/22/24 tablet vomiting 5 days #10 tabs hydrocodone 5 mg-acetaminophen 325 1 tab PO QID #120 tabs 10/06/24 mg tablet oxycodone 10 mg tablet 10 mg PO Q6H PRN pain #20 tabs 10/13/24 Allergies Allergy/AdvReac Type Severity Reaction Status Date / Time No Known Allergies Allergy Verified 09/03/24 11:12 [facility] Disclaimer: The information contained in this section may have been updated after the patient was seen, as this information can be updated by other users. Medical History Closed fracture of coccyx with routine healing History of pilonidal cyst History of hip fracture Closed head injury Nodule of right lung Fall Stroke Normal esophagogastroduodenoscopy (EGD) Colonoscopy planned Pacemaker HTN (hypertension) GERD (gastroesophageal reflux disease) Anemia Abnormal result of cardiovascular function study Anemia Dysphagia Accidental fall Cardiac pacemaker in situ Abnormal Holter monitor finding Elevated right ventricular end-diastolic pressure Balance problem SSS (sick sinus syndrome) HLD (hyperlipidemia) Cerebrovascular accident Cerebrovascular accident Facial contusion Surgical History History of lumbar surgery H/O bladder repair surgery H/O carpal tunnel repair Hx of cholecystectomy H/O arthroscopy of shoulder History of appendectomy Hx of hysterectomy, total Total knee replacement status Family History Other Cancer Heart attack Hypertension Stroke Social History Smoking Status: Never smoker alcohol intake: never substance use type: denies use current occupational status: retired Travel in the last 8 weeks: None household members: none housing: house current occupational exposures/hazards: No Have you lived/traveled outside [place] in past 30 days?: No Contact w/someone who lives/traveled outside US past 30 days?: No Exposure to someone with infectious disease in past 14 days?: No Do you have a fever (greater than 100.4 F or 38 C)?: No Have you tested positive for COVID-19: No Exposed to someone with COVID-19 in past 14 days?: No Do you have a sore throat?: No Do you have a cough?: No Do you have any weakness?: No Do you have any diarrhea?: No Are you experiencing any unusual bleeding?: No Do you have any muscle aches/pain?: No Do you have any abdominal pain?: No Are you experiencing loss of taste or smell?: No Other Medical History Have you received the Flu Vaccine for this season: No Have you received the Pneumonia Vaccine: No ROS Obtained: Yes All systems reviewed & no additional complaints except as documented Physical Exam General General appearance: alert and in distress (Patient is moaning in pain) Chest Chest inspection: Present tenderness Respiratory Respiratory exam: Present normal lung sounds bilaterally; Absent respiratory distress Cardiovascular Cardiovascular exam: Present regular rate; Absent normal rhythm Abdominal Exam Abdominal exam: Present soft and tenderness; Absent distention Extremities Exam Extremities exam: Present other (Patient has no acute or significant deformities she has have bruising which appears to be chronic throughout her entire body) Back Exam Back exam: Present other (Pain in the mid and lower thoracic and upper lumbar spine no cervical spine tenderness) Neurological Exam Neurological exam: Present alert and other (Patient is answering questions and has a nonfocal neurologic exam) Medical Decision Making Medical Records Screening: Per USPSTF and CDC recommendations, given the prevalence of disease in our region, it is our hospital?s policy to screen for HIV and viral Hepatitis for all patients aged 18 and over and those with ongoing risk factors. Kyler Inquiry Pt receiving controlled substance: No Vital Signs: 11/06/24 14:52 11/06/24 15:03 11/06/24 16:08 Temperature 97.2 F L Temperature Source Temporal Artery Scan Pulse Rate 76 81 Pulse Rate [Left Radial] 76 Respiratory Rate 18 Blood Pressure 191/96 H 172/70 H Blood Pressure [Right Arm] 191/96 H Blood Pressure Mean [Right Arm] 127 02 Sat by Pulse Oximetry 98 96 95 Oxygen Delivery Method Room Air Room Air 11/06/24 16:30 11/06/24 17:30 Temperature Temperature Source Pulse Rate 82 97 H Pulse Rate [Left Radial] Respiratory Rate Blood Pressure 177/96 H 172/93 H Blood Pressure [Right Arm] Blood Pressure Mean [Right Arm] 02 Sat by Pulse Oximetry 93 L 90 L Oxygen Delivery Method Room Air Room Air Lab Data Lab results reviewed: Yes I reviewed the patient's lab results. Lab Results 11/06/24 15:22: VBG pH 7.43 H, VBG pCO2 35.0, VBG pO2 79.5 H, VBG HCO3 22.8 L, VBG Total CO2 23.8, VBG O2 Saturation 96.0 H, VBG Base Excess -1.5, VBG Lactic Acid 1.6 11/06/24 15:40: WBC 4.1 L, RBC 3.56 L, Hgb 11.6 L, Hct 32.8 L, MCV 92.3, MCH 32.5 H, MCHC 35.2, RDW 13.7, Plt Count 214, MPV 8.0, Neut % (Auto) 68.4, Lymph % (Auto) 23.1, Hughes % (Auto) 7.8, Eos % (Auto) 0.7, Baso % (Auto) 0.1, Neut # (Auto) 2.8, Lymph # (Auto) 0.9, Hughes # (Auto) 0.3, Eos # (Auto) 0.0, Baso # (Auto) 0.0, Sodium 117 L, Potassium 4.6, Chloride 89 L, Carbon Dioxide 24, Anion Gap 8.6, BUN 12, Creatinine 0.50 L, Estimated Creat Clear 42, Estimated GFR 116, Est GFR ( Amer) 141, Glucose 113 H, Calcium 9.5, Phosphorus 2.5, Magnesium 1.3 L, Total Bilirubin 0.9, AST 37 H, ALT 18, Alkaline Phosphatase 71, Troponin I 0.02, Total Protein 6.5, Albumin 4.1, Globulin 2.4, Albumin/Globulin Ratio 1.7, TSH 0.44 L 11/06/24 16:49: Sodium 121 L 11/06/24 15:40 11/06/24 16:49 Orders (Tests/Meds): ED MEDICATIONS Generic Name Dose Route Start Last Admin Trade Name Freq PRN Reason Stop Dose Admin Sodium Chloride 10 ml 11/06/24 17:07 11/06/24 17:08 Sodium Chloride 0.9% 10ml Syr (Rad Only) IV 12/06/24 17:06 10 ml NEEDED PRN Administration Maintain IV Site Discontinued Medications Generic Name Dose Route Start Last Admin Trade Name Freq PRN Reason Stop Dose Admin Acetaminophen 1,000 mg 11/06/24 17:37 Acetaminophen 1,000mg/100ml Vial IV 11/06/24 17:38 ONCE ONE Sodium Chloride 500 mls @ 999 mls/hr 11/06/24 15:21 11/06/24 16:08 Sod Chlor 0.9% 1000ml Bag IV 11/06/24 15:51 999 mls/hr .Q31M ONE Administration Sodium Chloride 100 mls @ 600 mls/hr 11/06/24 16:15 11/06/24 16:37 Sod Chloride 3% 500ml Bag (Hypertonic) IV 11/06/24 16:24 600 mls/hr .Q10M ONE Administration Iopamidol 160 ml 11/06/24 17:07 11/06/24 17:08 Iopamidol-370 (76%);100ml Bottle IV 11/06/24 17:08 160 ml ONCE ONE Administration Ondansetron HCl 4 mg 11/06/24 16:09 11/06/24 16:15 Ondansetron 4mg/2ml Vial IV 11/06/24 16:10 4 mg ONCE ONE Administration Ondansetron HCl 4 mg 11/06/24 16:51 11/06/24 16:52 Ondansetron 4mg/2ml Vial IV 11/06/24 16:52 4 mg ONCE ONE Administration Sodium Chloride 100 ml 11/06/24 17:07 11/06/24 17:08 0.9 % Sodium Chloride 50 Ml Vial IV 11/06/24 17:08 100 ml ONCE ONE Administration ORDERS Category Date Time Status CT angio abdomen pelvis Stat Cat Scan 11/06/24 15:[address] angio chest - dissection Stat Cat Scan 11/06/24 15:[address] angio head Stat Cat Scan 11/06/24 15:[address] angio neck Stat Cat Scan 11/06/24 15:[address] cervical spine wo con Stat Cat Scan 11/06/24 15:[address] head/brain wo con Stat Cat Scan 11/06/24 15:[address] lumbar spine wo con Stat Cat Scan 11/06/24 15:[address] thoracic spine wo con Stat Cat Scan 11/06/24 15:21 Completed CBC w/Auto Diff [Complete Blood Count Auto Diff] Stat Lab 11/06/24 15:40 Completed CMP [Comprehensive Metabolic Panel] Stat Lab 11/06/24 15:40 Completed HIV (1&2) Antibody Rapid Stat Lab 11/06/24 15:40 Received Hep C Ab with Reflex to RNA Stat Lab 11/06/24 15:40 Received Magnesium Stat Lab 11/06/24 15:40 Completed NA [Sodium] Stat Lab 11/06/24 16:49 Completed NA [Sodium] Stat Lab 11/06/24 17:40 Ordered NA [Sodium] Stat Lab 11/06/24 18:40 Ordered Phosphorous Stat Lab 11/06/24 15:40 Completed TSH [Thyroid Stimulating Hormone] Stat Lab 11/06/24 15:40 Completed Trop I [Troponin I] Stat Lab 11/06/24 15:40 Completed Troponin I Q3H Lab 11/06/24 18:30 Ordered Troponin I Q3H Lab 11/06/24 21:30 Ordered UA [Urinalysis and Microscopic] Stat Lab 11/06/24 15:22 Ordered Venous Blood Gas Stat RT 11/06/24 15:22 Completed Medical Decision Narrative: 89-year-old with above history and physical. I reviewed her records and labs from [place] which showed a sodium a few weeks ago at 129 and yesterday she had labs obtained that showed a sodium of 122, assuming that this is correct this is significant and likely the cause of her acute metabolic encephalopathy. With regards to a cause of this from historical standpoint do not see an exact etiology no changes in medications recently no history of excessive water intake no history of cancer that I am aware of that could cause SIADH etc. this will need to be worked up further assuming that it is correct we will recheck blood work to check accuracy. Also will look for alternative explanations such as infectious etiologies etc. Also patient complains of pain essentially in her entire body at this point we will get trauma CT scans to rule out any life-threatening injuries which I do not suspect at the moment. Reassessment 5:[address] scans performed which I personally interpreted which show no acute traumatic abnormalities. There are some stenotic vessels in the neck but she has no signs or symptoms of TIA or stroke or focal neurologic deficits. Likely incidental findings. Labs demonstrated a sodium of 117 given the fact that she was altered we did initiate hypertonic saline repeated after a bolus of saline and her sodium was 122. Therefore this was discontinued and just regular normal saline was continued. No definitive evidence as to what is causing this today. She is improving from a neurologic standpoint after the hypertonic saline. Also has low magnesium which is being replaced. TSH is abnormally low at 0.44 which will need to be looked into further. I spoke with hospital medicine Who agreed to admit the patient for further evaluation management. Critical Care Critical Care Time Critical Care Time: Yes Attestation: On 11/06/24, the high probability of a clinically significant, sudden or life threatening deterioration of the following system(s) required my full and direct attention, intervention and personal management. The time I documented below is in addition to time spent performing reported procedures but includes the following listed in this critical care notation. Total Time Total Critical Care Time: 35
[2024-11-06 15:58] LABS: Lactate Venous 1.6 mmol/L (0.4-2.0); VBG Base Excess -1.5 mmol/L (-2.4-2.3); VBG HCO3 22.8 mmol/L (23-30); VBG PH 7.43 mmol/L (7.31-7.41); VBG PO2 79.5 mmol/L (28-40); VBG Total CO2 23.8 mmol/L (23-27)
[2024-11-06 16:02] LABS: Albumin Level 4.1 g/dl (3.5-5.0); Basophils % 0.1 % (0.1-2.0); Chloride 89 mmol/L (98-107); Eosinophils % 0.7 % (0.1-12.0); Hematocrit 32.8 % (37.0-47.0); Hemoglobin 11.6 g/dL (12.2-16.2); Lymphocytes # 0.9 K/mm3 (0.7-4.5); Lymphocytes % 23.1 % (10-50); Mean Corpuscular HGB Conc 35.2 g/dL (31.8-35.4); Mean Corpuscular Hemoglobin 32.5 pg (27.0-31.2); Mean Corpuscular Volume 92.3 fl (81-99); Monocytes # 0.3 K/mm3 (0.1-1.0); Monocytes % 7.8 % (1.7-9.3); Neutrophils # 2.8 K/mm3 (1.8-7.8); Neutrophils % 68.4 % (37.0-80.0); Platelet Count 214 K/mm3 (142-424); Potassium 4.6 mmoL/L (3.5-5.1); Red Blood Count 3.56 M/mm3 (4.20-5.40); Red Cell Distribution Width 13.7 % (11.5-17.5); Sodium 117 mmol/L (136-145); White Blood Count 4.1 K/mm3 (4.8-10.8)
[2024-11-06 16:05] LABS: Alanine Aminotransferase 18 U/L (12-78); Albumin/Globulin Ratio 1.7 (1.1-1.8); Alkaline Phosphatase 71 U/L (38-126); Anion Gap 8.6 mEq/L (5-15); Aspartate Amino Transferase 37 U/L (14-36); Bilirubin,Total 0.9 mg/dl (0.2-1.3); Blood Urea Nitrogen 12 mg/dl (7-17); Carbon Dioxide 24 mmol/L (22.0-30.0); Creatinine Clearance Estimated 42 mL/min (50-200); Estimated Glomerular Filt Rate 116 ml/min (>60); GFR (African American) 141 ML/MIN (>60); Globulin 2.4 g/dL (1.3-3.2); Phosphorous 2.5 mg/dl (2.5-4.5); Total Protein,Serum 6.5 g/dl (6.3-8.2)
[2024-11-06 16:06] LABS: Calcium 9.5 mg/dl (8.4-10.2); Glucose 113 mg/dl (74-100); Magnesium 1.3 mg/dl (1.6-2.3)
[2024-11-06] MEDS: 0.9 % SODIUM CHLORIDE 1000ML 500 ML 999 ML IV (16:08)
[2024-11-06] MEDS: ONDANSETRON 4MG/2ML VIAL 4 MG IV ×2 (16:15→16:52)
[2024-11-06 16:18] LABS: Troponin I 0.02 ng/ml (0.00-0.034)
[2024-11-06 16:36] LABS: Thyroid Stimulating Hormone 0.44 uIU/mL (0.465-4.68)
[2024-11-06] MEDS: SODIUM CHLORIDE 3 % 100 ML 600 ML IV (16:37)
[2024-11-06 17:06] LABS: Sodium 121 mmol/L (136-145)
[2024-11-06] MEDS: IOPAMIDOL-370 (76%);100ML BOTTLE 160 ML IV (17:08)
[2024-11-06] MEDS: 0.9 % SODIUM CHLORIDE 50 ML VIAL 100 ML IV (17:08)
[2024-11-06] MEDS: SODIUM CHLORIDE 0.9% 10ML SYR (RAD ONLY) 10 ML IV (17:08)
--- NOTE | 2024-11-06 17:58 | PC.NURSE ---
pt was pulled up in bed and turned on her left side with pillow tucked underneath bottom assisted by anushka
[2024-11-06] MEDS: MAGNESIUM SULFATE IN WATER 2 GM/50 ML PIGGYBACK IV ×2 (18:10→21:58)
[2024-11-06] MEDS: ACETAMINOPHEN 1,000MG/100ML VIAL 1000 MG IV (18:10)
--- NOTE | 2024-11-06 18:24 | PC.NURSE ---
hs aware of admission, bed needs cleaned
[2024-11-06 18:47] LABS: Sodium 119 mmol/L (136-145)
[2024-11-06 19:03] LABS: Troponin I 0.02 ng/ml (0.00-0.034)
--- NOTE | 2024-11-06 19:12 | PC.NURSE ---
Report received from February RN Pt resting quietly on bed. Hospitalist at bedside
--- NOTE | 2024-11-06 19:24 | PC.NURSE ---
Gave report to Dannielle miranda on med surg. States as soon at room has completed cleaned they will collect pt.
--- NOTE | 2024-11-06 19:26 | PC.NURSE ---
Pt awaiting transport to inpatient unit
--- NOTE | 2024-11-06 19:59 | PC.NURSE ---
Pt transported to the inpatient unit via stretcher.
--- NOTE | 2024-11-06 20:11 | PC.NURSE ---
Patient arrived to floor via stretcher from ED at 20:03.
--- NOTE | 2024-11-06 20:15 | P.HP_ITS ---
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 Patient presents after fall at [facility] yesterday with sodium level 117. Daughter present with patient in emergency room and acted as independent historian during my assessment. Daughter states that patient has been in [facility] since October 16. Daughter states that patient originally fell September 15, and was ultimately admitted to [facility] for short-term rehab. Daughter also states patient suffers from chronic lower back pain due to sacroiliitis, and frequently receives steroid epidural injections. Patient's last steroid epidural injection 10/14/2024. Patient reportedly nauseous x 7 days, and developed vomiting yesterday at [facility] after receiving sublingual ondansetron. Daughter states she was present in vomit with green nonbloody, no coffee-ground emesis noted. Patient reportedly fell at [facility] today, with labs checked and sodium noted to be 117. Patient subsequently sent to hospital for hyponatremia management. Admits to lightheadedness/dizziness x 24 hours. Daughter states patient has suffered from intermittent confusion since September, and currently seeing outpatient behavioral health or neurology specialist. Per daughter they started her on a new medication I just cannot remember what it is. Daughter states at baseline patient walks with a walker, but for last 2 months has required at least 1 person's assistance with ambulation. Left elbow abrasion, and bilateral lower extremity chronic stasis ulcers noted during my examination in ED. Daughter states patient bruises extremely easily. Patient admits to shortness of breath since 2020 intermittently. States her windchill administrator is Dr. Li. Denies fevers, sick contacts, recent travel, chest pain, abdominal pain, blurry vision. [facility] Disclaimer: The information contained in this section may have been updated after the patient was seen, as this information can be updated by other users. Medical History Closed fracture of coccyx with routine healing History of pilonidal cyst History of hip fracture Closed head injury Nodule of right lung Fall Stroke Normal esophagogastroduodenoscopy (EGD) Colonoscopy planned Pacemaker HTN (hypertension) GERD (gastroesophageal reflux disease) Anemia Abnormal result of cardiovascular function study Anemia Dysphagia Accidental fall Cardiac pacemaker in situ Abnormal Holter monitor finding Elevated right ventricular end-diastolic pressure Balance problem SSS (sick sinus syndrome) HLD (hyperlipidemia) Cerebrovascular accident Cerebrovascular accident Facial contusion Surgical History History of lumbar surgery H/O bladder repair surgery H/O carpal tunnel repair Hx of cholecystectomy H/O arthroscopy of shoulder History of appendectomy Hx of hysterectomy, total Total knee replacement status Family History Other Cancer Heart attack Hypertension Stroke Social History Smoking Status: Never smoker alcohol intake: never substance use type: denies use current occupational status: retired Travel in the last 8 weeks: None household members: none housing: house current occupational exposures/hazards: No Have you lived/traveled outside [place] in past 30 days?: No Contact w/someone who lives/traveled outside US past 30 days?: No Exposure to someone with infectious disease in past 14 days?: No Do you have a fever (greater than 100.4 F or 38 C)?: No Have you tested positive for COVID-19: No Exposed to someone with COVID-19 in past 14 days?: No Do you have a sore throat?: No Do you have a cough?: No Do you have any weakness?: No Do you have any diarrhea?: No Are you experiencing any unusual bleeding?: No Do you have any muscle aches/pain?: No Do you have any abdominal pain?: No Are you experiencing loss of taste or smell?: No Other Medical History Have you received the Flu Vaccine for this season: No Have you received the Pneumonia Vaccine: No Review of Systems Review of Systems Review of systems:: pertinent systems reviewed and negative unless documented below Constitutional Constitutional: Reports system reviewed and no additional complaints, except as documented Meds Home Medications and Allergies Home Medications ?Medication ?Instructions ?Recorded ?Confirmed ?Type celecoxib 100 mg capsule 100 mg PO DAILY #90 caps 05/28/24 11/06/24 Rx gabapentin 300 mg capsule 300 mg PO HS Pain #30 caps 08/01/24 11/06/24 Rx furosemide 20 mg tablet 20 mg PO DAILY PRN Fluid 09/03/24 11/06/24 History pantoprazole 40 mg tablet,delayed 40 mg PO BID GERD 90 days #180 tabs 09/18/24 11/06/24 Rx release rosuvastatin 10 mg tablet See Rx Instructions .Route 09/18/24 11/06/24 Rx .COMPLEX #90 tabs lisinopril 10 mg tablet See Rx Instructions .Route 09/22/24 11/06/24 Rx .COMPLEX #90 tabs ondansetron 4 mg disintegrating 4 mg PO BID PRN nausea and 09/22/24 11/06/24 Rx tablet vomiting 5 days #10 tabs aspirin 81 mg chewable tablet 81 mg PO DAILY 11/06/24 11/06/24 History duloxetine 20 mg capsule,delayed 20 mg PO DAILY 11/06/24 11/06/24 History release (Cymbalta) hydrocodone 7.5 mg-acetaminophen 1 tab PO Q6H PRN Pain 11/06/24 11/06/24 History 325 mg tablet New Prescriptions to Start Prescriptions: Allergies Allergy/AdvReac Type Severity Reaction Status Date / Time No Known Allergies Allergy Verified 09/03/24 11:12 Exam Data for Last 24 hours Vital signs and Labs for Last 24 Hours: Temp Pulse Resp BP Pulse Ox O2 Del Method 99.0 F 89 20 189/90 H 97 Room Air 11/06/24 19:58 11/06/24 19:58 11/06/24 19:58 11/06/24 19:58 11/06/24 18:30 11/06/24 19:58 Laboratory Results - last 24 hr 11/06/24 15:22: VBG pH 7.43 H, VBG pCO2 35.0, VBG pO2 79.5 H, VBG HCO3 22.8 L, VBG Total CO2 23.8, VBG O2 Saturation 96.0 H, VBG Base Excess -1.5, VBG Lactic Acid 1.6 11/06/24 15:40: WBC 4.1 L, RBC 3.56 L, Hgb 11.6 L, Hct 32.8 L, MCV 92.3, MCH 32.5 H, MCHC 35.2, RDW 13.7, Plt Count 214, MPV 8.0, Neut % (Auto) 68.4, Lymph % (Auto) 23.1, Dunn % (Auto) 7.8, Eos % (Auto) 0.7, Baso % (Auto) 0.1, Neut # (Auto) 2.8, Lymph # (Auto) 0.9, Dunn # (Auto) 0.3, Eos # (Auto) 0.0, Baso # (Auto) 0.0, Sodium 117 L, Potassium 4.6, Chloride 89 L, Carbon Dioxide 24, Anion Gap 8.6, BUN 12, Creatinine 0.50 L, Estimated Creat Clear 42, Estimated GFR 116, Est GFR ( Amer) 141, Glucose 113 H, Calcium 9.5, Phosphorus 2.5, Magnesium 1.3 L, Total Bilirubin 0.9, AST 37 H, ALT 18, Alkaline Phosphatase 71, Troponin I 0.02, Total Protein 6.5, Albumin 4.1, Globulin 2.4, Albumin/Globulin Ratio 1.7, TSH 0.44 L 11/06/24 16:49: Sodium 121 L 11/06/24 18:30: Sodium 119 L, Troponin I 0.02 I & O for Last 24 hours: Intake & Output 11/03/24 11/04/24 11/05/24 11/06/24 23:59 23:59 23:59 23:59 Weight 69.853 kg Constitutional Constitutional: obese, chronically ill appearing and disheveled *Routine HEENT Exam Head: Present normocephalic Eye: Present EOMI and normal accommodation ENT: Present mucous membranes dry *Routine Neck Exam Neck: Present supple and full ROM *Routine Respiratory Exam Respiratory: Present CTA bilaterally *Routine Cardiovascular Exam Cardiovascular: Present RRR, Normal S1 and Normal S2 *Routine Abdominal Exam Abdominal: Present soft and normoactive bowel sounds *Routine Rectal Exam Rectal:: deferred *Routine Genitalia Exam Genitalia:: deferred *Routine Extremities Exam Extremities: Present full ROM Comments: Chronic venous stasis ulcers bilaterally lower extremity. Left elbow abrasion noted *Routine Skin Exam Skin: Present intact *Routine Neurological Exam Neurological: Present alert and oriented X3 Assessment and Plan *Assessment and plan (1) Hypomagnesemia: Status: Acute Category: Medical Code(s): E83.42 - Hypomagnesemia (2) Hyponatremia: Status: Acute Category: Medical Code(s): E87.1 - Hypo-osmolality and hyponatremia (3) Sacroiliitis: Status: Acute Category: Medical Code(s): M46.1 - Sacroiliitis, not elsewhere classified (4) PAF (paroxysmal atrial fibrillation): Status: Acute Category: Medical Code(s): I48.0 - Paroxysmal atrial fibrillation (5) Fall: Status: Acute Qualifiers: Encounter type: initial encounter Qualified Code(s): W19.XXXA - Uns pecified fall, initial encounter Category: Medical Code(s): W19.XXXA - Unspecified fall, initial encounter (6) Osteoarthritis of left shoulder: Status: Acute Category: Medical Code(s): M19.012 - Primary osteoarthritis, left shoulder (7) Dizziness of unknown etiology: Status: Chronic Category: Medical Code(s): R42 - Dizziness and giddiness (8) Chronic pain syndrome: Status: Acute Category: Medical Code(s): G89.4 - Chronic pain syndrome (9) Metabolic encephalopathy: Status: Acute Category: Medical Code(s): G93.41 - Metabolic encephalopathy Plan 89-year-old with past medical history of paroxysmal atrial fibrillation, sick sinus syndrome with pacemaker, 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 Patient presents after fall at [facility] today with sodium level 117. Problems as listed below: Lab review: Labs reviewed at time of admission: ? VBG pH 7.43, HCO3 22.8, pCO2 35, LA 1.6 ? NA 117, K4.6, CL 89, CO2 24, creatinine 0.5, BUN 12. GLU 113, mag 1.3, bili 0.9, AST 37, ALT 18, troponin 0.02, TSH 0.44. I will repeat CBC, mag in AM. BMP checks as noted in hyponatremia section. Hyponatremia dehydration versus SIADH: ? Daughter reports patient suffering from nausea x 1 week and copious vomiting yesterday. Believe patient likely suffering from dehydration related hyponatremia. Patient given bolus 3% in emergency room, and also given bolus 1 L normal saline in emergency room. Will cautiously start 100 cc/h normal saline x 24 hours. Check BMP every 4 and adjust fluids as needed. Awaiting urine analysis to determine what urine sodium level is. Hypomagnesia: Magnesium 1.3. Will give 4 g magnesium sulfate IV then reevaluate in AM. Adult failure to thrive status post fall: ?Reviewed CTA head, neck, chest, abdomen, pelvis done by emergency room physician. Patient has bilateral carotid stenosis probably chronic. Patient also has fatty pancreas, with large abdominal hernia. No signs of acute CVA/dissection noted on my review of CTA films. ? Daughter states patient has been more confused recently probably secondary to low sodium levels. Patient has also seen behavioral health/neurology recently as outpatient per daughter report and started on new medication. Will treat hyponatremia then reevaluate ataxia issue. PT/OT/wound care during ho spitalization. Patient already at [facility] since October 16, and will likely discharge there at time of hospital disposition. Paroxysmal atrial fibrillation continue apixaban 5 mg p.o. daily Sick sinus syndrome with pacemaker: Consult cardiology for pacemaker interrogation given fall yesterday. Patient denies chest discomfort but admits to dizziness. Stroke 3 years ago: Apixaban as stated above plus aspirin 81 mg p.o. daily Hypertension: Lisinopril 10 mg p.o. daily, hydralazine 10 mg IV every 6 hours as needed SBP over 160 Chronic pain: Cautioned both patient and patient's daughter that I would be extremely careful with pain meds this hospitalization given patient's recent fall and confusion issues. Patient status post epidural steroid injection 10/14 for pain relief. Admits to history of multiple steroid epidural injections for pain. Gabapentin 300 mg p.o. nightly, oxycodone 10 mg p.o. every 6 as needed pain. Tylenol 650 p.o. every 6 as needed pain Celebrex 100 mg p.o. daily. GERD: Protonix 40 mg p.o. twice daily. Sacroiliitis: As above and chronic pain section Hyperlipidemia: Rosuvastatin 10 mg p.o. daily PPx apixaban 5 mg p.o. twice daily CODE STATUS DNR/DNI per patient and patient's daughter MDM Copa: High. Patient suffering from acute on chronic adult failure to thrive, acute on chronic lower back pain, with acute hyponatremia causing systemic weakness/nausea/vomiting issues. These conditions pose threat to life and bodily function. Data: High. See above. Patient's daughter acted as independent historian during interview. I spoke with the emergency room physician at length and made decision to admit patient to hospital for hyponatremia, failure to thrive, nausea/vomiting management. Risk: High. Patient received 3% IV saline bolus in emergency room. Patient on maintenance IV fluids with every 4 hours sodiums for hyponatremia management. Will admit patient to hospital for close hemodynamic monitoring.the rest of prescription drug mgmt as above. 35 minutes of total care time spent on patient by Dr. Graves 11/06/2024
[2024-11-06] MEDS: 0.9 % SODIUM CHLORIDE 1000ML 1,000 ML 100 ML IV (21:57)
[2024-11-06 22:43] LABS: Anion Gap 13.2 mEq/L (5-15); Blood Urea Nitrogen 9 mg/dl (7-17); Calcium 9.3 mg/dl (8.4-10.2); Carbon Dioxide 24 mmol/L (22.0-30.0); Chloride 89 mmol/L (98-107); Creatinine Clearance Estimated 42 mL/min (50-200); Estimated Glomerular Filt Rate 116 ml/min (>60); GFR (African American) 141 ML/MIN (>60); Glucose 118 mg/dl (74-100); Potassium 4.2 mmoL/L (3.5-5.1); Sodium 122 mmol/L (136-145)
[2024-11-06 22:55] LABS: Troponin I 0.02 ng/ml (0.00-0.034)
[2024-11-06] MEDS: GABAPENTIN 300MG CAPSULE 300 MG PO (23:08)
[2024-11-07] VITALS (11 sets, daily range): BP systolic 116–167; BP diastolic 61–80; PULSE 60–88; RESP 16–22; TEMP 36.4–36.8; O2SAT 94–96; BMI 25.6
[2024-11-07 02:19] LABS: Anion Gap 9.8 mEq/L (5-15); Blood Urea Nitrogen 7 mg/dl (7-17); Calcium 8.9 mg/dl (8.4-10.2); Carbon Dioxide 25 mmol/L (22.0-30.0); Chloride 90 mmol/L (98-107); Creatinine Clearance Estimated 42 mL/min (50-200); Estimated Glomerular Filt Rate 116 ml/min (>60); GFR (African American) 141 ML/MIN (>60); Glucose 114 mg/dl (74-100); Potassium 3.8 mmoL/L (3.5-5.1); Sodium 121 mmol/L (136-145)
[2024-11-07 06:11] LABS: HCV Ab Non Reactive (Non Reactive)
[2024-11-07 06:56] LABS: Chloride 93 mmol/L (98-107)
[2024-11-07 06:57] LABS: Basophils % 0.1 % (0.1-2.0); Eosinophils # 0.1 K/mm3 (0.0-0.4); Eosinophils % 1.2 % (0.1-12.0); Hematocrit 29.5 % (37.0-47.0); Lymphocytes # 0.9 K/mm3 (0.7-4.5); Lymphocytes % 18.1 % (10-50); Mean Corpuscular HGB Conc 34.6 g/dL (31.8-35.4); Mean Corpuscular Hemoglobin 32.7 pg (27.0-31.2); Mean Corpuscular Volume 94.4 fl (81-99); Mean Platelet Volume 8.2 fl (7.4-10.4); Monocytes # 0.5 K/mm3 (0.1-1.0); Monocytes % 9.2 % (1.7-9.3); Neutrophils # 3.6 K/mm3 (1.8-7.8); Neutrophils % 71.3 % (37.0-80.0); Platelet Count 206 K/mm3 (142-424); Potassium 3.9 mmoL/L (3.5-5.1); Red Blood Count 3.12 M/mm3 (4.20-5.40); Red Cell Distribution Width 13.8 % (11.5-17.5); Sodium 122 mmol/L (136-145)
[2024-11-07 06:59] LABS: Blood Urea Nitrogen 5 mg/dl (7-17); Creatinine Clearance Estimated 42 mL/min (50-200); Estimated Glomerular Filt Rate 116 ml/min (>60); GFR (African American) 141 ML/MIN (>60)
[2024-11-07 07:00] LABS: Anion Gap 8.9 mEq/L (5-15); Calcium 8.5 mg/dl (8.4-10.2); Carbon Dioxide 24 mmol/L (22.0-30.0); Glucose 92 mg/dl (74-100); Phosphorous 2.5 mg/dl (2.5-4.5)
[2024-11-07 07:34] LABS: Microscopic, Urine URINE MICROSCOPIC (MICROSCOPIC)
[2024-11-07 07:40] LABS: Appearance,Urine CLEAR (Clear); Bilirubin,Urine Negative (Negative); Blood, Urine 2+ (Negative); Color,Urine YELLOW (Yellow); Glucose,Urine (UA) Negative (Negative); Ketones,Urine 1+ (Negative); Leukocyte Esterase,Urine TRACE (Negative); Nitrate,Urine Negative (Negative); Protein,Urine Negative (Negative); Specific Gravity, Urine 1.015 (1.005-1.030); Urobilinogen,Urine 0.2 EU/dl (0.2)
[2024-11-07 07:47] LABS: Hemoglobin 10.2 g/dL (12.2-16.2)
[2024-11-07 07:49] LABS: Magnesium 2.1 mg/dl (1.6-2.3)
--- NOTE | 2024-11-07 08:04 | SW/DCPLANNER ---
Addendum entered by Cherelle Armstrong 11/12/24 10:23: Per Lila this patient can return SNF level of care today (auth will after today). stated that once patient can urinate since zamudio has been d/c he will discharge patient. I have updated patient, daughter and will contact Lakisha santos/ Hospice. Addendum entered by Cherelle Armstrong 11/12/24 08:00: Lila santos/ [facility] will be at bedside this AM to evaluate patient. I did inform Lila that patient is medically stable for discharge this AM. Addendum entered by Mila Barksdale RN 11/11/24 16:06: Spoke with daughter and she is stating likely patient will be discharged to [facility]. Joanna notified. We discussed about needing LTC/Hospice once therapy stops progressing with patient. Daughter spoke with Micaela, financial counselor, and to an insurance loss adjuster. She is still unclear on if the patient will qualify for Medicaid. Addendum entered by Cherelle Armstrong 11/11/24 14:30: A.D. at bedside speaking w/ patient and daughter. After conversation w/ patient, daughter and Hospice they are leaning more towards patient needing a LTC [facility] pending bed. Patient/daughter are agreeable for information to be faxed to the following facilities due to [facility] not having a [facility] pending bed: [facility], [facility], [facility], [facility], [facility] and [facility]. CM will also follow up w/ Micaela at [facility] regarding Medicaid application. I will continue to follow up w/ patient, daughter, , Lila w/ [facility] (if they chose SNF route) and LTC facilities. Addendum entered by Cherelle Armstrong 11/11/24 11:58: MD did have conversation w/ patient and daughter regarding goals of care. Daughter is interested in speaking w/ Hospice at this time regarding their services. I have faxed patient information to Lak[facility] santos/ [facility]. I will follow up w/ patient and family once they speak w/ Hospice and make a decision regarding SNF at [facility] vs Hospice. has also ordered repeat head CT today. Addendum entered by Cherelle Armstrong 11/11/24 10:43: Per Lila this patient has been approved for SNF level of care once medically stable for discharge. I will update MD. Addendum entered by Cherelle Armstrong 11/11/24 08:20: Per Lila w/ [facility] precert is pending at this time. Addendum entered by Cherelle Armstrong 11/10/24 08:07: Updated patient information has been faxed to Lila santos/ [facility]. I have requested that precert be started today w/ discharge date expected soon per MD. Original Note: This patient currently resides at [facility] level of care. I will continue to follow up w/ Lila from [facility] until patient is medically stable for discharge. Discharge date is unknown at this time. Updated patient information has been faxed.
[2024-11-07 08:19] LABS: RBC,Urine Occasional #/hpf (0-3); WBC,Urine Occasional #/hpf (0-3)
--- NOTE | 2024-11-07 09:15 | HMH.PHAINT1 ---
Pharmacy Intervention Comments: Home medication list verified using list from laurie rosas
--- NOTE | 2024-11-07 09:43 | HMH.PTEV ---
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 Patient presents after fall at [facility] yesterday with sodium level 117. Daughter present with patient in emergency room and acted as independent historian during my assessment . Daughter states that patient has been in [facility] since October 16. Daughter states that patient originally fell September 15, and was ultimately admitted to [facility] for short-term rehab. Daughter also states patient suffers from chronic lower back pain due to sacroiliitis, and frequently receives steroid epidural injections. Patient's last steroid epidural injection . Patient reportedly nauseous x 7 days, and developed vomiting yesterday at [facility] after receiving sublingual ondansetron. Daughter states she was present in vomit with green nonbloody, no coffee-ground emesis noted. Patient reportedly fell at [facility] today, with labs checked and sodium noted to be 117. Patient subsequently sent to hospital for hyponatremia management. Admits to lightheadedness/dizziness x 24 hours. Daughter states patient has suffered from intermittent confusion since September, and currently seeing outpatient behavioral health or neurology specialist. Per daughter they started her on a new medication I just cannot remember what it is. Daughter states at baseline patient walks with a walker, but for last 2 months has required at least 1 person's assistance with ambulation. Left elbow abrasion, and bilateral lower extremity chronic stasis ulcers noted during my examination in ED. Daughter states patient bruises extremely easily. Patient admits to shortness of breath since 2020 intermittently. States her router tender is Dr. Li. Denies fevers, sick contacts, recent travel, chest pain, abdominal pain, blurry vision. Subjective Subjective Pt able to state full name but not oriented to situation or birthday. Pt not able to provide social history. Pt is a resident at [facility]. New diagnosis of cancer in past 12 No months? Rehab PT IP Eval Objective Appearance Patient Behavior Appropriate,Cooperative Patient Orientation Person Difficulty following instructions mild Speech Pattern Soft-Spoken,Mumbled Ambulation Patient Able to Ambulate No Balance Ability to Arise Unable Sitting Balance Steady, safe Standing Balance Unsteady Transfers Bed Transfer Ability Maximum x 2 (75% assist) Rehab PT IP prob,goals,plan Problems Date of Evaluation: 11/07/24 PT IP Problems Bed Mobility,Transfers,Gait, Balance,Self care,Safety Rehab Potential Rehab Potential Good Plan PT Intervention Plan Bed Mobility,Transfers,Gait, Balance,Safety,Therapeutic Exercise Other Intervention Plan 1-2 times PT Plan Frequency Daily Duration LOS Discharge Goals Bed Transfer Ability Moderate x 2 (50% assist) Sit to Stand Chair Transfer Ability Moderate x 2 (50% assist) Discharge Plan PT Discharge Plan Pt would benefit from skilled therapy while at [facility] to address mobility impairments. Pt would benefit from physical therapy rehab services once d /c'd from [facility]. Eval Complexity Eval Charge Codes 29666 - High Complexity PHYSICIAN CERTIFICATION: I certify the specified therapy services for Isabella Irwin are required, authorized, and reviewed every 30 days.
--- NOTE | 2024-11-07 10:21 | HMH.OTEV ---
OT Inpatient Evaluation Rehab OT IP Evaluation Start: 11/06/24 20:08 Freq: ONCE Status: Active Protocol: Document 11/07/24 09:50 [facility] (Rec: 11/07/24 10:21 [facility] [id number]) Rehab OT IP Assessment Subjective History Pt oriented to name and birthday. Pt agreeable to engage in therapy evaluation. Pt admitted on 11/06/24 due to Hyponatremia, fall, dizziness, nausea/vomiting. 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 Patient presents after fall at [facility] yesterday with sodium level 117. Daughter present with patient in emergency room and acted as independent historian during my assessment . Daughter states that patient has been in [facility] since October 16. Daughter states that patient originally fell September 15, and was ultimately admitted to [facility] for short-term rehab. Daughter also states patient suffers from chronic lower back pain due to sacroiliitis, and frequently receives steroid epidural injections. Patient's last steroid epidural injection . Patient reportedly nauseous x 7 days, and developed vomiting yesterday at [facility] after receiving sublingual ondansetron. Daughter states she was present in vomit with green nonbloody, no coffee-ground emesis noted. Patient reportedly fell at [facility] today, with labs checked and sodium noted to be 117. Patient subsequently sent to hospital for hyponatremia management. Admits to lightheadedness/dizziness x 24 hours. Daughter states patient has suffered from intermittent confusion since September, and currently seeing outpatient behavioral health or neurology specialist. Per daughter they started her on a new medication I just cannot remember what it is. Daughter states at baseline patient walks with a walker, but for last 2 months has required at least 1 person's assistance with ambulation. Left elbow abrasion, and bilateral lower extremity chronic stasis ulcers noted during my examination in ED. Daughter states patient bruises extremely easily. Patient admits to shortness of breath since 2020 intermittently. States her starch cooker is Dr. Li. Denies fevers, sick contacts, recent travel, chest pain, abdominal pain, blurry vision. Subjective I am still tired. Pt unable to provide any prior level of functioning due to continued confusion. Pt is a resident of [facility]. Objective Patient Orientation Person,Birthday Right Upper Extremity Gross ROM Min Limitation <25% Left Upper Extremity Gross ROM Min Limitation <25% Bed Mobility bed mobility-scooting,bed mobility - supine/sit Assist Level Maximum x 2 (75% assist) Transfer Training Sit/Stand Transfer Assist Level Moderate x 2 (50% assist) Rehab OT IP prob,goals,plan Problems Date of Evaluation: 11/07/24 OT IP Problems Bed Mobility,Transfers,Balance ,Self care,Safety Rehab Potential Rehab Potential Good Equipment Needs Assistive Devices Rolling / Wheeled Walker Plan OT intervention Plan Bed Mobility,Transfers,Balance ,Self care,Safety,Therapeutic Exercise OT Plan Frequency Daily Duration LOS Discharge Goals Bed Mobility Ability Assistance x1 Sit to Stand Chair Transfer Ability Moderate x 1 (50% assist) Chair Transfer Ability Moderate x 1 (50% assist) Chair Transfer Technique Sit to/from Ambulatory Chair Transfer Assistive Devices Straight Cane,Rolling Walker Feeding Ability Assist with Tray Set Up Lower Body Dressing Ability Moderate Assistance Upper Body Dressing Ability Minimal Assistance Bathing Ability Moderate Assistance Performing Toilet Hygiene Ability Moderate Assistance Overall Commode/Toilet Transfer Ability Moderate Assistance Commode/Toilet Transfer Technique Sit to/from Ambulatory Commode/Toilet Transfer Assistive Grab Bars Devices Oral Care Assist Minimal Assistance Decrease in Endurance Yes Discharge Plan OT Discharge Plan Pt would benefit from skilled therapy while at [facility] to address functional transfers and ADL independence. Pt would benefit from Occupational therapy rehab services at [facility] once d/c'd from [facility]. Eval Complexity Eval Charge Codes 78554 - Moderate Complexity PHYSICIAN CERTIFICATION: I certify the specified therapy services for Isabella Irwin are required, authorized, and reviewed every 30 days.
--- NOTE | 2024-11-07 10:36 | HMH.PTWOUND ---
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 Patient presents after fall at [facility] yesterday with sodium level 117. Daughter present with patient in emergency room and acted as independent historian during my assessment . Daughter states that patient has been in [place] since October 16. Daughter states that patient originally fell September 15, and was ultimately admitted to [facility] for short-term rehab. Daughter also states patient suffers from chronic lower back pain due to sacroiliitis, and frequently receives steroid epidural injections. Patient's last steroid epidural injection . Patient reportedly nauseous x 7 days, and developed vomiting yesterday at [facility] after receiving sublingual ondansetron. Daughter states she was present in vomit with green nonbloody, no coffee-ground emesis noted. Patient reportedly fell at [facility] today, with labs checked and sodium noted to be 117. Patient subsequently sent to hospital for hyponatremia management. Admits to lightheadedness/dizziness x 24 hours. Daughter states patient has suffered from intermittent confusion since September, and currently seeing outpatient behavioral health or neurology specialist. Per daughter they started her on a new medication I just cannot remember what it is. Daughter states at baseline patient walks with a walker, but for last 2 months has required at least 1 person's assistance with ambulation. Left elbow abrasion, and bilateral lower extremity chronic stasis ulcers noted during my examination in ED. Daughter states patient bruises extremely easily. Patient admits to shortness of breath since 2020 intermittently. States her marine diver is Dr. Li. Denies fevers, sick contacts, recent travel, chest pain, abdominal pain, blurry vision. Pt presents with L elbow skin tear upon admission. Wound Left Elbow Wound Type Skin Tear Wound Length (cm) 3.0 Wound Width (cm) 1.5 Wound Depth (cm) 0.1 Wound Bed Appearance Beefy Red Wound Margins Description Well Defined Surrounding Tissue Appearance [place] Dressing Change Patient Tolerance Tolerated Well Plan/Recommendation Comment Currently her wound is dry and not draining at all. Wound is not covered at this time. Nsg staff aware of wound condition, is caring for it appropriately, and aware that no need for further wound care treatment is necessary. Nick CAPPS stasis dermatitis appears to be well controlled at this tie with no open wounds or excoriation noted to Nick CAPPS, only dryness of the skin. Thank you for involving the wound care team in the care of this patient. Eval Complexity Eval Charge Codes 71228 - High Complexity PHYSICIAN CERTIFICATION: I certify the specified therapy services for Isabella Irwin are required, authorized, and reviewed every 30 days.
[2024-11-07 10:37] LABS: Blood Urea Nitrogen 4 mg/dl (7-17); Calcium 8.6 mg/dl (8.4-10.2); Carbon Dioxide 25 mmol/L (22.0-30.0); Chloride 92 mmol/L (98-107); Creatinine Clearance Estimated 42 mL/min (50-200); Estimated Glomerular Filt Rate 116 ml/min (>60); GFR (African American) 141 ML/MIN (>60); Glucose 86 mg/dl (74-100); Sodium 122 mmol/L (136-145)
[2024-11-07] MEDS: MORPHINE 4MG/ML SYRINGE 4 MG IV (10:47)
[2024-11-07 10:59] LABS: Anion Gap 8.8 mEq/L (5-15); Potassium 3.8 mmoL/L (3.5-5.1)
--- NOTE | 2024-11-07 11:59 | P.CONCA_ITS ---
History of Present Illness History of Present Illness Consult date: 11/07/24 Requesting physician: Mj Parra Consult reason: known to you Chief complaint: AMS, fall, N/V History of present illness: This is an 89-year-old female who presented to the emergency department after a fall at the care home. She was experiencing nausea and vomiting and had an altered mental status. The patient was found to be hyponatremic upon arrival to the emergency department. She does have a history of a pacemaker placement so cardiology was consulted to interrogate her device. She states that she was walking to the bathroom at the care home when she fell. The patient admits to having some dizziness and lightheadedness for approximately 24 hours prior to her fall. The patient has been having intermittent confusion since the fall. She is having pain throughout her entire body. She states her whole entire body hurts. She has not recently had any chest pain fever, chills, PND or orthopnea. When the patient was dizzy she states that she did have some nausea and vomiting which is very unusual for her. [facility] Disclaimer: The information contained in this section may have been updated after the patient was seen, as this information can be updated by other users. Medical History (Updated 11/07/24 @ 12:08 by Laura Elliott APRN) Carotid artery stenosis Hyponatremia Metabolic encephalopathy PAF (paroxysmal atrial fibrillation) Fall Multiple contusions Hypertension Closed fracture of coccyx with routine healing History of pilonidal cyst History of hip fracture Closed head injury Nodule of right lung Fall Stroke Normal esophagogastroduodenoscopy (EGD) Colonoscopy planned Pacemaker HTN (hypertension) GERD (gastroesophageal reflux disease) Anemia Abnormal result of cardiovascular function study Anemia Dysphagia Accidental fall Cardiac pacemaker in situ Abnormal Holter monitor finding Elevated right ventricular end-diastolic pressure Balance problem SSS (sick sinus syndrome) HLD (hyperlipidemia) Cerebrovascular accident Cerebrovascular accident Facial contusion Surgical History History of lumbar surgery H/O bladder repair surgery H/O carpal tunnel repair Hx of cholecystectomy H/O arthroscopy of shoulder History of appendectomy Hx of hysterectomy, total Total knee replacement status Family History Other Cancer Heart attack Hypertension Stroke Social History (Updated 11/06/24 @ 23:05 by Katja Kruger RN) Smoking Status: Never smoker alcohol intake: never substance use type: denies use current occupational status: retired Travel in the last 8 weeks: None household members: none housing: house current occupational exposures/hazards: No Have you lived/traveled outside [place] in past 30 days?: No Contact w/someone who lives/traveled outside US past 30 days?: No Exposure to someone with infectious disease in past 14 days?: No Do you have a fever (greater than 100.4 F or 38 C)?: No Have you tested positive for COVID-19: No Exposed to someone with COVID-19 in past 14 days?: No Do you have a sore throat?: No Do you have a cough?: No Do you have any weakness?: No Are you experiencing any nausea/vomitting?: No Do you have any diarrhea?: No Are you experiencing any unusual bleeding?: No Do you have any muscle aches/pain?: No Do you have any abdominal pain?: No Are you experiencing loss of taste or smell?: No Review of Systems Review of Systems Review of systems:: pertinent systems reviewed and negative unless documented below Constitutional Constitutional: Reports system reviewed and no additional complaints, except as documented, Reports fatigue, Reports frequent falls and Reports lethargy Eyes Eyes: Reports system reviewed and no additional complaints, except as documented ENT Ears, Nose, Mouth, and Throat: Reports system reviewed and no additional complaints, except as documented *Cardiovascular Cardiovascular: Reports system reviewed and no additional complaints, except as documented, Denies chest pain, Denies dyspnea and Reports lightheadedness *Respiratory Respiratory: Reports system reviewed and no additional complaints, except as documented and Denies dyspnea *Gastrointestinal Gastrointestinal: Reports system reviewed and no additional complaints, except as documented, Reports nausea and Reports vomiting *Genitourinary Genitourinary: Reports system reviewed and no additional complaints, except as documented *Musculoskeletal Musculoskeletal: Reports system reviewed and no additional complaints, except as documented Integumentary/Breasts Skin/Breast: Reports system reviewed and no additional complaints, except as documented *Neurologic Neurologic: Reports system reviewed and no additional complaints, except as documented, Reports frequent falls and Reports other (AMS/confusion) Psychiatric Psychiatric: Reports system reviewed and no additional complaints, except as documented Endocrine Endocrine: Reports system reviewed and no additional complaints, except as documented and Reports fatigue Hematologic/Lymphatic Hematologic/Lymphatic: Reports system reviewed and no additional complaints, except as documented Allergic/Immunologic Allergic/Immunologic: Reports system reviewed and no additional complaints, except as documented Exam Data for Last 24 hours Vital signs and Labs for Last 24 Hours: Temp Pulse Resp BP Pulse Ox O2 Del Method 97.7 F 88 20 140/62 96 Room Air 11/07/24 08:00 11/07/24 06:00 11/07/24 06:00 11/07/24 06:00 11/07/24 06:00 11/07/24 06:40 Laboratory Results - last 24 hr 11/06/24 15:22: VBG pH 7.43 H, VBG pCO2 35.0, VBG pO2 79.5 H, VBG HCO3 22.8 L, VBG Total CO2 23.8, VBG O2 Saturation 96.0 H, VBG Base Excess -1.5, VBG Lactic Acid 1.6 11/06/24 15:40: WBC 4.1 L, RBC 3.56 L, Hgb 11.6 L, Hct 32.8 L, MCV 92.3, MCH 32.5 H, MCHC 35.2, RDW 13.7, Plt Count 214, MPV 8.0, Neut % (Auto) 68.4, Lymph % (Auto) 23.1, [place] % (Auto) 7.8, Eos % (Auto) 0.7, Baso % (Auto) 0.1, Neut # (Auto) 2.8, Lymph # (Auto) 0.9, [place] # (Auto) 0.3, Eos # (Auto) 0.0, Baso # (Auto) 0.0, Sodium 117 L, Potassium 4.6, Chloride 89 L, Carbon Dioxide 24, Anion Gap 8.6, BUN 12, Creatinine 0.50 L, Estimated Creat Clear 42, Estimated GFR 116, Est GFR ( Amer) 141, Glucose 113 H, Calcium 9.5, Phosphorus 2.5, Magnesium 1.3 L, Total Bilirubin 0.9, AST 37 H, ALT 18, Alkaline Phosphatase 71, Troponin I 0.02, Total Protein 6.5, Albumin 4.1, Globulin 2.4, Albumin/Globulin Ratio 1.7, TSH 0.44 L, Hepatitis C Antibody Non reactive 11/06/24 16:49: Sodium 121 L 11/06/24 18:30: Sodium 119 L, Troponin I 0.02 11/06/24 22:25: Sodium 122 L, Potassium 4.2, Chloride 89 L, Carbon Dioxide 24, Anion Gap 13.2, BUN 9, Creatinine 0.50 L, Estimated Creat Clear 42, Estimated GFR 116, Est GFR ([facility] Amer) 141, Glucose 118 H, Calcium 9.3, Troponin I 0.02 11/07/24 02:00: Sodium 121 L, Potassium 3.8, Chloride 90 L, Carbon Dioxide 25, Anion Gap 9.8, BUN 7, Creatinine 0.50 L, Estimated Creat Clear 42, Estimated GFR 116, Est GFR ([facility] Amer) 141, Glucose 114 H, Calcium 8.9 11/07/24 05:49: WBC 5.0, RBC 3.12 L, Hgb 10.2 L D, Hct 29.5 L, MCV 94.4, MCH 32.7 H, MCHC 34.6, RDW 13.8, Plt Count 206, MPV 8.2, Neut % (Auto) 71.3, Lymph % (Auto) 18.1, [place] % (Auto) 9.2, Eos % (Auto) 1.2, Baso % (Auto) 0.1, Neut # (Auto) 3.6, Lymph # (Auto) 0.9, [place] # (Auto) 0.5, Eos # (Auto) 0.1, Baso # (Auto) 0.0, Sodium 122 L, Potassium 3.9, Chloride 93 L, Carbon Dioxide 24, Anion Gap 8.9, BUN 5 L D, Creatinine 0.50 L, Estimated Creat Clear 42, Estimated GFR 116, Est GFR ([facility] Amer) 141, Glucose 92, Calcium 8.5, Phosphorus 2.5, Magnesium 2.1 D 11/07/24 07:29: Urine Color Yellow, Urine Appearance Clear, Urine pH 7.0, Ur Specific [place] 1.015, Urine Protein Negative, Urine Glucose (UA) Negative, Urine Ketones 1+, Urine Blood 2+ A, Urine Nitrate Negative, Urine Bilirubin Negative, Urine Urobilinogen 0.2, Ur Leukocyte Esterase Trace, Urine RBC Occasional, Urine WBC Occasional, Ur Squamous Epith Cells None, Urine Bacteria None, Urine Sodium 128.0 H 11/07/24 10:00: Sodium 122 L, Potassium 3.8, Chloride 92 L, Carbon Dioxide 25, Anion Gap 8.8, BUN 4 L, Creatinine 0.50 L, Estimated Creat Clear 42, Estimated GFR 116, Est GFR ( Amer) 141, Glucose 86, Calcium 8.6 I & O for Last 24 hours: Intake & Output 11/04/24 11/05/24 11/06/24 11/07/24 23:59 23:59 23:59 23:59 Intake Total 1040 / 1040 Output Total 0 / 0 Balance 1040 / 1040 Weight 154 lb 153 lb 15.992 oz Constitutional Constitutional: no acute distress and average body habitus *Routine HEENT Exam Head: Present normocephalic and atraumatic ENT: Present mucous membranes moist *Routine Neck Exam Neck: Present supple, full ROM and normal carotid upstroke; Absent JVD, carotid bruit or lymphadenopathy *Routine Respiratory Exam Respiratory: Present CTA bilaterally, normal respiratory effort, able to speak in complete sentences and symmetric chest movement *Routine Cardiovascular Exam Cardiovascular: Present RRR, Normal S1 and Normal S2; Absent murmur or gallop *Routine Abdominal Exam Abdominal: Present soft and normoactive bowel sounds; Absent tenderness, distended or organomegaly *Routine Extremities Exam Extremities: Present full ROM, pulses intact and normal capillary refill; Absent cyanosis, clubbing or edema *Routine Skin Exam Skin: Present intact and warm; Absent erythema *Routine Neurological Exam Neurological: Present alert, oriented X3 and CN II-XII intact; Absent sensory deficit or motor deficit Routine Psychiatric Exam Psychiatric: Present normal affect Meds Home Medications and Allergies Home Medications ?Medication ?Instructions ?Recorded ?Confirmed ?Type celecoxib 100 mg capsule 100 mg PO DAILY #90 caps 05/28/24 11/06/24 Rx gabapentin 300 mg capsule 300 mg PO HS Pain #30 caps 08/01/24 11/06/24 Rx furosemide 20 mg tablet 20 mg PO DAILY PRN Edema 09/03/24 11/06/24 History pantoprazole 40 mg tablet,delayed 40 mg PO BID GERD 90 days #180 tabs 09/18/24 11/06/24 Rx release aspirin 81 mg chewable tablet 81 mg PO DAILY 11/06/24 11/06/24 History duloxetine 20 mg capsule,delayed 20 mg PO DAILY 11/06/24 11/06/24 History release (Cymbalta) hydrocodone 7.5 mg-acetaminophen 1 tab PO Q6HP PRN Pain 11/06/24 11/07/24 History 325 mg tablet apixaban 5 mg tablet (Eliquis) 5 mg PO BID 11/07/24 11/07/24 History clobetasol 0.05 % topical ointment 1 applic topical BIDP PRN itchy 11/07/24 11/07/24 History skin diclofenac sodium 1 % topical gel 2 g topical QID 11/07/24 11/07/24 History lisinopril 10 mg tablet 10 mg PO DAILY 11/07/24 11/07/24 History spswmauuqbdg-jrabmzdm-cljrzt tablet 1 tab PO DAILY 11/07/24 11/07/24 History ondansetron 4 mg disintegrating 4 mg PO BIDP PRN Nausea And 11/07/24 11/07/24 History tablet Vomiting polyethylene glycol 3350 17 gram 17 g PO DAILYP PRN Constipation 11/07/24 11/07/24 History oral powder packet (Miralax) rosuvastatin 10 mg tablet 10 mg PO HS 11/07/24 11/07/24 History New Prescriptions to Start Prescriptions: Allergies Allergy/AdvReac Type Severity Reaction Status Date / Time No Known Allergies Allergy Verified 09/03/24 11:12 Assessment and Plan *Assessment and plan (1) Hyponatremia: Status: Acute Category: Medical Code(s): E87.1 - Hypo-osmolality and hyponatremia (2) Hypomagnesemia: Status: Acute Category: Medical Code(s): E83.42 - Hypomagnesemia (3) Metabolic encephalopathy: Status: Acute Category: Medical Code(s): G93.41 - Metabolic encephalopathy (4) Fall: Status: Acute Qualifiers: Encounter type: initial encounter Qualified Code(s): W19.XXXA - Unspecified fall, initial encounter Category: Medical Code(s): W19.XXXA - Unspecified fall, initial encounter (5) PAF (paroxysmal atrial fibrillation): Status: Acute Category: Medical Code(s): I48.0 - Paroxysmal atrial fibrillation (6) HLD (hyperlipidemia): Status: Chronic Qualifiers: Hyperlipidemia type: mixed hyperlipidemia Qualified Code(s): E78.2 - Mixed hyperlipidemia Category: Medical Code(s): E78.5 - Hyperlipidemia, unspecified (7) Cardiac pacemaker in situ: Status: Chronic Category: Medical Code(s): Z95.0 - Presence of cardiac pacemaker (8) Hypertension: Status: Acute Qualifiers: Hypertension type: unspecified Qualified Code(s): I10 - Essential (primary) hypertension Category: Medical Code(s): I10 - Essential (primary) hypertension (9) Multiple contusions: Status: Acute Category: Medical Code(s): T07.XXXA - Unspecified multiple injuries, initial encounter (10) History of cerebrovascular accident (CVA) with residual deficit: Problem Comment: cardioembolic left-sided CVA (April 2020), residual right-sided facial droop, right upper extremity weakness/numbness, imbalance relatively unchanged from 2019 to today, 04/17/2023 Status: Chronic Category: Medical Code(s): I69.30 - Unspecified sequelae of cerebral infarction (11) Carotid artery stenosis: Status: Chronic Qualifiers: Laterality: bilateral Qualified Code(s): I65.23 - Occlusion and stenosis of bilateral carotid arteries Category: Medical Code(s): I65.29 - Occlusion and stenosis of unspecified carotid artery Plan Plan: 1. This is an 89-year-old female who was admitted to the hospital after a fall. She was found to be hyponatremic and dehydrated. Recommend fluids to get the patient's dehydration and hyponatremia improved. The patient will need to be gently and slowly rehydrated because we do not want her sodium to correct itself quickly. The goal for today should be to get her sodium level to around 124, but we will leave this up to the hospitalist. 2. 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 She is currently on a fluid restriction. 3. Will obtain a cortisol level in the morning to rule out adrenal insufficiency. 4. Her blood pressure is acceptable at this time. 5. Her LDL goal is less than 100. Will get a lipid panel in the morning. 6. CTA of the neck did show 70% stenosis of the right internal carotid artery and 50% stenosis of the right common carotid bifurcation. 7. Her pacemaker was interrogated. There were no events yesterday noted at the time of her symptoms. 8. Previous interrogations do show that she does have paroxysmal atrial fibrillation but none of these episodes are correlated with her symptoms. We will add Toprol 25 mg daily for suppression of the atrial fibrillation and high heart rate so this does not complicate her symptoms. 9. The patient does have paroxysmal atrial fibrillation. She is on Eliquis for long-term anticoagulation. 10. No further recommendations at this time from a cardiac standpoint. Thank you for the opportunity to help dissipate in the care of this patient. All recommendations and orders are per Dr. Hernandez.
[2024-11-07] MEDS: LISINOPRIL 10MG TABLET 10 MG PO (12:20)
[2024-11-07] MEDS: APIXABAN 5MG TABLET 2.5 MG PO ×2 (12:21→20:28)
[2024-11-07] MEDS: ASPIRIN 81MG CHEWABLE TABLET 81 MG PO (12:21)
[2024-11-07] MEDS: APAP/HYDROCODONE 325MG/7.5MG TAB 1 TAB PO (12:21)
[2024-11-07] MEDS: SODIUM CHLORIDE 0.9% 10ML VIAL 10 ML IV (12:22)
[2024-11-07] MEDS: PANTOPRAZOLE 40MG VIAL 40 MG IV (12:22)
[2024-11-07] MEDS: DICLOFENAC SODIUM 1% 2 EACH TP ×3 (13:20→20:29)
[2024-11-07 14:23] LABS: Chloride 92 mmol/L (98-107); Sodium 122 mmol/L (136-145)
[2024-11-07 14:24] LABS: Potassium 3.7 mmoL/L (3.5-5.1)
[2024-11-07 14:27] LABS: Anion Gap 9.7 mEq/L (5-15); Blood Urea Nitrogen 5 mg/dl (7-17); Calcium 8.5 mg/dl (8.4-10.2); Carbon Dioxide 24 mmol/L (22.0-30.0); Creatinine Clearance Estimated 42 mL/min (50-200); Estimated Glomerular Filt Rate 116 ml/min (>60); GFR (African American) 141 ML/MIN (>60); Glucose 103 mg/dl (74-100)
[2024-11-07] MEDS: METOPROLOL SUCCINATE XL 25MG TABLET 25 MG PO (16:13)
[2024-11-07 16:35] LABS: HIV Combo NEGATIVE (Negative)
--- NOTE | 2024-11-07 18:22 | PC.NURSE ---
Nae sounds diminished, patient able to swallow nectar thick liquids with no difficulty. Patient able to swalllow pills crushed with pussing or mashed potatoes. Patient still confused, alert to self only. Patient able to sit up in chair during the evening.
--- NOTE | 2024-11-07 18:49 | P.PN_ITS ---
Subjective *Date: 11/07/24 *Time: 07:46 Interval history: Complains of significant pain. Extensive history of diffuse arthritis. Multiple joint replacements. Everything hurts . Takes opiates daily at least 3 times a day. Only on Tylenol at this point. Having significant breakthrough pain. 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 Difficulty swallowing p.o. intake, evaluated with nectar thick, did better. Stable on room air. Medical Exam Vital signs and Labs for Last 24 Hours: Vital Signs Temp Pulse Pulse Resp BP BP Pulse Ox 11/07/24 18:47 11/07/24 18:00 77 20 130/67 96 11/07/24 17:00 11/07/24 16:15 11/07/24 16:00 66 20 131/70 96 11/07/24 16:00 60 11/07/24 16:00 98.0 F 11/07/24 15:00 11/07/24 14:00 74 18 116/61 94 L 11/07/24 13:00 11/07/24 12:00 98.1 F 11/07/24 11:00 11/07/24 09:00 11/07/24 08:30 11/07/24 08:00 97.7 F 11/07/24 06:40 11/07/24 06:00 88 20 140/62 96 11/07/24 05:00 11/07/24 04:00 70 11/07/24 04:00 98.2 F 11/07/24 03:00 11/07/24 02:00 85 16 142/78 H 95 11/07/24 01:00 11/07/24 00:00 80 22 167/80 H 94 L 11/07/24 00:00 97.6 F 11/07/24 00:00 70 11/06/24 23:00 11/06/24 22:00 75 16 150/69 H 96 11/06/24 21:16 80 11/06/24 21:00 11/06/24 20:00 11/06/24 19:58 99.0 F 89 20 189/90 H 11/06/24 19:23 97.7 F 85 20 173/77 H O2 Del Method 11/07/24 18:47 Room Air 11/07/24 18:00 Room Air 11/07/24 17:00 Room Air 11/07/24 16:15 Room Air 11/07/24 16:00 Room Air 11/07/24 16:00 11/07/24 16:00 11/07/24 15:00 Room Air 11/07/24 14:00 Room Air 11/07/24 13:00 Room Air 11/07/24 12:00 11/07/24 11:00 Room Air 11/07/24 09:00 Room Air 11/07/24 08:30 Room Air 11/07/24 08:00 11/07/24 06:40 Room Air 11/07/24 06:00 Room Air 11/07/24 05:00 Room Air 11/07/24 04:00 11/07/24 04:00 11/07/24 03:00 Room Air 11/07/24 02:00 Room Air 11/07/24 01:00 Room Air 11/07/24 00:00 Room Air 11/07/24 00:00 11/07/24 00:00 11/06/24 23:00 Room Air 11/06/24 22:00 Room Air 11/06/24 21:16 11/06/24 21:00 Room Air 11/06/24 20:00 Room Air 11/06/24 19:58 Room Air 11/06/24 19:23 Room Air Intake and Output 11/07/24 11/07/24 11/07/24 07:59 15:59 23:59 Intake Total 1040 / 1190 150 / 1190 0 / 1190 Output Total 0 / 0 0 / 0 Balance 1040 / 1190 150 / 1190 0 / 1190 Intake: Intake, Oral Amount 240 / 390 150 / 390 0 / 390 Intake, Total IV Amount 800 / 800 0.9 % Sodium Chloride 1000ML 1, 750 / 750 000 ml @ 100 mls/hr IV .Q10H [facility] Rx#:[id number] Magnesium Sulfate in Water 2 gm 50 / 50 In 50 ml @ 50 mls/hr IV ONCE ONE Rx#:[id number] Output: Output, Urine Amount 0 / 0 0 / 0 Other: Number of Unmeasured Voids 1 1 Number of Bowel Movements 1 Weight 69.853 kg Patient Weight 11/07/24 23:59 Weight 69.853 kg Laboratory Results - last 24 hr 11/06/24 15:40: Hepatitis C Antibody Non reactive, HIV Ag/Ab Combo Qual Negative 11/06/24 18:30: Sodium 119 L, Troponin I 0.02 11/06/24 22:25: Sodium 122 L, Potassium 4.2, Chloride 89 L, Carbon Dioxide 24, Anion Gap 13.2, BUN 9, Creatinine 0.50 L, Estimated Creat Clear 42, Estimated GFR 116, Est GFR ( Amer) 141, Glucose 118 H, Calcium 9.3, Troponin I 0.02 11/07/24 02:00: Sodium 121 L, Potassium 3.8, Chloride 90 L, Carbon Dioxide 25, Anion Gap 9.8, BUN 7, Creatinine 0.50 L, Estimated Creat Clear 42, Estimated GFR 116, Est GFR ( Amer) 141, Glucose 114 H, Calcium 8.9 11/07/24 05:49: WBC 5.0, RBC 3.12 L, Hgb 10.2 L D, Hct 29.5 L, MCV 94.4, MCH 32.7 H, MCHC 34.6, RDW 13.8, Plt Count 206, MPV 8.2, Neut % (Auto) 71.3, Lymph % (Auto) 18.1, [place] % (Auto) 9.2, Eos % (Auto) 1.2, Baso % (Auto) 0.1, Neut # (Auto) 3.6, Lymph # (Auto) 0.9, [place] # (Auto) 0.5, Eos # (Auto) 0.1, Baso # (Auto) 0.0, Sodium 122 L, Potassium 3.9, Chloride 93 L, Carbon Dioxide 24, Anion Gap 8.9, BUN 5 L D, Creatinine 0.50 L, Estimated Creat Clear 42, Estimated GFR 116, Est GFR ( Amer) 141, Glucose 92, Calcium 8.5, Phosphorus 2.5, Magnesium 2.1 D 11/07/24 07:29: Urine Color Yellow, Urine Appearance Clear, Urine pH 7.0, Ur Specific [place] 1.015, Urine Protein Negative, Urine Glucose (UA) Negative, Urine Ketones 1+, Urine Blood 2+ A, Urine Nitrate Negative, Urine Bilirubin Negative, Urine Urobilinogen 0.2, Ur Leukocyte Esterase Trace, Urine RBC Occasional, Urine WBC Occasional, Ur Squamous Epith Cells None, Urine Bacteria None, Urine Sodium 128.0 H 11/07/24 10:00: Sodium 122 L, Potassium 3.8, Chloride 92 L, Carbon Dioxide 25, Anion Gap 8.8, BUN 4 L, Creatinine 0.50 L, Estimated Creat Clear 42, Estimated GFR 116, Est GFR ( Amer) 141, Glucose 86, Calcium 8.6 11/07/24 13:45: Sodium 122 L, Potassium 3.7, Chloride 92 L, Carbon Dioxide 24, Anion Gap 9.7, BUN 5 L, Creatinine 0.50 L, Estimated Creat Clear 42, Estimated GFR 116, Est GFR ( Amer) 141, Glucose 103 H, Calcium 8.5 I & O for Labs for Last 24 Hours: Intake & Output 11/04/24 11/05/24 11/06/24 11/07/24 23:59 23:59 23:59 23:59 Intake Total 1190 / 1190 Output Total 0 / 0 Balance 1190 / 1190 Weight 69.853 kg 69.853 kg Constitutional: Present mild distress, average body habitus, chronically ill appearing and cooperative Head: Present atraumatic and normocephalic ENT: Present normal exam Comment:: Tender with movement Respiratory: Present normal respiratory effort; Absent rhonchi, wheezes or crackles Cardiac: Present Reg Rate and Rhythm GI: Present soft and normal bowel sounds; Absent distention or tenderness Extremities: Present normal inspection, full ROM and tenderness (In shoulders, hips, knees to palpation) Skin: Present intact; Absent erythema Neuro: Present Grossly Intact, alert, awake, oriented x 3 and moves all extremities Assessment and Plan *Assessment and plan (1) SIADH (syndrome of inappropriate ADH production): Status: Acute Category: Medical Code(s): E22.2 - Syndrome of inappropriate secretion of antidiuretic hormone (2) Hyponatremia: Status: Acute Category: Medical Code(s): E87.1 - Hypo-osmolality and hyponatremia (3) Hypomagnesemia: Status: Acute Category: Medical Code(s): E83.42 - Hypomagnesemia (4) Sacroiliitis: Status: Acute Category: Medical Code(s): M46.1 - Sacroiliitis, not elsewhere classified (5) PAF (paroxysmal atrial fibrillation): Status: Acute Category: Medical Code(s): I48.0 - Paroxysmal atrial fibrillation (6) Fall: Status: Acute Qualifiers: Encounter type: initial encounter Qualified Code(s): W19.XXXA - Unspecified fall, initial encounter Category: Medical Code(s): W19.XXXA - Unspecified fall, initial encounter (7) Osteoarthritis of left shoulder: Status: Acute Category: Medical Code(s): M19.012 - Primary osteoarthritis, left shoulder (8) Dizziness of unknown etiology: Status: Chronic Category: Medical Code(s): R42 - Dizziness and giddiness (9) Chronic pain syndrome: Status: Acute Category: Medical Code(s): G89.4 - Chronic pain syndrome (10) Metabolic encephalopathy: Status: Acute Category: Medical Code(s): G93.41 - Metabolic encephalopathy Plan 89-year-old with past medical history of paroxysmal atrial fibrillation, sick sinus syndrome with pacemaker, 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 Patient presents after fall at [facility] today with sodium level 117. seeing improvement, continues to require inpatient management for close monitoring and serial labs. Problems as listed below: Hyponatremia 2/2 SIADH: ? sodium improved from 117 on admission to 122 on morning labs. Urine sodium re turned at 128, consistent with SIADH - morning cortisol pending - fluid restrict to 1L daily. - given edema administer lasix 40mg IV x 1 to aid in free water excretion - continue lasix 40mg IV daily - serial BMP q8h, Na correction 8-10 meq daily - necessitating close monitoring due to confusion and severe hyponatremia Hypomagnesia: Magnesium 1.3. Will give 4 g magnesium sulfate IV then reevaluate in AM. Adult failure to thrive status post fall: ?Reviewed CTA head, neck, chest, abdomen, pelvis done by emergency room physician. Patient has bilateral carotid stenosis probably chronic. Patient also has fatty pancreas, with large abdominal hernia. No signs of acute CVA/dissection noted on my review of CTA films. ? Daughter states patient has been more confused recently probably secondary to low sodium levels. Patient has also seen behavioral health/neurology recently as outpatient per daughter report and started on new medication. Will treat hyponatremia then reevaluate ataxia issue. PT/OT/wound care during hospitalization. Patient already at [facility] since October 16, and will likely discharge there at time of hospital disposition. Paroxysmal atrial fibrillation continue apixaban 5 mg p.o. daily Sick sinus syndrome with pacemaker: Discussed case with cardiology, will interrogate pacer. Does not appear to have had any events causing her syncope. No change to regimen at this time Stroke 3 years ago: Apixaban as stated above plus aspirin 81 mg p.o. daily Hypertension: Lisinopril 10 mg p.o. daily, hydralazine 10 mg IV every 6 hours as needed SBP over 160 Chronic pain: Resume hydrocodone 7-1/2 mg every 4 hours as needed given patient's severe arthritis and chronic opiate use. Consider initiation of steroids for inflammation, pain, SIADH. Gabapentin 300 mg p.o. nightly, Tylenol 650 p.o. every 6 as needed pain Celebrex 100 mg p.o. daily. GERD: Protonix 40 mg p.o. twice daily. Sacroiliitis: As above and chronic pain section Hyperlipidemia: Rosuvastatin 10 mg p.o. daily PPx apixaban 5 mg p.o. twice daily CODE STATUS DNR/DNI per patient and patient's daughter
[2024-11-07 18:50] LABS: Chloride 92 mmol/L (98-107); Potassium 3.9 mmoL/L (3.5-5.1); Sodium 122 mmol/L (136-145)
[2024-11-07 18:53] LABS: Anion Gap 7.9 mEq/L (5-15); Blood Urea Nitrogen 5 mg/dl (7-17); Carbon Dioxide 26 mmol/L (22.0-30.0); Creatinine Clearance Estimated 42 mL/min (50-200); Estimated Glomerular Filt Rate 94 ml/min (>60); GFR (African American) 114 ML/MIN (>60)
[2024-11-07 18:54] LABS: Calcium 8.7 mg/dl (8.4-10.2); Glucose 105 mg/dl (74-100)
[2024-11-07] MEDS: FUROSEMIDE 40MG/4ML VIAL 40 MG IV (19:00)
[2024-11-07] MEDS: ATORVASTATIN 40MG TABLET 40 MG PO (20:28)
[2024-11-07] MEDS: GABAPENTIN 300MG CAPSULE 300 MG PO (20:28)
[2024-11-07 23:21] LABS: Chloride 91 mmol/L (98-107); Potassium 3.8 mmoL/L (3.5-5.1); Sodium 121 mmol/L (136-145)
[2024-11-07 23:24] LABS: Anion Gap 7.8 mEq/L (5-15); Blood Urea Nitrogen 5 mg/dl (7-17); Calcium 8.8 mg/dl (8.4-10.2); Carbon Dioxide 26 mmol/L (22.0-30.0); Creatinine Clearance Estimated 42 mL/min (50-200); Estimated Glomerular Filt Rate 94 ml/min (>60); GFR (African American) 114 ML/MIN (>60); Glucose 95 mg/dl (74-100)
[2024-11-08] VITALS (10 sets, daily range): BP systolic 102–171; BP diastolic 58–97; PULSE 60–74; RESP 12–18; TEMP 36.5–36.9; O2SAT 91–97; BMI 25.6
[2024-11-08] MEDS: APAP/HYDROCODONE 325MG/7.5MG TAB 1 TAB PO ×3 (05:36→16:49)
--- NOTE | 2024-11-08 07:46 | EXP.ACUTE.PN ---
Subjective *Date: 11/08/24 *Time: 19:24 Interval history: Patient remains weak today. Continuing to complain of pain in her sacral region/bottom. Stable on room air. No nausea or vomiting. Poor p.o. intake over the past 24 hours. Sodium remained stable at 122 this morning. Continues to have significant pain even with regular hydrocodone every 4-6 hours. Discussed concerns with daughter at bedside about pain control and patient's functionality/mobility. Concerned that controlling patient's pain will complicate her ability to be functional and participate with therapy. Appears in significant pain continuously however. Medical Exam Vital signs and Labs for Last 24 Hours: Vital Signs Temp Pulse Pulse Resp BP Pulse Ox O2 Del Method 11/08/24 06:37 Room Air 11/08/24 06:00 60 14 142/78 H 95 Room Air 11/08/24 05:00 Room Air 11/08/24 04:00 70 11/08/24 04:00 Room Air 11/08/24 04:00 72 14 166/71 H 94 L Room Air 11/08/24 04:00 98.3 F 11/08/24 03:00 Room Air 11/08/24 02:00 60 14 110/67 95 Room Air 11/08/24 01:00 Room Air 11/08/24 00:00 60 16 102/58 L 97 Room Air 11/08/24 00:00 60 11/08/24 00:00 97.7 F 11/07/24 23:00 Room Air 11/07/24 22:00 69 18 141/70 H 95 Room Air 11/07/24 21:00 Room Air 11/07/24 20:00 Room Air 11/07/24 20:00 71 18 142/73 H 94 L Room Air 11/07/24 20:00 80 11/07/24 20:00 97.8 F 11/07/24 18:47 Room Air 11/07/24 18:00 77 20 130/67 96 Room Air 11/07/24 17:00 Room Air 11/07/24 16:15 Room Air 11/07/24 16:00 66 20 131/70 96 Room Air 11/07/24 16:00 60 11/07/24 16:00 98.0 F 11/07/24 15:00 Room Air 11/07/24 14:00 74 18 116/61 94 L Room Air 11/07/24 13:00 Room Air 11/07/24 12:00 98.1 F 11/07/24 11:00 Room Air 11/07/24 09:00 Room Air 11/07/24 08:30 Room Air 11/07/24 08:00 97.7 F Intake and Output 11/07/24 11/07/24 11/08/24 15:59 23:59 07:59 Intake Total 150 / 1310 0 / 1310 120 / 120 Output Total 0 / 0 Balance 150 / 1310 0 / 1310 120 / 120 Intake: Intake, Oral Amount 150 / 510 0 / 510 120 / 120 Output: Output, Urine Amount 0 / 0 Other: Number of Unmeasured Voids 1 Weight 69.853 kg Patient Weight 11/08/24 23:59 Weight 69.853 kg Laboratory Results - last 24 hr 11/06/24 15:40: HIV Ag/Ab Combo Qual Negative 11/07/24 05:49: Hgb 10.2 L D, Magnesium 2.1 D 11/07/24 07:29: Urine Color Yellow, Urine Appearance Clear, Urine pH 7.0, Ur Specific [place] 1.015, Urine Protein Negative, Urine Glucose (UA) Negative, Urine Ketones 1+, Urine Blood 2+ A, Urine Nitrate Negative, Urine Bilirubin Negative, Urine Urobilinogen 0.2, Ur Leukocyte Esterase Trace, Urine RBC Occasional, Urine WBC Occasional, Ur Squamous Epith Cells None, Urine Bacteria None, Urine Sodium 128.0 H 11/07/24 10:00: Sodium 122 L, Potassium 3.8, Chloride 92 L, Carbon Dioxide 25, Anion Gap 8.8, BUN 4 L, Creatinine 0.50 L, Estimated Creat Clear 42, Estimated GFR 116, Est GFR ( Amer) 141, Glucose 86, Calcium 8.6 11/07/24 13:45: Sodium 122 L, Potassium 3.7, Chloride 92 L, Carbon Dioxide 24, Anion Gap 9.7, BUN 5 L, Creatinine 0.50 L, Estimated Creat Clear 42, Estimated GFR 116, Est GFR ( Amer) 141, Glucose 103 H, Calcium 8.5 11/07/24 18:07: Sodium 122 L, Potassium 3.9, Chloride 92 L, Carbon Dioxide 26, Anion Gap 7.9, BUN 5 L, Creatinine 0.60, Estimated Creat Clear 42, Estimated GFR 94, Est GFR ( Amer) 114, Glucose 105 H, Calcium 8.7 11/07/24 23:08: Sodium 121 L, Potassium 3.8, Chloride 91 L, Carbon Dioxide 26, Anion Gap 7.8, BUN 5 L, Creatinine 0.60, Estimated Creat Clear 42, Estimated GFR 94, Est GFR ( Amer) 114, Glucose 95, Calcium 8.8 I & O for Labs for Last 24 Hours: Intake & Output 11/05/24 11/06/24 11/07/24 11/08/24 23:59 23:59 23:59 23:59 Intake Total 1190 / 1310 120 / 120 Output Total 0 / 0 Balance 1190 / 1310 120 / 120 Weight 69.853 kg 69.853 kg 69.853 kg Constitutional: Present mild distress, average body habitus, chronically ill appearing and cooperative Head: Present atraumatic and normocephalic ENT: Present normal exam Comment:: Tender with movement Respiratory: Present normal respiratory effort; Absent rhonchi, wheezes or crackles Cardiac: Present Reg Rate and Rhythm GI: Present soft and normal bowel sounds; Absent distention or tenderness Extremities: Present normal inspection, full ROM, tenderness (In shoulders, hips, knees to palpation) and edema (2+ to knees. Tender to palpation) Skin: Present intact; Absent erythema Neuro: Present Grossly Intact, alert, awake, oriented x 3 and moves all extremities Assessment and Plan *Assessment and plan (1) SIADH (syndrome of inappropriate ADH production): Status: Acute Category: Medical Code(s): E22.2 - Syndrome of inappropriate secretion of antidiuretic hormone (2) Hyponatremia: Status: Acute Category: Medical Code(s): E87.1 - Hypo-osmolality and hyponatremia (3) Hypomagnesemia: Status: Acute Category: Medical Code(s): E83.42 - Hypomagnesemia (4) Sacroiliitis: Status: Acute Category: Medical Code(s): M46.1 - Sacroiliitis, not elsewhere classified (5) PAF (paroxysmal atrial fibrillation): Status: Acute Category: Medical Code(s): I48.0 - Paroxysmal atrial fibrillation (6) Fall: Status: Acute Qualifiers: Encounter type: initial encounter Qualified Code(s): W19.XXXA - Unspecified fall, initial encounter Category: Medical Code(s): W19.XXXA - Unspecified fall, initial encounter (7) Osteoarthritis of left shoulder: Status: Acute Category: Medical Code(s): M19.012 - Primary osteoarthritis, left shoulder (8) Dizziness of unknown etiology: Status: Chronic Category: Medical Code(s): R42 - Dizziness and giddiness (9) Chronic pain syndrome: Status: Acute Category: Medical Code(s): G89.4 - Chronic pain syndrome (10) Metabolic encephalopathy: Status: Acute Category: Medical Code(s): G93.41 - Metabolic encephalopathy Plan 89-year-old with past medical history of paroxysmal atrial fibrillation, sick sinus syndrome with pacemaker, 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 [facility] on day of presentation with sodium level 117. Sodium stable at 122. Continues to have significant pain. Continues to require inpatient management with monitoring of serial labs and adjustments to pain regimen. Patient's condition serious, strong concern for decompensation. Poor prognosis. Problems addressed as follows: Hyponatremia 2/2 SIADH: ? sodium improved from 117 on admission to 122. Remained stable at 122 for 24 hours. Continuing 1 L fluid restriction due to urine sodium of 128 and finding of SIADH - morning cortisol 14. Normal. Will initiate steroids however due to consistent pain and inflammation. - fluid restrict to 1L daily. -Lasix 40 mg IV once today. - serial BMP q8h, Na correction 8-10 meq daily - necessitating close monitoring due to confusion and severe hyponatremia Hypomagnesia: Magnesium 1.6. Will give 2 g magnesium sulfate IV then reevaluate in AM. Adult failure to thrive status post fall: ?Reviewed CTA head, neck, chest, abdomen, pelvis done by emergency room physician. Patient has bilateral carotid stenosis probably chronic. Patient also has fatty pancreas, with large abdominal hernia. No signs of acute CVA/dissection noted on my review of CTA films. ? Daughter states patient has been more confused recently probably secondary to low sodium levels. Patient has also seen behavioral health/neurology recently as outpatient per daughter report and started on new medication. Will treat hyponatremia then reevaluate ataxia issue. PT/OT/wound care during hospitalization. [facility], and will likely discharge there at time of hospital disposition. Paroxysmal atrial fibrillation continue apixaban 5 mg p.o. daily Sick sinus syndrome with pacemaker: Discussed case with cardiology, will interrogate pacer. Does not appear to have had any events causing her syncope. No change to regimen at this time Stroke 3 years ago: Apixaban as stated above plus aspirin 81 mg p.o. daily Hypertension: Lisinopril 10 mg p.o. daily, hydralazine 10 mg IV every 6 hours as needed SBP over 160 Chronic pain: Resume hydrocodone 7.5mg every 4 hours as needed given patient's severe arthritis and chronic opiate use. Required at least 4 doses in the past 18 hours. -Initiate prednisone 60 mg daily for inflammation and pain component -Lidocaine patch topically on bottom - Gabapentin 300 mg p.o. nightly, Tylenol 650 p.o. every 6 as needed pain Celebrex 100 mg p.o. daily. GERD: Protonix 40 mg p.o. twice daily. Sacroiliitis: As above and chronic pain section Hyperlipidemia: Rosuvastatin 10 mg p.o. daily PPx apixaban 5 mg p.o. twice daily CODE STATUS DNR/DNI per patient and patient's daughter
[2024-11-08 08:01] LABS: Albumin Level 3.4 g/dl (3.5-5.0); Chloride 91 mmol/L (98-107); Potassium 3.6 mmoL/L (3.5-5.1); Sodium 123 mmol/L (136-145)
[2024-11-08 08:04] LABS: Alanine Aminotransferase 17 U/L (12-78); Albumin/Globulin Ratio 1.6 (1.1-1.8); Alkaline Phosphatase 62 U/L (38-126); Anion Gap 8.6 mEq/L (5-15); Aspartate Amino Transferase 43 U/L (14-36); Bilirubin,Total 0.7 mg/dl (0.2-1.3); Blood Urea Nitrogen 4 mg/dl (7-17); Carbon Dioxide 27 mmol/L (22.0-30.0); Creatinine Clearance Estimated 42 mL/min (50-200); Estimated Glomerular Filt Rate 94 ml/min (>60); GFR (African American) 114 ML/MIN (>60); Globulin 2.1 g/dL (1.3-3.2); Total Protein,Serum 5.5 g/dl (6.3-8.2)
[2024-11-08 08:05] LABS: Calcium 8.4 mg/dl (8.4-10.2); Glucose 90 mg/dl (74-100)
[2024-11-08 08:11] LABS: Magnesium 1.6 mg/dl (1.6-2.3)
[2024-11-08] MEDS: PANTOPRAZOLE 40MG VIAL 40 MG IV ×2 (09:20→20:51)
[2024-11-08] MEDS: SODIUM CHLORIDE 0.9% 10ML VIAL 10 ML IV (09:20)
[2024-11-08] MEDS: DICLOFENAC SODIUM 1% 2 EACH TP ×3 (09:21→20:50)
[2024-11-08] MEDS: predniSONE 20MG TAB 60 MG PO (09:21)
[2024-11-08] MEDS: MAGNESIUM SULFATE IN WATER 2 GM/50 ML PIGGYBACK IV ×2 (09:21→20:48)
[2024-11-08] MEDS: FUROSEMIDE 40MG/4ML VIAL 40 MG IV (09:21)
[2024-11-08] MEDS: APIXABAN 5MG TABLET 2.5 MG PO ×2 (09:22→20:50)
[2024-11-08] MEDS: LISINOPRIL 10MG TABLET 10 MG PO (09:22)
[2024-11-08] MEDS: ASPIRIN 81MG CHEWABLE TABLET 81 MG PO (09:22)
[2024-11-08] MEDS: METOPROLOL SUCCINATE XL 25MG TABLET 25 MG PO (09:40)
[2024-11-08] MEDS: POLYETHYLENE GLYCOL 3350 17 GM PACKET PO ×2 (11:51→16:50)
[2024-11-08] MEDS: SENNOSIDES 8.6MG/DOCUSATE 50MG TABLET 1 TAB PO ×2 (11:51→20:52)
[2024-11-08] MEDS: LIDOCAINE 5% TRANSDERMAL PATCH 1 EACH TP (13:49)
[2024-11-08 14:32] LABS: Chloride 90 mmol/L (98-107); Potassium 3.9 mmoL/L (3.5-5.1); Sodium 121 mmol/L (136-145)
[2024-11-08 14:35] LABS: Anion Gap 8.9 mEq/L (5-15); Blood Urea Nitrogen 5 mg/dl (7-17); Calcium 8.5 mg/dl (8.4-10.2); Carbon Dioxide 26 mmol/L (22.0-30.0); Creatinine Clearance Estimated 42 mL/min (50-200); Estimated Glomerular Filt Rate 94 ml/min (>60); GFR (African American) 114 ML/MIN (>60); Glucose 131 mg/dl (74-100)
--- NOTE | 2024-11-08 15:42 | PC.NURSE ---
PRN pain medications given for generalized pain with some relief noted. Lidocaine patch applied above coccyx and patient able to sit in chair for majority of shift. Purr wick in place and patient diuresing well. VS stable and patient remained on room air. Patient confused and only alert to self.
[2024-11-08] MEDS: 0.9 % SODIUM CHLORIDE 1000ML 1,000 ML 125 ML IV (18:27)
[2024-11-08] MEDS: GABAPENTIN 300MG CAPSULE 300 MG PO (20:50)
[2024-11-08] MEDS: ATORVASTATIN 40MG TABLET 40 MG PO (20:50)
[2024-11-08 22:26] LABS: Chloride 91 mmol/L (98-107)
[2024-11-08 22:27] LABS: Potassium 3.7 mmoL/L (3.5-5.1); Sodium 121 mmol/L (136-145)
[2024-11-08 22:29] LABS: Blood Urea Nitrogen 7 mg/dl (7-17)
[2024-11-08 22:30] LABS: Anion Gap 7.7 mEq/L (5-15); Calcium 8.3 mg/dl (8.4-10.2); Carbon Dioxide 26 mmol/L (22.0-30.0); Creatinine Clearance Estimated 42 mL/min (50-200); Estimated Glomerular Filt Rate 94 ml/min (>60); GFR (African American) 114 ML/MIN (>60); Glucose 146 mg/dl (74-100)
[2024-11-09] VITALS (7 sets, daily range): BP systolic 152–180; BP diastolic 74–100; PULSE 58–74; RESP 15–17; TEMP 36.7–37; O2SAT 93–98; BMI 25.6
[2024-11-09 08:20] LABS: Albumin Level 3.3 g/dl (3.5-5.0); Chloride 93 mmol/L (98-107); Potassium 3.7 mmoL/L (3.5-5.1); Sodium 124 mmol/L (136-145)
[2024-11-09 08:22] LABS: Blood Urea Nitrogen 6 mg/dl (7-17); Creatinine Clearance Estimated 42 mL/min (50-200); Estimated Glomerular Filt Rate 116 ml/min (>60); GFR (African American) 141 ML/MIN (>60)
[2024-11-09 08:23] LABS: Alanine Aminotransferase 17 U/L (12-78); Albumin/Globulin Ratio 1.4 (1.1-1.8); Alkaline Phosphatase 52 U/L (38-126); Anion Gap 7.7 mEq/L (5-15); Aspartate Amino Transferase 46 U/L (14-36); Bilirubin,Total 0.6 mg/dl (0.2-1.3); Calcium 8.3 mg/dl (8.4-10.2); Carbon Dioxide 27 mmol/L (22.0-30.0); Globulin 2.3 g/dL (1.3-3.2); Glucose 105 mg/dl (74-100); Total Protein,Serum 5.6 g/dl (6.3-8.2)
--- NOTE | 2024-11-09 08:33 | P.PN_ITS ---
Subjective *Date: 11/09/24 *Time: 13:37 Interval history: Patient quite weak today. On supplemental oxygen initially on rounds. Weaned to room air during rounds and maintain sats above 90%. Sodium slightly improved this morning on labs to 124. Was in significant pain this morning as she had not had pain meds since about 8 PM last night. Feeling better after receiving hydrocodone. Nausea when in severe pain. No bowel movement since admission Medical Exam Vital signs and Labs for Last 24 Hours: Vital Signs Temp Pulse Pulse Resp BP Pulse Ox O2 Del Method 11/09/24 07:00 Nasal Cannula 11/09/24 05:00 Nasal Cannula 11/09/24 04:00 70 11/09/24 04:00 Nasal Cannula 11/09/24 04:00 98.6 F 58 L 15 179/98 H 96 Nasal Cannula 11/09/24 00:00 60 11/09/24 00:00 98.0 F 11/08/24 23:00 Nasal Cannula 11/08/24 21:00 Nasal Cannula 11/08/24 20:00 60 11/08/24 20:00 98.4 F 11/08/24 20:00 69 12 159/84 H 94 L Nasal Cannula 11/08/24 18:35 Room Air 11/08/24 17:00 Room Air 11/08/24 16:00 60 11/08/24 16:00 70 14 165/85 H 95 Room Air 11/08/24 15:55 Room Air 11/08/24 15:05 Room Air 11/08/24 14:00 60 14 171/83 H 94 L Room Air 11/08/24 13:15 Room Air 11/08/24 12:00 60 11/08/24 12:00 60 18 169/97 H 93 L Room Air 11/08/24 11:10 Room Air 11/08/24 10:00 74 16 166/65 H 93 L Room Air 11/08/24 08:58 Room Air O2 Flow Rate 11/09/24 07:00 2 11/09/24 05:00 2 11/09/24 04:00 11/09/24 04:00 2 11/09/24 04:00 2 11/09/24 00:00 11/09/24 00:00 11/08/24 23:00 2 11/08/24 21:00 2 11/08/24 20:00 11/08/24 20:00 11/08/24 20:00 2 11/08/24 18:35 11/08/24 17:00 11/08/24 16:00 11/08/24 16:00 11/08/24 15:55 11/08/24 15:05 11/08/24 14:00 11/08/24 13:15 11/08/24 12:00 11/08/24 12:00 11/08/24 11:10 11/08/24 10:00 11/08/24 08:58 Intake and Output 11/08/24 11/09/24 11/09/24 23:59 07:59 15:59 Intake Total 120 / 1202 735 / 735 Output Total 500 / 1700 400 / 400 Balance -380 / -498 335 / 335 Intake: Intake, Oral Amount 120 / 417 Intake, Total IV Amount 735 / 735 0.9 % Sodium Chloride 1000ML 1, 735 / 735 000 ml @ 100 mls/hr IV .Q10H [facility] Rx#:[id number] Output: Output, Urine Amount 500 / 1700 400 / 400 Other: Weight 69.853 kg Patient Weight 11/09/24 23:59 Weight 69.853 kg Laboratory Results - last 24 hr 11/08/24 14:10: Sodium 121 L, Potassium 3.9, Chloride 90 L, Carbon Dioxide 26, Anion Gap 8.9, BUN 5 L, Creatinine 0.60, Estimated Creat Clear 42, Estimated GFR 94, Est GFR ( Amer) 114, Glucose 131 H D, Calcium 8.5 11/08/24 22:05: Sodium 121 L, Potassium 3.7, Chloride 91 L, Carbon Dioxide 26, Anion Gap 7.7, BUN 7 D, Creatinine 0.60, Estimated Creat Clear 42, Estimated GFR 94, Est GFR ( Amer) 114, Glucose 146 H, Calcium 8.3 L I & O for Labs for Last 24 Hours: Intake & Output 11/06/24 11/07/24 11/08/24 11/09/24 23:59 23:59 23:59 23:59 Intake Total 1190 / 1310 467 / 1202 735 / 735 Output Total 0 / 0 1300 / 1700 400 / 400 Balance 1190 / 1310 -833 / -498 335 / 335 Weight 69.853 kg 69.853 kg 69.853 kg 69.853 kg Constitutional: Present mild distress, average body habitus, chronically ill appearing and cooperative Head: Present atraumatic and normocephalic ENT: Present normal exam Comment:: Tender with movement Respiratory: Present normal respiratory effort; Absent rhonchi, wheezes or crackles Cardiac: Present Reg Rate and Rhythm GI: Present soft and tenderness (Diffuse nonfocal); Absent distention or normal bowel sounds Comments:: Diminished bowel sounds Extremities: Present normal inspection, full ROM, tenderness (In shoulders, hips, knees to palpation) and edema (2+ to knees. Tender to palpation) Skin: Present intact; Absent erythema Neuro: Present Grossly Intact, alert, awake, oriented x 3 and moves all extremities Assessment and Plan *Assessment and plan (1) SIADH (syndrome of inappropriate ADH production): Status: Acute Category: Medical Code(s): E22.2 - Syndrome of inappropriate secretion of antidiuretic hormone (2) Hyponatremia: Status: Acute Category: Medical Code(s): E87.1 - Hypo-osmolality and hyponatremia (3) Hypomagnesemia: Status: Acute Category: Medical Code(s): E83.42 - Hypomagnesemia (4) Sacroiliitis: Status: Acute Category: Medical Code(s): M46.1 - Sacroiliitis, not elsewhere classified (5) PAF (paroxysmal atrial fibrillation): Status: Acute Category: Medical Code(s): I48.0 - Paroxysmal atrial fibrillation (6) Fall: Status: Acute Qualifiers: Encounter type: initial encounter Qualified Code(s): W19.XXXA - Unspecified fall, initial encounter Category: Medical Code(s): W19.XXXA - Unspecified fall, initial encounter (7) Osteoarthritis of left shoulder: Status: Acute Category: Medical Code(s): M19.012 - Primary osteoarthritis, left shoulder (8) Dizziness of unknown etiology: Status: Chronic Category: Medical Code(s): R42 - Dizziness and giddiness (9) Chronic pain syndrome: Status: Acute Category: Medical Code(s): G89.4 - Chronic pain syndrome (10) Metabolic encephalopathy: Status: Acute Category: Medical Code(s): G93.41 - Metabolic encephalopathy Plan 89-year-old with past medical history of paroxysmal atrial fibrillation, sick sinus syndrome with pacemaker, 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 Patient presents after fall at [place] on day of presentation with sodium level 117. Sodium up to 124 this morning. Scheduling pain medication. Goals of care discussion with daughter at bedside, will continue to attempt to treat pain and sodium for the next 24 to 48 hours. If no improvement, will consider transitioning to hospice and focus strictly on comfort care and quality of life given the severity of pain and its impact on patient's mobility and quality. Continues to require inpatient management with monitoring of serial labs and adjustments to pain regimen. Patient's condition serious, strong concern for decompensation. Poor prognosis. Problems addressed as follows: Hyponatremia 2/2 SIADH: ? sodium improved from 117 on admission to 124. Liberalize fluid restriction to 1-1/2 L. Urine sodium of 128 and finding of SIADH - morning cortisol 14. Normal. Will initiate steroids however due to consistent pain and inflammation. - Lasix 40 mg IV daily - serial BMP every 12 hours, Na correction 8-10 meq daily - necessitating close monitoring due to confusion and severe hyponatremia -Given her oxygen requirement, continue supplemental oxygen as needed, chest imaging obtained showing no focal consolidation. White count normal at 4. No signs of infection. No indication for antibiotics. -Repeat CMP, CBC, magnesium ordered for the morning; potassium 3.7, kidney function normal with BUN 6, creatinine 0.5 Hypomagnesia: Magnesium 2.2. Hold on replacement today. Repeat level ordered for the morning Adult failure to thrive status post fall: ?Reviewed CTA head, neck, chest, abdomen, pelvis done by emergency room physician. Patient has bilateral carotid stenosis probably chronic. Patient also has fatty pancreas, with large abdominal hernia. No signs of acute CVA/dissection noted on my review of CTA films. ? Daughter states patient has been more confused recently probably secondary to low sodium levels. Patient has also seen behavioral health/neurology recently as outpatient per daughter report and started on new medication. Will treat hyponatremia then reevaluate ataxia issue. PT/OT/wound care during hospitalization. Patient already at [place] since October 16, and will likely discharge there at time of hospital disposition. Paroxysmal atrial fibrillation continue apixaban 5 mg p.o. daily Sick sinus syndrome with pacemaker: Discussed case with cardiology, will interrogate pacer. Does not appear to have had any events causing her syncope. No change to regimen at this time Stroke 3 years ago: Apixaban as stated above plus aspirin 81 mg p.o. daily Hypertension: Due to poor p.o. intake and inconsistent medication compliance, will transition to enalapril 1.25 mg every 6 hours scheduled, hydralazine 10 mg IV every 6 hours as needed SBP over 160 Chronic pain: -Complicates all aspects of her care. Severely impacts her mobility and functionality. Causing nausea and hypertension. Schedule hydrocodone 7-1/2 mg every 6 hours. Will administer morphine 4 mg IV every 4 as needed for severe breakthrough pain. -Continue prednisone 60 mg daily for inflammation and pain component , consider taper in the next day or 2 -Lidocaine patch topically on bottom - Gabapentin 300 mg p.o. nightly, Tylenol 650 p.o. every 6 as needed pain Celebrex 100 mg p.o. daily. GERD: Protonix 40 mg p.o. twice daily. Sacroiliitis: As above and chronic pain section Hyperlipidemia: Rosuvastatin 10 mg p.o. daily PPx apixaban 5 mg p.o. twice daily CODE STATUS DNR/DNI per patient and patient's daughter
[2024-11-09] MEDS: PANTOPRAZOLE 40MG VIAL 40 MG IV (08:53)
[2024-11-09] MEDS: FUROSEMIDE 40MG/4ML VIAL 40 MG IV (08:53)
[2024-11-09] MEDS: DICLOFENAC SODIUM 1% 2 EACH TP ×3 (08:54→17:12)
[2024-11-09] MEDS: LIDOCAINE 5% TRANSDERMAL PATCH 1 EACH TP (08:55)
[2024-11-09 09:18] LABS: Magnesium 2.2 mg/dl (1.6-2.3)
[2024-11-09] MEDS: ONDANSETRON 4MG/2ML VIAL 4 MG IV (09:21)
[2024-11-09] MEDS: LISINOPRIL 10MG TABLET 10 MG PO (09:40)
[2024-11-09] MEDS: APAP/HYDROCODONE 325MG/7.5MG TAB 1 TAB PO ×3 (09:40→21:26)
[2024-11-09] MEDS: METOPROLOL SUCCINATE XL 25MG TABLET 25 MG PO (09:40)
[2024-11-09] MEDS: ASPIRIN 81MG CHEWABLE TABLET 81 MG PO (11:58)
[2024-11-09] MEDS: APIXABAN 5MG TABLET 2.5 MG PO ×2 (11:58→21:27)
[2024-11-09] MEDS: SENNOSIDES 8.6MG/DOCUSATE 50MG TABLET 1 TAB PO (11:58)
[2024-11-09] MEDS: predniSONE 20MG TAB 60 MG PO (11:59)
[2024-11-09] MEDS: ENALAPRILAT 2.5MG/2ML VIAL 1.25 MG IV ×3 (12:00→21:28)
[2024-11-09 12:10] LABS: Basophils % 0.9 % (0.1-2.0); Eosinophils % 0.5 % (0.1-12.0); Hematocrit 30.4 % (37.0-47.0); Hemoglobin 10.6 g/dL (12.2-16.2); Lymphocytes # 1.2 K/mm3 (0.7-4.5); Lymphocytes % 27.2 % (10-50); Mean Corpuscular HGB Conc 34.8 g/dL (31.8-35.4); Mean Corpuscular Hemoglobin 33.3 pg (27.0-31.2); Mean Corpuscular Volume 95.6 fl (81-99); Mean Platelet Volume 8.6 fl (7.4-10.4); Monocytes # 0.5 K/mm3 (0.1-1.0); Monocytes % 12.4 % (1.7-9.3); Neutrophils # 2.5 K/mm3 (1.8-7.8); Platelet Count 197 K/mm3 (142-424); Red Blood Count 3.18 M/mm3 (4.20-5.40); Red Cell Distribution Width 13.7 % (11.5-17.5); White Blood Count 4.2 K/mm3 (4.8-10.8)
--- NOTE | 2024-11-09 12:26 | XR_ITS ---
PROCEDURE INFORMATION: Exam: XR Chest Exam date and time: 11/09/2024 12:34 PM Age: 89 years old Clinical indication: Shortness of breath; Additional info: New o2 requirement TECHNIQUE: Imaging protocol: Radiologic exam of the chest. Views: 1 view. Total images: 1 COMPARISON: CT ANGIO CHEST 11/06/2024 5:10 PM FINDINGS: Tubes, catheters and devices: A pacemaker device is present, its leads in appropriate position. Lungs: Bilateral hyperinflation is present. Atelectatic changes noted within both lung bases. No focal pneumonia. Pleural spaces: Unremarkable. No pleural effusion. No pneumothorax. Heart/Mediastinum: Heart demonstrates mild diffuse enlargement. Bones/joints: Postoperative changes of the right shoulder. Degenerative changes of the glenohumeral and acromioclavicular joints. The thoracic spine demonstrates mild degenerative changes at multiple levels. Intraperitoneal space: Surgical clips noted within the right upper quadrant. IMPRESSION: 1. Mild cardiomegaly. 2. Bilateral hyperinflation is present. 3. Atelectatic changes noted within both lung bases. 4. No focal pneumonia. 5. Degenerative changes of the glenohumeral and acromioclavicular joints.
[2024-11-09] MEDS: BISACODYL 10MG SUPP 10 MG RC (15:01)
[2024-11-09] MEDS: GLYCERIN ADULT 3GM SUPP 3 GM RC (15:02)
--- NOTE | 2024-11-09 16:06 | P.EN_ITS ---
Advance care planning note: Active diagnosis: Severe arthritis, chronic pain, multiple joint replacements, history of CVA, hypertension, hyponatremia, failure to thrive/progressive decline, sacroiliitis/degenerative disks disease The patient's active diagnoses are of sufficient risk that focused discussion on advanced care planning is indicated in order to allow the patient to thought fully consider personal goals of care; and, if situations arise that prevent the ability to personally give input, to ensure appropriate representation of their personal desires through documentation or informed surrogate decision makers. Discussion: Persons present and participating in discussion: Daughter, patient, myself Discussion: Extensive discussion about patient's goals and current response to treatment so far. Concerned that patient's sodium levels are not improving very well. Family is concerned about pain wants to focus on keeping patient out of pain. Discussed the fine-line between controlling her pain and keeping her functional. Family states understanding. At this time we will continue to try and treat her sodium for the next 24 to 48 hours, continue to work with therapy, address pain with scheduled pain regimen and see if we can find a good balance between pain control and functionality. However if pain continues to be no significant concern, discussed possibly transitioning to quality of life treatment and comfort care focusing on pain control understanding that it may limit her activity and hasten her decline. Discussed the concept of hospice, family not opposed to hospice if she is not medically improving. Time spent: Total time spent [id number] in education and discussion directly related to advance care plannin minutes Mj Parra 11/09/2024
[2024-11-09 17:53] LABS: Chloride 92 mmol/L (98-107); Potassium 3.7 mmoL/L (3.5-5.1); Sodium 126 mmol/L (136-145)
[2024-11-09 17:56] LABS: Anion Gap 9.7 mEq/L (5-15); Blood Urea Nitrogen 7 mg/dl (7-17); Calcium 8.7 mg/dl (8.4-10.2); Carbon Dioxide 28 mmol/L (22.0-30.0); Creatinine Clearance Estimated 42 mL/min (50-200); Estimated Glomerular Filt Rate 94 ml/min (>60); GFR (African American) 114 ML/MIN (>60); Glucose 144 mg/dl (74-100)
--- NOTE | 2024-11-09 18:46 | PC.NURSE ---
Pt has been alert to self and place. Zofran administered once in the am for nausea with pt reporting relief on reassessment. Gordon administered q6h per MD request. Morphine ordered for breakthrough pain but hasn't been needed. She was up to the chair for a few hours this afternoon and tolerated well. 1 bm today. 2000 mls emptied from purewick container this shift. She is currently resting in bed w/her eyes closed. Bed is locked and in the lowest position, call light within reach.
[2024-11-09] MEDS: GABAPENTIN 300MG CAPSULE 300 MG PO (21:28)
[2024-11-10] MEDS: ENALAPRILAT 2.5MG/2ML VIAL 1.25 MG IV ×4 (03:57→23:43)
[2024-11-10 04:00] VITALS: BP 149/67; PULSE 60; RESP 18; TEMP 36.6; O2SAT 94; BMI 26.0
[2024-11-10] MEDS: MORPHINE 4MG/ML SYRINGE 4 MG IV ×2 (05:01→18:09)
--- NOTE | 2024-11-10 05:24 | EXP.EVENT.NO ---
600 cc retained urine overnight on bladder scan so will anchor Tijer[place].
--- NOTE | 2024-11-10 06:30 | PC.NURSE ---
89 yo fe pt has remained confused throughout shift. She is alert only to name. She slept comfortably until early am . She began crying out. Pt was medicated with Morphine which seemed to help. publishing editor reported pt had only voided approx 150 ml through the night. Bladder scan showed approx [address] Graves who ordered to anchor zamudio. Cath placed with 1000 ml return. Pt tolerated well and resting comfortably afterward
[2024-11-10 07:18] LABS: Chloride 92 mmol/L (98-107)
[2024-11-10 07:19] LABS: Albumin Level 3.5 g/dl (3.5-5.0); Potassium 3.4 mmoL/L (3.5-5.1); Sodium 123 mmol/L (136-145)
[2024-11-10 07:21] LABS: Alanine Aminotransferase 19 U/L (12-78); Anion Gap 4.4 mEq/L (5-15); Aspartate Amino Transferase 42 U/L (14-36); Blood Urea Nitrogen 9 mg/dl (7-17); Carbon Dioxide 30 mmol/L (22.0-30.0); Creatinine Clearance Estimated 43 mL/min (50-200); Estimated Glomerular Filt Rate 116 ml/min (>60); GFR (African American) 141 ML/MIN (>60)
[2024-11-10 07:22] LABS: Albumin/Globulin Ratio 1.6 (1.1-1.8); Alkaline Phosphatase 63 U/L (38-126); Bilirubin,Total 0.5 mg/dl (0.2-1.3); Calcium 8.7 mg/dl (8.4-10.2); Globulin 2.2 g/dL (1.3-3.2); Glucose 98 mg/dl (74-100); Total Protein,Serum 5.7 g/dl (6.3-8.2)
[2024-11-10 07:34] LABS: Basophils % 0.2 % (0.1-2.0); Eosinophils % 0.1 % (0.1-12.0); Hematocrit 30.6 % (37.0-47.0); Hemoglobin 10.7 g/dL (12.2-16.2); Lymphocytes # 1.2 K/mm3 (0.7-4.5); Lymphocytes % 28.9 % (10-50); Mean Corpuscular Hemoglobin 32.7 pg (27.0-31.2); Mean Corpuscular Volume 93.3 fl (81-99); Monocytes # 0.3 K/mm3 (0.1-1.0); Monocytes % 8.2 % (1.7-9.3); Neutrophils # 2.5 K/mm3 (1.8-7.8); Neutrophils % 62.5 % (37.0-80.0); Platelet Count 214 K/mm3 (142-424); Red Blood Count 3.28 M/mm3 (4.20-5.40); Red Cell Distribution Width 14.1 % (11.5-17.5)
[2024-11-10 07:49] VITALS: BP 162/64; PULSE 78; RESP 16; TEMP 36.6; O2SAT 95
[2024-11-10 07:52] LABS: Magnesium 1.8 mg/dl (1.6-2.3)
[2024-11-10] MEDS: APAP/HYDROCODONE 325MG/7.5MG TAB 1 TAB PO ×2 (09:21→18:37)
[2024-11-10] MEDS: SODIUM CHLORIDE 1,000MG TABLET 500 MG PO ×2 (09:23→21:02)
[2024-11-10] MEDS: POTASSIUM CHLORIDE 20MEQ TAB 40 MEQ PO ×2 (09:25→13:24)
[2024-11-10] MEDS: ASPIRIN 81MG CHEWABLE TABLET 81 MG PO (09:27)
[2024-11-10] MEDS: MAGNESIUM SULFATE IN WATER 2 GM/50 ML PIGGYBACK IV (09:27)
[2024-11-10] MEDS: APIXABAN 5MG TABLET 2.5 MG PO ×2 (09:28→21:01)
[2024-11-10] MEDS: predniSONE 20MG TAB 60 MG PO (09:29)
[2024-11-10] MEDS: LIDOCAINE 5% TRANSDERMAL PATCH 1 EACH TP (09:30)
[2024-11-10] MEDS: FUROSEMIDE 40MG/4ML VIAL 40 MG IV (09:31)
[2024-11-10] MEDS: PANTOPRAZOLE 40MG TABLET 40 MG PO (09:36)
[2024-11-10] MEDS: METOPROLOL SUCCINATE XL 25MG TABLET 25 MG PO (09:39)
[2024-11-10] MEDS: DICLOFENAC SODIUM 1% 2 EACH TP ×2 (09:47→13:24)
--- NOTE | 2024-11-10 11:05 | EXP.ACUTE.PN ---
Subjective *Date: 11/10/24 *Time: 12:59 Interval history: Patient will bit more alert and interactive on morning rounds. Stable on room air. Had retention overnight necessitating placement of [place]. Labs stable this morning. Sodium with no significant change at 123. Working with therapy on rounds. Pain somewhat better controlled but still impactful per daughter's report. Medical Exam Vital signs and Labs for Last 24 Hours: Vital Signs Temp Pulse Pulse Resp BP Pulse Ox O2 Del Method 11/10/24 09:00 Room Air 11/10/24 08:00 Room Air 11/10/24 07:49 97.9 F 78 16 162/64 H 95 Room Air 11/10/24 07:00 Room Air 11/10/24 05:00 Room Air 11/10/24 04:00 97.8 F 60 18 149/67 H 94 L Room Air 11/10/24 03:00 Room Air 11/10/24 00:59 Room Air 11/09/24 23:58 98.0 F 60 16 172/74 H 96 Room Air 11/09/24 23:00 Room Air 11/09/24 21:00 Room Air 11/09/24 20:00 98.0 F 60 17 155/83 H 97 Room Air 11/09/24 18:33 Room Air 11/09/24 17:00 Room Air 11/09/24 16:00 60 11/09/24 16:00 98.1 F 60 16 160/87 H 93 L Room Air 11/09/24 15:00 Room Air 11/09/24 13:00 Room Air 11/09/24 12:00 60 11/09/24 12:00 98.1 F 62 17 152/75 H 98 Room Air Intake and Output 11/09/24 11/10/24 11/10/24 23:59 07:59 15:59 Intake Total 200 / 1055 270 / 270 Output Total 975 / 975 Balance 200 / -345 -975 / -705 270 / -705 Intake: Intake, Oral Amount 200 / 320 270 / 270 Output: Output, Urine Amount 975 / 975 Other: Number of Unmeasured Voids 0 Weight 70.987 kg Patient Weight 11/10/24 23:59 Weight 70.987 kg Laboratory Results - last 24 hr 11/09/24 07:10: WBC 4.2 L, RBC 3.18 L, Hgb 10.6 L, Hct 30.4 L, MCV 95.6, MCH 33.3 H, MCHC 34.8, RDW 13.7, Plt Count 197, MPV 8.6, Neut % (Auto) 59.0, Lymph % (Auto) 27.2, [place] % (Auto) 12.4 H, Eos % (Auto) 0.5, Baso % (Auto) 0.9, Neut # (Auto) 2.5, Lymph # (Auto) 1.2, [place] # (Auto) 0.5, Eos # (Auto) 0.0, Baso # (Auto) 0.0 11/09/24 17:39: Sodium 126 L, Potassium 3.7, Chloride 92 L, Carbon Dioxide 28, Anion Gap 9.7, BUN 7, Creatinine 0.60, Estimated Creat Clear 42, Estimated GFR 94, Est GFR ( Amer) 114, Glucose 144 H D, Calcium 8.7 11/10/24 05:58: WBC 4.0 L, RBC 3.28 L, Hgb 10.7 L, Hct 30.6 L, MCV 93.3, MCH 32.7 H, MCHC 35.0, RDW 14.1, Plt Count 214, MPV 8.0, Neut % (Auto) 62.5, Lymph % (Auto) 28.9, [place] % (Auto) 8.2, Eos % (Auto) 0.1, Baso % (Auto) 0.2, Neut # (Auto) 2.5, Lymph # (Auto) 1.2, [place] # (Auto) 0.3, Eos # (Auto) 0.0, Baso # (Auto) 0.0, Sodium 123 L, Potassium 3.4 L, Chloride 92 L, Carbon Dioxide 30, Anion Gap 4.4 L, BUN 9 D, Creatinine 0.50 L, Estimated Creat Clear 43, Estimated GFR 116, Est GFR ( Amer) 141 D, Glucose 98 D, Calcium 8.7, Magnesium 1.8 D, Total Bilirubin 0.5, AST 42 H, ALT 19, Alkaline Phosphatase 63, Total Protein 5.7 L, Albumin 3.5, Globulin 2.2, Albumin/Globulin Ratio 1.6 I & O for Labs for Last 24 Hours: Intake & Output 12/13/11/08/24 11/09/24 11/10/24 23:59 23:59 23:59 23:59 Intake Total 1190 / 1310 467 / 1202 1055 / 1055 270 / 270 Output Total 0 / 0 1300 / 1700 1400 / 1400 975 / 975 Balance 1190 / 1310 -833 / -498 -345 / -345 -705 / -705 Weight 69.853 kg 69.853 kg 69.853 kg 70.987 kg Constitutional: Present mild distress, average body habitus, chronically ill appearing and cooperative Head: Present atraumatic and normocephalic ENT: Present normal exam Comment:: Tender with movement Respiratory: Present normal respiratory effort; Absent rhonchi, wheezes or crackles Cardiac: Present Reg Rate and Rhythm GI: Present soft and tenderness (Diffuse nonfocal); Absent distention or normal bowel sounds Comments:: Diminished bowel sounds Extremities: Present normal inspection, full ROM, tenderness (In shoulders, hips, knees to palpation) and edema (2+ to knees. Tender to palpation) Skin: Present intact; Absent erythema Neuro: Present Grossly Intact, alert, awake, oriented x 3 and moves all extremities Assessment and Plan *Assessment and plan (1) SIADH (syndrome of inappropriate ADH production): Status: Acute Category: Medical Code(s): E22.2 - Syndrome of inappropriate secretion of antidiuretic hormone (2) Hyponatremia: Status: Acute Category: Medical Code(s): E87.1 - Hypo-osmolality and hyponatremia (3) Hypomagnesemia: Status: Acute Category: Medical Code(s): E83.42 - Hypomagnesemia (4) Sacroiliitis: Status: Acute Category: Medical Code(s): M46.1 - Sacroiliitis, not elsewhere classified (5) PAF (paroxysmal atrial fibrillation): Status: Acute Category: Medical Code(s): I48.0 - Paroxysmal atrial fibrillation (6) Fall: Status: Acute Qualifiers: Encounter type: initial encounter Qualified Code(s): W19.XXXA - Unspecified fall, initial encounter Category: Medical Code(s): W19.XXXA - Unspecified fall, initial encounter (7) Osteoarthritis of left shoulder: Status: Acute Category: Medical Code(s): M19.012 - Primary osteoarthritis, left shoulder (8) Dizziness of unknown etiology: Status: Chronic Category: Medical Code(s): R42 - Dizziness and giddiness (9) Chronic pain syndrome: Status: Acute Category: Medical Code(s): G89.4 - Chronic pain syndrome (10) Metabolic encephalopathy: Status: Acute Category: Medical Code(s): G93.41 - Metabolic encephalopathy Plan 89-year-old with past medical history of paroxysmal atrial fibrillation, sick sinus syndrome with pacemaker, 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 Patient presents after fall at [facility] on day of presentation with sodium level 117. Sodium up to 124 this morning. Scheduling pain medication. Goals of care discussion with daughter at bedside, will continue to attempt to treat pain and sodium for the next 24 to 48 hours. If no improvement, will consider transitioning to hospice and focus strictly on comfort care and quality of life given the severity of pain and its impact on patient's mobility and quality. Continues to require inpatient management with monitoring of serial labs and adjustments to pain regimen. Patient's condition serious, strong concern for decompensation. Poor prognosis. Problems addressed as follows: Hyponatremia 2/2 SIADH: ? Sodium 117 on admission. 123 this morning. Chloride 92. Potassium 3.4 magnesium 1.8. Kidney function normal with BUN 9, creatinine 0.5 -Repeat BMP ordered for this afternoon, repeat CBC, CMP, magnesium ordered for the morning. Continue fluid restriction 1.5 L -Continue steroids, initiate taper to 50 mg for 2 days, decrease by 10 mg QOD. - Lasix 40 mg IV daily - serial BMP every 12 hours, Na correction 8-10 meq daily - necessitating close monitoring due to confusion and severe hyponatremia -On room air this morning. -Initiate sodium supplementation with oral sodium chloride 500 mg twice daily. Adult failure to thrive status post fall: ?Reviewed CTA head, neck, chest, abdomen, pelvis done by emergency room physician. Patient has bilateral carotid stenosis probably chronic. Patient also has fatty pancreas, with large abdominal hernia. No signs of acute CVA/dissection noted on my review of CTA films. ? Daughter states patient has been more confused recently probably secondary to low sodium levels. Patient has also seen behavioral health/neurology recently as outpatient per daughter report and started on new medication. Will treat hyponatremia then reevaluate ataxia issue. PT/OT/wound care during hospitalization. Patient already at [facility] since October 16, and will likely discharge there at time of hospital disposition. Paroxysmal atrial fibrillation continue apixaban 5 mg p.o. daily Sick sinus syndrome with pacemaker: Discussed case with cardiology, will interrogate pacer. Does not appear to have had any events causing her syncope. No change to regimen at this time Stroke 3 years ago: Apixaban as stated above plus aspirin 81 mg p.o. daily Hypertension: Due to poor p.o. intake and inconsistent medication compliance, will transition to enalapril 1.25 mg every 6 hours scheduled, hydralazine 10 mg IV every 6 hours as needed SBP over 160 Chronic pain: -Complicates all aspects of her care. Severely impacts her mobility and functionality. Causing nausea and hypertension. Schedule hydrocodone 7.5mg every 6 hours. Will administer morphine 4 mg IV every 4 as needed for severe breakthrough pain. -Continue prednisone taper for inflammation and pain component -Lidocaine patch topically on bottom - Gabapentin 300 mg p.o. nightly, Tylenol 650 p.o. every 6 as needed pain Celebrex 100 mg p.o. daily. GERD: Protonix 40 mg p.o. twice daily. Sacroiliitis: As above and chronic pain section Hyperlipidemia: Rosuvastatin 10 mg p.o. daily PPx apixaban 5 mg p.o. twice daily CODE STATUS DNR/DNI per patient and patient's daughter
[2024-11-10 12:00] VITALS: BP 136/80; PULSE 60; RESP 18; TEMP 36.8; O2SAT 93
[2024-11-10 13:01] VITALS: BMI 26.0
[2024-11-10 16:00] VITALS: BP 184/77; PULSE 78; RESP 18; TEMP 36.8; O2SAT 95
--- NOTE | 2024-11-10 18:29 | PC.NURSE ---
PTS VSS. PAIN MEDS GIVEN PER MAR. STARTED BLADDER TRAINING TODAY. WITH NO URGE TO PEE. WILL CONTINUE TO BLADDER TRAIN.
[2024-11-10 18:37] LABS: Chloride 91 mmol/L (98-107); Sodium 121 mmol/L (136-145)
[2024-11-10 18:38] LABS: Potassium 4.5 mmoL/L (3.5-5.1)
[2024-11-10 18:40] LABS: Blood Urea Nitrogen 11 mg/dl (7-17); Creatinine Clearance Estimated 43 mL/min (50-200); Estimated Glomerular Filt Rate 94 ml/min (>60); GFR (African American) 114 ML/MIN (>60)
[2024-11-10 18:41] LABS: Anion Gap 7.5 mEq/L (5-15); Calcium 8.8 mg/dl (8.4-10.2); Carbon Dioxide 27 mmol/L (22.0-30.0); Glucose 207 mg/dl (74-100)
[2024-11-10 20:00] VITALS: BP 160/89; PULSE 63; RESP 16; TEMP 37.2; O2SAT 96
[2024-11-10] MEDS: ATORVASTATIN 40MG TABLET 40 MG PO (21:01)
[2024-11-10] MEDS: GABAPENTIN 300MG CAPSULE 300 MG PO (21:01)
[2024-11-10] MEDS: TAMSULOSIN 0.4MG CAPSULE 0.4 MG PO (21:02)
[2024-11-10] MEDS: SODIUM CHLORIDE 3 % 500 ML 25 ML IV (21:03)
[2024-11-11] VITALS: BP 176/75; PULSE 60; RESP 16; TEMP 36.7; O2SAT 92
[2024-11-11] MEDS: MORPHINE 4MG/ML SYRINGE 4 MG IV ×3 (00:16→13:29)
[2024-11-11 00:32] LABS: Anion Gap 6.2 mEq/L (5-15); Blood Urea Nitrogen 12 mg/dl (7-17); Calcium 8.9 mg/dl (8.4-10.2); Carbon Dioxide 31 mmol/L (22.0-30.0); Chloride 96 mmol/L (98-107); Creatinine Clearance Estimated 43 mL/min (50-200); Estimated Glomerular Filt Rate 94 ml/min (>60); GFR (African American) 114 ML/MIN (>60); Glucose 135 mg/dl (74-100); Potassium 4.2 mmoL/L (3.5-5.1); Sodium 129 mmol/L (136-145)
--- NOTE | 2024-11-11 02:30 | EXP.EVENT.NO ---
Checked patient's sodium and noted sodium increased to 129 by midnight. Discontinued 3% hypertonic saline since patient's sodium increased from 121-> 129. Will also give desmopressin 1 mcg subcu x 1 stat to prevent further elevations in sodium for next 6 hours.
[2024-11-11 04:00] VITALS: BP 202/80; PULSE 60; RESP 14; TEMP 36.7; O2SAT 95; BMI 26.0
[2024-11-11] MEDS: ENALAPRILAT 2.5MG/2ML VIAL 1.25 MG IV ×4 (04:08→23:41)
[2024-11-11 04:26] LABS: Basophils % 0.3 % (0.1-2.0); Eosinophils % 0.1 % (0.1-12.0); Hematocrit 33.9 % (37.0-47.0); Hemoglobin 11.2 g/dL (12.2-16.2); Lymphocytes # 1.7 K/mm3 (0.7-4.5); Lymphocytes % 32.6 % (10-50); Mean Corpuscular HGB Conc 33.1 g/dL (31.8-35.4); Mean Corpuscular Hemoglobin 31.9 pg (27.0-31.2); Mean Corpuscular Volume 96.3 fl (81-99); Monocytes # 0.4 K/mm3 (0.1-1.0); Monocytes % 7.7 % (1.7-9.3); Neutrophils % 59.2 % (37.0-80.0); Platelet Count 229 K/mm3 (142-424); Red Blood Count 3.52 M/mm3 (4.20-5.40); Red Cell Distribution Width 13.9 % (11.5-17.5)
[2024-11-11 04:37] LABS: Albumin Level 3.5 g/dl (3.5-5.0); Chloride 96 mmol/L (98-107); Potassium 4.2 mmoL/L (3.5-5.1); Sodium 127 mmol/L (136-145)
[2024-11-11 04:40] LABS: Alanine Aminotransferase 18 U/L (12-78); Albumin/Globulin Ratio 1.5 (1.1-1.8); Alkaline Phosphatase 58 U/L (38-126); Anion Gap 4.2 mEq/L (5-15); Aspartate Amino Transferase 30 U/L (14-36); Bilirubin,Total 0.5 mg/dl (0.2-1.3); Blood Urea Nitrogen 13 mg/dl (7-17); Carbon Dioxide 31 mmol/L (22.0-30.0); Creatinine Clearance Estimated 43 mL/min (50-200); Estimated Glomerular Filt Rate 94 ml/min (>60); GFR (African American) 114 ML/MIN (>60); Globulin 2.4 g/dL (1.3-3.2); Glucose 111 mg/dl (74-100); Total Protein,Serum 5.9 g/dl (6.3-8.2)
[2024-11-11 04:41] LABS: Magnesium 2.1 mg/dl (1.6-2.3)
[2024-11-11] MEDS: HYDRALAZINE 20MG/ML VIAL 10 MG IV (04:43)
--- NOTE | 2024-11-11 05:38 | PC.NURSE ---
Was notified that pts BP was 202/100. Manual BP was obtained which showed no difference. Provider notified and an order for 10mg IV Hydralazine was given. BP after 30 min was 147/76.
[2024-11-11 08:00] VITALS: BP 160/71; PULSE 68; RESP 18; TEMP 36.6; O2SAT 95
[2024-11-11] MEDS: LIDOCAINE 5% TRANSDERMAL PATCH 1 EACH TP (08:07)
[2024-11-11] MEDS: DICLOFENAC SODIUM 1% 2 EACH TP ×4 (08:07→20:52)
[2024-11-11] MEDS: DULOXETINE 30MG CAPSULE.DR 30 MG PO (08:08)
[2024-11-11] MEDS: predniSONE 20MG TAB 50 MG PO (08:08)
[2024-11-11] MEDS: ASPIRIN 81MG CHEWABLE TABLET 81 MG PO (08:08)
[2024-11-11] MEDS: CELECOXIB 100MG CAPSULE 100 MG PO (08:08)
[2024-11-11] MEDS: PANTOPRAZOLE 40MG TABLET 40 MG PO ×2 (08:08→20:48)
[2024-11-11] MEDS: METOPROLOL SUCCINATE XL 25MG TABLET 25 MG PO (08:08)
[2024-11-11] MEDS: APIXABAN 5MG TABLET 2.5 MG PO ×2 (08:08→20:47)
[2024-11-11] MEDS: SENNOSIDES 8.6MG/DOCUSATE 50MG TABLET 1 TAB PO ×2 (08:09→20:53)
[2024-11-11] MEDS: SODIUM CHLORIDE 1,000MG TABLET 500 MG PO ×2 (08:09→20:49)
[2024-11-11] MEDS: APAP/HYDROCODONE 325MG/7.5MG TAB 1 TAB PO ×2 (11:19→17:35)
--- NOTE | 2024-11-11 11:37 | CT_ITS ---
FINAL REPORT TECHNIQUE: Axial imaging of the brain was obtained without contrast. Reformatted images were also obtained and reviewed. This study was performed with techniques to keep radiation doses as low as reasonably achievable (ALARA). Individualized dose reduction techniques using automated exposure control or adjustment of mA and/or kV according to the patient's size were employed. This study was performed with techniques to keep radiation doses as low as reasonably achievable, (ALARA). Individualized dose reduction techniques using automated exposure control or adjustment of mA and/or kV according to the patient''s size were employed. CLINICAL HISTORY: possible stroke, word finding difficulty COMPARISON: 11/06/2024 FINDINGS: Severe atrophy and severe chronic ischemic white matter changes are noted. No cortical edema is present. There is no mass or hemorrhage. Ventricles are normal. Bone windows show no skull fracture or obvious obstructive lesion. IMPRESSION: 1. No acute intracranial abnormality or obvious mass. 2. Atrophy and chronic ischemic white matter changes as above. Reviewed, Interpreted and Dictated by Laura Novak MD Transcribed by Lilly Milligan Authenticated and [facility]
--- NOTE | 2024-11-11 12:35 | PC.NURSE ---
pt going to ct scan at this time.
--- NOTE | 2024-11-11 12:56 | PC.NURSE ---
spoke with Cherelle Armstrong, Videotape Editor who states hospice will be here to speak with pt and her daughter around [phone], communicated this to pt's daughter.
--- NOTE | 2024-11-11 15:44 | PC.NURSE ---
pt alert to self. pt ls diminished t/o. paced on dial brusher with trace edema to BLE. pt did get up to the chair this shift with pt using a walker. pt assist x 2 back to bed. pt was medicated per mar for chronic pain. . f/c in place and draining. Hospice did come and speak with pt's daughter, Kelly, this shift. At this time family undecided in hospice vs SNF. call light w/i reach. bed alarm in place.
[2024-11-11 16:00] VITALS: BP 186/93; PULSE 60; RESP 16; TEMP 37.2; O2SAT 95
--- NOTE | 2024-11-11 19:31 | EXP.ACUTE.PN ---
Subjective *Date: 11/11/24 *Time: 23:09 Interval history: Patient appears more fatigued on exam this morning. Daughter at bedside. She to feels that the patient is not as energetic and interactive as yesterday. More difficulty eating today. Got from the bed to the bedside chair with therapy, no ambulation however. On room air. No nausea or vomiting. Afebrile Medical Exam Vital signs and Labs for Last 24 Hours: Vital Signs Temp Pulse Resp BP Pulse Ox O2 Del Method 11/11/24 18:35 Room Air 11/11/24 16:47 Room Air 11/11/24 16:00 98.9 F 60 16 186/93 H 95 Room Air 11/11/24 14:46 Room Air 11/11/24 13:00 Room Air 11/11/24 10:51 Room Air 11/11/24 09:00 Room Air 11/11/24 08:00 Room Air 11/11/24 08:00 97.8 F 68 18 160/71 H 95 Room Air 11/11/24 06:58 Room Air 11/11/24 05:00 Room Air 11/11/24 04:00 98.1 F 60 14 202/80 H 95 Room Air 11/11/24 03:00 Room Air 11/11/24 01:00 Room Air 11/11/24 00:00 98.0 F 60 16 176/75 H 92 L Room Air 11/10/24 23:00 Room Air 11/10/24 21:00 Room Air 11/10/24 20:00 Room Air 11/10/24 20:00 98.9 F 63 16 160/89 H 96 Intake and Output 11/11/24 11/11/24 11/11/24 07:59 15:59 23:59 Intake Total 250 / 580 60 / 580 270 / 580 Output Total 300 / 600 0 / 600 300 / 600 Balance -50 / -20 60 / -20 -30 / -20 Intake: Intake, Oral Amount 250 / 580 60 / 580 270 / 580 Output: Output, Urine Amount 300 / 300 0 / 300 Output, Urine Amount (Catheter) 300 / 300 [place] 300 / 300 Other: Number of Voids 0 Number of Unmeasured Voids 0 Weight 70.98 kg Patient Weight 11/11/24 23:59 Weight 70.98 kg Laboratory Results - last 24 hr 11/11/24 00:15: Sodium 129 L, Potassium 4.2, Chloride 96 L, Carbon Dioxide 31 H, Anion Gap 6.2, BUN 12, Creatinine 0.60, Estimated Creat Clear 43, Estimated GFR 94, Est GFR ( Amer) 114, Glucose 135 H D, Calcium 8.9 11/11/24 04:05: WBC 5.0, RBC 3.52 L, Hgb 11.2 L, Hct 33.9 L, MCV 96.3, MCH 31.9 H, MCHC 33.1, RDW 13.9, Plt Count 229, MPV 8.0, Neut % (Auto) 59.2, Lymph % (Auto) 32.6, [place] % (Auto) 7.7, Eos % (Auto) 0.1, Baso % (Auto) 0.3, Neut # (Auto) 3.0, Lymph # (Auto) 1.7, [place] # (Auto) 0.4, Eos # (Auto) 0.0, Baso # (Auto) 0.0, Sodium 127 L, Potassium 4.2, Chloride 96 L, Carbon Dioxide 31 H, Anion Gap 4.2 L, BUN 13, Creatinine 0.60, Estimated Creat Clear 43, Estimated GFR 94, Est GFR ( Amer) 114, Glucose 111 H, Calcium 9.0, Magnesium 2.1 D, Total Bilirubin 0.5, AST 30 D, ALT 18, Alkaline Phosphatase 58, Total Protein 5.9 L, Albumin 3.5, Globulin 2.4, Albumin/Globulin Ratio 1.5 I & O for Labs for Last 24 Hours: Intake & Output 11/08/24 11/09/24 11/10/24 11/11/24 23:59 23:59 23:59 23:59 Intake Total 467 / 1202 1055 / 1055 720 / 970 580 / 580 Output Total 1300 / 1700 1400 / 1400 1775 / 1775 600 / 600 Balance -833 / -498 -345 / -345 -1055 / -805 -20 / -20 Weight 69.853 kg 69.853 kg 70.98 kg 70.98 kg Constitutional: Present mild distress, average body habitus, chronically ill appearing and cooperative Head: Present atraumatic and normocephalic ENT: Present normal exam Comment:: Tender with movement Respiratory: Present normal respiratory effort; Absent rhonchi, wheezes or crackles Cardiac: Present Reg Rate and Rhythm GI: Present soft and tenderness (Diffuse nonfocal); Absent distention or normal bowel sounds Comments:: Diminished bowel sounds Extremities: Present normal inspection, full ROM, tenderness (In shoulders, hips, knees to palpation) and edema (2+ to knees. Tender to palpation) Skin: Present intact; Absent erythema Neuro: Present Grossly Intact, alert, awake and moves all extremities Comment:: more fatigued today Assessment and Plan *Assessment and plan (1) SIADH (syndrome of inappropriate ADH production): Status: Acute Category: Medical Code(s): E22.2 - Syndrome of inappropriate secretion of antidiuretic hormone (2) Hyponatremia: Status: Acute Category: Medical Code(s): E87.1 - Hypo-osmolality and hyponatremia (3) Hypomagnesemia: Status: Acute Category: Medical Code(s): E83.42 - Hypomagnesemia (4) Sacroiliitis: Status: Acute Category: Medical Code(s): M46.1 - Sacroiliitis, not elsewhere classified (5) PAF (paroxysmal atrial fibrillation): Status: Acute Category: Medical Code(s): I48.0 - Paroxysmal atrial fibrillation (6) Fall: Status: Acute Qualifiers: Encounter type: initial encounter Qualified Code(s): W19.XXXA - Unspecified fall, initial encounter Category: Medical Code(s): W19.XXXA - Unspecified fall, initial encounter (7) Osteoarthritis of left shoulder: Status: Acute Category: Medical Code(s): M19.012 - Primary osteoarthritis, left shoulder (8) Dizziness of unknown etiology: Status: Chronic Category: Medical Code(s): R42 - Dizziness and giddiness (9) Chronic pain syndrome: Status: Acute Category: Medical Code(s): G89.4 - Chronic pain syndrome (10) Metabolic encephalopathy: Status: Acute Category: Medical Code(s): G93.41 - Metabolic encephalopathy Plan 89-year-old with past medical history of paroxysmal atrial fibrillation, sick sinus syndrome with pacemaker, 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 Patient presents after fall at [facility] on day of presentation with sodium level 117. Sodium up to 124 this morning. Scheduling pain medication. Goals of care discussion with daughter at bedside, will continue to attempt to treat pain and sodium for the next 24 hours. If no improvement, will consider transitioning to hospice and focus strictly on comfort care and quality of life given the severity of pain and its impact on patient's mobility and quality. Continues to require inpatient management with monitoring of serial labs and adjustments to pain regimen. Patient's condition serious, strong concern for decompensation. Poor prognosis. Problems addressed as follows: Hyponatremia 2/2 SIADH: ? Sodium 117 on admission. Improved to 129 overnight, down to 127 this morning. Chloride 96. Potassium 4.2, magnesium 2.1. Kidney function remains normal with BUN 13, creatinine 0.6. - Repeat BMP ordered for this afternoon, repeat CBC, CMP, magnesium ordered for the morning. Continue fluid restriction 1.5 L -Continue steroids, taper to 50 mg for 2 days, decrease by 10 mg QOD. - Lasix 40 mg IV daily - serial BMP every 12 hours, Na correction 8-10 meq daily - necessitating close monitoring due to confusion and severe hyponatremia -On room air this morning. - sodium supplementation with oral sodium chloride 500 mg twice daily. -Mentation slightly worse today. More weak and having more difficulty participating with therapy and eating. Adult failure to thrive status post fall: ?Reviewed CTA head, neck, chest, abdomen, pelvis done by emergency room physician. Patient has bilateral carotid stenosis probably chronic. Patient also has fatty pancreas, with large abdominal hernia. No signs of acute CVA/dissection noted on my review of CTA films. ? patient has also seen behavioral health/neurology recently as outpatient per daughter report and started on new medication. Will treat hyponatremia then reevaluate ataxia issue. PT/OT/wound care during hospitalization. Patient already at [facility] since October 16, and will likely discharge there at time of hospital disposition. Paroxysmal atrial fibrillation continue apixaban 5 mg p.o. daily Sick sinus syndrome with pacemaker: Discussed case with cardiology, will interrogate pacer. Does not appear to have had any events causing her syncope. No change to regimen at this time Stroke 3 years ago: Apixaban as stated above plus aspirin 81 mg p.o. daily Hypertension: Due to poor p.o. intake and inconsistent medication compliance, will transition to enalapril 1.25 mg every 6 hours scheduled, hydralazine 10 mg IV every 6 hours as needed SBP over 160 Chronic pain: -Complicates all aspects of her care. Severely impacts her mobility and functionality. Causing nausea and hypertension. Schedule hydrocodone 7.5mg every 6 hours. Will administer morphine 4 mg IV every 4 as needed for severe breakthrough pain. -Continue prednisone taper for inflammation and pain component -Lidocaine patch topically on bottom - Gabapentin 300 mg p.o. nightly, Tylenol 650 p.o. every 6 as needed pain Celebrex 100 mg p.o. daily. GERD: Protonix 40 mg p.o. twice daily. Sacroiliitis: As above and chronic pain section Hyperlipidemia: Rosuvastatin 10 mg p.o. daily PPx apixaban 5 mg p.o. twice daily CODE STATUS DNR/DNI per patient and patient's daughter
--- NOTE | 2024-11-11 19:32 | EXP.EVENT.NO ---
Advance care planning note: Active diagnosis:Severe arthritis, chronic pain, multiple joint replacements, history of CVA, hypertension, hyponatremia, failure to thrive/progressive decline, sacroiliitis/degenerative disks disease The patient's active diagnoses are of sufficient risk that focused discussion on advanced care planning is indicated in order to allow the patient to thoughtfully consider personal goals of care; and, if situations arise that prevent the ability to personally give input, to ensure appropriate representation of their personal desires through documentation or informed surrogate decision makers. Discussion: Persons present and participating in discussion: Daughter, patient, myself Discussion: Extensive discussion about patient's goals and current response to treatment so far. Concerned that patient's condition is deteriorating even with replacement of sodium and improvement in sodium level. Less energetic and interactive today. Appears more fatigued. Symptoms concerning for stroke. CT was obtained that did not show acute stroke but does have chronic deficits and atrophy. Difficulty working with therapy. Not eating well. Discussed holding further replacement this patient does not appear to be improving with sodium repletion and only appears to be getting weaker and showing further decline. Discussed patient's goals and patient's daughter's goals. They are interested in focusing on keeping patient out of pain. Discussed options for discharge including back to [place] with rehab or possible hospice. Will consult hospice to obtain further information and answer questions regarding what comfort care would look like. Daughter not prepared to make decision today however reiterates she wants her mom to be comfortable and does identify that she appears to be declining as opposed to improving clinically. Time spent: Total time spent [id number] in education and discussion directly related to advance care plannin minutes Mj Parra 11/11/2024
[2024-11-11 19:37] VITALS: BP 134/78; PULSE 63; RESP 14; TEMP 37.2; O2SAT 96
[2024-11-11] MEDS: TAMSULOSIN 0.4MG CAPSULE 0.4 MG PO (20:48)
[2024-11-11] MEDS: GABAPENTIN 300MG CAPSULE 300 MG PO (20:48)
[2024-11-11] MEDS: ATORVASTATIN 40MG TABLET 40 MG PO (20:49)
[2024-11-11 23:47] VITALS: BP 145/74; PULSE 60; RESP 16; TEMP 35.9; O2SAT 94
[2024-11-12 04:00] VITALS: BP 196/90; PULSE 68; RESP 14; TEMP 36.7; O2SAT 98; BMI 26.0
[2024-11-12] MEDS: ENALAPRILAT 2.5MG/2ML VIAL 1.25 MG IV ×2 (04:26→09:12)
[2024-11-12 07:14] LABS: Albumin Level 3.2 g/dl (3.5-5.0); Chloride 97 mmol/L (98-107); Potassium 3.7 mmoL/L (3.5-5.1); Sodium 127 mmol/L (136-145)
[2024-11-12 07:17] LABS: Alanine Aminotransferase 16 U/L (12-78); Albumin/Globulin Ratio 1.5 (1.1-1.8); Alkaline Phosphatase 56 U/L (38-126); Anion Gap 4.7 mEq/L (5-15); Aspartate Amino Transferase 31 U/L (14-36); Bilirubin,Total 0.5 mg/dl (0.2-1.3); Blood Urea Nitrogen 18 mg/dl (7-17); Calcium 8.6 mg/dl (8.4-10.2); Carbon Dioxide 29 mmol/L (22.0-30.0); Creatinine Clearance Estimated 43 mL/min (50-200); Estimated Glomerular Filt Rate 94 ml/min (>60); GFR (African American) 114 ML/MIN (>60); Globulin 2.2 g/dL (1.3-3.2); Glucose 90 mg/dl (74-100); Total Protein,Serum 5.4 g/dl (6.3-8.2)
[2024-11-12 07:47] LABS: White Blood Count 5.6 K/mm3 (4.8-10.8)
[2024-11-12 07:48] LABS: Hematocrit 30.4 % (37.0-47.0); Hemoglobin 10.4 g/dL (12.2-16.2); Lymphocytes % 42.1 % (10-50); Mean Corpuscular HGB Conc 34.2 g/dL (31.8-35.4); Mean Corpuscular Hemoglobin 31.6 pg (27.0-31.2); Mean Corpuscular Volume 92.4 fl (81-99); Mean Platelet Volume 9.9 fl (7.4-10.4); Neutrophils % 44.7 % (37.0-80.0); Platelet Count 210 K/mm3 (142-424); Red Blood Count 3.29 M/mm3 (4.20-5.40); Red Cell Distribution Width 12.7 % (11.5-17.5)
[2024-11-12 07:49] LABS: Basophils % 0.2 % (0.1-2.0); Eosinophils % 0.2 % (0.1-12.0); Lymphocytes # 2.3 K/mm3 (0.7-4.5); Monocytes # 0.7 K/mm3 (0.1-1.0); Monocytes % 12.1 % (1.7-9.3); Neutrophils # 2.5 K/mm3 (1.8-7.8)
[2024-11-12 07:50] VITALS: BP 165/79; PULSE 64; RESP 17; TEMP 36.6; O2SAT 95
--- NOTE | 2024-11-12 08:00 | EXP.DC.SUM ---
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 Patient presents after fall at [facility] yesterday with sodium level 117. Daughter present with patient in emergency room and acted as independent historian during my assessment. Daughter states that patient has been in [facility] since October 16. Daughter states that patient originally fell September 15, and was ultimately admitted to [facility] for short-term rehab. Daughter also states patient suffers from chronic lower back pain due to sacroiliitis, and frequently receives steroid epidural injections. Patient's last steroid epidural injection 10/14/2024. Patient reportedly nauseous x 7 days, and developed vomiting yesterday at [facility] after receiving sublingual ondansetron. Daughter states she was present in vomit with green nonbloody, no coffee-ground emesis noted. Patient reportedly fell at [facility] today, with labs checked and sodium noted to be 117. Patient subsequently sent to hospital for hyponatremia management. Admits to lightheadedness/dizziness x 24 hours. Daughter states patient has suffered from intermittent confusion since September, and currently seeing outpatient behavioral health or neurology specialist. Per daughter they started her on a new medication I just cannot remember what it is. Daughter states at baseline patient walks with a walker, but for last 2 months has required at least 1 person's assistance with ambulation. Left elbow abrasion, and bilateral lower extremity chronic stasis ulcers noted during my examination in ED. Daughter states patient bruises extremely easily. Patient admits to shortness of breath since 2020 intermittently. States her webmaster is Dr. Li. Denies fevers, sick contacts, recent travel, chest pain, abdominal pain, blurry vision. 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 Patient presents after fall at [facility] on day of presentation with sodium level 117. Sodium up to 124 this morning. Scheduling pain medication. Goals of care discussion with daughter at bedside, will continue to attempt to treat pain and sodium for the next 24 hours. Patient has shown some gradual improvement. Continues to work with therapy. Would benefit from skilled rehab to see if she can have significant improvement. Problems addressed as follows. Stable to discharge back to [facility]. Hyponatremia 2/2 SIADH: ? Sodium 117 on admission. Improved with various methods including IV repletion and oral repletion and fluid restriction. Stable at 127 on day of discharge with a chloride of 97. Kidney function normal with BUN 18, creatinine 0.6. Will continue sodium supplementation 500 mg twice daily. Recommend fluid restriction of 1500 to 2000 cc daily. Continue Lasix daily to promote free water clearance. Mentation somewhat improved today. Patient does wax and wane. She knows who she is and where she is and recognizes me. Adult failure to thrive status post fall: ?Reviewed CTA head, neck, chest, abdomen, pelvis done by emergency room physician. Patient has bilateral carotid stenosis probably chronic. Patient also has fatty pancreas, with large abdominal hernia. No signs of acute CVA/dissection noted on my review of CTA films. She has also seen behavioral health/neurology recently as outpatient per daughter report and started on new medication. Continue to work with therapy during admission. Would benefit from rehab at discharge. Will discharge to [facility] for further management Paroxysmal atrial fibrillation continue apixaban 5 mg p.o. daily Sick sinus syndrome with pacemaker: Discussed case with cardiology, will interrogate pacer. Does not appear to have had any events causing her syncope. No change to regimen at this time Stroke 3 years ago: Apixaban as stated above plus aspirin 81 mg p.o. daily, CT obtained of head to evaluate for repeat stroke, negative for acute findings. Hypertension: Transition back to oral regimen of metoprolol and lisinopril. Chronic pain: -Complicates all aspects of her care. Severely impacts her mobility and functionality. Causing nausea and hypertension. Scheduled hydrocodone 7.5 mg every 6 hours. Additionally, started on prednisone taper. Continue taper upon discharge starting with 40 mg daily for 2 days, decrease by 10 mg every 2 days until 5 mg twice daily and stop. Continue lidocaine patch topically for her bottom. Gabapentin 300 mg nightly. Tylenol 650 p.o. every 6 as needed pain Celebrex 100 mg p.o. daily. GERD: Protonix 40 mg p.o. twice daily. Sacroiliitis: As above and chronic pain section Hyperlipidemia: Rosuvastatin 10 mg p.o. daily Of note, patient had intermittent urinary retention. Started on tamsulosin 0.4 mg nightly. [place] catheter removed prior to discharge. Voiding independently prior to discharge after removal of catheter. Concern for some component of neurogenic bladder but not requiring catheter at this time. May need continued monitoring. Total time spent on discharge 32 minutes in counseling, documentation, chart review, and direct care with patient. Exam Data for Last 24 hours Vital signs and Labs for Last 24 Hours: Temp Pulse Resp BP Pulse Ox O2 Del Method O2 Flow Rate 97.9 F 64 17 165/79 H 95 Room Air 2 11/12/24 07:50 11/12/24 07:50 11/12/24 07:50 11/12/24 07:50 11/12/24 07:50 11/12/24 07:50 11/09/24 07:45 Laboratory Results - last 24 hr 11/12/24 06:22: WBC 5.6, RBC 3.29 L, Hgb 10.4 L, Hct 30.4 L, MCV 92.4, MCH 31.6 H, MCHC 34.2, RDW 12.7, Plt Count 210, MPV 9.9, Neut % (Auto) 44.7, Lymph % (Auto) 42.1, Wood % (Auto) 12.1 H, Eos % (Auto) 0.2, Baso % (Auto) 0.2, Neut # (Auto) 2.5, Lymph # (Auto) 2.3, Wood # (Auto) 0.7, Eos # (Auto) 0.0, Baso # (Auto) 0.0, Sodium 127 L, Potassium 3.7, Chloride 97 L, Carbon Dioxide 29, Anion Gap 4.7 L, BUN 18 H D, Creatinine 0.60, Estimated Creat Clear 43, Estimated GFR 94, Est GFR ( Amer) 114, Glucose 90, Calcium 8.6, Total Bilirubin 0.5, AST 31, ALT 16, Alkaline Phosphatase 56, Total Protein 5.4 L, Albumin 3.2 L, Globulin 2.2, Albumin/Globulin Ratio 1.5 I & O for Last 24 hours: Intake & Output 11/09/24 11/10/24 11/11/24 11/12/24 23:59 23:59 23:59 23:59 Intake Total 1055 / 1055 720 / 970 580 / 580 Output Total 1400 / 1400 1775 / 1775 600 / 600 575 / 575 Balance -345 / -345 -1055 / -805 -20 / -20 -575 / -575 Weight 69.853 kg 70.98 kg 70.98 kg 70.98 kg Constitutional Constitutional: no acute distress, average body habitus, chronically ill appearing and cooperative *Routine HEENT Exam Head: Present normocephalic Eye: Present EOMI and PERRL ENT: Present mucous membranes moist *Routine Neck Exam Neck: Present supple; Absent lymphadenopathy *Routine Respiratory Exam Respiratory: Present CTA bilaterally; Absent respiratory distress, rhonchi, wheezes or crackles *Routine Cardiovascular Exam Cardiovascular: Present RRR *Routine Abdominal Exam Abdominal: Present soft and normoactive bowel sounds; Absent tenderness *Routine Rectal Exam Patient deferred: visual exam *Routine Exam Patient deferred: external exam *Routine Extremities Exam Extremities: Present edema (Lower extremity chronic edema); Absent cyanosis or clubbing Comments: Joints tender *Routine Skin Exam Skin: Present intact and warm; Absent rash *Routine Neurological Exam Neurological: Present alert, oriented X3 and moving all extremities; Absent altered mental status Results Data Completed and Pending Labs on day of discharge: Labs from last 24 hours 11/12/24 06:22 WBC 5.6 RBC 3.29 L Hgb 10.4 L Hct 30.4 L MCV 92.4 MCH 31.6 H MCHC 34.2 RDW 12.7 Plt Count 210 MPV 9.9 Neut % (Auto) 44.7 Lymph % (Auto) 42.1 Wood % (Auto) 12.1 H Eos % (Auto) 0.2 Baso % (Auto) 0.2 Neut # (Auto) 2.5 Lymph # (Auto) 2.3 Wood # (Auto) 0.7 Eos # (Auto) 0.0 Baso # (Auto) 0.0 Sodium 127 L Potassium 3.7 Chloride 97 L Carbon Dioxide 29 Anion Gap 4.7 L BUN 18 H D Creatinine 0.60 Estimated Creat Clear 43 Estimated GFR 94 Est GFR ( Amer) 114 Glucose 90 Calcium 8.6 Total Bilirubin 0.5 AST 31 ALT 16 Alkaline Phosphatase 56 Total Protein 5.4 L Albumin 3.2 L Globulin 2.2 Albumin/Globulin Ratio 1.5 DS: Diagnosis Discharge Diagnosis (1) SIADH (syndrome of inappropriate ADH production): Status: Acute Code(s): E22.2 - Syndrome of inappropriate secretion of antidiuretic hormone (2) Hyponatremia: Status: Acute Code(s): E87.1 - Hypo-osmolality and hyponatremia (3) Hypomagnesemia: Status: Acute Code(s): E83.42 - Hypomagnesemia (4) Sacroiliitis: Status: Acute Code(s): M46.1 - Sacroiliitis, not elsewhere classified (5) PAF (paroxysmal atrial fibrillation): Status: Acute Code(s): I48.0 - Paroxysmal atrial fibrillation (6) Fall: Status: Acute Code(s): W19.XXXA - Unspecified fall, initial encounter Qualifiers: Encounter type: initial encounter Qualified Code(s): W19.XXXA - Unspecified fall, initial encounter (7) Osteoarthritis of left shoulder: Status: Acute Code(s): M19.012 - Primary osteoarthritis, left shoulder (8) Dizziness of unknown etiology: Status: Chronic Code(s): R42 - Dizziness and giddiness (9) Chronic pain syndrome: Status: Acute Code(s): G89.4 - Chronic pain syndrome (10) Metabolic encephalopathy: Status: Acute Code(s): G93.41 - Metabolic encephalopathy (11) Neurogenic bladder disorder: Status: Acute Code(s): N31.9 - Neuromuscular dysfunction of bladder, unspecified Meds Home Medications and Allergies Home Medications ?Medication ?Instructions ?Recorded ?Confirmed ?Type celecoxib 100 mg capsule 100 mg PO DAILY #90 caps 05/28/24 11/06/24 Rx gabapentin 300 mg capsule 300 mg PO HS Pain #30 caps 08/01/24 11/06/24 Rx pantoprazole 40 mg tablet,delayed 40 mg PO BID GERD 90 days #180 tabs 09/18/24 11/06/24 Rx release aspirin 81 mg chewable tablet 81 mg PO DAILY 11/06/24 11/06/24 History duloxetine 20 mg capsule,delayed 20 mg PO DAILY 11/06/24 11/06/24 History release (Cymbalta) apixaban 5 mg tablet (Eliquis) 5 mg PO BID 11/07/24 11/07/24 History clobetasol 0.05 % topical ointment 1 applic topical BIDP PRN itchy 11/07/24 11/07/24 History skin diclofenac sodium 1 % topical gel 2 g topical QID 11/07/24 11/07/24 History lisinopril 10 mg tablet 10 mg PO DAILY 11/07/24 11/07/24 History rjymwtxkmjny-qbwujnxa-qrmtot tablet 1 tab PO DAILY 11/07/24 11/07/24 History ondansetron 4 mg disintegrating 4 mg PO BIDP PRN Nausea And 11/07/24 11/07/24 History tablet Vomiting polyethylene glycol 3350 17 gram 17 g PO DAILYP PRN Constipation 11/07/24 11/07/24 History oral powder packet (Miralax) rosuvastatin 10 mg tablet 10 mg PO HS 11/07/24 11/07/24 History apixaban 5 mg tablet (Eliquis) 2.5 mg (1/2 x 5 mg) PO BID 30 days 11/12/24 Rx #30 tabs furosemide 20 mg tablet 20 mg PO DAILY Edema 30 days #30 11/12/24 11/06/24 Rx tabs hydrocodone 7.5 mg-acetaminophen 1 tab PO Q6H Pain 10 days #40 tabs 11/12/24 Rx 325 mg tablet metoprolol succinate 25 mg 25 mg PO DAILY 30 days #30 tabs 11/12/24 Rx tablet,extended release 24 hr prednisone 20 mg tablet See Rx Instructions .Route 11/12/24 Rx .COMPLEX #11 tabs sodium chloride 1,000 mg soluble 500 mg (1/2 x 1,000 mg) PO BID 30 11/12/24 Rx tablet days #30 tabs tamsulosin 0.4 mg capsule 0.4 mg PO HS 30 days #30 caps 11/12/24 Rx New Prescriptions to Start Prescriptions: apixaban [Eliquis] Mj Parra hydrocodone-acetaminophen Mj Parra metoprolol succinate Mj Parra prednisone Mj Parra sodium chloride Mj Parra tamsulosin Mj Parra Allergies Allergy/AdvReac Type Severity Reaction Status Date / Time No Known Allergies Allergy Verified 09/03/24 11:12 Discharge Plan Disposition Patient Disposition: [facility] Condition: Fair Discharge Order Discharge Orders: Discharge Order (Routine); Ordered 11/12/24 Ordered By: Mj Parra Follow up Plan Follow up with: Wes Valiente MD [Staff Physician] - 11/17/24 10:15 am Casimiro Hernandez MD [Staff Physician] - 12/08/24 1:30 pm Prescriptions/Medication Reconciliation: New prednisone 20 mg Tablet See Rx Instructions .ROUTE .COMPLEX Qty: 11 0RF Rx Instructions: Taper starting with 40 mg once daily on 11/13. 40 mg for 2 days, decrease to 30 mg for 2 days followed by 20 mg for 2 days, 10 mg for 2 days, 5 for 2 days, and stop tamsulosin 0.4 mg Capsule 0.4 mg PO HS 30 Days Qty: 30 0RF metoprolol succinate 25 mg Tablet Extended Release 24 Hr 25 mg PO DAILY 30 Days Qty: 30 0RF sodium chloride 1,000 mg Tablet,Soluble 500 mg PO BID 30 Days Qty: 30 0RF Eliquis 5 mg Tablet 2.5 mg PO BID 30 Days Qty: 30 0RF Continued celecoxib 100 mg capsule 100 mg PO DAILY Qty: 90 2RF gabapentin 300 mg capsule 300 mg PO HS Qty: 30 2RF pantoprazole 40 mg tablet,delayed release (DR/EC) 40 mg PO BID 90 Days Qty: 180 0RF aspirin 81 mg Tablet,Chewable 81 mg PO DAILY duloxetine [Cymbalta] 20 mg Capsule,Delayed Release(Dr/Ec) 20 mg PO DAILY lisinopril 10 mg tablet 10 mg PO DAILY rosuvastatin 10 mg tablet 10 mg PO HS Eliquis 5 mg tablet 5 mg PO BID Patient Comments: TAKE 1 TABLET 2 TIMES EACH DAY polyethylene glycol 3350 [Miralax] 17 gram Powder In Packet 17 g PO DAILYP PRN (Reason: Constipation) clobetasol 0.05 % ointment 1 applic TOPICAL BIDP PRN (Reason: itchy skin) ondansetron 4 mg tablet,disintegrating 4 mg PO BIDP PRN (Reason: Nausea And Vomiting) Patient Comments: PLACE 1 TABLET UNDER THE TONGUE AND ALLOW TO DISSOLVE 2 TIMES EACH DAY NEEDED FOR NAUSEA AND VOMITING nrtwuvbnoiet-jgqgxubj-gyoxpy Tablet 1 tab PO DAILY diclofenac sodium 1 % Gel 2 g TOPICAL QID Rx Instructions: apply to single elbow, wrist or hand; for hand includes palm/fingers/back of hand Changed hydrocodone-acetaminophen 7.5-325 mg Tablet 1 tab PO Q6H 10 Days Qty: 40 0RF furosemide 20 mg tablet 20 mg PO DAILY 30 Days Qty: 30 0RF Problem Reconciliation Problems Reviewed?: Yes Patient Discharge Instructions ACTIVITY: Continue current activity DIET: continue same diet Patient Instructions: DI for Hyponatremia, How to Prevent Falls Print Language: Polish Providers Primary Care Provider: Hayder Bravo Admit Provider: Mj Parra Attending Provider: Mj Parra
[2024-11-12 08:22] LABS: Magnesium 1.9 mg/dl (1.6-2.3)
--- NOTE | 2024-11-12 08:27 | PC.NURSE ---
11/12/24 0700 Pt. had stable night. slept most of shift. VSS. personal items and call de la cruz in reach.
[2024-11-12] MEDS: predniSONE 20MG TAB 50 MG PO (09:12)
[2024-11-12] MEDS: DICLOFENAC SODIUM 1% 2 EACH TP (09:12)
[2024-11-12] MEDS: METOPROLOL SUCCINATE XL 25MG TABLET 25 MG PO (09:12)
[2024-11-12] MEDS: DULOXETINE 30MG CAPSULE.DR 30 MG PO (09:13)
[2024-11-12] MEDS: APIXABAN 5MG TABLET 2.5 MG PO (09:13)
[2024-11-12] MEDS: SODIUM CHLORIDE 1,000MG TABLET 500 MG PO (09:13)
[2024-11-12] MEDS: APAP/HYDROCODONE 325MG/7.5MG TAB 1 TAB PO ×2 (09:13→15:56)
[2024-11-12] MEDS: CELECOXIB 100MG CAPSULE 100 MG PO (09:13)
[2024-11-12] MEDS: SENNOSIDES 8.6MG/DOCUSATE 50MG TABLET 1 TAB PO (09:13)
[2024-11-12] MEDS: ASPIRIN 81MG CHEWABLE TABLET 81 MG PO (09:13)
[2024-11-12] MEDS: LIDOCAINE 5% TRANSDERMAL PATCH 1 EACH TP (09:15)
[2024-11-12] MEDS: PANTOPRAZOLE 40MG TABLET 40 MG PO (09:15)
[2024-11-12] MEDS: ONDANSETRON 4MG/2ML VIAL 4 MG IV (09:34)
[2024-11-12 11:40] LABS: Osmolality, Urine 501 mOsmol/kg (.)
== END 2024-11-12 15:45 | DRG 643 ==
LOC: ER 17:58 → 2ND 19:36
PROVIDERS: Internal Medicine; Student in an Organized Health Care Education/Training Program; Admitting Provider Internal Medicine Adolescent Medicine; Emergency Provider Student in an Organized Health Care Education/Training Program; PCP Family Medicine; Visit Provider Internal Medicine Adolescent Medicine
DX: E22.2 Syndrome of inappropriate secretion of antidiuretic hormone (principal); G93.41 Metabolic encephalopathy; I69.351 Hemiplegia and hemiparesis following cerebral infarction affecting right dominant side; E83.42 Hypomagnesemia; M46.1 Sacroiliitis, not elsewhere classified; I48.0 Paroxysmal atrial fibrillation; M19.012 Primary osteoarthritis, left shoulder; G89.4 Chronic pain syndrome; R29.6 Repeated falls; Z95.0 Presence of cardiac pacemaker; I49.5 Sick sinus syndrome; I65.23 Occlusion and stenosis of bilateral carotid arteries; I10 Essential (primary) hypertension; Z79.899 Other long term (current) drug therapy; W01.0XXA Fall on same level from slipping, tripping and stumbling without subsequent striking against object, initial encounter; Z91.81 History of falling; Y92.121 Bathroom in nursing home as the place of occurrence of the external cause; I69.392 Facial weakness following cerebral infarction; R62.7 Adult failure to thrive; Z68.26 Body mass index [BMI] 26.0-26.9, adult
CPT/HCPCS: 36415; 70450; 70496; 70498; 71045; 71275; 72125; 72128; 72131; 74174; 80048; 80053; 81001; 82533; 82803; 83735; 83930; 83935; 84100; 84295; 84443; 84484; 84540; 85025; 86803; 87389; 97110; 97163; 97166; 97530; 97535; 99291; J0131; J0360; J1940; J2270; J2405; J3475; J7030; Q9967

== ENCOUNTER 2024-12-02 13:34 | Outpatient (CLI) | payer MEDICARE, SELFPAY ==
[2024-12-02 13:53] LABS: Basophils % 0.4 % (0.1-2.0); Eosinophils # 0.1 K/mm3 (0.0-0.4); Eosinophils % 3.1 % (0.1-12.0); Hematocrit 33.3 % (37.0-47.0); Hemoglobin 11.2 g/dL (12.2-16.2); Lymphocytes # 1.4 K/mm3 (0.7-4.5); Lymphocytes % 31.2 % (10-50); Mean Corpuscular HGB Conc 33.6 g/dL (31.8-35.4); Mean Corpuscular Hemoglobin 31.7 pg (27.0-31.2); Mean Corpuscular Volume 94.3 fl (81-99); Mean Platelet Volume 10.1 fl (7.4-10.4); Monocytes # 0.3 K/mm3 (0.1-1.0); Monocytes % 7.5 % (1.7-9.3); Neutrophils # 2.6 K/mm3 (1.8-7.8); Neutrophils % 57.6 % (37.0-80.0); Platelet Count 189 K/mm3 (142-424); Red Blood Count 3.53 M/mm3 (4.20-5.40); Red Cell Distribution Width 13.7 % (11.5-17.5); White Blood Count 4.6 K/mm3 (4.8-10.8)
[2024-12-02 14:32] LABS: Anion Gap 14.6 mEq/L (5-15); Blood Urea Nitrogen 8 mg/dl (7-17); Calcium 9.5 mg/dl (8.4-10.2); Carbon Dioxide 22 mmol/L (22.0-30.0); Chloride 98 mmol/L (98-107); Estimated Glomerular Filt Rate 116 ml/min (>60); GFR (African American) 141 ML/MIN (>60); Glucose 91 mg/dl (74-100); Magnesium 1.4 mg/dl (1.6-2.3); Potassium 4.6 mmoL/L (3.5-5.1); Sodium 130 mmol/L (136-145)
== END 2024-12-02 23:59 ==
LOC: LAB.DROPOF 12-29 09:44
PROVIDERS: Internal Medicine Adolescent Medicine; Visit Provider Nurse Practitioner Family
DX: G93.41 Metabolic encephalopathy (principal); R53.1 Weakness
CPT/HCPCS: 80048; 83735; 85025

== ENCOUNTER 2024-12-04 15:59 | Outpatient (CLI) | payer MEDICARE, SELFPAY | END 2024-12-04 23:59 | disposition home or self-care (01) | LOC: LAB.DROPOF 16:00 | PROVIDERS: PCP Internal Medicine Adolescent Medicine; Visit Provider Internal Medicine Adolescent Medicine | DX: N39.0 Urinary tract infection, site not specified (principal) | CPT/HCPCS: 87086; 87088; 87186 ==